=== PATIENT | male | born 1950 | race Caucasian/White ===

== ENCOUNTER 2023-06-13 16:08 | Inpatient (IN) | payer MEDICARE, BC, SELFPAY ==
[2023-06-13 16:15] VITALS: BP 145/73; PULSE 82; RESP 18; TEMP 36.7; O2SAT 100; BMI 26.8
--- NOTE | 2023-06-13 16:26 | ED_ITS ---
HPI - General Adult General Time Seen by Provider: 16:26 <Marty Moyer MD - Last Filed: 06/21/23 11:06> Date Seen: 06/13/23 <Marty Moyer MD - Last Filed: 06/21/23 11:06> Chief complaint: Difficulty Swallowing <Marty Moyer MD - Last Filed: 06/21/23 11:06> Stated complaint: Difficulty swallowing, stomach pain <Marty Moyer MD - Last Filed: 06/21/23 11:06> Time Seen by Provider: 06/13/23 16:23 <Marty Moyer MD - Last Filed: 06/21/23 11:06> Source: patient <Marty Moyer MD - Last Filed: 06/21/23 11:06> Mode of arrival: ambulatory <Marty Moyer MD - Last Filed: 06/21/23 11:06> Limitations: no limitations <Marty Moyer MD - Last Filed: 06/21/23 11:06> History of Present Illness HPI narrative: This 72-year-old male who comes in with 1 week of swallowing difficulty. Patient says the only thing he is able to tolerate for the last week is cream of wheat and liquids. He denies nausea vomiting. He denies any epigastric pain or history of heartburn. Distant history of smoking, denies alcohol use. Recently moved here from [place] <Marty Moyer MD - Last Filed: 06/21/23 11:06> Related Data Home medications: Home Medications Medication Instructions Recorded Confirmed apixaban 5 mg tablet (Eliquis) 5 mg PO BID 06/13/23 06/13/23 atorvastatin 40 mg tablet 80 mg PO DAILY 06/13/23 06/13/23 cholecalciferol (vitamin D3) 50 50 mcg PO DAILY 06/13/23 06/13/23 mcg (2,000 unit) capsule cilostazol 100 mg tablet 100 mg PO BID 06/13/23 06/13/23 clonidine HCl 0.1 mg tablet 0.1 mg PO BID 06/13/23 06/13/23 cyclopentolate 0.5 % eye drops 1 drp ophthalmic (eye-left) BID 06/13/23 06/13/23 (Cyclogyl) difluprednate 0.05 % eye drops 1 drp ophthalmic (eye-left) DAILY 06/13/23 06/13/23 dorzolamide 22.3 mg-timolol 6.8 1 drp ophthalmic (eye-left) BID 06/13/23 06/13/23 mg/mL eye drops glipizide 10 mg tablet 10 mg PO DAILY 06/13/23 06/13/23 lancets 06/13/23 06/13/23 losartan 25 mg tablet (Cozaar) 25 mg PO DAILY 06/13/23 06/13/23 mirtazapine 15 mg tablet 30 mg PO QHS 06/13/23 06/13/23 pantoprazole 40 mg tablet,delayed 40 mg PO DAILY 06/13/23 06/13/23 release (Protonix) tamsulosin 0.4 mg capsule (Flomax) 0.4 mg PO QHS 06/13/23 06/13/23 Previous Rx's Medication Instructions Recorded carvedilol 6.25 mg tablet 6.25 mg PO BID 30 days #60 tabs 06/18/23 clonazepam 0.5 mg tablet 0.5 mg PO BID 15 days #30 tabs 06/18/23 insulin NPH isoph U-100 human 100 8 unit (0.08 mL) subcut DAILY 30 06/18/23 unit/mL subcutaneous suspension days #3 mL (Humulin N NPH U-100 Insulin (isophane susp)) levofloxacin 250 mg tablet 250 mg PO DAILY 2 days #2 tabs 06/18/23 torsemide 5 mg tablet 15 mg (3 x 5 mg) PO DAILY 30 days 06/18/23 #90 tabs <Marty Moyer MD - Last Filed: 06/21/23 11:06> Allergies/adverse reactions: Allergies Allergy/AdvReac Type Severity Reaction Status Date / Time Penicillins Allergy Unknown Verified 06/13/23 16:15 <Marty Moyer MD - Last Filed: 06/21/23 11:06> [facility] Medical History: Medical History (Updated 06/19/23 @ 16:00 by Lashanda Lnyn PA-C) PVD (peripheral vascular disease) ?I73.9 - Peripheral vascular disease, unspecified (ICD-10) CKD (chronic kidney disease) ?N18.9 - Chronic kidney disease, unspecified (ICD-10) On prednisone therapy ?Z79.52 - shelter (current) use of systemic steroids (ICD-10) GERD (gastroesophageal reflux disease) ?K21.9 - Gastro-esophageal reflux disease without esophagitis (ICD-10) Congestive heart failure, unspecified ?I50.9 - Heart failure, unspecified (ICD-10) Chronic anticoagulation ?Z79.01 - [employer] intermedi[employer] (current) use of anticoagulants (ICD-10) Hyperlipidemia ?E78.5 - Hyperlipidemia, unspecified (ICD-10) Glaucoma ?H40.9 - Unspecified glaucoma (ICD-10) Psychiatric diagnosis deferred ?R69 - Illness, unspecified (ICD-10) Diabetes mellitus with hyperglycemia ?E11.65 - Type 2 diabetes mellitus with hyperglycemia (ICD-10) <Marty Moyer MD - Last Filed: 06/21/23 11:06> Social History: Social History What is your current living situation?: I presently have a place to live Problems where you live: no known problems Problems where you live details: n/a In the past 12 months, utilities in danger of being shut off: no In past 12 months, lack of transportation kept you from medical appts, meetings, work, or getting things needed for daily living: no In the past 12 mos, have been you worried that your food would run out before you had money to buy more?: never true In the past 12 mos, the food you bought just didn't last and you didn't have money to buy more?: never true Highest level of school completed/degree received: high school graduate Smoking Status: Former smoker Do you use any of these nicotine containing products: None Second hand tobacco smoke exposure: Yes How often do you have a drink containing alcohol: never How often do you have six or more drinks on one occasion: Never AUDIT-C Alcohol total score: 0 Non-prescribed substance use: denies use Caffeine: No How often does anyone, including family, friends and others, physically hurt you : never How often does anyone, including family, friends and others, insult or talk down to you: never How often does anyone, including family, friends and others, threaten you with harm: never How often does anyone, including family, friends and others, scream or curse at you: never service: Yes <Marty Moyer MD - Last Filed: 06/21/23 11:06> Exam Const: Vital Signs, click to edit/add: Vital Signs - 24 hr 06/13/23 16:15 06/13/23 16:38 06/13/23 18:31 Temperature 98.0 F Pulse Rate [Pulse Oximeter] 82 51 L 56 L Respiratory Rate 18 18 24 Blood Pressure [Ri ght Upper Arm] 145/73 H 155/101 H Pulse Oximetry 100 92 94 Oxygen Delivery Me thod Room Air Room Air Room Air 06/13/23 20:51 06/13/23 23:22 06/14/23 02:13 Temperature Pulse Rate [Pulse Oximeter] 65 55 L 58 L Respiratory Rate 18 18 18 Blood Pressure [Ri ght Upper Arm] 143/84 H 150/70 H Pulse Oximetry 95 93 95 Oxygen Delivery Me thod Room Air Room Air Room Air 06/14/23 04:39 Temperature Pulse Rate [Pulse Oximeter] 59 L Respiratory Rate 16 Blood Pressure [Ri ght Upper Arm] 155/77 H Pulse Oximetry 92 Oxygen Delivery Me thod Room Air <Marty Moyer MD - Last Filed: 06/21/23 11:06> Vital Signs, click to edit/add: Vital Signs - 24 hr 06/13/23 16:15 06/13/23 16:38 06/13/23 18:31 Temperature 98.0 F Pulse Rate [Pulse Oximeter] 82 51 L 56 L Respiratory Rate 18 18 24 Blood Pressure [Ri ght Upper Arm] 145/73 H 155/101 H Pulse Oximetry 100 92 94 Oxygen Delivery Me thod Room Air Room Air Room Air 06/13/23 20:51 06/13/23 23:22 06/14/23 02:13 Temperature Pulse Rate [Pulse Oximeter] 65 55 L 58 L Respiratory Rate 18 18 18 Blood Pressure [Ri ght Upper Arm] 143/84 H 150/70 H Pulse Oximetry 95 93 95 Oxygen Delivery Me thod Room Air Room Air Room Air 06/14/23 04:39 Temperature Pulse Rate [Pulse Oximeter] 59 L Respiratory Rate 16 Blood Pressure [Ri ght Upper Arm] 155/77 H Pulse Oximetry 92 Oxygen Delivery Me thod Room Air <Rose Galarza MD - Last Filed: 06/14/23 06:53> Course Course ED Course: Patient seen examined, prior records reviewed. Patient presents today complaining of progressive dysphagia for solids, still tolerating liquids. On exam, no tachycardia or hypotension to suggest dehydration. Labs ordered along with CT to evaluate for mass lesion. Patient will need an EGD and may need dilation based on findings. <Marty Moyer MD - Last Filed: 06/21/23 11:06> Reevaluation(s) Time of Reevaluation #1: 17:36 <Marty Moyer MD - Last Filed: 06/21/23 11:06> Reevaluation #1: Labs independently interpreted by me demonstrate creatinine of 2.5, unsure what patient's baseline is. IV fluids are ordered, CT scan will be done without contrast <Marty Moyer MD - Last Filed: 06/21/23 11:06> Time of Reevaluation #2: 18:00 <Marty Moyer MD - Last Filed: 06/21/23 11:06> Reevaluation #2: CT scan of the chest independently interpreted by me demonstrates small bilateral pleural effusions with patchy bilateral infiltrates <Marty Moyer MD - Last Filed: 06/21/23 11:06> Time of Reevaluation #3: 18:45 <Marty Moyer MD - Last Filed: 06/21/23 11:06> Reevaluation #3: CT scan does demonstrate a multifocal pneumonia versus malignancy, patient rechecked and says that he has a history of anemia but no history of kidney disease that he admits to. Generally patient is a difficult historian as he will not answer direct questions and answers tangentially. Labs independently interpreted by me with a hemoglobin 8.4, unclear what patient's baseline is but he does say he has anemia. Discussed admission versus discharge with the patient. He will discuss with family and they will make a decision. Protonix IV started as well as Rocephin and Flagyl for possible aspiration pneumonia. Suspect that patient may have reflux causing his swallowing difficulty and aspiration, patient will need repeat CT scan in 1-2 months to evaluate for resolution. <Marty Moyer MD - Last Filed: 06/21/23 11:06> Additional Reevaluation(s): Repeat labs reviewed at 6:30 a.m.. I do suspect that his renal disease is chronic, anemia is likely acute on chronic due to underlying renal disease but possible also GI issue. I will withhold transfusion for now. I spoke with our hospitalist team and they are agreeable to admission as well. He has been started on proton pump therapy. He has not exhibited any obvious signs of GI bleed for us. Antibiotics have been started appropriately. Patient remains on room air. Will need endoscopy. -Dr. Galarza <Rose Galarza MD - Last Filed: 06/14/23 06:53> Vital Signs Vital signs: Initial Vital Signs Temperature 98.0 F 06/13/23 16:15 Temperature Source Temporal Artery Scan 06/13/23 16:15 Pulse Rate 82 06/13/23 16:15 Pulse Rhythm Regular 06/13/23 16:15 Respiratory Rate 18 06/13/23 16:15 Blood Pressure 145/73 H 06/13/23 16:15 Blood Pressure Mean 97 06/13/23 16:15 Blood Pressure Position Sitting 06/13/23 16:15 Pulse Oximetry 100 06/13/23 16:15 Oxygen Delivery Method Room Air 06/13/23 16:15 Vital Signs Temperature 98.0 F 06/13/23 16:15 Pulse Rate 82 06/13/23 16:15 Respiratory Rate 18 06/13/23 16:15 Blood Pressure 145/73 H 06/13/23 16:15 Pulse Oximetry 100 06/13/23 16:15 Oxygen Delivery Method Room Air 06/13/23 16:15 Temperature 98.9 F 06/18/23 15:00 Pulse Rate 77 06/18/23 15:00 Respiratory Rate 16 06/18/23 15:00 Blood Pressure 152/80 H 06/18/23 15:00 Pulse Oximetry 93 06/18/23 16:15 Oxygen Delivery Method Room Air 06/18/23 16:15 Oxygen Flow Rate 0.5 06/17/23 03:00 Fraction of Inspired Oxygen 0.21 06/14/23 13:00 <Marty Moyer MD - Last Filed: 06/21/23 11:06> Initial Vital Signs Temperature 98.0 F 06/13/23 16:15 Temperature Source Temporal Artery Scan 06/13/23 16:15 Pulse Rate 82 06/13/23 16:15 Pulse Rhythm Regular 06/13/23 16:15 Respiratory Rate 18 06/13/23 16:15 Blood Pressure 145/73 H 06/13/23 16:15 Blood Pressure Mean 97 06/13/23 16:15 Blood Pressure Position Sitting 06/13/23 16:15 Pulse Oximetry 100 06/13/23 16:15 Oxygen Delivery Method Room Air 06/13/23 16:15 Vital Signs Temperature 98.0 F 06/13/23 16:15 Pulse Rate 82 06/13/23 16:15 Respiratory Rate 18 06/13/23 16:15 Blood Pressure 145/73 H 06/13/23 16:15 Pulse Oximetry 100 06/13/23 16:15 Oxygen Delivery Method Room Air 06/13/23 16:15 Temperature 98.9 F 06/18/23 15:00 Pulse Rate 77 06/18/23 15:00 Respiratory Rate 16 06/18/23 15:00 Blood Pressure 152/80 H 06/18/23 15:00 Pulse Oximetry 93 06/18/23 16:15 Oxygen Delivery Method Room Air 06/18/23 16:15 Oxygen Flow Rate 0.5 06/17/23 03:00 Fraction of Inspired Oxygen 0.21 06/14/23 13:00 <Rose Galarza MD - Last Filed: 06/14/23 06:53> Medical Decision Making Lab Data Labs: Lab Results 06/13/23 06/13/23 06/13/23 Range/Units 16:52 16:52 18:13 WBC 7.34 (4.50-11.00) K/uL RBC 2.89 L (4.30-5.90) m/uL Hgb 8.4 L (13.5-17.5) gm/dL Hct 25.5 L (37.0-53.0) % MCV 88 (80-100) fL MCH 29 (26-34) pg MCHC 33 (32-36) gm/dL RDW Coeff of Orestes 14.0 (11.5-15.5) % Plt Count 172 (140-440) K/uL Neut % (Auto) 90.1 H (42.0-72.0) % Lymph % (Auto) 5.0 L (20-44) % [place] % (Auto) 4.0 (0.0-11.0) % Eos % (Auto) 0.4 (0.0-7.0) % Baso % (Auto) 0.1 (0.0-3.0) % Neut # (Auto) 6.60 (1.7-7.0) K/uL Lymph # (Auto) 0.40 L (0.90-2.90) K/uL [place] # (Auto) 0.30 (0.00-0.90) K/UL Eos # (Auto) 0.03 (0.00-0.50) K/uL Baso # (Auto) 0.01 (0.00-0.30) K/uL Abs Immat Gran (auto) 0.03 (0.00-0.30) K/uL Imm/Tot Granulo (auto) 0.4 % Sodium 136 (135-149) mmol/L Potassium 3.8 (3.6-5.1) mmol/L Chloride 105 (96-114) mmol/L Carbon Dioxide 23 (20-32) mmol/L Anion Gap 8 (7-15) mEq/L BUN 50 H (7-30) mg/dL Creatinine 2.5 H (0.5-1.5) mg/dL Estimated Creat Clear 24.10 Estimated GFR 27 ml/min Glucose 316 H (60-115) mg/dL Hemoglobin A1c (0-5.6) % Uric Acid (2.2-8.4) mg/dL Calcium 7.9 L (8.4-10.6) mg/dL Magnesium 2.1 Cancelled (1.5-2.6) mg/dL Iron (49-181) ug/dL TIBC (261-462) ug/dL % Saturation (20-50) % Ferritin (17.9-464.0) ng/mL Total Bilirubin 0.7 (0.1-1.5) mg/dL Direct Bilirubin 0.0 (0.0-0.5) mg/dL AST 37 H (12-35) U/L ALT 31 (4-50) U/L Alkaline Phosphatase 89 (40-150) U/L Total Creatine Kinase (54-186) U/L Troponin I (0.01-0.04) ng/mL C-Reactive Protein 4.9 H (0.5-1.0) mg/dL NT-Pro-B Natriuret Pep pg/mL Total Protein 6.1 (6.0-8.3) g/dL Albumin 3.0 L (3.3-5.0) g/dL Procalcitonin 0.11 (<0.50) ng/mL Urine Color (Yellow) Urine Appearance (Clear) Urine pH (5.0-8.5) Ur Specific [place] (1.000-1.030) Urine Protein (Negative) Urine Glucose (UA) (Negative) Urine Ketones (Negative) Urine Blood (Negative) Urine Nitrite (Negative) Urine Bilirubin (Negative) Urine Urobilinogen (0.2-1.0) Ur Leukocyte Esterase (Negative) Urine RBC (0-2) Urine WBC (0-5) Ur Squamous Epith Cells (None-Few) Urine Bacteria (None) Urine Opiates Screen (Negative) Ur Oxycodone Screen (Negative) Urine Methadone Screen (Negative) Ur Propoxyphene Screen (Negative) Ur Barbiturates Screen (Negative) U Tricyclic Antidepress (Negative) Ur Phencyclidine Scrn (Negative) Ur Amphetamines Screen (Negative) U Methamphetamines Scrn (Negative) U Benzodiazepines Scrn (Negative) Urine Cocaine Screen (Negative) U Marijuana (THC) Screen (Negative) Ur Drug Screen Comment SARS-CoV-2 (PCR) (Negative) Influenza Type A (PCR) (Negative) Influenza Type B (PCR) (Negative) Lab Acknowledgement Test Added 06/14/23 06/14/23 06/14/23 Range/Units 02:00 05:55 08:51 WBC 7.11 (4.50-11.00) K/uL RBC 2.71 L (4.30-5.90) m/uL Hgb 7.9 L* (13.5-17.5) gm/dL Hct 23.7 L (37.0-53.0) % MCV 88 (80-100) fL MCH 29 (26-34) pg MCHC 33 (32-36) gm/dL RDW Coeff of Orestes 13.7 (11.5-15.5) % Plt Count 162 (140-440) K/uL Neut % (Auto) 80.4 H (42.0-72.0) % Lymph % (Auto) 10.0 L (20-44) % [place] % (Auto) 8.2 (0.0-11.0) % Eos % (Auto) 1.0 (0.0-7.0) % Baso % (Auto) 0.1 (0.0-3.0) % Neut # (Auto) 5.70 (1.7-7.0) K/uL Lymph # (Auto) 0.70 L (0.90-2.90) K/uL [place] # (Auto) 0.60 (0.00-0.90) K/UL Eos # (Auto) 0.07 (0.00-0.50) K/uL Baso # (Auto) 0.01 (0.00-0.30) K/uL Abs Immat Gran (auto) 0.02 (0.00-0.30) K/uL Imm/Tot Granulo (auto) 0.3 % Sodium 137 (135-149) mmol/L Potassium 3.7 (3.6-5.1) mmol/L Chloride 110 (96-114) mmol/L Carbon Dioxide 22 (20-32) mmol/L Anion Gap 5 L (7-15) mEq/L BUN 44 H (7-30) mg/dL Creatinine 2.2 H (0.5-1.5) mg/dL Estimated Creat Clear 27.39 Estimated GFR 31 ml/min Glucose 162 H (60-115) mg/dL Hemoglobin A1c 8.40 H (0-5.6) % Uric Acid 8.1 (2.2-8.4) mg/dL Calcium 7.7 L (8.4-10.6) mg/dL Magnesium (1.5-2.6) mg/dL Iron 38 L (49-181) ug/dL TIBC 206 L (261-462) ug/dL % Saturation 19 L (20-50) % Ferritin 411.0 (17.9-464.0) ng/mL Total Bilirubin (0.1-1.5) mg/dL Direct Bilirubin (0.0-0.5) mg/dL AST (12-35) U/L ALT (4-50) U/L Alkaline Phosphatase (40-150) U/L Total Creatine Kinase 107 (54-186) U/L Troponin I 0.07 H* (0.01-0.04) ng/mL C-Reactive Protein 2.8 H (0.5-1.0) mg/dL NT-Pro-B Natriuret Pep 52404 pg/mL Total Protein (6.0-8.3) g/dL Albumin (3.3-5.0) g/dL Procalcitonin 0.09 (<0.50) ng/mL Urine Color (Yellow) Urine Appearance (Clear) Urine pH (5.0-8.5) Ur Specific [place] (1.000-1.030) Urine Protein (Negative) Urine Glucose (UA) (Negative) Urine Ketones (Negative) Urine Blood (Negative) Urine Nitrite (Negative) Urine Bilirubin (Negative) Urine Urobilinogen (0.2-1.0) Ur Leukocyte Esterase (Negative) Urine RBC (0-2) Urine WBC (0-5) Ur Squamous Epith Cells (None-Few) Urine Bacteria (None) Urine Opiates Screen (Negative) Ur Oxycodone Screen (Negative) Urine Methadone Screen (Negative) Ur Propoxyphene Screen (Negative) Ur Barbiturates Screen (Negative) U Tricyclic Antidepress (Negative) Ur Phencyclidine Scrn (Negative) Ur Amphetamines Screen (Negative) U Methamphetamines Scrn (Negative) U Benzodiazepines Scrn (Negative) Urine Cocaine Screen (Negative) U Marijuana (THC) Screen (Negative) Ur Drug Screen Comment SARS-CoV-2 (PCR) Negative SARS-CoV-2 (Negative) Influenza Type A (PCR) Negative PCR FLU A (Negative) Influenza Type B (PCR) Negative PCR FLU B (Negative) Lab Acknowledgement Test Added 06/14/23 Range/Units 09:02 WBC (4.50-11.00) K/uL RBC (4.30-5.90) m/uL Hgb (13.5-17.5) gm/dL Hct (37.0-53.0) % MCV (80-100) fL MCH (26-34) pg MCHC (32-36) gm/dL RDW Coeff of Orestes (11.5-15.5) % Plt Count (140-440) K/uL Neut % (Auto) (42.0-72.0) % Lymph % (Auto) (20-44) % [place] % (Auto) (0.0-11.0) % Eos % (Auto) (0.0-7.0) % Baso % (Auto) (0.0-3.0) % Neut # (Auto) (1.7-7.0) K/uL Lymph # (Auto) (0.90-2.90) K/uL [place] # (Auto) (0.00-0.90) K/UL Eos # (Auto) (0.00-0.50) K/uL Baso # (Auto) (0.00-0.30) K/uL Abs Immat Gran (auto) (0.00-0.30) K/uL Imm/Tot Granulo (auto) % Sodium (135-149) mmol/L Potassium (3.6-5.1) mmol/L Chloride (96-114) mmol/L Carbon Dioxide (20-32) mmol/L Anion Gap (7-15) mEq/L BUN (7-30) mg/dL Creatinine (0.5-1.5) mg/dL Estimated Creat Clear Estimated GFR ml/min Glucose (60-115) mg/dL Hemoglobin A1c (0-5.6) % Uric Acid (2.2-8.4) mg/dL Calcium (8.4-10.6) mg/dL Magnesium (1.5-2.6) mg/dL Iron (49-181) ug/dL TIBC (261-462) ug/dL % Saturation (20-50) % Ferritin (17.9-464.0) ng/mL Total Bilirubin (0.1-1.5) mg/dL Direct Bilirubin (0.0-0.5) mg/dL AST (12-35) U/L ALT (4-50) U/L Alkaline Phosphatase (40-150) U/L Total Creatine Kinase (54-186) U/L Troponin I (0.01-0.04) ng/mL C-Reactive Protein (0.5-1.0) mg/dL NT-Pro-B Natriuret Pep pg/mL Total Protein (6.0-8.3) g/dL Albumin (3.3-5.0) g/dL Procalcitonin (<0.50) ng/mL Urine Color Yellow (Yellow) Urine Appearance Clear (Clear) Urine pH 5.5 (5.0-8.5) Ur Specific [place] 1.020 (1.000-1.030) Urine Protein 2+ A (Negative) Urine Glucose (UA) Trace A (Negative) Urine Ketones Negative (Negative) Urine Blood Trace-intact A (Negative) Urine Nitrite Negative (Negative) Urine Bilirubin Negative (Negative) Urine Urobilinogen 0.2 (0.2-1.0) Ur Leukocyte Esterase Negative (Negative) Urine RBC 0-2 (0-2) Urine WBC 0-2 (0-5) Ur Squamous Epith Cells Few (None-Few) Urine Bacteria Few A (None) Urine Opiates Screen Negative (Negative) Ur Oxycodone Screen Negative (Negative) Urine Methadone Screen Negative (Negative) Ur Propoxyphene Screen Negative (Negative) Ur Barbiturates Screen Negative (Negative) U Tricyclic Antidepress Negative (Negative) Ur Phencyclidine Scrn Negative (Negative) Ur Amphetamines Screen Negative (Negative) U Methamphetamines Scrn Negative (Negative) U Benzodiazepines Scrn Negative (Negative) Urine Cocaine Screen Negative (Negative) U Marijuana (THC) Screen Negative (Negative) Ur Drug Screen Comment See Note SARS-CoV-2 (PCR) (Negative) Influenza Type A (PCR) (Negative) Influenza Type B (PCR) (Negative) Lab Acknowledgement <Marty Moyer MD - Last Filed: 06/21/23 11:06> Lab Results 06/13/23 06/13/23 06/13/23 Range/Units 16:52 16:52 18:13 WBC 7.34 (4.50-11.00) K/uL RBC 2.89 L (4.30-5.90) m/uL Hgb 8.4 L (13.5-17.5) gm/dL Hct 25.5 L (37.0-53.0) % MCV 88 (80-100) fL MCH 29 (26-34) pg MCHC 33 (32-36) gm/dL RDW Coeff of Orestes 14.0 (11.5-15.5) % Plt Count 172 (140-440) K/uL Neut % (Auto) 90.1 H (42.0-72.0) % Lymph % (Auto) 5.0 L (20-44) % [place] % (Auto) 4.0 (0.0-11.0) % Eos % (Auto) 0.4 (0.0-7.0) % Baso % (Auto) 0.1 (0.0-3.0) % Neut # (Auto) 6.60 (1.7-7.0) K/uL Lymph # (Auto) 0.40 L (0.90-2.90) K/uL [place] # (Auto) 0.30 (0.00-0.90) K/UL Eos # (Auto) 0.03 (0.00-0.50) K/uL Baso # (Auto) 0.01 (0.00-0.30) K/uL Abs Immat Gran (auto) 0.03 (0.00-0.30) K/uL Imm/Tot Granulo (auto) 0.4 % Sodium 136 (135-149) mmol/L Potassium 3.8 (3.6-5.1) mmol/L Chloride 105 (96-114) mmol/L Carbon Dioxide 23 (20-32) mmol/L Anion Gap 8 (7-15) mEq/L BUN 50 H (7-30) mg/dL Creatinine 2.5 H (0.5-1.5) mg/dL Estimated Creat Clear 24.10 Estimated GFR 27 ml/min Glucose 316 H (60-115) mg/dL Hemoglobin A1c (0-5.6) % Uric Acid (2.2-8.4) mg/dL Calcium 7.9 L (8.4-10.6) mg/dL Magnesium 2.1 Cancelled (1.5-2.6) mg/dL Iron (49-181) ug/dL TIBC (261-462) ug/dL % Saturation (20-50) % Ferritin (17.9-464.0) ng/mL Total Bilirubin 0.7 (0.1-1.5) mg/dL Direct Bilirubin 0.0 (0.0-0.5) mg/dL AST 37 H (12-35) U/L ALT 31 (4-50) U/L Alkaline Phosphatase 89 (40-150) U/L Total Creatine Kinase (54-186) U/L Troponin I (0.01-0.04) ng/mL C-Reactive Protein 4.9 H (0.5-1.0) mg/dL NT-Pro-B Natriuret Pep pg/mL Total Protein 6.1 (6.0-8.3) g/dL Albumin 3.0 L (3.3-5.0) g/dL Procalcitonin 0.11 (<0.50) ng/mL Urine Color (Yellow) Urine Appearance (Clear) Urine pH (5.0-8.5) Ur Specific [place] (1.000-1.030) Urine Protein (Negative) Urine Glucose (UA) (Negative) Urine Ketones (Negative) Urine Blood (Negative) Urine Nitrite (Negative) Urine Bilirubin (Negative) Urine Urobilinogen (0.2-1.0) Ur Leukocyte Esterase (Negative) Urine RBC (0-2) Urine WBC (0-5) Ur Squamous Epith Cells (None-Few) Urine Bacteria (None) Urine Opiates Screen (Negative) Ur Oxycodone Screen (Negative) Urine Methadone Screen (Negative) Ur Propoxyphene Screen (Negative) Ur Barbiturates Screen (Negative) U Tricyclic Antidepress (Negative) Ur Phencyclidine Scrn (Negative) Ur Amphetamines Screen (Negative) U Methamphetamines Scrn (Negative) U Benzodiazepines Scrn (Negative) Urine Cocaine Screen (Negative) U Marijuana (THC) Screen (Negative) Ur Drug Screen Comment SARS-CoV-2 (PCR) (Negative) Influenza Type A (PCR) (Negative) Influenza Type B (PCR) (Negative) Lab Acknowledgement Test Added 06/14/23 06/14/23 06/14/23 Range/Units 02:00 05:55 08:51 WBC 7.11 (4.50-11.00) K/uL RBC 2.71 L (4.30-5.90) m/uL Hgb 7.9 L* (13.5-17.5) gm/dL Hct 23.7 L (37.0-53.0) % MCV 88 (80-100) fL MCH 29 (26-34) pg MCHC 33 (32-36) gm/dL RDW Coeff of Orestes 13.7 (11.5-15.5) % Plt Count 162 (140-440) K/uL Neut % (Auto) 80.4 H (42.0-72.0) % Lymph % (Auto) 10.0 L (20-44) % [place] % (Auto) 8.2 (0.0-11.0) % Eos % (Auto) 1.0 (0.0-7.0) % Baso % (Auto) 0.1 (0.0-3.0) % Neut # (Auto) 5.70 (1.7-7.0) K/uL Lymph # (Auto) 0.70 L (0.90-2.90) K/uL [place] # (Auto) 0.60 (0.00-0.90) K/UL Eos # (Auto) 0.07 (0.00-0.50) K/uL Baso # (Auto) 0.01 (0.00-0.30) K/uL Abs Immat Gran (auto) 0.02 (0.00-0.30) K/uL Imm/Tot Granulo (auto) 0.3 % Sodium 137 (135-149) mmol/L Potassium 3.7 (3.6-5.1) mmol/L Chloride 110 (96-114) mmol/L Carbon Dioxide 22 (20-32) mmol/L Anion Gap 5 L (7-15) mEq/L BUN 44 H (7-30) mg/dL Creatinine 2.2 H (0.5-1.5) mg/dL Estimated Creat Clear 27.39 Estimated GFR 31 ml/min Glucose 162 H (60-115) mg/dL Hemoglobin A1c 8.40 H (0-5.6) % Uric Acid 8.1 (2.2-8.4) mg/dL Calcium 7.7 L (8.4-10.6) mg/dL Magnesium (1.5-2.6) mg/dL Iron 38 L (49-181) ug/dL TIBC 206 L (261-462) ug/dL % Saturation 19 L (20-50) % Ferritin 411.0 (17.9-464.0) ng/mL Total Bilirubin (0.1-1.5) mg/dL Direct Bilirubin (0.0-0.5) mg/dL AST (12-35) U/L ALT (4-50) U/L Alkaline Phosphatase (40-150) U/L Total Creatine Kinase 107 (54-186) U/L Troponin I 0.07 H* (0.01-0.04) ng/mL C-Reactive Protein 2.8 H (0.5-1.0) mg/dL NT-Pro-B Natriuret Pep 83225 pg/mL Total Protein (6.0-8.3) g/dL Albumin (3.3-5.0) g/dL Procalcitonin 0.09 (<0.50) ng/mL Urine Color (Yellow) Urine Appearance (Clear) Urine pH (5.0-8.5) Ur Specific [place] (1.000-1.030) Urine Protein (Negative) Urine Glucose (UA) (Negative) Urine Ketones (Negative) Urine Blood (Negative) Urine Nitrite (Negative) Urine Bilirubin (Negative) Urine Urobilinogen (0.2-1.0) Ur Leukocyte Esterase (Negative) Urine RBC (0-2) Urine WBC (0-5) Ur Squamous Epith Cells (None-Few) Urine Bacteria (None) Urine Opiates Screen (Negative) Ur Oxycodone Screen (Negative) Urine Methadone Screen (Negative) Ur Propoxyphene Screen (Negative) Ur Barbiturates Screen (Negative) U Tricyclic Antidepress (Negative) Ur Phencyclidine Scrn (Negative) Ur Amphetamines Screen (Negative) U Methamphetamines Scrn (Negative) U Benzodiazepines Scrn (Negative) Urine Cocaine Screen (Negative) U Marijuana (THC) Screen (Negative) Ur Drug Screen Comment SARS-CoV-2 (PCR) Negative SARS-CoV-2 (Negative) Influenza Type A (PCR) Negative PCR FLU A (Negative) Influenza Type B (PCR) Negative PCR FLU B (Negative) Lab Acknowledgement Test Added 06/14/23 Range/Units 09:02 WBC (4.50-11.00) K/uL RBC (4.30-5.90) m/uL Hgb (13.5-17.5) gm/dL Hct (37.0-53.0) % MCV (80-100) fL MCH (26-34) pg MCHC (32-36) gm/dL RDW Coeff of Orest[place] (11.5-15.5) % Plt Count (140-440) K/uL Neut % (Auto) (42.0-72.0) % Lymph % (Auto) (20-44) % [place] % (Auto) (0.0-11.0) % Eos % (Auto) (0.0-7.0) % Baso % (Auto) (0.0-3.0) % Neut # (Auto) (1.7-7.0) K/uL Lymph # (Auto) (0.90-2.90) K/uL [place] # (Auto) (0.00-0.90) K/UL Eos # (Auto) (0.00-0.50) K/uL Baso # (Auto) (0.00-0.30) K/uL Abs Immat Gran (auto) (0.00-0.30) K/uL Imm/Tot Granulo (auto) % Sodium (135-149) mmol/L Potassium (3.6-5.1) mmol/L Chloride (96-114) mmol/L Carbon Dioxide (20-32) mmol/L Anion Gap (7-15) mEq/L BUN (7-30) mg/dL Creatinine (0.5-1.5) mg/dL Estimated Creat Clear Estimated GFR ml/min Glucose (60-115) mg/dL Hemoglobin A1c (0-5.6) % Uric Acid (2.2-8.4) mg/dL Calcium (8.4-10.6) mg/dL Magnesium (1.5-2.6) mg/dL Iron (49-181) ug/dL TIBC (261-462) ug/dL % Saturation (20-50) % Ferritin (17.9-464.0) ng/mL Total Bilirubin (0.1-1.5) mg/dL Direct Bilirubin (0.0-0.5) mg/dL AST (12-35) U/L ALT (4-50) U/L Alkaline Phosphatase (40-150) U/L Total Creatine Kinase (54-186) U/L Troponin I (0.01-0.04) ng/mL C-Reactive Protein (0.5-1.0) mg/dL NT-Pro-B Natriuret Pep pg/mL Total Protein (6.0-8.3) g/dL Albumin (3.3-5.0) g/dL Procalcitonin (<0.50) ng/mL Urine Color Yellow (Yellow) Urine Appearance Clear (Clear) Urine pH 5.5 (5.0-8.5) Ur Specific [place] 1.020 (1.000-1.030) Urine Protein 2+ A (Negative) Urine Glucose (UA) Trace A (Negative) Urine Ketones Negative (Negative) Urine Blood Trace-intact A (Negative) Urine Nitrite Negative (Negative) Urine Bilirubin Negative (Negative) Urine Urobilinogen 0.2 (0.2-1.0) Ur Leukocyte Esterase Negative (Negative) Urine RBC 0-2 (0-2) Urine WBC 0-2 (0-5) Ur Squamous Epith Cells Few (None-Few) Urine Bacteria Few A (None) Urine Opiates Screen Negative (Negative) Ur Oxycodone Screen Negative (Negative) Urine Methadone Screen Negative (Negative) Ur Propoxyphene Screen Negative (Negative) Ur Barbiturates Screen Negative (Negative) U Tricyclic Antidepress Negative (Negative) Ur Phencyclidine Scrn Negative (Negative) Ur Amphetamines Screen Negative (Negative) U Methamphetamines Scrn Negative (Negative) U Benzodiazepines Scrn Negative (Negative) Urine Cocaine Screen Negative (Negative) U Marijuana (THC) Screen Negative (Negative) Ur Drug Screen Comment See Note SARS-CoV-2 (PCR) (Negative) Influenza Type A (PCR) (Negative) Influenza Type B (PCR) (Negative) Lab Acknowledgement <Rose Galazra MD - Last Filed: 06/14/23 06:53> Discharge Plan Discharge Clinical Impression: Anemia, Dysphagia, Renal insufficiency, Multifocal pneumonia, Diabetes mellitus with hyperglycemia <Marty Moyer MD - Last Filed: 06/21/23 11:06> Condition: Improved <Marty Moyer MD - Last Filed: 06/21/23 11:06> Activity Level: No Restrictions and Activity as Tolerated <Marty Moyer MD - Last Filed: 06/21/23 11:06> No Restrictions and Activity as Tolerated <Rose Galarza MD - Last Filed: 06/14/23 06:53> Discharge Diet: Regular <Marty Moyer MD - Last Filed: 06/21/23 11:06> Regular <Rose Galarza MD - Last Filed: 06/14/23 06:53>
[2023-06-13 16:38] VITALS: PULSE 51; RESP 18; O2SAT 92
[2023-06-13 17:21] LABS: Chloride* 105 mmol/L (96-114); Sodium* 136 mmol/L (135-149)
[2023-06-13 17:22] LABS: Potassium* 3.8 mmol/L (3.6-5.1)
[2023-06-13 17:24] LABS: Carbon Dioxide* 23 mmol/L (20-32); Creatinine* 2.5 mg/dL (0.5-1.5); Estimated Glomerular Filt Rate 27 ml/min
[2023-06-13 17:25] LABS: Blood Urea Nitrogen* 50 mg/dL (7-30); Calcium* 7.9 mg/dL (8.4-10.6); Glucose* 316 mg/dL (60-115); Magnesium* 2.1 mg/dL (1.5-2.6)
[2023-06-13 17:26] LABS: Anion Gap 8 mEq/L (7-15)
--- NOTE | 2023-06-13 17:35 | CRLHL7_ITS ---
For Patients: As a result of the Century Cures Act, medical imaging exams and procedure reports are released immediately into your electronic medical record. You may view this report before your referring provider. If you have questions, please contact your health care provider. INDICATIONS: Dysphagia. Concern for esophageal or mediastinal mass. TECHNIQUE: CT chest without contrast. COMPARISON: None available. FINDINGS: Small bilateral pleural effusions, left greater than right. No pericardial effusion. Borderline/mildly enlarged nodes in the paratracheal, sub-carinal, para-aortic and prevascular regions. No definite CT evidence of esophageal lesion. No definite esophageal dilatation. Aortic atherosclerosis. Unenhanced thoracic aorta is normal in caliber. Main pulmonary artery is dilated to 3.3 cm. Prior median sternotomy and CABG with extensive standing rock coronary artery calcifications. Mild cardiomegaly. Soft tissues of the thoracic wall are unremarkable. No pneumothorax. Central airways are patent. There are irregular ground-glass and nodular opacities greatest in the bilateral upper and lower lobes, with denser areas of consolidation in the inferior aspect of the right upper lobe. Dense left lower lobe atelectasis. Benign right adrenal adenoma measures 19 mm. Cholelithiasis. Visualized upper abdomen is otherwise unremarkable. No acute or suspicious osseous abnormality. IMPRESSION: 1. Bilateral ground-glass and nodular opacities are worrisome for multifocal pneumonia. However, the irregular nodular opacities could represent malignancy/metastasis. At a minimum, CT follow-up in 1-2 months is recommended. 2. Small bilateral pleural effusions, left greater than right with dense left lower lobe atelectasis. 3. Borderline and mildly enlarged mediastinal lymphadenopathy is indeterminate and may be reactive. Attention to this on imaging follow-up is recommended as well. 4. No definite CT evidence of esophageal lesion. Endoscopy correlation could be considered when clinically appropriate. 5. Cholelithiasis. Dictated by Adalid Flaherty MD @ 06/13/2023 6:12:49 PM Please note that all CT scans at this facility use dose modulation, iterative reconstruction, and/or weight-based dosing when appropriate to reduce radiation dose to as low as reasonably achievable. Dictated by: Adalid Flaherty MD @ 06/13/2023 18:13:03 (Electronically Signed)
[2023-06-13] MEDS: 0.9 % SODIUM CHLORIDE 1000 ml 1,000 ML IV (17:55)
[2023-06-13 18:18] LABS: Basophils Absolute Auto 0.01 K/uL (0.00-0.30); Basophils Percent Auto 0.1 % (0.0-3.0); Eosinophils Absolute Auto 0.03 K/uL (0.00-0.50); Eosinophils Percent Auto 0.4 % (0.0-7.0); Hematocrit 25.5 % (37.0-53.0); Hemoglobin* 8.4 gm/dL (13.5-17.5); Immature Granulocytes Abs Auto 0.03 K/uL (0.00-0.30); Immature Granulocytes Pct Auto 0.4 %; Mean Corpuscular HGB Conc 33 gm/dL (32-36); Mean Corpuscular Hemoglobin 29 pg (26-34); Mean Corpuscular Volume 88 fL (80-100); Neutrophils Percent Auto 90.1 % (42.0-72.0); Platelet Count* 172 K/uL (140-440); Red Blood Count 2.89 m/uL (4.30-5.90); White Blood Count* 7.34 K/uL (4.50-11.00)
[2023-06-13 18:31] VITALS: BP 155/101; PULSE 56; RESP 24; O2SAT 94
[2023-06-13 18:31] LABS: Bilirubin Total* 0.7 mg/dL (0.1-1.5); Total Protein* 6.1 g/dL (6.0-8.3)
[2023-06-13 18:32] LABS: Alanine Aminotransferase* 31 U/L (4-50); Alkaline Phosphatase* 89 U/L (40-150); Aspartate Amino Transferase* 37 U/L (12-35)
[2023-06-13 18:33] LABS: Slide Review Reflex No
[2023-06-13] MEDS: PANTOPRAZOLE SODIUM 40 MG INJ IVP (19:01)
[2023-06-13] MEDS: cefTRIAXone 1 GM in 0.9 % SODIUM CHLORIDE Mini-bag 100 ML IVPB (19:09)
[2023-06-13] MEDS: metroNIDAZOLE 500 MG/100 ML PIGGYBACK 100 MG IVPB (19:09)
--- NOTE | 2023-06-13 19:55 | ED.NURSE ---
pt report given to oncoming RN.
[2023-06-13] MEDS: APIXABAN 5 MG TABLET PO (20:40)
[2023-06-13] MEDS: INSULIN NPH 100 UNIT/ML 10 UNIT SUBCUT (20:40)
[2023-06-13] MEDS: TAMSULOSIN HCL 0.4 MG CAPSULE PO (20:40)
[2023-06-13] MEDS: carvediloL 6.25 MG TABLET 3.125 MG PO (20:40)
[2023-06-13 20:51] VITALS: BP 143/84; PULSE 65; RESP 18; O2SAT 95
--- NOTE | 2023-06-13 20:53 | PC.NURSE ---
med surg bed obtained for patient to be more comfortable, patient offered ensure but declined
[2023-06-13 23:22] VITALS: PULSE 55; RESP 18; O2SAT 93
[2023-06-14] VITALS (8 sets, daily range): BP systolic 149–157; BP diastolic 65–83; PULSE 58–66; RESP 16–24; TEMP 36.6–36.8; O2SAT 92–100; BMI 27.2; BMI 27.1
[2023-06-14 02:51] LABS: PCR FLU A Negative PCR FLU A (Negative); PCR FLU B Negative PCR FLU B (Negative)
[2023-06-14 02:52] LABS: SARS PCR* Negative SARS-CoV-2 (Negative)
[2023-06-14] MEDS: metroNIDAZOLE 500 MG/100 ML PIGGYBACK 100 MG IVPB (04:33)
[2023-06-14 06:08] LABS: Basophils Absolute Auto 0.01 K/uL (0.00-0.30); Basophils Percent Auto 0.1 % (0.0-3.0); Eosinophils Absolute Auto 0.07 K/uL (0.00-0.50); Hematocrit 23.7 % (37.0-53.0); Immature Granulocytes Abs Auto 0.02 K/uL (0.00-0.30); Immature Granulocytes Pct Auto 0.3 %; Mean Corpuscular HGB Conc 33 gm/dL (32-36); Mean Corpuscular Hemoglobin 29 pg (26-34); Mean Corpuscular Volume 88 fL (80-100); Monocytes Percent Auto 8.2 % (0.0-11.0); Neutrophils Percent Auto 80.4 % (42.0-72.0); Platelet Count* 162 K/uL (140-440); RDW Coefficient of Variation % 13.7 % (11.5-15.5); Red Blood Count 2.71 m/uL (4.30-5.90); White Blood Count* 7.11 K/uL (4.50-11.00)
[2023-06-14 06:10] LABS: Hemoglobin* 7.9 gm/dL (13.5-17.5); Slide Review Reflex No
[2023-06-14 06:21] LABS: Chloride* 110 mmol/L (96-114); Potassium* 3.7 mmol/L (3.6-5.1); Sodium* 137 mmol/L (135-149)
[2023-06-14 06:23] LABS: Creatinine* 2.2 mg/dL (0.5-1.5); Est. Creatinine Clearance* 27.39; Estimated Glomerular Filt Rate 31 ml/min
[2023-06-14 06:24] LABS: Anion Gap 5 mEq/L (7-15); Blood Urea Nitrogen* 44 mg/dL (7-30); Calcium* 7.7 mg/dL (8.4-10.6); Carbon Dioxide* 22 mmol/L (20-32); Glucose* 162 mg/dL (60-115)
--- NOTE | 2023-06-14 09:08 | ED.NURSE ---
Report given to RUSS Lofton on M/S. All belongings sent with patient. EKG, urine and blood cultures completed before going to the floor. Patient was incontinent of urine and stool. Patient was cleaned up.
--- NOTE | 2023-06-14 09:12 | ED.NURSE ---
Attempted to call family (mother and [id number]) to let them know he is being admitted. Unable to reach family.
[2023-06-14 09:14] LABS: Appearance Urine Clear (Clear); Bilirubin Urine Negative (Negative); Blood Urine Trace-intact (Negative); Color Urine Yellow (Yellow); Glucose Urine Trace (Negative); Ketones Urine Negative (Negative); Leukocyte Esterase Urine Negative (Negative); Nitrite Urine Negative (Negative); Protein Urine 2+ (Negative); Urobilinogen Urine 0.2 (0.2-1.0); pH Urine 5.5 (5.0-8.5)
--- NOTE | 2023-06-14 09:21 | P.IMHP_ITS ---
Hospitalist- H&P: HPI History of Present Illness Date Seen: 06/14/23 Chief complaint: Difficulty swallowing, stomach pain Narrative: ADMISSION HISTORY AND PHYSICAL - HOSPITALIST Chief Complaint: I am having trouble swallowing, weak HPI: 72-year-old with a medical history significant for chronic anemia, heartburn, chronic psychiatric mood disorder, type 2 diabetes, glaucoma, hyperlipidemia, heart disease/CHF unclear history presents with worsening dysphagia. About 7 days prior to presentation he was unable to swallow solids. He has been existing on cream of wheat and fluids. No significant pain, hematemesis, vomiting, nausea. No history of esophageal stricture that he relates. However underlying illness, dementia, psychiatric illness makes his history difficult to obtain ER COURSE: Overnight observation secondary to unavailability of med surge beds. IV metronidazole and ceftriaxone. Chest CT shows multifocal pneumonia. Not hypoxic. Hospital medicine team was asked to admit for further evaluation of his acute dysphagia and chronic medical conditions. CODE STATUS: FULL CODE EMERGENCY CONTACT PLAN: Jhony Becerra Brother In Law Rel to Pat [phone] Cell Phone I've updated the PFSH, medications and allergies in the Expanse tabs. INVESTIGATIONS: LABS/MICRO/ECG/IMAGING Afebrile while in the ED Blood pressures have been running 140s to 150s over 70s to 101 Pulse rate in the 50s and 60s, on a beta-umer Respiratory rate 16 to 18, unlabored Pulse oximetry has been 93-95% on room air Weight 75.3 kilos CBC reflects a normocytic anemia with a hemoglobin of 8.4 on arrival and 7.9 this morning. MCV 88. No elevation in white blood cell count. Platelet count normal. Electrolytes are within normal limits. Creatinine is 2.2, 2.5 on arrival with a BUN that is elevated at 44 and 50 respectively. Glucose is been 316-162 given insulin in the ED Hemoglobin A1c 8.4 Calcium has been normal 7.9-7.7 Pro count and CRP are pending. Albumin 3.0 Urine pending Negative COVID and influenza -BLOOD CULTURES ARE OBTAINED. After 1st dose of ceftriaxone and metronidazole Chest CT - NON CON 1. Bilateral ground-glass and nodular opacities are worrisome for multifocal pneumonia. However, the irregular nodular opacities could represent malignancy/metastasis. At a minimum, CT follow-up in 1-2 months is recommended. 2. Small bilateral pleural effusions, left greater than right with dense left lower lobe atelectasis. 3. Borderline and mildly enlarged mediastinal lymphadenopathy is indeterminate and may be reactive. Attention to this on imaging follow-up is recommended as well. 4. No definite CT evidence of esophageal lesion. Endoscopy correlation could be considered when clinically appropriate. 5. Cholelithiasis. EKG PENDING. REVIEW OF SYSTEMS: 12-point ROS completed with patient and negative unless otherwise stated in HPI or below. PHYSICAL EXAM: CONSTITUTIONAL: disheveled; gives a pretty accurate history (minus dates and names) when compared with family. pleasant. VITAL SIGNS: see record. HEENT: Normocephalic, atraumatic. PERRL, EOMI, conjunctivae pink, no scleral icterus. Ears and nose externally normal. Pharynx normal. NECK: No JVD. No carotid bruit, no thyromegaly, no adenopathy. CHEST: left lung - crackles/rhonchi. no wheezes. HEART: S1 and S2 normal. No harsh murmurs. Edema minimal. MUSCULOSKELETAL: No gross joint deformity or swelling. NEURO: Cranial nerves intact. Grossly intact. No asymmetric findings. SKIN: No rashes, petechiae, concerning changes PSYCHIATRIC: Euthymic. ADMIT TO MEDSURG: FLOOR CARE DVT: SCD GI: PO intake, IV and PO PPI Time spent: Today I spent 75 minutes seeing the patient, discussing the patient with ER staff, reviewing Expanse and EPIC notes/diagnostics, discussing the care plan with our care time that includes social work, PT/OT, pharmacy, RT, nursing home and documenting my impressions and plan in the medical record. [facility] Medical History (Updated 06/14/23 @ 11:40 by Pattie España MD) PVD (peripheral vascular disease) ?I73.9 - Peripheral vascular disease, unspecified (ICD-10) CKD (chronic kidney disease) ?N18.9 - Chronic kidney disease, unspecified (ICD-10) On prednisone therapy ?Z79.52 - group home (current) use of systemic steroids (ICD-10) GERD (gastroesophageal reflux disease) ?K21.9 - Gastro-esophageal reflux disease without esophagitis (ICD-10) Congestive heart failure, unspecified ?I50.9 - Heart failure, unspecified (ICD-10) Chronic anticoagulation ?Z79.01 - group home (current) use of anticoagulants (ICD-10) Hyperlipidemia ?E78.5 - Hyperlipidemia, unspecified (ICD-10) Glaucoma ?H40.9 - Unspecified glaucoma (ICD-10) Psychiatric diagnosis deferred ?R69 - Illness, unspecified (ICD-10) Diabetes mellitus with hyperglycemia ?E11.65 - Type 2 diabetes mellitus with hyperglycemia (ICD-10) Social History Smoking Status: Never smoker Do you use any of these nicotine containing products: None Second hand tobacco smoke exposure: No How often do you have a drink containing alcohol: never How often do you have six or more drinks on one occasion: Never AUDIT-C Alcohol total score: 0 Non-prescribed substance use: denies use service: Yes Meds Home Medications and Allergies Home Medications Medication Instructions Recorded Confirmed Type apixaban 5 mg tablet (Eliquis) 5 mg PO BID 06/13/23 06/13/23 History atorvastatin 40 mg tablet 80 mg PO DAILY 06/13/23 06/13/23 History carvedilol 3.125 mg tablet 3.125 mg PO BID 06/13/23 06/13/23 History cholecalciferol (vitamin D3) 50 50 mcg PO DAILY 06/13/23 06/13/23 History mcg (2,000 unit) capsule cilostazol 100 mg tablet 100 mg PO BID 06/13/23 06/13/23 History clonidine HCl 0.1 mg tablet 0.1 mg PO BID 06/13/23 06/13/23 History cyclopentolate 0.5 % eye drops 1 drp ophthalmic (eye-left) BID 06/13/23 06/13/23 History (Cyclogyl) difluprednate 0.05 % eye drops 1 drp ophthalmic (eye-left) DAILY 06/13/23 06/13/23 History dorzolamide 22.3 mg-timolol 6.8 1 drp ophthalmic (eye-left) BID 06/13/23 06/13/23 History mg/mL eye drops glipizide 10 mg tablet 10 mg PO DAILY 06/13/23 06/13/23 History insulin NPH isoph U-100 human 100 10 - 25 unit subcut BID 06/13/23 06/14/23 History unit/mL subcutaneous suspension (Humulin N NPH U-100 Insulin (isophane susp)) lancets 06/13/23 06/13/23 History losartan 25 mg tablet (Cozaar) 25 mg PO DAILY 06/13/23 06/13/23 History mirtazapine 15 mg tablet 30 mg PO QHS 06/13/23 06/13/23 History pantoprazole 40 mg tablet,delayed 40 mg PO DAILY 06/13/23 06/13/23 History release (Protonix) prednisone 2.5 mg tablet 2.5 mg PO DAILY 06/13/23 06/13/23 History tamsulosin 0.4 mg capsule (Flomax) 0.4 mg PO QHS 06/13/23 06/13/23 History torsemide 20 mg tablet (Soaanz) 10 mg PO DAILY 06/13/23 06/13/23 History Allergies Allergy/AdvReac Type Severity Reaction Status Date / Time Penicillins Allergy Unknown Verified 06/13/23 16:15 Exam Const: Vital Signs, click to edit/add: Vital Signs - 24 hr 06/13/23 16:15 06/13/23 16:38 06/13/23 18:31 Temperature 98.0 F Pulse Rate [Pulse Oximeter] 82 51 L 56 L Respiratory Rate 18 18 24 Blood Pressure [Ri ght Upper Arm] 145/73 H 155/101 H Pulse Oximetry 100 92 94 Oxygen Delivery Me thod Room Air Room Air Room Air 06/13/23 20:51 06/13/23 23:22 06/14/23 02:13 Temperature Pulse Rate [Pulse Oximeter] 65 55 L 58 L Respiratory Rate 18 18 18 Blood Pressure [Ri ght Upper Arm] 143/84 H 150/70 H Pulse Oximetry 95 93 95 Oxygen Delivery Pr thod Room Air Room Air Room Air 06/14/23 04:39 06/14/23 08:24 Temperature 97.9 F Pulse Rate [Pulse Oximeter] 59 L 61 Respiratory Rate 16 16 Blood Pressure [Ri ght Upper Arm] 155/77 H 153/83 H Pulse Oximetry 92 93 Oxygen Delivery Pr thod Room Air Room Air Hospitalist - H&P: Result Labs Labs: Short CBC 06/13/23 06/14/23 Range/Units 16:52 05:55 WBC 7.34 7.11 (4.50-11.00) K/uL Hgb 8.4 L 7.9 L* (13.5-17.5) gm/dL Hct 25.5 L 23.7 L (37.0-53.0) % Plt Count 172 162 (140-440) K/uL BMP 06/13/23 06/14/23 16:52 05:55 Sodium 136 137 Potassium 3.8 3.7 Chloride 105 110 Carbon Dioxide 23 22 BUN 50 H 44 H Creatinine 2.5 H 2.2 H Glucose 316 H 162 H Calcium 7.9 L 7.7 L Liver Function 06/13/23 Range/Units 16:52 Total Bilirubin 0.7 (0.1-1.5) mg/dL Direct Bilirubin 0.0 (0.0-0.5) mg/dL AST 37 H (12-35) U/L ALT 31 (4-50) U/L Alkaline Phosphatase 89 (40-150) U/L Albumin 3.0 L (3.3-5.0) g/dL Assessment and Plan Assessment and plan (1) Dysphagia: Problem comment: -acute - 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 However, the irregular nodular opacities could represent malignancy/metastasis. At a minimum, CT follow-up in 1-2 months is recommended. -consider CT A/P and or brain MRI in work up. check kidney function in the am to see if we can adminster contrast -nebs, abx and RT cares as we sort out the dysphagia, weakness, etc. Status: Acute (4) Anemia: Problem comment: -acute on chronic? CKD? unclear at this time. No active bleeding identified on admission. -hold anticoagulation until this is sorted out -PPI started, iv, in the ED, continue oral -guiac stools -consider EGD -peripheral smear sent to pathology -iron studies reveal iron deficiency Status: Acute (5) Chronic anticoagulation: Problem comment: -unclear indication. hold for now with degree of anemia. on SCDs for DVT ppx. Status: Acute (6) PVD (peripheral vascular disease): Problem comment: -pt reports FEMPOP and previous stents. on cilostazol (Pletal). Right leg. Status: Acute (7) CKD (chronic kidney disease): Problem comment: -chronicity unknown. type 2 DM and PVD/HTN/CHF likely in the background Status: Acute (8) Diabetes mellitus with hyperglycemia: Problem comment: A1C 8.5 on Glucotrol and NPH SSI and accuchecks here the fact he is not on metformin likely indicates chronic CKD was known Status: Acute (9) On prednisone therapy: Problem comment: -indication unknown -undated med list from [facility] he was/is on a prednisone burst and taper for unknown reasons. will keep at 2.5mg now. Status: Acute (10) GERD (gastroesophageal reflux disease): Problem comment: -on PPI -unclear hx of severity or if there is a history of dilation Status: Acute (11) Congestive heart failure, unspecified: Problem comment: -elevated trop (in setting of elevated creatinine), elevated BNP? -pt states hx of ansarca (involving scrotum), pt states hx of 3V CABG -echo ordered -ekg shows bigeminy, previous infarct hx, myranda (on coreg) -requesting records from [place] [facility] ([facility]/[place]) 06/14 Status: Acute (12) Renal insufficiency: Problem comment: -degree of chronicity unknown -imaging limited to kidney function -fluid hydration -following Status: Acute (13) Glaucoma: Problem comment: -continue home meds Status: Acute (14) Psychiatric diagnosis deferred: Problem comment: -need records. bipolar, major depression? -family relates hx of: autism/on the spectrum, trouble with authority figures, poor sleep/motivation -clonidine, mirtazapine on home med list Status: Acute (15) Hyperlipidemia: Problem comment: -high dose statin on med list Status: Acute
[2023-06-14 09:32] LABS: C Reactive Protein* 4.9 mg/dL (0.5-1.0)
[2023-06-14 09:32] LABS: C Reactive Protein* 2.8 mg/dL (0.5-1.0)
[2023-06-14 09:33] LABS: Bacteria Urine Few; RBC Urine 0-2 (0-2); Squamous Epithelial Cell Urine Few (None-Few); WBC Urine 0-2 (0-5)
[2023-06-14 09:46] LABS: Procalcitonin* 0.11 ng/mL (<0.50)
[2023-06-14 09:47] LABS: Procalcitonin* 0.09 ng/mL (<0.50)
[2023-06-14 10:02] LABS: Troponin I* 0.07 ng/mL (0.01-0.04)
[2023-06-14 10:09] LABS: Iron* 38 ug/dL (49-181)
[2023-06-14 10:18] LABS: Percent Iron Saturation 19 % (20-50); Total Iron Binding Capacity 206 ug/dL (261-462)
[2023-06-14 10:52] LABS: NT Pro B Type NatriureticPept* 14600 pg/mL
[2023-06-14] MEDS: cilostazoL 100 MG TABLET PO (10:54)
[2023-06-14] MEDS: TORSEMIDE 20 MG TABLET 10 MG PO (10:54)
[2023-06-14] MEDS: OMEPRAZOLE 20 MG CAPSULE DR 40 MG PO (10:55)
[2023-06-14] MEDS: predniSONE 5 MG TABLET 2.5 MG PO (10:56)
[2023-06-14] MEDS: cloNIDine HCL 0.1 MG TABLET PO (10:56)
[2023-06-14] MEDS: LOSARTAN POTASSIUM 50 MG TABLET 25 MG PO (10:56)
[2023-06-14] MEDS: carvediloL 6.25 MG TABLET 3.125 MG PO (10:57)
[2023-06-14] MEDS: 0.9 % SODIUM CHLORIDE 1000 ml 1,000 ML 125 ML IV (11:03)
--- NOTE | 2023-06-14 11:18 | PC.NURSE ---
patient unsure of preferred pharmacy
[2023-06-14 12:27] LABS: Amphetamine Screen Urine Negative (Negative); Barbiturate Screen Urine Negative (Negative); Benzodiazepines Screen Urine Negative (Negative); Cannabinoid Screen Urine Negative (Negative); Cocaine Screen Urine Negative (Negative); Methadone Screen Urine Negative (Negative); Methamphetamines Screen Urine Negative (Negative); Opiate Screen Urine Negative (Negative); Oxycodone Screen Urine Negative (Negative); Phencyclidine Screen Urine Negative (Negative); Tricyclic Antidepressant Urine Negative (Negative)
[2023-06-14 12:28] LABS: Creatine Kinase* 107 U/L (54-186)
[2023-06-14 12:29] LABS: Uric Acid* 8.1 mg/dL (2.2-8.4)
[2023-06-14] MEDS: 0.9 % SODIUM CHLORIDE 500 ML 500 ML IV (12:35)
[2023-06-14 12:57] LABS: ABG PCO2 31 mmHG (35-45); Base Excess ABG -0.8 mmol/L (-3.0-3.0); HCO3 ABG 23 mmol/L (21-28); Oxygen Saturation ABG 86 % (92-100); TCO2 ABG 21 mmol/l (21-30); pH ABG 7.47 (7.35-7.45)
[2023-06-14 13:04] LABS: PO2 ABG 47.5 mmHG (80-105)
[2023-06-14] MEDS: SODIUM CHLORIDE 0.9 % (FLUSH) 10 ML SYRINGE 5 ML IVF (13:34)
[2023-06-14 13:49] LABS: Hemoglobin* 8.2 gm/dL (13.5-17.5)
[2023-06-14] MEDS: 0.9 % SODIUM CHLORIDE 1000 ml 1,000 ML 75 ML IV (14:08)
[2023-06-14] MEDS: ASPIRIN 81 MG TAB.CHEW 324 MG PO (14:09)
[2023-06-14 14:56] LABS: Chloride* 111 mmol/L (96-114); Potassium* 3.5 mmol/L (3.6-5.1); Sodium* 139 mmol/L (135-149)
[2023-06-14 14:58] LABS: Creatinine* 2.1 mg/dL (0.5-1.5); Est. Creatinine Clearance* 28.69; Estimated Glomerular Filt Rate 33 ml/min
[2023-06-14 14:59] LABS: Anion Gap 6 mEq/L (7-15); Blood Urea Nitrogen* 41 mg/dL (7-30); Calcium* 7.7 mg/dL (8.4-10.6); Carbon Dioxide* 22 mmol/L (20-32); Glucose* 117 mg/dL (60-115)
[2023-06-14 15:12] LABS: Troponin I* 0.08 ng/mL (0.01-0.04)
--- NOTE | 2023-06-14 18:35 | PC.NURSE ---
Patient arrived to Med/Surg around 09:15. Patient alert, oriented to self, place, and situation. Patient is withdrawn from activity, uses negative statements such as states cannot walk but stands at bedside and reports being unable to swallow but takes pills whole with thin liquids with no evidence of cough after. Not witnessed to ambulate but stands at beside with assist of 1 and walker. Independent bed mobility and will adjust as needed. Patient is continent of bladder and uses urinal in room. Patient denies pain, and states that he is unable to sleep and reports not sleeping for 2 days. Needs encouragement to participate in medical care and ADLs but is compliant with specific requests for tasks. Family supportive and at bedside during shift.
[2023-06-14] MEDS: timoloL maleate 0.5 % 1 DROP EYE-LEFT (21:49)
[2023-06-14] MEDS: DORZOLAMIDE HCL 2 % OPHTH DROP 1 DROP EYE-LEFT (21:53)
[2023-06-14] MEDS: INSULIN NPH 100 UNIT/ML 10 UNIT SUBCUT (21:57)
[2023-06-15] VITALS (10 sets, daily range): BP systolic 123–173; BP diastolic 58–98; PULSE 66–94; RESP 18–20; TEMP 36.4–37.7; O2SAT 88–99
[2023-06-15] MEDS: 0.9 % SODIUM CHLORIDE 1000 ml 1,000 ML 75 ML IV (01:28)
[2023-06-15] MEDS: IPRAT-ALBUT 0.5-2.5 MG/3 ML NEB 1 NEB IH (05:00)
[2023-06-15 07:07] LABS: HCO3 VBG 24 mmol/L (21-28); Ionized Calcium* 1.12 mmol/L (1.11-1.30); PCO2 VBG 39 mmHG (40-50); pH VBG 7.399 (7.32-7.43)
[2023-06-15 07:10] LABS: PO2 VBG < 20.0 mmHG (25-47)
[2023-06-15 07:15] LABS: Eosinophils Absolute Auto 0.05 K/uL (0.00-0.50); Eosinophils Percent Auto 0.7 % (0.0-7.0); Hemoglobin* 9.6 gm/dL (13.5-17.5); Immature Granulocytes Abs Auto 0.03 K/uL (0.00-0.30); Immature Granulocytes Pct Auto 0.4 %; Lymphocytes Percent Auto 6.5 % (20-44); Mean Corpuscular HGB Conc 32 gm/dL (32-36); Mean Corpuscular Hemoglobin 29 pg (26-34); Mean Corpuscular Volume 90 fL (80-100); Monocytes Percent Auto 7.9 % (0.0-11.0); Neutrophils Percent Auto 84.5 % (42.0-72.0); Platelet Count* 234 K/uL (140-440); RDW Coefficient of Variation % 13.8 % (11.5-15.5); Red Blood Count 3.34 m/uL (4.30-5.90); White Blood Count* 7.25 K/uL (4.50-11.00)
--- NOTE | 2023-06-15 07:34 | PC.NURSE ---
END OF SHIFT NOTE: PT C/O PHLEGM STUCK IN MY THROAT. PRODUCTIVE COUGH WITH CREAMY WHITE SPUTUM WITH STREAKS OF PINK. DENIES CP & N/V. PT REFUSED TO AMBULATE TO THE BATHROOM; STOOD AT BEDSIDE TO USE URINAL WITH WALKER AND A1. VSS ON 1L NC; AFEBRILE. CALL LIGHT WITHIN PT?S REACH. PT HAS BEEN NPO SINCE MIDNIGHT FOR SCOPE TODAY 06/15. PT REPORTS NOT BEING ABLE TO SLEEP. I HAVEN'T SLEPT IN MANY DAYS...7 DAYS. PT NOTED TO BE ASLEEP (EYES SHUT) ON AND OFF THROUGHOUT THE NIGHT. PT STATED HE WAS HALLUCINATING AT HOME D/T SLEEP DEPRIVATION. AT HOME I SAW CATS RUNNING AROUND... I DON'T HAVE CATS. PT REPORTS SEEING THINGS IN HOSPITAL ROOM. PT DESCRIBED LIGHTS PT WAS SEEING FROM SOAP DISPENSER AND MONITOR REFLECTIONS. ?
[2023-06-15 07:45] LABS: Slide Review Reflex No
[2023-06-15 07:47] LABS: Chloride* 113 mmol/L (96-114)
[2023-06-15 07:48] LABS: Potassium* 3.8 mmol/L (3.6-5.1); Sodium* 142 mmol/L (135-149)
[2023-06-15 07:50] LABS: Cholesterol* 129 mg/dL (90-199); Creatinine* 2.1 mg/dL (0.5-1.5); Est. Creatinine Clearance* 28.69; Estimated Glomerular Filt Rate 33 ml/min
[2023-06-15 07:51] LABS: Alkaline Phosphatase* 95 U/L (40-150); Anion Gap 6 mEq/L (7-15); Aspartate Amino Transferase* 31 U/L (12-35); Bilirubin Total* 0.8 mg/dL (0.1-1.5); Blood Urea Nitrogen* 35 mg/dL (7-30); Calcium* 8.2 mg/dL (8.4-10.6); Carbon Dioxide* 23 mmol/L (20-32); Gamma Glutamyl Transpeptidase* 40 U/L (8-55); Glucose* 94 mg/dL (60-115); Phosphorus* 2.9 mg/dL (2.5-4.5); Total Protein* 6.2 g/dL (6.0-8.3); Triglycerides* 104 mg/dL (40-149)
[2023-06-15 07:52] LABS: Alanine Aminotransferase* 30 U/L (4-50); HDL Cholesterol* 35 mg/dL (>=40); LDL Cholesterol Calculated 73 mg/dL (<100)
[2023-06-15 07:53] LABS: C Reactive Protein* 3.1 mg/dL (0.5-1.0)
[2023-06-15 07:57] LABS: NT Pro B Type NatriureticPept* 18600 pg/mL
[2023-06-15 08:01] LABS: Procalcitonin* 0.08 ng/mL (<0.50)
--- NOTE | 2023-06-15 08:21 | PM.IMPN1 ---
Progress Note: A&P Assessment and plan (1) Dysphagia: Problem details: -acute - progressive over the week [facility] [employer] [facility] -gastritis noted on ED -switch to IV PPI as he is refusing PO meds/intake Status: Acute (2) Multifocal pneumonia: Problem details: -pcn allergy. no fever. no WBC elevation. underlying -aspiration risk -ceftriaxone and flagyl in the ED - transition to IV levaquin for now Status: Acute (3) Pulmonary nodule: Problem details: -non con chest CT on 06/14: Bilateral ground-glass and nodular opacities are worrisome for multifocal pneumonia. However, the irregular nodular opacities could represent malignancy/metastasis. At a minimum, CT follow-up in 1-2 months is recommended. -consider CT A/P and or brain MRI in work up. kidney function limits contrast use -nebs, abx and RT cares as we sort out the dysphagia, weakness, etc. Status: Acute (4) Infiltrative cardiomyopathy: Problem details: Final Impressions: 1. Normal left ventricular size, moderately increased wall thickness, mildly reduced global systolic function, calculated EF of 48 %. 2. Current global longitudinal strain is abnormal at -6 %. The strain pattern is characteristic of apical sparing suggestive of infiltrative disease (amyloidosis). 3. Right ventricular cavity size is moderately enlarged, global systolic RV function is mildly reduced. 4. Severely enlarged left atrium. 5. The aortic valve is calcified, mild stenosis and mild regurgitation. The aortic valve peak velocity is 2.3 m/s, the peak gradient is 21 mmHg, and the mean gradient is 12 mmHg. The aortic valve area is 1.60 cm?? with a dimensionless index of 0.43. The stroke volume index is 44.0 ml/m??. 6. The mitral valve is mild posterior annular calcification, trace mitral regurgitation. 7. Tricuspid valve is tethered. 8. Moderate tricuspid regurgitation. 9. Mildly increased estimated pulmonary pressures by tricuspid regurgitation velocity and right atrial pressure (30 mmHg plus RAP). 10. Trivial pericardial effusion. 11. Large pleural effusion. Status: Acute (5) Anemia: Problem details: -acute on chronic? CKD? unclear at this time. No active bleeding identified on admission. -hold anticoagulation until this is sorted out -PPI IV -guiac stools -EGD shows gastritis -peripheral smear sent to pathology -iron studies reveal iron deficiency Status: Acute (6) Chronic anticoagulation: Problem details: -unclear indication. hold for now with degree of anemia. on SCDs for DVT ppx. Status: Acute (7) PVD (peripheral vascular disease): Problem details: -pt reports FEMPOP and previous stents. on cilostazol (Pletal). Right leg. Status: Acute (8) CKD (chronic kidney disease): Problem details: -chronicity unknown. type 2 DM and PVD/HTN/CHF likely in the background Status: Acute (9) Diabetes mellitus with hyperglycemia: Problem details: A1C 8.4 on Glucotrol and NPH SSI and accuchecks here the fact he is not on metformin likely indicates chronic CKD was known Status: Acute (10) On prednisone therapy: Problem details: -indication unknown -undated med list from [facility] he was/is on a prednisone burst and taper for unknown reasons. will keep at 2.5mg now. Status: Acute (11) GERD (gastroesophageal reflux disease): Problem details: -on PPI -unclear hx of severity or if there is a history of dilation -await biopsy results from EGD 06/15/23 Status: Acute (12) Congestive heart failure, unspecified: Problem details: -elevated trop (in setting of elevated creatinine), elevated BNP - increase torsemide. wean off IVF as to alleviate risk of fluid overload. 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 autistic spectrum, schizoaffective likely -family relates hx of: autism/on the spectrum, trouble with authority figures, poor sleep/motivation -clonidine, mirtazapine on home med list Status: Acute (16) Hyperlipidemia: Problem details: -high dose statin on med list Status: Acute Subjective Date Seen: 06/15/23 Interval history: Daily Progress Note - Hospital Medicine Day #:2 CC: dysphagia (gastritis), pneumonia, OVERNIGHT UPDATES FROM STAFF & MED, LAB, IMAGING UPDATES stable night. titrated on oxygen to 1-2L NC. EGD 06/15 (today) showed a mod severe gastritis. bx pending. coughing maybe a little more productive constant. T-max is 99.9? overnight Blood pressure is 173/83, 142/64 Pulse 60s Respiratory rate 18 to 20, mildly labored Sats are 91-93% on 1 L Weight 80 kilos, this is up 76.3 kilos 06/14 Hemoglobin is stable at 9.6 White blood cell count remains normal Platelets remain normal PH is stable. No CO2 retention. Potassium has improved to 3.8 Renal function is stable with a BUN of 35, creatinine 2.1, upon presentation he was 2.5 Glucose is well managed. Iron deficient Liver enzymes are all within normal limits Troponin is trending up slowly but really just flat 0.07-0.09 Albumin is low Procalcitonin is reassuring, CRP is down trending and or flat No MRSA was identified. Blood cultures are negative x2 at 12:00 p.m.. Final Impressions: 1. Normal left ventricular size, moderately increased wall thickness, mildly reduced global systolic function, calculated EF of 48 %. 2. Current global longitudinal strain is abnormal at -6 %. The strain pattern is characteristic of apical sparing suggestive of infiltrative disease (amyloidosis). 3. Right ventricular cavity size is moderately enlarged, global systolic RV function is mildly reduced. 4. Severely enlarged left atrium. 5. The aortic valve is calcified, mild stenosis and mild regurgitation. The aortic valve peak velocity is 2.3 m/s, the peak gradient is 21 mmHg, and the mean gradient is 12 mmHg. The aortic valve area is 1.60 cm?? with a dimensionless index of 0.43. The stroke volume index is 44.0 ml/m??. 6. The mitral valve is mild posterior annular calcification, trace mitral regurgitation. 7. Tricuspid valve is tethered. 8. Moderate tricuspid regurgitation. 9. Mildly increased estimated pulmonary pressures by tricuspid regurgitation velocity and right atrial pressure (30 mmHg plus RAP). 10. Trivial pericardial effusion. 11. Large pleural effusion. Objective: Vitals: see above Lungs: Clear. Cardiac: S1S2. Disposition/Potential discharge - Likely to return to previous living situation. Today I spent 50minutes seeing the patient, reviewing Expanse and EPIC notes/diagnostics, discussing the care plan with our care time that includes social work, PT/OT, pharmacy, RT, correction and documenting my impressions and plan in the medical record. Exam Const: Vital Signs, click to edit/add: Vital Signs - 24 hr 06/14/23 08:24 06/14/23 09:18 06/14/23 09:18 Temperature 97.9 F 98.3 F Pulse Rate Pulse Rate [Pulse Oximeter] 61 62 Respiratory Rate 16 20 20 Blood Pressure [Ri ght Arm] 149/74 H Blood Pressure [Ri ght Upper Arm] 153/83 H Pulse Oximetry 93 94 94 Oxygen Delivery Me thod Room Air Room Air Room Air Oxygen Flow Rate Fraction of Inspir ed Oxygen 06/14/23 10:35 06/14/23 13:00 06/14/23 14:49 Temperature 98.3 F Pulse Rate 62 Pulse Rate [Pulse Oximeter] 65 Respiratory Rate 24 Blood Pressure [Ri ght Arm] 157/73 H Blood Pressure [Ri ght Upper Arm] Pulse Oximetry 100 Oxygen Delivery Me thod Room Air Nasal Cannula Oxygen Flow Rate 2 Fraction of Inspir ed Oxygen 0.21 06/14/23 15:00 06/14/23 15:00 06/14/23 15:00 Temperature Pulse Rate 66 Pulse Rate [Pulse Oximeter] Respiratory Rate 24 Blood Pressure [Ri ght Arm] Blood Pressure [Ri ght Upper Arm] Pulse Oximetry 98 98 Oxygen Delivery Me thod Nasal Cannula Oxygen Flow Rate 2 Fraction of Inspir ed Oxygen 06/14/23 19:55 06/15/23 01:20 06/15/23 01:20 Temperature 98.3 F Pulse Rate 70 Pulse Rate [Pulse Oximeter] 66 Respiratory Rate 18 Blood Pressure [Ri ght Arm] 152/65 H Blood Pressure [Ri ght Upper Arm] Pulse Oximetry 98 98 Oxygen Delivery Me thod Nasal Cannula Oxygen Flow Rate Fraction of Inspir ed Oxygen 06/15/23 01:20 06/15/23 01:20 06/15/23 01:20 Temperature 98.3 F Pulse Rate Pulse Rate [Pulse Oximeter] 70 70 Respiratory Rate 18 18 18 Blood Pressure [Ri ght Arm] 151/58 H Blood Pressure [Ri ght Upper Arm] Pulse Oximetry 96 96 Oxygen Delivery Me thod Nasal Cannula Nasal Cannula Oxygen Flow Rate 1 1 Fraction of Inspir ed Oxygen 06/15/23 05:00 Temperature Pulse Rate Pulse Rate [Pulse Oximeter] 68 Respiratory Rate 20 Blood Pressure [Ri ght Arm] 162/98 H Blood Pressure [Ri ght Upper Arm] Pulse Oximetry 95 Oxygen Delivery Me thod Nasal Cannula Oxygen Flow Rate 1 Fraction of Inspir ed Oxygen Labs Labs: Laboratory Results - last 24 hr 06/13/23 06/14/23 06/14/23 16:52 05:55 08:51 WBC RBC Hgb Hct MCV MCH MCHC RDW Coeff of Orestes Plt Count Neut % (Auto) Lymph % (Auto) Randall % (Auto) Eos % (Auto) Baso % (Auto) Neut # (Auto) Lymph # (Auto) Randall # (Auto) Eos # (Auto) Baso # (Auto) Abs Immat Gran (auto) Imm/Tot Granulo (auto) ABG pH ABG pCO2 ABG pO2 ABG HCO3 ABG Total CO2 ABG O2 Saturation ABG Base Excess VBG pH VBG pCO2 VBG pO2 VBG HCO3 Carboxyhemoglobin Sodium Potassium Chloride Carbon Dioxide Anion Gap BUN Creatinine Estimated Creat Clear Estimated GFR Glucose Uric Acid 8.1 Calcium Ionized Calcium Travis Phosphorus Iron 38 L TIBC 206 L % Saturation 19 L Ferritin 411.0 Total Bilirubin Direct Bilirubin GGT AST ALT Alkaline Phosphatase Total Creatine Kinase 107 Troponin I 0.07 H* C-Reactive Protein 4.9 H 2.8 H NT-Pro-B Natriuret Pep 23739 Total Protein Albumin Triglycerides Cholesterol LDL Cholesterol, Calc HDL Cholesterol Procalcitonin 0.11 0.09 Urine Color Urine Appearance Urine pH Ur Specific Troy Urine Protein Urine Glucose (UA) Urine Ketones Urine Blood Urine Nitrite Urine Bilirubin Urine Urobilinogen Ur Leukocyte Esterase Urine RBC Urine WBC Ur Squamous Epith Cells Urine Bacteria Urine Opiates Screen Ur Oxycodone Screen Urine Methadone Screen Ur Propoxyphene Screen Ur Barbiturates Screen U Tricyclic Antidepress Ur Phencyclidine Scrn Ur Amphetamines Screen U Methamphetamines Scrn U Benzodiazepines Scrn Urine Cocaine Screen U Marijuana (THC) Screen Ur Drug Screen Comment Lab Acknowledgement Test Added 06/14/23 06/14/23 06/14/23 09:02 09:16 09:36 WBC RBC Hgb Hct MCV MCH MCHC RDW Coeff of Orestes Plt Count Neut % (Auto) Lymph % (Auto) Randall % (Auto) Eos % (Auto) Baso % (Auto) Neut # (Auto) Lymph # (Auto) Randall # (Auto) Eos # (Auto) Baso # (Auto) Abs Immat Gran (auto) Imm/Tot Granulo (auto) ABG pH ABG pCO2 ABG pO2 ABG HCO3 ABG Total CO2 ABG O2 Saturation ABG Base Excess VBG pH VBG pCO2 VBG pO2 VBG HCO3 Carboxyhemoglobin Sodium Potassium Chloride Carbon Dioxide Anion Gap BUN Creatinine Estimated Creat Clear Estimated GFR Glucose Uric Acid Calcium Ionized Calcium Travis Phosphorus Iron TIBC % Saturation Ferritin Total Bilirubin Direct Bilirubin GGT AST ALT Alkaline Phosphatase Total Creatine Kinase Troponin I C-Reactive Protein NT-Pro-B Natriuret Pep Total Protein Albumin Triglycerides Cholesterol LDL Cholesterol, Calc HDL Cholesterol Procalcitonin Urine Color Yellow Urine Appearance Clear Urine pH 5.5 Ur Specific Troy 1.020 Urine Protein 2+ A Urine Glucose (UA) Trace A Urine Ketones Negative Urine Blood Trace-intact A Urine Nitrite Negative Urine Bilirubin Negative Urine Urobilinogen 0.2 Ur Leukocyte Esterase Negative Urine RBC 0-2 Urine WBC 0-2 Ur Squamous Epith Cells Few Urine Bacteria Few A Urine Opiates Screen Negative Ur Oxycodone Screen Negative Urine Methadone Screen Negative Ur Propoxyphene Screen Negative Ur Barbiturates Screen Negative U Tricyclic Antidepress Negative Ur Phencyclidine Scrn Negative Ur Amphetamines Screen Negative U Methamphetamines Scrn Negative U Benzodiazepines Scrn Negative Urine Cocaine Screen Negative U Marijuana (THC) Screen Negative Ur Drug Screen Comment See Note Lab Acknowledgement Test Added Test Added 06/14/23 06/14/23 06/14/23 10:05 10:08 11:44 WBC RBC Hgb Hct MCV MCH MCHC RDW Coeff of Orestes Plt Count Neut % (Auto) Lymph % (Auto) Randall % (Auto) Eos % (Auto) Baso % (Auto) Neut # (Auto) Lymph # (Auto) Randall # (Auto) Eos # (Auto) Baso # (Auto) Abs Immat Gran (auto) Imm/Tot Granulo (auto) ABG pH 7.47 H ABG pCO2 31 L ABG pO2 47.5 L* ABG HCO3 23 ABG Total CO2 21 ABG O2 Saturation 86 L ABG Base Excess -0.8 VBG pH VBG pCO2 VBG pO2 VBG HCO3 Carboxyhemoglobin 2.0 Sodium Potassium Chloride Carbon Dioxide Anion Gap BUN Creatinine Estimated Creat Clear Estimated GFR Glucose Uric Acid Calcium Ionized Calcium Travis Phosphorus Iron TIBC % Saturation Ferritin Total Bilirubin Direct Bilirubin GGT AST ALT Alkaline Phosphatase Total Creatine Kinase Troponin I C-Reactive Protein NT-Pro-B Natriuret Pep Total Protein Albumin Triglycerides Cholesterol LDL Cholesterol, Calc HDL Cholesterol Procalcitonin Urine Color Urine Appearance Urine pH Ur Specific Troy Urine Protein Urine Glucose (UA) Urine Ketones Urine Blood Urine Nitrite Urine Bilirubin Urine Urobilinogen Ur Leukocyte Esterase Urine RBC Urine WBC Ur Squamous Epith Cells Urine Bacteria Urine Opiates Screen Ur Oxycodone Screen Urine Methadone Screen Ur Propoxyphene Screen Ur Barbiturates Screen U Tricyclic Antidepress Ur Phencyclidine Scrn Ur Amphetamines Screen U Methamphetamines Scrn U Benzodiazepines Scrn Urine Cocaine Screen U Marijuana (THC) Screen Ur Drug Screen Comment Lab Acknowledgement Test Added Test Added 06/14/23 06/15/23 13:40 06:48 WBC 7.25 RBC 3.34 L Hgb 8.2 L 9.6 L Hct 30.0 L MCV 90 MCH 29 MCHC 32 RDW Coeff of Orestes 13.8 Plt Count 234 Neut % (Auto) 84.5 H Lymph % (Auto) 6.5 L Randall % (Auto) 7.9 Eos % (Auto) 0.7 Baso % (Auto) 0.0 Neut # (Auto) 6.10 Lymph # (Auto) 0.50 L Randall # (Auto) 0.60 Eos # (Auto) 0.05 Baso # (Auto) 0.00 Abs Immat Gran (auto) 0.03 Imm/Tot Granulo (auto) 0.4 ABG pH ABG pCO2 ABG pO2 ABG HCO3 ABG Total CO2 ABG O2 Saturation ABG Base Excess VBG pH 7.399 VBG pCO2 39 L VBG pO2 < 20.0 L VBG HCO3 24 Carboxyhemoglobin Sodium 139 142 Potassium 3.5 L 3.8 Chloride 111 113 Carbon Dioxide 22 23 Anion Gap 6 L 6 L BUN 41 H 35 H Creatinine 2.1 H 2.1 H Estimated Creat Clear 28.69 28.69 Estimated GFR 33 33 Glucose 117 H 94 Uric Acid Calcium 7.7 L 8.2 L Ionized Calcium Travis 1.12 Phosphorus 2.9 Iron TIBC % Saturation Ferritin Total Bilirubin 0.8 Direct Bilirubin 0.0 GGT 40 AST 31 ALT 30 Alkaline Phosphatase 95 Total Creatine Kinase Troponin I 0.08 H* C-Reactive Protein 3.1 H NT-Pro-B Natriuret Pep 89440 Total Protein 6.2 Albumin 3.0 L Triglycerides 104 Cholesterol 129 LDL Cholesterol, Calc 73 HDL Cholesterol 35 L Procalcitonin 0.08 Urine Color Urine Appearance Urine pH Ur Specific Troy Urine Protein Urine Glucose (UA) Urine Ketones Urine Blood Urine Nitrite Urine Bilirubin Urine Urobilinogen Ur Leukocyte Esterase Urine RBC Urine WBC Ur Squamous Epith Cells Urine Bacteria Urine Opiates Screen Ur Oxycodone Screen Urine Methadone Screen Ur Propoxyphene Screen Ur Barbiturates Screen U Tricyclic Antidepress Ur Phencyclidine Scrn Ur Amphetamines Screen U Methamphetamines Scrn U Benzodiazepines Scrn Urine Cocaine Screen U Marijuana (THC) Screen Ur Drug Screen Comment Lab Acknowledgement
[2023-06-15 09:00] LABS: Troponin I* 0.09 ng/mL (0.01-0.04)
[2023-06-15] MEDS: LORazepam 2 MG/ML inj IVP ×2 (09:19→22:18)
[2023-06-15] MEDS: 5 % DEXTROSE IN LAC RINGER'S 1,000 ML 100 ML IV (10:20)
--- NOTE | 2023-06-15 10:26 | REH.OT ---
OT: Orders received, chart reviewed. Per nsg, OT/PT to hold today due to patient behavior and needing ativan. Will reschedule eval.
[2023-06-15 10:43] LABS: Immature Reticulocyte Fraction 13.5 % (2.3-13.4); Reticulocyte Hemoglobin Equivi 23.4 pg (29.0-35.0); Reticulocyte Percent 2.5 % (0.5-2.0); Reticulocytes Absolute 0.08 # (0.03-0.08)
--- NOTE | 2023-06-15 11:02 | REH.PT ---
PT eval held today as pt agitated and received Ativan, not appropriate for therapy. Will eval tomorrow is appropriate.
--- NOTE | 2023-06-15 12:02 | W.ANESCHARGE ---
Anesthesia Charges Start Date/Time Anesthesia Start Date: 06/15/23 Anesthesia Start Time: 11:45 Stop Date/Time Anesthesia Stop Date: 06/15/23 Anesthesia Stop Time: 12:10 Summary Extremes of Age - Over 70 or under 1: MDA
--- NOTE | 2023-06-15 12:13 | W.ANESCHARGE ---
Anesthesia Charges Start Date/Time Anesthesia Start Date: 06/15/23 Anesthesia Start Time: 11:45 Stop Date/Time Anesthesia Stop Date: 06/15/23 Anesthesia Stop Time: 12:10
[2023-06-15 14:46] LABS: Fecal Occult Blood* Negative (Negative)
[2023-06-15] MEDS: 0.9 % SODIUM CHLORIDE 250 ml IV (15:05)
[2023-06-15] MEDS: PANTOPRAZOLE SODIUM 40 MG INJ IVP (15:05)
--- NOTE | 2023-06-15 15:17 | PC.NURSE ---
Elevated BP, otherwise VSS. Sats high 90s, 1.5 L. Denies pain. Some confusion. Uncomfortable, restless, pt stating brain locked and can't turn off- 1 mg IV ativan given w/ relief. LS coarse, crackles- stridor. Unable to swallow this AM- refusing oral medications. Went down for EGD ~1100- took biopsy. When returned able to eat, tolerated milkshake, mashed potatoes & gravy, & fruit cup. Multiple BM's after this intake. Some formed, some loose. Voiding WNL. Up w/ assist of 1. PIV in right IV- intermittent IV abx. Family here this afternoon. Will continue to monitor, follow POC, and keep pt and family updated. Madison Mohr RN
--- NOTE | 2023-06-15 16:35 | PC.SOCIAL ---
Discharge planning- Met with pt, pt's mother, pt's brother, and pt's [id number] in pt's room to discuss discharge plans. Pt's brother would like to be the primary contact for discharge planning. He typically works from 7:00 am to 3:30 pm, but will respond. Informed that PT/OT evaluations were on hold and they may complete evaluations this weekend. Informed the family that therapy would provide recommendations on discharge. Family is ok with pt going to rehab if that is what is recommended. Pt's brother informs that they all live together. Pt's brother moved to [place] 2 years ago, pt's mother moved here 2 months ago, and pt moved to [place] 7 days ago (Pt got here via airplane). Social work will follow up with family on Sunday after receiving discharge recommendations.
--- NOTE | 2023-06-15 18:36 | PC.NURSE ---
shift note: pt up 1/walker. pt incont of stool x3. Pt denies pain. LS dim bilaterally. pt requires 1L pnc O2 to keep sats >92%. Pt instructed on IS use and performed 10 x's @ 750. IV patent. pt expressing scattered thoughts and has rambling conversation pattern. pt talks about taking ativan on the [place]erre[place]. Pt talking about protons in nerves are feeling better. Pt up 1/walker with steady gait. vss stable. pt afeb
[2023-06-15] MEDS: cloNIDine HCL 0.1 MG TABLET PO (22:10)
[2023-06-15] MEDS: TAMSULOSIN HCL 0.4 MG CAPSULE PO (22:10)
[2023-06-15] MEDS: ATORVASTATIN CALCIUM 40 MG TABLET 80 MG PO (22:10)
[2023-06-15] MEDS: MIRTAZAPINE 15 MG TABLET 30 MG PO (22:11)
[2023-06-15] MEDS: carvediloL 6.25 MG TABLET 3.125 MG PO (22:11)
[2023-06-15] MEDS: INSULIN NPH 100 UNIT/ML 10 UNIT SUBCUT (22:12)
[2023-06-15] MEDS: cilostazoL 100 MG TABLET PO (22:13)
[2023-06-15] MEDS: SODIUM CHLORIDE 0.9 % (FLUSH) 10 ML SYRINGE 5 ML IVF (22:13)
[2023-06-15] MEDS: DORZOLAMIDE HCL 2 % OPHTH DROP 1 DROP EYE-LEFT (22:14)
[2023-06-15] MEDS: timoloL maleate 0.5 % 1 DROP EYE-LEFT (22:14)
[2023-06-16] VITALS (10 sets, daily range): BP systolic 121–165; BP diastolic 64–91; PULSE 60–84; RESP 16–34; TEMP 36.7–37.4; O2SAT 90–99
[2023-06-16 06:58] LABS: HCO3 VBG 23 mmol/L (21-28); Ionized Calcium* 1.09 mmol/L (1.11-1.30); PCO2 VBG 36 mmHG (40-50); PO2 VBG 35.7 mmHG (25-47)
[2023-06-16 07:01] LABS: Hematocrit 26.6 % (37.0-53.0); Hemoglobin* 8.4 gm/dL (13.5-17.5); Mean Corpuscular HGB Conc 32 gm/dL (32-36); Mean Corpuscular Hemoglobin 29 pg (26-34); Mean Corpuscular Volume 91 fL (80-100); Platelet Count* 216 K/uL (140-440); Red Blood Count 2.93 m/uL (4.30-5.90); White Blood Count* 6.33 K/uL (4.50-11.00)
[2023-06-16 07:10] LABS: Slide Review Reflex No
[2023-06-16 07:27] LABS: Chloride* 116 mmol/L (96-114); Potassium* 3.8 mmol/L (3.6-5.1); Sodium* 143 mmol/L (135-149)
[2023-06-16 07:29] LABS: Creatinine* 1.9 mg/dL (0.5-1.5); Est. Creatinine Clearance* 31.71; Estimated Glomerular Filt Rate 37 ml/min; Lipase* 38 U/L (23-300)
[2023-06-16 07:30] LABS: Anion Gap 6 mEq/L (7-15); Blood Urea Nitrogen* 31 mg/dL (7-30); Carbon Dioxide* 21 mmol/L (20-32)
[2023-06-16 07:31] LABS: Calcium* 7.8 mg/dL (8.4-10.6); Glucose* 91 mg/dL (60-115)
[2023-06-16 07:33] LABS: C Reactive Protein* 3.7 mg/dL (0.5-1.0)
[2023-06-16 07:45] LABS: Procalcitonin* 0.08 ng/mL (<0.50)
[2023-06-16 07:46] LABS: NT Pro B Type NatriureticPept* 19300 pg/mL; Troponin I* 0.09 ng/mL (0.01-0.04)
--- NOTE | 2023-06-16 08:18 | PC.NURSE ---
END OF SHIFT NOTE: PT A&Ox3. DENIES CP, SOB, N/V. AMBULATES WITH A1/WALKER. VSS ON 1-2L VIA NC; AFEBRILE. BED ALARM ON AND CALL LIGHT WITHIN PT?S REACH.?UNEVENTFUL NIGHT. PT SLEPT THROUGHOUT THE NIGHT.
[2023-06-16] MEDS: carvediloL 6.25 MG TABLET 3.125 MG PO ×2 (09:35→20:53)
[2023-06-16] MEDS: cloNIDine HCL 0.1 MG TABLET PO (09:36)
[2023-06-16] MEDS: cilostazoL 100 MG TABLET PO ×2 (09:36→20:57)
[2023-06-16] MEDS: predniSONE 5 MG TABLET 2.5 MG PO (09:37)
[2023-06-16] MEDS: LOSARTAN POTASSIUM 50 MG TABLET 25 MG PO (09:37)
[2023-06-16] MEDS: TORSEMIDE 20 MG TABLET PO (09:38)
[2023-06-16] MEDS: timoloL maleate 0.5 % 1 DROP EYE-LEFT ×2 (09:39→20:55)
[2023-06-16] MEDS: DORZOLAMIDE HCL 2 % OPHTH DROP 1 DROP EYE-LEFT ×2 (09:39→20:55)
[2023-06-16] MEDS: PANTOPRAZOLE SODIUM 40 MG INJ IVP (09:39)
[2023-06-16] MEDS: 0.9 % SODIUM CHLORIDE 250 ml IV (09:40)
--- NOTE | 2023-06-16 09:50 | PM.IMPN1 ---
Progress Note: A&P Assessment and plan (1) Dysphagia: Problem details: -improved in the last 24 hours -gastritis by EGD, patent esophagus -changing from IV to PO PPI -scheduled clonazepam Status: Acute (2) Multifocal pneumonia: Problem details: -pcn allergy. no fever. no WBC elevation. crp and procal reassuring. -aspiration risk - awaiting swallow study -ceftriaxone and flagyl in the ED - transition to IV levaquin and 06/16 to oral levaquin. would do at least 7 days therapy (06/14-06/22 to 06/24) -saline nebs and combivent nebs Status: Acute (3) Pulmonary nodule: Problem details: -non con chest CT on 06/14: Bilateral ground-glass and nodular opacities are worrisome for multifocal pneumonia. However, the irregular nodular opacities could represent malignancy/metastasis. At a minimum, CT follow-up in 1-2 months is recommended. -I had thought about CP abd/pelvis and MR brain but exam benign and now eating well - -nebs, abx and RT cares as we sort out the dysphagia, back pain, weakness Status: Acute (4) Infiltrative cardiomyopathy: Problem details: -amyloid? outpatient workup appropriate - however BNP is increasing; troponin elevated but flat. Final Impressions: 1. Normal left ventricular size, moderately increased wall thickness, mildly reduced global systolic function, calculated EF of 48 %. 2. Current global longitudinal strain is abnormal at -6 %. The strain pattern is characteristic of apical sparing suggestive of infiltrative disease (amyloidosis). 3. Right ventricular cavity size is moderately enlarged, global systolic RV function is mildly reduced. 4. Severely enlarged left atrium. 5. The aortic valve is calcified, mild stenosis and mild regurgitation. The aortic valve peak velocity is 2.3 m/s, the peak gradient is 21 mmHg, and the mean gradient is 12 mmHg. The aortic valve area is 1.60 cm?? with a dimensionless index of 0.43. The stroke volume index is 44.0 ml/m??. 6. The mitral valve is mild posterior annular calcification, trace mitral regurgitation. 7. Tricuspid valve is tethered. 8. Moderate tricuspid regurgitation. 9. Mildly increased estimated pulmonary pressures by tricuspid regurgitation velocity and right atrial pressure (30 mmHg plus RAP). 10. Trivial pericardial effusion. 11. Large pleural effusion. Status: Acute (5) Anemia: Problem details: -acute on chronic? CKD? unclear at this time. No active bleeding identified on admission. -hold anticoagulation until this is sorted out -PPI IV - now PO PPI -guiac stools (neg x 1) -EGD shows gastritis -peripheral smear sent to pathology -iron studies reveal iron deficiency Status: Acute (6) Chronic anticoagulation: Problem details: -unclear indication. hold for now with degree of anemia. on SCDs for DVT ppx. Status: Acute (7) PVD (peripheral vascular disease): Problem details: -pt reports FEMPOP and previous stents. on cilostazol (Pletal). Right leg. Status: Acute (8) CKD (chronic kidney disease): Problem details: -chronicity unknown. type 2 DM and PVD/HTN/CHF likely in the background Status: Acute (9) Diabetes mellitus with hyperglycemia: Problem details: A1C 8.4 on Glucotrol and NPH SSI and accuchecks here the fact he is not on metformin likely indicates chronic CKD was known Status: Acute (10) On prednisone therapy: Problem details: -indication unknown -undated med list from [place] states he was/is on a prednisone burst and taper for unknown reasons. d/c 06/16/23 Status: Acute (11) GERD (gastroesophageal reflux disease): Problem details: -on PPI -unclear hx of severity or if there is a history of dilation -await biopsy results from EGD 06/15/23 Status: Acute (12) Congestive heart failure, unspecified: Problem details: -elevated trop (in setting of elevated creatinine), elevated BNP - increase torsemide. wean off IVF as to alleviate risk of fluid overload. 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 autistic spectrum, schizoaffective likely -family relates hx of: autism/on the spectrum, trouble with authority figures, poor sleep/motivation -clonidine, mirtazapine on home med list Status: Acute (16) Hyperlipidemia: Problem details: -high dose statin on med list Status: Acute Subjective Date Seen: 06/16/23 Interval history: Daily Progress Note - Hospital Medicine #:3 CC: dysphagia (gastritis), pneumonia, OVERNIGHT UPDATES FROM STAFF & MED, LAB, IMAGING UPDATES -eating and now swallowing much better. slept better last night. seems to improve with benzo admin. -OT and PT evaluated for the first time today -OT notes a 09/08 but with some responses are highly intellectual (c/w austism spectrum disorder) -some of the dysphagia is psychological but underlying gastritis is noted. -pneumonia treatment continues with IV Levaquin - can likely go to oral today RN Note: END OF SHIFT NOTE: PT A&Ox3. DENIES CP, SOB, N/V. AMBULATES WITH A1/WALKER. VSS ON 1-2L VIA NC; AFEBRILE. BED ALARM ON AND CALL LIGHT WITHIN PT?S REACH.?UNEVENTFUL NIGHT. PT SLEPT THROUGHOUT THE NIGHT. T-max 99.9?, which is actually yesterday morning. Afebrile since. Blood pressure 161/82, 151/73 Pulse rate 69-76 Respiratory rate 18-20 Pulse ox 94-97% on 1 L Weight 76.34 kilos, which is in more alignment with his previous weight on 06/14 CBC is essentially stable. His hemoglobin seems to fluctuate between 8.4 and 9.6 PH stable. Creatinine has improved to 1.9, 2.5 on presentation BNP continues to rise. -Echo has been reviewed. -Troponin is elevated but flat. This is interpreted with the knowledge of chronic kidney disease. -MRSA negative. Blood cultures negative to date. MAR I have increased his demedex to 20 mg daily, I have continued him on prednisone and his other home medications. He is on IV PPI and IV antibiotics secondary to his refusal to take p.o. in the last 24-48 hours. EGD 06/15 showed a mod severe gastritis. bx pending. Final Impressions: 1. Normal left ventricular size, moderately increased wall thickness, mildly reduced global systolic function, calculated EF of 48 %. 2. Current global longitudinal strain is abnormal at -6 %. The strain pattern is characteristic of apical sparing suggestive of infiltrative disease (amyloidosis). 3. Right ventricular cavity size is moderately enlarged, global systolic RV function is mildly reduced. 4. Severely enlarged left atrium. 5. The aortic valve is calcified, mild stenosis and mild regurgitation. The aortic valve peak velocity is 2.3 m/s, the peak gradient is 21 mmHg, and the mean gradient is 12 mmHg. The aortic valve area is 1.60 cm?? with a dimensionless index of 0.43. The stroke volume index is 44.0 ml/m??. 6. The mitral valve is mild posterior annular calcification, trace mitral regurgitation. 7. Tricuspid valve is tethered. 8. Moderate tricuspid regurgitation. 9. Mildly increased estimated pulmonary pressures by tricuspid regurgitation velocity and right atrial pressure (30 mmHg plus RAP). 10. Trivial pericardial effusion. 11. Large pleural effusion. Objective: disheveled. Vitals: see above Lungs: crackles and chronic noted. Cardiac: S1S2. Disposition/Potential discharge - Likely to return to previous living situation. Today I spent 50minutes seeing the patient, reviewing [facility] and EPIC notes/diagnostics, discussing the care plan with our care time that includes social work, PT/OT, pharmacy, RT, care home and documenting my impressions and plan in the medical record. Exam Const: Vital Signs, click to edit/add: Vital Signs - 24 hr 06/15/23 10:17 06/15/23 12:53 06/15/23 15:00 Temperature 99.3 F 98.9 F Pulse Rate [Pulse Oximeter] 66 73 Respiratory Rate 20 18 Blood Pressure [Le ft Arm] Blood Pressure [Ri ght Arm] 142/64 H 132/77 Pulse Oximetry 93 99 92 Oxygen Delivery Me thod Nasal Cannula Nasal Cannula Oxygen Flow Rate 1 2 06/15/23 15:00 06/15/23 17:00 06/15/23 21:55 Temperature 97.6 F 98.7 F Pulse Rate [Pulse Oximeter] 94 76 Respiratory Rate 18 18 20 Blood Pressure [Le ft Arm] 151/73 H Blood Pressure [Ri ght Arm] 123/64 Pulse Oximetry 88 88 96 Oxygen Delivery Me thod Room Air Room Air Nasal Cannula Oxygen Flow Rate 2 06/15/23 21:55 06/15/23 21:55 06/15/23 23:00 Temperature Pulse Rate [Pulse Oximeter] 76 Respiratory Rate 20 18 Blood Pressure [Le ft Arm] Blood Pressure [Ri ght Arm] Pulse Oximetry 96 97 Oxygen Delivery Me thod Nasal Cannula Oxygen Flow Rate 1 06/16/23 06:30 Temperature 98.6 F Pulse Rate [Pulse Oximeter] 69 Respiratory Rate 34 H Blood Pressure [Le ft Arm] 161/82 H Blood Pressure [Ri ght Arm] Pulse Oximetry 94 Oxygen Delivery Me thod Nasal Cannula Oxygen Flow Rate 1 Labs Labs: Laboratory Results - last 24 hr 06/14/23 06/15/23 06/16/23 09:35 06:48 06:14 WBC 6.33 RBC 2.93 L Hgb 8.4 L Hct 26.6 L MCV 91 MCH 29 MCHC 32 Plt Count 216 Absolute Retic 0.08 Percent Retic 2.5 H Immature Retic Fraction 13.5 H Retic Hgb Equivalent 23.4 L VBG pH 7.410 VBG pCO2 36 L VBG pO2 35.7 VBG HCO3 23 Sodium 143 Potassium 3.8 Chloride 116 H Carbon Dioxide 21 Anion Gap 6 L BUN 31 H Creatinine 1.9 H Estimated Creat Clear 31.71 Estimated GFR 37 Glucose 91 Calcium 7.8 L Ionized Calcium Travis 1.09 L Magnesium 2.0 Troponin I 0.09 H* C-Reactive Protein 3.7 H NT-Pro-B Natriuret Pep 08406 Lipase 38 Procalcitonin 0.08 Stool Occult Blood Negative
[2023-06-16] MEDS: INSULIN NPH 100 UNIT/ML 10 UNIT SUBCUT ×2 (11:27→20:55)
[2023-06-16] MEDS: SODIUM CHLORIDE 0.9 % (FLUSH) 10 ML SYRINGE 5 ML IVF ×2 (11:30→20:55)
--- NOTE | 2023-06-16 11:37 | CRLHL7_ITS ---
For Patients: As a result of the Century Cures Act, medical imaging exams and procedure reports are released immediately into your electronic medical record. You may view this report before your referring provider. If you have questions, please contact your health care provider. INDICATION: Back pain; possible malignancy in the left lung base. COMPARISON: CT chest without intravenous contrast June 13, 2023. TECHNIQUE: CT abdomen and pelvis without intravenous contrast; coronal and sagittal reformats. FINDINGS: Bilateral pleural effusion more on the left. Compression atelectasis left lung base and pneumonic infiltrates right lung base and right middle lobe. Coronary artery calcifications. Status post median sternotomy. No focal hepatic or splenic pathology. No pancreatic pathology. Cholelithiasis. No adrenal pathology. No kidney stones or obstructive uropathy. No retroperitoneal lymphadenopathy. Extensive vascular calcifications throughout. Postop changes both inguinal areas from vascular surgery. No skeletal pathology identified. IMPRESSION: 1. Moderate to large left-sided pleural effusion and moderate right-sided pleural effusion with compression atelectasis left lung base and infiltrates right middle lobe and right lower lobe. 2. Cholelithiasis. 3. No other abnormalities identified on this CT of the abdomen and pelvis. Please note that all CT scans at this facility use dose modulation, iterative reconstruction, and/or weight-based dosing when appropriate to reduce radiation dose to as low as reasonably achievable. Dictated by Moises Caldera MD @ 06/16/2023 12:38:33 PM (Electronically Signed)
--- NOTE | 2023-06-16 11:37 | CRLHL7_ITS ---
For Patients: As a result of the Century Cures Act, medical imaging exams and procedure reports are released immediately into your electronic medical record. You may view this report before your referring provider. If you have questions, please contact your health care provider. INDICATION: Back pain; concern for primary malignancy. TECHNIQUE: CT lumbosacral spine without intravenous contrast; coronal and sagittal reformats. FINDINGS: No evidence of acute fracture involving the lumbosacral spine. No evidence of spondylolysis or spondylolisthesis. The intervertebral disc spaces are well preserved and fail to reveal any abnormalities. Bilateral pleural effusion. Diffuse extensive vascular calcifications. Cholelithiasis. IMPRESSION: 1. No acute pathology involving the lumbosacral spine. 2. Cholelithiasis and bilateral pleural effusion. Please note that all CT scans at this facility use dose modulation, iterative reconstruction, and/or weight-based dosing when appropriate to reduce radiation dose to as low as reasonably achievable. Dictated by Moises Caldera MD @ 06/16/2023 12:40:52 PM (Electronically Signed)
--- NOTE | 2023-06-16 17:45 | PC.NURSE ---
shift note: pt up in recliner for meals. LLL posterior lobe crkls/dim. RLL dim. pt using IS to 500 x10. cont sats 88-92% RA. Pt has periods of apnea during sleep 4-6 seconds. Pt had shower today. Lt eye bruising. IV patent
[2023-06-16] MEDS: MIRTAZAPINE 15 MG TABLET 30 MG PO (20:54)
[2023-06-16] MEDS: clonazePAM 0.5 MG TABLET PO (20:54)
[2023-06-16] MEDS: TAMSULOSIN HCL 0.4 MG CAPSULE PO (20:54)
[2023-06-16] MEDS: ATORVASTATIN CALCIUM 40 MG TABLET 80 MG PO (20:54)
[2023-06-17] VITALS (10 sets, daily range): BP systolic 139–175; BP diastolic 73–90; PULSE 66–81; RESP 16–18; TEMP 36.9–37.3; O2SAT 90–97
--- NOTE | 2023-06-17 06:21 | PC.NURSE ---
Addendum entered by Vicki Claire RN 06/17/23 19:19: Edit to note: No fentanyl patch present or ordered on this patient. Patient remained continent throughout shift with bladder utilizing toilet and bedside commode for voiding. No BM. Error d/t name similarity. Original Note: End of Shift: Pt pleasant and cooperative throughout shift, slept well. Denied any pain. O2 sats dropped to 78% while asleep, 1.5L O2 applied, O2 sats increased to 99%, O2 titrated down to 0.5L. O2 sats remained between 92%-98%. Left shoulder fentanyl patch not present. Right shoulder fentanyl patch present. Pt incontinent with bladder. No BM throughout shift.
[2023-06-17 06:42] LABS: Hematocrit 23.7 % (37.0-53.0); Mean Corpuscular HGB Conc 32 gm/dL (32-36); Mean Corpuscular Hemoglobin 29 pg (26-34); Mean Corpuscular Volume 90 fL (80-100); Platelet Count* 213 K/uL (140-440); Red Blood Count 2.63 m/uL (4.30-5.90); White Blood Count* 5.86 K/uL (4.50-11.00)
[2023-06-17 06:43] LABS: Hemoglobin* 7.6 gm/dL (13.5-17.5); Slide Review Reflex Yes
[2023-06-17 06:52] LABS: Albumin* 2.5 g/dL (3.3-5.0); Chloride* 116 mmol/L (96-114); Sodium* 143 mmol/L (135-149)
[2023-06-17 06:53] LABS: Potassium* 3.7 mmol/L (3.6-5.1)
[2023-06-17 06:55] LABS: Creatinine* 2.1 mg/dL (0.5-1.5); Est. Creatinine Clearance* 28.69; Estimated Glomerular Filt Rate 33 ml/min
[2023-06-17 06:56] LABS: Anion Gap 4 mEq/L (7-15); Blood Urea Nitrogen* 30 mg/dL (7-30); Calcium* 7.7 mg/dL (8.4-10.6); Carbon Dioxide* 23 mmol/L (20-32); Glucose* 74 mg/dL (60-115); Phosphorus* 3.4 mg/dL (2.5-4.5)
[2023-06-17 06:58] LABS: C Reactive Protein* 2.7 mg/dL (0.5-1.0)
[2023-06-17 07:11] LABS: Procalcitonin* 0.08 ng/mL (<0.50)
[2023-06-17 07:12] LABS: NT Pro B Type NatriureticPept* 15500 pg/mL
--- NOTE | 2023-06-17 07:38 | CRLHL7_ITS ---
For Patients: As a result of the Cures Act, medical imaging exams and procedure reports are released immediately into your electronic medical record. You may view this report before your referring provider. If you have questions, please contact your health care provider. INDICATION: Pneumonia. Pleural effusions. COMPARISON: Chest CT scan dated 13 June 2023. Findings : PA and lateral chest x-rays show median sternotomy changes. Normal cardiac silhouette. Atherosclerotic aorta. The lungs show a small left-sided pleural effusion which is decreased in size. Mild left basilar atelectasis. Airspace opacity in the lower portion of the right upper lobe is unchanged. No pneumothorax. Impression : 1. Small left-sided pleural effusion is decreased in size. Mild left basilar atelectasis. 2. Airspace opacity in the lower portion of the right upper lobe is unchanged. Dictated by Srinivas Nunez MD @ 06/17/2023 8:15:04 AM Dictated by: Srinivas Nunez MD @ 06/17/2023 08:15:12 (Electronically Signed)
[2023-06-17] MEDS: cilostazoL 100 MG TABLET PO ×2 (09:31→20:56)
[2023-06-17] MEDS: carvediloL 6.25 MG TABLET PO ×2 (09:32→20:55)
[2023-06-17] MEDS: glipiZIDE 5 MG TABLET 10 MG PO (09:32)
[2023-06-17] MEDS: APIXABAN 5 MG TABLET PO (09:32)
[2023-06-17] MEDS: LOSARTAN POTASSIUM 50 MG TABLET 25 MG PO (09:33)
[2023-06-17] MEDS: levoFLOXacin 500 MG TABLET PO (09:33)
[2023-06-17] MEDS: clonazePAM 0.5 MG TABLET PO ×2 (09:34→20:56)
[2023-06-17] MEDS: timoloL maleate 0.5 % 1 DROP EYE-LEFT ×2 (09:34→20:56)
[2023-06-17] MEDS: TORSEMIDE 20 MG TABLET PO (09:34)
[2023-06-17] MEDS: SODIUM CHLORIDE 0.9 % (FLUSH) 10 ML SYRINGE 5 ML IVF (09:35)
[2023-06-17] MEDS: DORZOLAMIDE HCL 2 % OPHTH DROP 1 DROP EYE-LEFT ×2 (09:35→20:56)
--- NOTE | 2023-06-17 09:37 | PM.IMPN1 ---
Progress Note: A&P Assessment and plan (1) Dysphagia: Problem details: -improving -awaiting biopsies from EGD on 06/15. Dr Allen noted gastritis; only on PPI as of 06/17 but improving. -changing from IV to PO PPI -scheduled clonazepam (as this is at least equal parts anxiety and gastritis) Status: Acute (2) Multifocal pneumonia: Problem details: -pcn allergy. no fever. no WBC elevation. crp and procal reassuring. -aspiration risk - awaiting swallow study (06/18?) -discussed chest CT with pulmonary medicine at [place]. repeat CT in one month 07/15/23. -ceftriaxone and flagyl in the ED - transition to IV levaquin and on 06/16 to oral levaquin. 2/2 renal function decreased to 250mg on 06/17. Total therapy 7 days, last day of abx would be 06/22. 10 days would be 06/24 -oxygen slowly be weaned. -2V CXR on 06/17 improved. -saline nebs and combivent nebs continue with aerobika. Status: Acute (3) Pulmonary nodule: Problem details: -non con chest CT on 06/14: Bilateral ground-glass and nodular opacities are worrisome for multifocal pneumonia. However, the irregular nodular opacities could represent malignancy/metastasis. At a minimum, CT follow-up in 1-2 [address] is recommended[address] lumbar CT and abdomen/pelvis CT reassuring on 06/16 -repeat chest CT - first week of July Status: Acute (4) Infiltrative cardiomyopathy: Problem details: -amyloid? outpatient workup appropriate Final Impressions: 1. Normal left ventricular size, moderately increased wall thickness, mildly reduced global systolic function, calculated EF of 48 %. 2. Current global longitudinal strain is abnormal at -6 %. The strain pattern is characteristic of apical sparing suggestive of infiltrative disease (amyloidosis). 3. Right ventricular cavity size is moderately enlarged, global systolic RV function is mildly reduced. 4. Severely enlarged left atrium. 5. The aortic valve is calcified, mild stenosis and mild regurgitation. The aortic valve peak velocity is 2.3 m/s, the peak gradient is 21 mmHg, and the mean gradient is 12 mmHg. The aortic valve area is 1.60 cm?? with a dimensionless index of 0.43. The stroke volume index is 44.0 ml/m??. 6. The mitral valve is mild posterior annular calcification, trace mitral regurgitation. 7. Tricuspid valve is tethered. 8. Moderate tricuspid regurgitation. 9. Mildly increased estimated pulmonary pressures by tricuspid regurgitation velocity and right atrial pressure (30 mmHg plus RAP). 10. Trivial pericardial effusion. 11. Large pleural effusion. Status: Acute (5) Anemia: Problem details: -acute on chronic? CKD? unclear at this time. No active bleeding identified on admission. -hold anticoagulation until this is sorted out -PPI IV - now PO PPI -guiac stools (neg x 1) -EGD shows gastritis -peripheral smear sent to pathology -iron studies reveal iron deficiency - will replace with oral iron as of 06/17 - LIKELY needs EGD/Colonoscopy outpatient Status: Acute (6) Chronic anticoagulation: Problem details: -unclear indication. hold for now with degree of anemia. on SCDs for DVT ppx. Status: Acute (7) PVD (peripheral vascular disease): Problem details: -pt reports FEMPOP and previous stents. on cilostazol (Pletal). Right leg. Status: Acute (8) CKD (chronic kidney disease): Problem details: -chronicity unknown. type 2 DM and PVD/HTN/CHF likely in the background Status: Acute (9) Diabetes mellitus with hyperglycemia: Problem details: A1C 8.4 on Glucotrol and NPH SSI and accuchecks here the fact he is not on metformin likely indicates chronic CKD was known Status: Acute (10) On prednisone therapy: Problem details: -indication unknown -undated med list from [facility] he was/is on a prednisone burst and taper for unknown reasons. d/c 06/16/23 Status: Acute (11) GERD (gastroesophageal reflux disease): Problem details: -on PPI Status: Acute (12) Congestive heart failure, unspecified: Problem details: -elevated trop (in setting of elevated creatinine), elevated BNP - increase torsemide. weaned off IVF as to alleviate risk of fluid overload. 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 -ekg shows bigeminy, previous infarct hx, myranda (on coreg) -requesting records from [place] [facility] ([facility] [place]) 06/14 Status: Acute (13) Renal insufficiency: Problem details: -degree of chronicity unknown -imaging limited to kidney function -fluid hydration -following Status: Acute (14) Glaucoma: Problem details: -continue home meds Status: Acute (15) Psychiatric diagnosis deferred: Problem details: -need records. autistic spectrum, schizoaffective likely -family relates hx of: autism/on the spectrum, trouble with authority figures, poor sleep/motivation -clonidine, mirtazapine on home med list Status: Acute (16) Hyperlipidemia: Problem details: -high dose statin on med list Status: Acute Subjective Date Seen: 06/17/23 Interval history: Daily Progress Note - Hospital Medicine Day #:4 CC: dysphagia (gastritis), pneumonia, poor self care OVERNIGHT UPDATES FROM STAFF & MED, LAB, IMAGING UPDATES -eating and now swallowing much better. slept better last night. seems to improve with benzo admin. -OT and PT evaluated for the first time today -OT notes a but with some responses are highly intellectual (c/w austism spectrum disorder) -some of the dysphagia is psychological but underlying gastritis is noted. -pneumonia treatment continues with oral levaquin - renal dosing 2/2 creatine today. 2V Chest xray 06/17 1. Small left-sided pleural effusion is decreased in size. Mild left basilar atelectasis. 2. Airspace opacity in the lower portion of the right upper lobe is unchanged. RN Note: Pt pleasant and cooperative throughout shift, slept well. Denied any pain. O2 sats dropped to 78% while asleep, 1.5L O2 applied, O2 sats increased to 99%, O2 titrated down to 0.5L. O2 sats remained between 92%-98%. T-max 99.3? which was at 7:00 p.m. on 06/16 Blood pressure is 140s to 160s over 70s and 80s Pulse rate 60s Respiratory rate 18 Pulse ox 91% Weight 74.7 kilos, this is down from 80.0 kilos on a standing scale admission weight Inexplicably, his hemoglobin has dropped to 7.6. We considered his anemia likely related to chronic disease. We stopped IV fluids yesterday, we would expect that his hemoglobin would stay stable or even he will concentrate. No obvious bleeding. He is iron deficient, likely needs outpatient scope. but iron deficiency could be diet related as well. PH stable. Creatinine is up and down but down overall. I suspect his baseline is 2.0 BNP in now downtrending with increased torsemide and decreased weight. -Echo has been reviewed. -Troponin is elevated but flat. This is interpreted with the knowledge of chronic kidney disease. -MRSA negative. Blood cultures negative to date. MAR I increased his torsemide to 20mg on 06/16 and with creatinine bump on 06/17, reduced to 15mg for 06/18. I d/c the prednisone and switched PPI to oral. EGD 06/15 showed a mod severe gastritis. bx pending. Final Impressions: 1. Normal left ventricular size, moderately increased wall thickness, mildly reduced global systolic function, calculated EF of 48 %. 2. Current global longitudinal strain is abnormal at -6 %. The strain pattern is characteristic of apical sparing suggestive of infiltrative disease (amyloidosis). 3. Right ventricular cavity size is moderately enlarged, global systolic RV function is mildly reduced. 4. Severely enlarged left atrium. 5. The aortic valve is calcified, mild stenosis and mild regurgitation. The aortic valve peak velocity is 2.3 m/s, the peak gradient is 21 mmHg, and the mean gradient is 12 mmHg. The aortic valve area is 1.60 cm?? with a dimensionless index of 0.43. The stroke volume index is 44.0 ml/m??. 6. The mitral valve is mild posterior annular calcification, trace mitral regurgitation. 7. Tricuspid valve is tethered. 8. Moderate tricuspid regurgitation. 9. Mildly increased estimated pulmonary pressures by tricuspid regurgitation velocity and right atrial pressure (30 mmHg plus RAP). 10. Trivial pericardial effusion. 11. Large pleural effusion. Objective: disheveled. Vitals: see above Lungs: crackles and chronic noted. Cardiac: S1S2. Disposition/Potential discharge - Likely to return to previous living situation. Today I spent 50minutes seeing the patient, reviewing [facility]panse and EPIC notes/diagnostics, discussing the care plan with our care time that includes social work, PT/OT, pharmacy, RT, shelter and documenting my impressions and plan in the medical record. Exam Const: Vital Signs, click to edit/add: Vital Signs - 24 hr 06/16/23 15:00 06/16/23 16:33 06/16/23 16:35 Temperature 98.4 F Pulse Rate [Pulse Oximeter] 69 Pulse Rate [orthos tatic lying Left B rachial] 60 Pulse Rate [orthos tatic sitting Left Brachial] 78 Pulse Rate [orthos tatic standing Lef t Brachial] 84 Respiratory Rate 16 Blood Pressure [Le ft Arm] 146/78 H Blood Pressure [or thostatic lying Le ft Arm] 142/78 H Blood Pressure [or thostatic sitting Left Arm] 121/80 Blood Pressure [or thostatic standing Left Arm] 125/64 Pulse Oximetry 90 92 Oxygen Delivery Me thod Room Air Oxygen Flow Rate 06/16/23 17:00 06/16/23 19:00 06/16/23 23:00 Temperature 99.3 F Pulse Rate [Pulse Oximeter] 78 Pulse Rate [orthos tatic lying Left B rachial] Pulse Rate [orthos tatic sitting Left Brachial] Pulse Rate [orthos tatic standing Lef t Brachial] Respiratory Rate 16 20 Blood Pressure [Le ft Arm] 158/84 H Blood Pressure [or thostatic lying Le ft Arm] Blood Pressure [or thostatic sitting Left Arm] Blood Pressure [or thostatic standing Left Arm] Pulse Oximetry 90 92 93 Oxygen Delivery Me thod Room Air Room Air Oxygen Flow Rate 06/16/23 23:00 06/16/23 23:00 06/17/23 01:00 Temperature 98.1 F Pulse Rate [Pulse Oximeter] 76 63 Pulse Rate [orthos tatic lying Left B rachial] Pulse Rate [orthos tatic sitting Left Brachial] Pulse Rate [orthos tatic standing Lef t Brachial] Respiratory Rate 20 20 18 Blood Pressure [Le ft Arm] Blood Pressure [or thostatic lying Le ft Arm] Blood Pressure [or thostatic sitting Left Arm] Blood Pressure [or thostatic standing Left Arm] Pulse Oximetry 99 97 Oxygen Delivery Me thod Nasal Cannula Nasal Cannula Oxygen Flow Rate 1.5 0.5 06/17/23 03:00 06/17/23 07:00 Temperature 98.4 F 98.4 F Pulse Rate [Pulse Oximeter] 69 66 Pulse Rate [orthos tatic lying Left B rachial] Pulse Rate [orthos tatic sitting Left Brachial] Pulse Rate [orthos tatic standing Lef t Brachial] Respiratory Rate 18 18 Blood Pressure [Le ft Arm] 160/73 H Blood Pressure [or thostatic lying Le ft Arm] Blood Pressure [or thostatic sitting Left Arm] Blood Pressure [or thostatic standing Left Arm] Pulse Oximetry 97 91 Oxygen Delivery Me thod Nasal Cannula Room Air Oxygen Flow Rate 0.5 Labs Labs: Laboratory Results - last 24 hr 06/17/23 06:04 WBC 5.86 RBC 2.63 L Hgb 7.6 L* Hct 23.7 L MCV 90 MCH 29 MCHC 32 Plt Count 213 Sodium 143 Potassium 3.7 Chloride 116 H Carbon Dioxide 23 Anion Gap 4 L BUN 30 Creatinine 2.1 H Estimated Creat Clear 28.69 Estimated GFR 33 Glucose 74 Calcium 7.7 L Phosphorus 3.4 C-Reactive Protein 2.7 H NT-Pro-B Natriuret Pep 24425 Albumin 2.5 L Procalcitonin 0.08
[2023-06-17] MEDS: INSULIN NPH 100 UNIT/ML 10 UNIT SUBCUT (09:55)
--- NOTE | 2023-06-17 10:14 | PC.NURSE ---
shift note: Dr. España notified of pt's low blood sugar @ 76. Blood sugar rechecked @ 714 was 70. 2 OJ boxes given (approx 8 Oz). Recheck blood sugar @ 729 was 87. Pt ate breakfast and blood sugar rechecked @ 3370=435. Dr. España updated on pt. Orders to give a.m NPH and stopped evening NPH. Pt a&o with no c/o of pain, dizziness or nausea.
[2023-06-17 14:27] LABS: Slide Review Acceptable Review (Acceptable)
[2023-06-17] MEDS: FERROUS SULFATE 325 MG TABLET PO (15:30)
--- NOTE | 2023-06-17 18:37 | PC.NURSE ---
shift note: pt bs 49 @ 1630. pt received 1 4 oz of orange juice. Rechecked BS @ 1640=55. Dr. Chand and charge nurse notified. Orders to dc glipizide. Pt a&o x3 and ate full evening meal. BS recheck @ [id number]. Dr. Chand updated on pt's BS
[2023-06-17] MEDS: TAMSULOSIN HCL 0.4 MG CAPSULE PO (20:55)
[2023-06-17] MEDS: MIRTAZAPINE 15 MG TABLET 30 MG PO (20:56)
[2023-06-17] MEDS: ATORVASTATIN CALCIUM 40 MG TABLET 80 MG PO (20:56)
[2023-06-18] VITALS (7 sets, daily range): BP systolic 120–152; BP diastolic 67–80; PULSE 75–84; RESP 16; TEMP 36.9–37.2; O2SAT 89–95
--- NOTE | 2023-06-18 06:08 | PC.NURSE ---
End of Shift: Pt pleasant and cooperative throughout shift, denied any pain. Oxygen sats remained >92% when awake, dropped to 79% when asleep. Pt repositioned, O2 sats improved to 85-89% fluctuating frequently. 0.5L O2 applied NC, O2 sats improved to 88-94%. Pt continent with bladder utilizing bedside urinal. Weight down 0.3kg from yesterday. Blood sugar 106 at 0200, 96 at 0600. Pt denied sx, juice given.
[2023-06-18 06:33] LABS: Basophils Absolute Auto 0.01 K/uL (0.00-0.30); Basophils Percent Auto 0.1 % (0.0-3.0); Eosinophils Absolute Auto 0.15 K/uL (0.00-0.50); Hematocrit 25.3 % (37.0-53.0); Hemoglobin* 8.1 gm/dL (13.5-17.5); Immature Granulocytes Abs Auto 0.03 K/uL (0.00-0.30); Immature Granulocytes Pct Auto 0.4 %; Lymphocytes Percent Auto 11.9 % (20-44); Mean Corpuscular HGB Conc 32 gm/dL (32-36); Mean Corpuscular Hemoglobin 29 pg (26-34); Mean Corpuscular Volume 90 fL (80-100); Monocytes Percent Auto 8.9 % (0.0-11.0); Neutrophils Percent Auto 76.7 % (42.0-72.0); Platelet Count* 232 K/uL (140-440); RDW Coefficient of Variation % 14.4 % (11.5-15.5); Red Blood Count 2.81 m/uL (4.30-5.90); White Blood Count* 7.49 K/uL (4.50-11.00)
[2023-06-18 06:45] LABS: Albumin* 2.6 g/dL (3.3-5.0); Chloride* 110 mmol/L (96-114); Sodium* 140 mmol/L (135-149)
[2023-06-18 06:46] LABS: Potassium* 3.7 mmol/L (3.6-5.1); Slide Review Reflex No
[2023-06-18 06:48] LABS: Creatinine* 2.3 mg/dL (0.5-1.5); Estimated Glomerular Filt Rate 29 ml/min
[2023-06-18 06:49] LABS: Anion Gap 7 mEq/L (7-15); Blood Urea Nitrogen* 29 mg/dL (7-30); Calcium* 7.9 mg/dL (8.4-10.6); Carbon Dioxide* 23 mmol/L (20-32); Glucose* 90 mg/dL (60-115); Phosphorus* 3.2 mg/dL (2.5-4.5)
[2023-06-18] MEDS: clonazePAM 0.5 MG TABLET PO (09:36)
[2023-06-18] MEDS: cilostazoL 100 MG TABLET PO (09:36)
[2023-06-18] MEDS: TORSEMIDE 5 MG TABLET 15 MG PO (09:37)
[2023-06-18] MEDS: LOSARTAN POTASSIUM 50 MG TABLET 25 MG PO (09:37)
[2023-06-18] MEDS: levoFLOXacin 250 MG TABLET PO (09:37)
[2023-06-18] MEDS: carvediloL 6.25 MG TABLET PO (09:38)
[2023-06-18] MEDS: DORZOLAMIDE HCL 2 % OPHTH DROP 1 DROP EYE-LEFT (09:38)
[2023-06-18] MEDS: timoloL maleate 0.5 % 1 DROP EYE-LEFT (09:38)
[2023-06-18] MEDS: OMEPRAZOLE 20 MG CAPSULE DR 40 MG PO (09:42)
--- NOTE | 2023-06-18 10:17 | PM.IMPN1 ---
Progress Note: A&P Assessment and plan (1) Dysphagia: Problem details: -improving, tolerating orals -awaiting biopsies from EGD on 06/15- as of 06/18, sent to [facility], pending. Dr Allen noted gastritis -transitioned to oral PPI -scheduled clonazepam (as this is at least equal parts anxiety and gastritis) Status: Acute (2) Multifocal pneumonia: Problem details: -pcn allergy. no fever. no WBC elevation. crp and procal reassuring. -aspiration risk - swallow study (06/18) pendind -discussed chest CT with pulmonary medicine at [place]. repeat CT in one month 07/15/23. -ceftriaxone and flagyl in the ED - transition to IV levaquin and on 06/16 to oral levaquin - decreased dose to 250mg on 06/17 for renal dosing. Total therapy 7 days, last day of abx would be 06/22. 10 days would be 06/24 -oxygen slowly being weaned. -2V CXR on 06/17 improved. -saline nebs and combivent nebs continue with aerobika. Status: Acute (3) Pulmonary nodule: Problem details: -non con chest CT on 06/14: Bilateral ground-glass and nodular opacities are worrisome for multifocal pneumonia. However, the irregular nodular opacities could represent malignancy/metastasis. At a minimum, CT follow-up in 1-2 [address] lumbar CT and abdomen/pelvis CT reassuring on 06/16 -repeat chest CT - first week of July. -Patient denies h/o known previous nodules or cancerous lesions Status: Acute (4) Infiltrative cardiomyopathy: Problem details: -amyloid? outpatient workup appropriate Final Impressions: 1. Normal left ventricular size, moderately increased wall thickness, mildly reduced global systolic function, calculated EF of 48 %. 2. Current global longitudinal strain is abnormal at -6 %. The strain pattern is characteristic of apical sparing suggestive of infiltrative disease (amyloidosis). 3. Right ventricular cavity size is moderately enlarged, global systolic RV function is mildly reduced. 4. Severely enlarged left atrium. 5. The aortic valve is calcified, mild stenosis and mild regurgitation. The aortic valve peak velocity is 2.3 m/s, the peak gradient is 21 mmHg, and the mean gradient is 12 mmHg. The aortic valve area is 1.60 cm?? with a dimensionless index of 0.43. The stroke volume index is 44.0 ml/m??. 6. The mitral valve is mild posterior annular calcification, trace mitral regurgitation. 7. Tricuspid valve is tethered. 8. Moderate tricuspid regurgitation. 9. Mildly increased estimated pulmonary pressures by tricuspid regurgitation velocity and right atrial pressure (30 mmHg plus RAP). 10. Trivial pericardial effusion. 11. Large pleural effusion. Status: Acute (5) Anemia: Problem details: -patient reports h/o chronic anemia. etiology acute on chronic? CKD? unclear at this time. No active bleeding identified on admission. -reports h/o rectal bleed, hemorrhoids -hold anticoagulation until this is sorted out -PO PPI -guiac stools (neg x 1) -EGD shows gastritis -peripheral smear sent to pathology, pending -iron studies reveal iron deficiency - will replace with oral iron as of 06/17 -f/u EGD/Colonoscopy outpatient Status: Acute (6) Chronic anticoagulation: Problem details: -unclear indication, patient reports h/o CVA 4-5 years ago. Denies h/o arrythmia, emboli -hold for now with degree of anemia. on SCDs for DVT ppx. Status: Acute (7) PVD (peripheral vascular disease): Problem details: -pt reports FEMPOP and previous stents. on cilostazol (Pletal). Right leg. Status: Acute (8) CKD (chronic kidney disease): Problem details: -chronicity unknown. type 2 DM and PVD/HTN/CHF likely in the background -Creatinine stable 1.9-2.5 -renally dose antibiotics, avoid nephrotoxic medications, continue to monitor Status: Acute (9) Renal insufficiency: Problem details: -degree of chronicity unknown -imaging limited to kidney function -fluid hydration on admission-discontinued secondary to heart failure Status: Acute (10) Diabetes mellitus with hyperglycemia: Problem details: -A1C 8.4, current glucose 55-195 -on Glucotrol and NPH, will decrease NPH to 8 units given decreasing readings, continue to monitor and adjust as necessary -SSI and accuchecks ACHS -the fact he is not on metformin likely indicates chronic CKD was known Status: Acute (11) On prednisone therapy: Problem details: -indication unknown -undated med list from [facility] he was/is on a prednisone burst and taper for unknown reasons. d/c 06/16/23 Status: Acute (12) GERD (gastroesophageal reflux disease): Problem details: -on PPI -history of rectal bleed/hemorrhoids Status: Acute (13) Congestive heart failure, unspecified: Problem details: -elevated trop (in setting of elevated creatinine), elevated BNP - increased torsemide. weaned off IVF as to alleviate risk of fluid overload. 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 -ekg shows bigeminy, previous infarct hx, myranda (on coreg) -requesting records from [place] [facility] ([facility]/[place]) 06/14 - unable to obtain likely secondary to organization's strike situation Status: Acute (14) Glaucoma: Problem details: -continue home meds Status: Acute (15) Psychiatric diagnosis deferred: Problem details: -need records. autistic spectrum, schizoaffective likely -family relates hx of: autism/on the spectrum, trouble with authority figures, poor sleep/motivation -clonidine, mirtazapine on home med list -recommend outpatient follow-up for further neuro evaluation Status: Acute (16) Hyperlipidemia: Problem details: -continue statin Status: Acute (17) Constipation: Problem details: -senna b.i.d., Mira[employer]ax p.r.n. Status: Acute Plan Discharge disposition: java web services developer to assist with discharge planning/placement needs. Patient is mobile, ambulating with PT, using a walker. Follow up with family if able to take him home Time Spent With Patient Total time spent: Total time spent caring for the patient today was 45 minutes. This includes time spent for the visit reviewing the chart, time spent during the visit, time spent after the visit and documentation and planning in coordination of care. Subjective Date Seen: 06/18/23 Interval history: Daily Progress Note - Hospital Medicine Patient sitting up by the window and has no complaints or concerns this morning other than he has not yet had a bowel movement. Denies headache or dizziness. Denies chest pain. No dyspnea on nasal cannula. Tolerating orals without nausea or abdominal pain. No reported dysphagia. Blood sugars over the past 24 hours 55-194. Asymptomatic. Day #:4 CC: dysphagia (gastritis), pneumonia, poor self care OVERNIGHT UPDATES FROM STAFF & MED, LAB, IMAGING UPDATES -eating and now swallowing much better. slept better last night. seems to improve with benzo admin. -OT and PT evaluated for the first time today -OT notes a but with some responses are highly intellectual (c/w austism spectrum disorder) -some of the dysphagia is psychological but underlying gastritis is noted. -pneumonia treatment continues with oral levaquin - renal dosing /2 creatine today. 2V Chest xray 06/17 1. Small left-sided pleural effusion is decreased in size. Mild left basilar atelectasis. 2. Airspace opacity in the lower portion of the right upper lobe is unchanged. RN Note: Pt pleasant and cooperative throughout shift, slept well. Denied any pain. O2 sats dropped to 78% while asleep, 1.5L O2 applied, O2 sats increased to 99%, O2 titrated down to 0.5L. O2 sats remained between 92%-98%. T-max 99.3? which was at 7:00 p.m. on 06/16 Blood pressure is 140s to 160s over 70s and 80s Pulse rate 60s Respiratory rate 18 Pulse ox 91% Weight 74.7 kilos, this is down from 80.0 kilos on a standing scale admission weight Inexplicably, his hemoglobin has dropped to 7.6. We considered his anemia likely related to chronic disease. We stopped IV fluids yesterday, we would expect that his hemoglobin would stay stable or even he will concentrate. No obvious bleeding. He is iron deficient, likely needs outpatient scope. but iron deficiency could be diet related as well. PH stable. Creatinine is up and down but down overall. I suspect his baseline is 2.0 BNP in now downtrending with increased torsemide and decreased weight. -Echo has been reviewed. -Troponin is elevated but flat. This is interpreted with the knowledge of chronic kidney disease. -MRSA negative. Blood cultures negative to date. MAR I increased his torsemide to 20mg on 06/16 and with creatinine bump on 06/17, reduced to 15mg for 06/18. I d/c the prednisone and switched PPI to oral. EGD 06/15 showed a mod severe gastritis. bx pending. Final Impressions: 1. Normal left ventricular size, moderately increased wall thickness, mildly reduced global systolic function, calculated EF of 48 %. 2. Current global longitudinal strain is abnormal at -6 %. The strain pattern is characteristic of apical sparing suggestive of infiltrative disease (amyloidosis). 3. Right ventricular cavity size is moderately enlarged, global systolic RV function is mildly reduced. 4. Severely enlarged left atrium. 5. The aortic valve is calcified, mild stenosis and mild regurgitation. The aortic valve peak velocity is 2.3 m/s, the peak gradient is 21 mmHg, and the mean gradient is 12 mmHg. The aortic valve area is 1.60 cm?? with a dimensionless index of 0.43. The stroke volume index is 44.0 ml/m??. 6. The mitral valve is mild posterior annular calcification, trace mitral regurgitation. 7. Tricuspid valve is tethered. 8. Moderate tricuspid regurgitation. 9. Mildly increased estimated pulmonary pressures by tricuspid regurgitation velocity and right atrial pressure (30 mmHg plus RAP). 10. Trivial pericardial effusion. 11. Large pleural effusion. Objective: disheveled. Vitals: see above Lungs: crackles and chronic noted. Cardiac: S1S2. Disposition/Potential discharge - Likely to return to previous living situation. Today I spent 50minutes seeing the patient, reviewing Expanse and EPIC notes/diagnostics, discussing the care plan with our care time that includes social work, PT/OT, pharmacy, RT, assisted and documenting my impressions and plan in the medical record. Exam Narrative: Exam Narrative: PHYSICAL EXAM General: Sitting up in chair, flat affect,otherwise NAD HEENT: Old bruise left periorbital area noted, EOMI, oral mucosa moist Cardiovascular: RRR, S1S2. No pitting edema Pulmonary: CTA bilaterally without rhonchi, rales, expiratory wheezes. No dyspnea Abdominal: Soft, nondistended, NTTP Neurological: Alert, answering questions appropriately, cranial nerves intact, no focal findings Extremities: No gross joint deformity or swelling. AROMI. Neurovascularly intact Skin: Warm, dry. Const: Vital Signs, click to edit/add: Vital Signs - 24 hr 06/17/23 11:00 06/17/23 15:24 06/17/23 16:30 Temperature 99.2 F 98.6 F Pulse Rate [Pulse Oximeter] 81 76 Respiratory Rate 18 18 Blood Pressure [Le ft Arm] 167/87 H 175/90 H Pulse Oximetry 94 95 96 Oxygen Delivery Me thod Room Air Room Air 06/17/23 16:30 06/17/23 17:00 06/17/23 19:00 Temperature 98.8 F Pulse Rate [Pulse Oximeter] 76 77 Respiratory Rate 18 18 16 Blood Pressure [Le ft Arm] 148/75 H Pulse Oximetry 94 92 Oxygen Delivery Ny thod Room Air Room Air 06/17/23 23:00 06/17/23 23:00 06/17/23 23:00 Temperature 98.6 F Pulse Rate [Pulse Oximeter] 79 79 Respiratory Rate 16 16 Blood Pressure [Le ft Arm] 139/75 Pulse Oximetry 93 [address] [facility] 06/18/23 00:37 06/18/23 03:00 06/18/23 07:00 Temperature 98.4 F Pulse Rate [Pulse Oximeter] 84 Respiratory Rate 16 16 Blood Pressure [Le ft Arm] Pulse Oximetry 93 89 [facility] Room Air 06/18/23 07:00 06/18/23 07:00 06/18/23 09:00 Temperature 98.9 F Pulse Rate [Pulse Oximeter] 75 75 Respiratory Rate 16 16 16 Blood Pressure [Le ft Arm] 133/67 Pulse Oximetry 95 95 [facility] Room Air Labs Labs: Laboratory Results - last 24 hr 06/17/23 06/18/23 06:04 06:00 WBC 7.49 RBC 2.81 L Hgb 8.1 L Hct 25.3 L MCV 90 MCH 29 MCHC 32 RDW Coeff of Orestes 14.4 Plt Count 232 Neut % (Auto) 76.7 H Lymph % (Auto) 11.9 L Thurston % (Auto) 8.9 Eos % (Auto) 2.0 Baso % (Auto) 0.1 Neut # (Auto) 5.70 Lymph # (Auto) 0.90 Thurston # (Auto) 0.70 Eos # (Auto) 0.15 Baso # (Auto) 0.01 Abs Immat Gran (auto) 0.03 Imm/Tot Granulo (auto) 0.4 Diff Slide Review Acceptable Review Sodium 140 Potassium 3.7 Chloride 110 Carbon Dioxide 23 Anion Gap 7 BUN 29 Creatinine 2.3 H Estimated Creat Clear 26.20 Estimated GFR 29 Glucose 90 Calcium 7.9 L Phosphorus 3.2 Albumin 2.6 L ECG Prior ECG tracings: available for review Pacemaker model: Bradycardia. No atrial fibrillation.
[2023-06-18] MEDS: FERROUS SULFATE 325 MG TABLET PO (11:40)
[2023-06-18] MEDS: SENNOSIDES/DOCUSATE TABLET 1 TAB PO (11:40)
--- NOTE | 2023-06-18 14:06 | PC.SOCIAL ---
Addendum entered by JIM Lind 06/19/23 14:55: Received clarification from the county informing that the policy with [place] for [employer] [facility] is different and an individual is able to apply for the MA for LTC right after moving to [place], they just have to be able to provide proof of residence, proof they are planning to stay in [place], and not have any other MA active in another state. Phone call to pt's family member, Jhony, and provide the clarifying information. Jhony informs that he will go to the counts include [facility] beds at the [facility] and get an application. Jhony informs that he has had some trouble filling medication due to not being available at the pharmacy. Jhony will be going to the pharmacy soon, this worker suggested that if it is a medication that can be transferred he could possibly transfer the prescription to another pharmacy. If there continues to be issues this worker provided Jhony with the med/surg phone number to discuss further. Provided update to charge nurse. Original Note: Discharge planning- Per therapy, pt is ambulatory with stand by assistance and a walker. Pt was able to walk on stairs in therapy room. Therapy recommendation is to return to prior living situation. Discussed with MD and pt is medically stable to discharge today. Phone call to pt's family (Jhony) to discuss discharge plans. Provided therapy and MD recommendation. Pt's family was pleased over the weekend that pt was moving around better. Discussed costs associated with SNF. Jhony informs that they would like to try to bring pt home. Jhony is at work, but can come to [facility] by 5:00 pm for a discharge. Provided information on application process for MA- for insurance marketing specialist care with [facility]. Informed Jhony that he can check with [facility], but resident would need to be a resident for 30 days to apply for MA - LTC. Informed that it would be beneficial to complete the application when pt is eligible to complete it, then it would be in place to assist with current and future medical needs for pt. Family will look into this with [facility]. Provided update to charge nurse. Social work will follow up as needed.
--- NOTE | 2023-06-18 18:28 | PC.NURSE ---
Discharge: Pt. pleasant and cooperative, alert and oriented. VSS, denied any pain. Oxygen sats remained >92% on RA. Pt continent with bladder utilizing bedside urinal. BG 126, 234, 211 sliding scale used. Patient Discharged today at 1808 accompanied by mother and brother in law. Patient signed discharge instructions and family verbalized understanding of medications and instructions. IV removed intact.
--- NOTE | 2023-06-19 15:48 | P.DS_ITS ---
DS: Providers Provider Date Seen: 06/18/23 Date of admission: 06/14/23 09:07 Primary care physician: Not a Local Provider Admitting Clinician: Rose Galarza MD Consults: 06/14/23 08:50 Consult to Occupational Therapy [CONS] Routine Comment: Reason(s) for OT Consult:: Evaluate and Treat Any Restrictions?:: No Restrictions Consult to Physical Therapy [CONS] Routine Comment: Reason(s) for PT Consult:: Evaluate and Treat Any Restrictions?:: No Restrictions Consult to Meter Tester Primary [CONS] Routine Comment: Reason for Consult:: Social Service Consult 06/14/23 10:38 Consult to Occupational Therapy [CONS] Routine Comment: Reason(s) for OT Consult:: Evaluate and Treat Any Restrictions?:: No Restrictions Consult to Physical Therapy [CONS] Routine Comment: Reason(s) for PT Consult:: Evaluate and Treat Any Restrictions?:: No Restrictions 06/15/23 12:37 Consult to Speech Therapy [CONS] Routine Comment: Reason(s) for Speech Consult:: Swallowing Difficulty Attending Physician on discharge: Lashanda Lynn [facility] Date of Discharge: 06/18/23 DS: Diagnosis Discharge Diagnosis (1) Multifocal pneumonia: Status: Acute Problem details: -pcn allergy. no fever. no WBC elevation. crp and procal reassuring. -aspiration risk - swallow study (06/18) pendind -discussed chest CT with pulmonary medicine at [place]. repeat CT in one month 07/15/23. -ceftriaxone and flagyl in the ED - transition to IV levaquin and on 06/16 to oral levaquin - decreased dose to 250mg on 06/17 for renal dosing. Total therapy 7 days, last day of abx would be 06/22. Discharged with oral levofloxacin to complete 7 day course. -oxygen slowly being weaned - on room at discharge. -2V CXR on 06/17 improved. -saline nebs and combivent nebs continue with aerobika. -close outpatient follow-up with newly established PCP for resolution (2) Infiltrative cardiomyopathy: Status: Acute Problem details: -amyloid? outpatient workup appropriate Final Impressions: 1. Normal left ventricular size, moderately increased wall thickness, mildly reduced global systolic function, calculated EF of 48 %. 2. Current global longitudinal strain is abnormal at -6 %. The strain pattern is characteristic of apical sparing suggestive of infiltrative disease (amyloidosis). 3. Right ventricular cavity size is moderately enlarged, global systolic RV function is mildly reduced. 4. Severely enlarged left atrium. 5. The aortic valve is calcified, mild stenosis and mild regurgitation. The aortic valve peak velocity is 2.3 m/s, the peak gradient is 21 mmHg, and the mean gradient is 12 mmHg. The aortic valve area is 1.60 cm?? with a dimensionless index of 0.43. The stroke volume index is 44.0 ml/m??. 6. The mitral valve is mild posterior annular calcification, trace mitral regu rgitation. 7. Tricuspid valve is tethered. 8. Moderate tricuspid regurgitation. 9. Mildly increased estimated pulmonary pressures by tricuspid regurgitation velocity and right atrial pressure (30 mmHg plus RAP). 10. Trivial pericardial effusion. 11. Large pleural effusion. -recommend outpatient follow-up with newly established PCP and Cardiology (3) Pulmonary nodule: Status: Acute Problem details: -non con chest CT on 06/14: Bilateral ground-glass and nodular opacities are worrisome for multifocal pneumonia. However, the irregular nodular opacities could represent malignancy/metastasis. At a minimum, CT follow-up in 1-2 [address] is recommended. lumbar CT and abdomen/pelvis CT reassuring on 06/16 -repeat chest CT - first week of July. PCP to schedule -Patient denies h/o known previous nodules or cancerous lesions (4) PVD (peripheral vascular disease): Status: Acute Problem details: -pt reports FEMPOP and previous stents. on cilostazol (Pletal). Right leg. -continue cilostazol on discharge (5) CKD (chronic kidney disease): Status: Acute Problem details: -chronicity unknown. type 2 DM and PVD/HTN/CHF likely in the background -Creatinine stable 1.9-2.5 -renally dose antibiotics, avoid nephrotoxic medications, continue to monitor -outpatient follow-up with PCP for ongoing evaluation and management (6) Diabetes mellitus with hyperglycemia: Status: Acute Problem details: -A1C 8.4, current glucose 55-195 -on Glucotrol and NPH, will decrease NPH to 8 units given decreasing readings, continue to monitor and adjust as necessary -SSI and accuchecks ACHS -the fact he is not on metformin likely indicates chronic CKD was known -continue with diabetic diet at discharge, insulin, outpatient follow-up with PCP and endocrinology (7) On prednisone therapy: Status: Acute Problem details: -indication unknown -undated med list from [place] states he was/is on a prednisone burst and taper for unknown reasons. -Therapy d/c 06/16/23 as unknown indication. (8) GERD (gastroesophageal reflux disease): Status: Acute Problem details: -on PPI - continued at discharge -history of rectal bleed/hemorrhoids (9) Congestive heart failure, unspecified: Status: Acute Problem details: -elevated trop (in setting of elevated creatinine), elevated BNP - increased torsemide. weaned off IVF as to alleviate risk of fluid overload. 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 -ekg shows bigeminy, previous infarct hx, myranda (on coreg) -requesting records from [facility] ([facility]/[place]) 06/14 - unable to obtain likely secondary to organization's strike situation -will need outpatient follow-up with Cardiology (10) Chronic anticoagulation: Status: Acute Problem details: -unclear indication, patient reports h/o CVA 4-5 years ago. Denies h/o arrythmia, emboli -hold for now with degree of anemia. on SCDs for DVT ppx. -was not restarted on discharge is on known indication. Follow-up with PCP (11) Hyperlipidemia: Status: Acute Problem details: -continue statin (12) Psychiatric diagnosis deferred: Status: Acute Problem details: -need records. autistic spectrum, schizoaffective likely -family relates hx of: autism/on the spectrum, trouble with authority figures, poor sleep/motivation -clonidine, mirtazapine on home med list -recommend outpatient follow-up for further neuro evaluation and management recommendations -will need to address ongoing grief following 's (13) Renal insufficiency: Status: Acute Problem details: -degree of chronicity unknown -imaging limited to kidney function -fluid hydration on admission-discontinued secondary to heart failure -creatinine stabilized, follow-up with PCP (14) Dysphagia: Status: Acute Problem details: -improving, tolerating orals -awaiting biopsies from EGD on 06/15- as of 06/18, sent to [facility], pending. Dr Allen noted gastritis. Still pending at time of discharge -transitioned to oral PPI, continued at discharge -scheduled clonazepam (as this is at least equal parts anxiety and gastritis) during hospitalization -follow-up for further evaluation and results with PCP (15) Anemia: Status: Acute Problem details: -patient reports h/o chronic anemia. etiology acute on chronic? CKD? unclear at this time. No active bleeding identified on admission. -reports h/o rectal bleed, hemorrhoids -hold anticoagulation until this is sorted out -PO PPI -guiac stools (neg x 1) -EGD shows gastritis -peripheral smear sent to pathology, pending -iron studies reveal iron deficiency - will replace with oral iron as of 06/17 -f/u EGD/Colonoscopy outpatient (16) Weakness: Status: Acute Problem details: -generalize, in setting of significant illness -PT/OT, walking hallways with walker and successfully using stairs DS: Summary Hospital Course Hospital Course: [age] year old male past medical history significant largely unknown without outside records available was admitted to the medical floor after being flown from [place] to [place] by family as patient was unable to care for himself alone and failing to thrive. Course of care and details as noted above. Remainder of chronic medical comorbidities were monitored and managed with home medications. Status at Discharge Functional status at discharge: uses cane/walker Overall status at discharge: patient is progressing back to baseline Time Spent with Patient Time attestation: Total time spent providing and/or coordinating discharge services: Time spent: Greater than 30 minutes Exam Narrative: Exam Narrative: PHYSICAL EXAM General: Flat affect otherwise appropriately conversant, NAD HEENT: Normocephalic, facial contusion aging, sclera white, EOMI, oral mucosa moist Cardiovascular: RRR, S1S2. No pitting edema Pulmonary: CTA bilaterally without rhonchi, rales, expiratory wheezes. No dyspnea Abdominal: Soft, nondistended, NTTP Neurological: Alert, answering questions appropriately, cranial nerves intact, no focal findings Extremities: No gross joint deformity or swelling. AROMI. Neurovascularly intact. Walking hallways with walker Skin: Warm, dry. Const: Vital Signs, click to edit/add: Vital Signs - 24 hr 06/18/23 16:15 Pulse Oximetry 93 Oxygen Delivery Me thod Room Air DS: Data Data Completed and Pending Labs on day of discharge: Labs from last 24 hours 06/15/23 09:44 Peripher Smr Path Cons See Scanned Report Discharge Plan Discharge Disposition: Home w/ Parent or Adult Date of Admission: 06/14/23 09:07 Attending Provider on Discharge: Benedicto Reyna Primary Care Provider: Provider,Not a Local Condition: Improved Anticipated Discharge Date/Time: 06/18/23 17:00 Discharge Medications: New carvedilol 6.25 mg Tablet 6.25 mg PO BID 30 Days Qty: 60 1RF torsemide 5 mg Tablet 15 mg PO DAILY 30 Days Qty: 90 1RF Humulin N NPH U-100 Insulin 100 unit/mL Suspension 8 unit subcut DAILY 30 Days Qty: 3 1RF levofloxacin 250 mg Tablet 250 mg PO DAILY 2 Days Qty: 2 0RF clonazepam 0.5 mg Tablet 0.5 mg PO BID 15 Days Qty: 30 0RF Continued Eliquis 5 mg tablet 5 mg PO BID atorvastatin 40 mg tablet 80 mg PO DAILY cholecalciferol (vitamin D3) 50 mcg (2,000 unit) capsule 50 mcg PO DAILY cilostazol 100 mg tablet 100 mg PO BID clonidine HCl 0.1 mg tablet 0.1 mg PO BID cyclopentolate [Cyclogyl] 0.5 % drops 1 drp ophthalmic (eye-left) BID Rx Instructions: compress lacrimal sac for 1-2 minutes after instillation difluprednate 0.05 % drops 1 drp ophthalmic (eye-left) DAILY Rx Instructions: until desired response dorzolamide-timolol 22.3-6.8 mg/mL drops 1 drp ophthalmic (eye-left) BID glipizide 10 mg tablet 10 mg PO DAILY losartan [Cozaar] 25 mg tablet 25 mg PO DAILY mirtazapine 15 mg tablet 30 mg PO QHS pantoprazole [Protonix] 40 mg tablet,delayed release (DR/EC) 40 mg PO DAILY tamsulosin [Flomax] 0.4 mg capsule 0.4 mg PO QHS Discontinued carvedilol 3.125 mg tablet 3.125 mg PO BID Rx Instructions: must administer with a meal/food Humulin N NPH U-100 Insulin 100 unit/mL suspension 10 - 25 unit subcut BID Rx Instructions: Inject 25 units in the morning and 10 units at night subcutaneously for diabetes. prednisone 2.5 mg tablet 2.5 mg PO DAILY torsemide [Soaanz] 20 mg tablet 10 mg PO DAILY No Action (DME) lancets Misc See Rx Instructions .ROUTE Rx Instructions: As directed Discharge Orders: Discharge Order (Routine); Ordered 06/18/23 Ordered By: Benedicto Reyna Patient Education: Levofloxacin (By mouth), Torsemide (By mouth), Carvedilol (By mouth), Insulin NPH (By injection) (HumuLIN N (NPH), HumuLIN N (NPH)..., Aspiration Pneumonia (DC), Impaired Kidney Function (ED), Level 1 National Dysphagia Diet (DC), Dysphagia (ED), Aspiration Precautions (ED) Additional Instructions: Contact the [facility] ([phone]) or [facility] ([phone]) to schedule a follow-up appointment in 3-7 days. You will need a repeat CT scan in 1-2 months. Activity Level: No Restrictions and Activity as Tolerated Discharge Diet: Regular Follow Up Appointments: Provider,Not a Local [Primary Care Provider] - Forms: [facility] Info Instructions
== END 2023-06-18 18:08 | disposition home or self-care (01) | DRG 194 ==
LOC: ED 06-14 06:51 → MEDSURG 06-14 09:08
PROVIDERS: Admitting Provider Family Medicine; Emergency Provider Family Medicine; Visit Provider Family Medicine
DX: J18.8 Other pneumonia, unspecified organism; F84.0 Autistic disorder; I13.0 Hypertensive heart and chronic kidney disease with heart failure and stage 1 through stage 4 chronic kidney disease, or unspecified chronic kidney disease; I50.20 Unspecified systolic (congestive) heart failure; N18.4 Chronic kidney disease, stage 4 (severe); I42.8 Other cardiomyopathies; R13.10 Dysphagia, unspecified; K29.50 Unspecified chronic gastritis without bleeding; D50.9 Iron deficiency anemia, unspecified; E11.51 Type 2 diabetes mellitus with diabetic peripheral angiopathy without gangrene; E11.22 Type 2 diabetes mellitus with diabetic chronic kidney disease; E11.65 Type 2 diabetes mellitus with hyperglycemia; I08.3 Combined rheumatic disorders of mitral, aortic and tricuspid valves; K21.9 Gastro-esophageal reflux disease without esophagitis; R91.1 Solitary pulmonary nodule; Z79.01 Long term (current) use of anticoagulants; R60.1 Generalized edema; F39 Unspecified mood [affective] disorder; Z79.4 Long term (current) use of insulin; Z79.52 Long term (current) use of systemic steroids; Z95.1 Presence of aortocoronary bypass graft; K59.00 Constipation, unspecified; E78.5 Hyperlipidemia, unspecified; H40.9 Unspecified glaucoma
CPT/HCPCS: 00731; 36415; 36600; 43239; 71046; 71250; 72131; 74176; 80048; 80061; 80069; 80076; 80306; 81001; 82270; 82330; 82550; 82728; 82803; 82962; 82977; 83036; 83540; 83550; 83690; 83735; 83880; 84145; 84484; 84550; 85018; 85025; 85027; 85045; 86140; 87040; 87081; 87086; 87493; 87631; 88305; 88342; 92610; 93005; 93306; 94640; 94664; 94761; 97116; 97162; 97165; 97530; 97535; 99100; 99285; 99291; A9270; C9113; J0696; J1956; J2060; J2704; J7030; J7050; J7120; J7512; S0030

== ENCOUNTER 2023-06-21 20:34 | Outpatient (CLI) | payer MEDICARE, BC, SELFPAY | END 2023-06-21 20:35 | disposition home or self-care (01) | LOC: AMB 06-22 12:11 | PROVIDERS: Visit Provider Emergency Medicine Emergency Medical Services | DX: J18.9 Pneumonia, unspecified organism (principal) | CPT/HCPCS: A0425; A0427 ==

== ENCOUNTER 2023-06-21 21:19 | Inpatient (IN) | payer MEDICARE, BC, SELFPAY ==
[2023-06-21] VITALS (11 sets, daily range): BP systolic 144–148; BP diastolic 66–74; PULSE 60–70; RESP 20; TEMP 36.3–37.1; O2SAT 86–98
--- NOTE | 2023-06-21 22:07 | CRLHL7_ITS ---
For Patients: As a result of the Cures Act, medical imaging exams and procedure reports are released immediately into your electronic medical record. You may view this report before your referring provider. If you have questions, please contact your health care provider. INDICATION: Shortness of breath. Weakness. TECHNIQUE: Chest 1 view(s) COMPARISON: Chest radiograph dated 06/17/2023. FINDINGS: Post median sternotomy. Cardiomegaly and central pulmonary vascular congestion. Diffuse interstitial opacities bilaterally, increased since prior study. Superimposed dense retrocardiac consolidation in the left lower lung. No significant change in right upper lobe opacity. Small left pleural effusion, increased since prior study. Trace right pleural effusion, not significantly changed. Trace fluid within the minor fissure. No acute chest wall abnormality. IMPRESSION: 1. Diffuse interstitial opacities bilaterally, increased since prior study, likely reflective of pulmonary edema. In the setting of cardiomegaly, findings are suggestive of CHF exacerbation. 2. Superimposed dense retrocardiac consolidation in the left lower lung, may reflect atelectasis versus pneumonia. No significant change in right upper lobe opacity. 3. Bilateral pleural effusions, left greater right, increased since prior study. Dictated by Vannesa Thomas MD @ 06/21/2023 11:04:15 PM (Electronically Signed)
--- NOTE | 2023-06-21 22:09 | ED.WEAKNESS ---
HPI - Weakness General Chief complaint: Weakness Stated complaint: Pneumonia Time Seen by Provider: 06/21/23 22:00 History of Present Illness HPI Narrative: This 72-year-old male comes in by ambulance reporting weakness and insomnia. Ambulance personnel noted oximetry at 86% on room air. This was also observed upon arrival. He was placed on 1 L of nasal cannula oxygen and improved to 94%. He does not report any fevers. He states that he is able to get up and ambulate but uses a walker for assistance. He did spend almost a week in this hospital and was discharged 2 days ago for a multifocal pneumonia. He recently moved from with [facility]. Apparently family members are located here and moved him here in order to give better care. There is a report of some dementia. He has a significant past medical history including cardiomyopathy, peripheral vascular disease, chronic kidney disease, diabetes, congestive heart failure, hyperlipidemia, glaucoma, anemia, and renal insufficiency. Related Data Home Medications Medication Instructions Recorded Confirmed apixaban 5 mg tablet (Eliquis) 5 mg PO BID 06/13/23 06/21/23 atorvastatin 40 mg tablet 80 mg PO DAILY 06/13/23 06/21/23 cholecalciferol (vitamin D3) 50 50 mcg PO DAILY 06/13/23 06/21/23 mcg (2,000 unit) capsule cilostazol 100 mg tablet 100 mg PO BID 06/13/23 06/21/23 clonidine HCl 0.1 mg tablet 0.1 mg PO BID 06/13/23 06/21/23 cyclopentolate 0.5 % eye drops 1 drp ophthalmic (eye-left) BID 06/13/23 06/21/23 (Cyclogyl) difluprednate 0.05 % eye drops 1 drp ophthalmic (eye-left) DAILY 06/13/23 06/21/23 dorzolamide 22.3 mg-timolol 6.8 1 drp ophthalmic (eye-left) BID 06/13/23 06/21/23 mg/mL eye drops glipizide 10 mg tablet 10 mg PO DAILY 06/13/23 06/21/23 lancets 06/13/23 06/13/23 losartan 25 mg tablet (Cozaar) 25 mg PO DAILY 06/13/23 06/21/23 mirtazapine 15 mg tablet 30 mg PO QHS 06/13/23 06/13/23 pantoprazole 40 mg tablet,delayed 40 mg PO DAILY 06/13/23 06/21/23 release (Protonix) tamsulosin 0.4 mg capsule (Flomax) 0.4 mg PO QHS 06/13/23 06/13/23 Previous Rx's Medication Instructions Recorded carvedilol 6.25 mg tablet 6.25 mg PO BID 30 days #60 tabs 06/18/23 clonazepam 0.5 mg tablet 0.5 mg PO BID 15 days #30 tabs 06/18/23 insulin NPH isoph U-100 human 100 8 unit (0.08 mL) subcut DAILY 30 06/18/23 unit/mL subcutaneous suspension days #3 mL (Humulin N NPH U-100 Insulin (isophane susp)) levofloxacin 250 mg tablet 250 mg PO DAILY 2 days #2 tabs 06/18/23 torsemide 5 mg tablet 15 mg (3 x 5 mg) PO DAILY 30 days 06/18/23 #90 tabs Allergies Allergy/AdvReac Type Severity Reaction Status Date / Time Penicillins Allergy Unknown Verified 06/13/23 16:15 Review of Systems Status of ROS: Reports: 10 or more systems reviewed and unremarkable except as noted in History and below Narrative: Constitutional: No fevers, no weight gain or loss. Eyes: No discharge. No vision changes. HENT: No congestion, no sore throat, no ear pain. Cardiovascular: No chest pain, no palpitations. Respiratory: Hospitalized recently for pneumonia. Gastrointestinal: No abdominal pain, no vomiting, no diarrhea. Genitourinary: No dysuria, no hematuria. Musculoskeletal: Normal range of motion. Skin: No rashes, no pruritis. Neurological: No dizziness, sensory change, speech change. He reports generalized weakness. Endo/Heme/Allergies: No bruising or bleeding. No polydipsia. Pysch: no suicidality, no anxiety. He reports insomnia the last couple nights. All other systems reviewed and are negative. [facility] Medical History (Updated 06/22/23 @ 00:28 by Osmar Adrian MD) PVD (peripheral vascular disease) ?I73.9 - Peripheral vascular disease, unspecified (ICD-10) CKD (chronic kidney disease) ?N18.9 - Chronic kidney disease, unspecified (ICD-10) On prednisone therapy ?Z79.52 - intermediate card tender (current) use of systemic steroids (ICD-10) GERD (gastroesophageal reflux disease) ?K21.9 - Gastro-esophageal reflux disease without esophagitis (ICD-10) Congestive heart failure, unspecified ?I50.9 - Heart failure, unspecified (ICD-10) Chronic anticoagulation ?Z79.01 - intermediate card tender (current) use of anticoagulants (ICD-10) Hyperlipidemia ?E78.5 - Hyperlipidemia, unspecified (ICD-10) Glaucoma ?H40.9 - Unspecified glaucoma (ICD-10) Psychiatric diagnosis deferred ?R69 - Illness, unspecified (ICD-10) Diabetes mellitus with hyperglycemia ?E11.65 - Type 2 diabetes mellitus with hyperglycemia (ICD-10) Social History What is your current living situation?: I presently have a place to live Problems where you live: no known problems Problems where you live details: n/a In the past 12 months, utilities in danger of being shut off: no In past 12 months, lack of transportation kept you from medical appts, meetings, work, or getting things needed for daily living: no In the past 12 mos, have been you worried that your food would run out before you had money to buy more?: never true In the past 12 mos, the food you bought just didn't last and you didn't have money to buy more?: never true Highest level of school completed/degree received: high school graduate Smoking Status: Former smoker Do you use any of these nicotine containing products: None Second hand tobacco smoke exposure: Yes How often do you have a drink containing alcohol: never How often do you have six or more drinks on one occasion: Never AUDIT-C Alcohol total score: 0 Non-prescribed substance use: denies use Caffeine: No How often does anyone, including family, friends and others, physically hurt you: never How often does anyone, including family, friends and others, insult or talk down to you: never How often does anyone, including family, friends and others, threaten you with harm: never How often does anyone, including family, friends and others, scream or curse at you: never service: Yes Exam Narrative: Exam Narrative: Constitutional: Well-developed, well-nourished, no acute distress. HEENT: Normocephalic, atraumatic. Neck: Normal range of motion. Nontender. Supple. Heart: Regular. No murmurs. Normal rate. Intact distal pulses. Lungs: Clear to auscultation. No chest discomfort. No wheezes, rhonchi, or rales. Abdomen: Normal bowel sounds. Nontender. No rebound tenderness. Genitalia: Deferred. Back: No midline tenderness. Normal range of motion. Extremities: Normal range of motion. No injury. Skin: Intact. No rash. Warm. No erythema or pallor. Neurologic: No altered sensation. No weakness. Alert and oriented. Psychiatric: No suicidality. No anxiety or depression. No insomnia. Nursing notes and vitals signs are reviewed. Const: Vital Signs, click to edit/add: Vital Signs - 24 hr 06/21/23 21:24 06/21/23 21:30 06/21/23 22:05 Temperature 97.4 F L Pulse Rate 65 Pulse Rate [Left P ulse Oximeter] 70 Respiratory Rate 20 Blood Pressure Blood Pressure [Ri ght Upper Arm] 144/66 H Pulse Oximetry 86 L 94 94 Oxygen Delivery Me thod Room Air Nasal Cannula Nasal Cannula Oxygen Flow Rate 1 1 06/21/23 22:06 06/21/23 22:26 06/21/23 22:27 Temperature Pulse Rate 67 65 64 Pulse Rate [Left P ulse Oximeter] Respiratory Rate Blood Pressure 148/71 H Blood Pressure [Ri ght Upper Arm] Pulse Oximetry 94 90 93 Oxygen Delivery Me thod Nasal Cannula Nasal Cannula Nasal Cannula Oxygen Flow Rate 1 1 1 06/21/23 22:30 06/21/23 22:31 06/21/23 22:45 Temperature 98.7 F Pulse Rate 64 67 Pulse Rate [Left P ulse Oximeter] Respiratory Rate Blood Pressure Blood Pressure [Ri ght Upper Arm] Pulse Oximetry 94 93 Oxygen Delivery Me thod Nasal Cannula Nasal Cannula Oxygen Flow Rate 1 1 06/21/23 23:00 06/21/23 23:03 Temperature Pulse Rate 63 60 Pulse Rate [Left P ulse Oximeter] Respiratory Rate Blood Pressure 145/74 H Blood Pressure [Ri ght Upper Arm] Pulse Oximetry 95 98 Oxygen Delivery Me thod Nasal Cannula Nasal Cannula Oxygen Flow Rate 1 1 Course Vital Signs Vital signs: Initial Vital Signs Temperature 97.4 F L 06/21/23 21:24 Temperature Source Temporal Artery Scan 06/21/23 21:24 Pulse Rate 70 06/21/23 21:24 Pulse Rhythm Regular 06/21/23 21:24 Respiratory Rate 20 06/21/23 21:24 Blood Pressure 144/66 H 06/21/23 21:24 Blood Pressure Mean 92 06/21/23 21:24 Blood Pressure Position Semi-Fowlers 06/21/23 21:24 Pulse Oximetry 86 L 06/21/23 21:24 Oxygen Delivery Method Room Air 06/21/23 21:24 Vital Signs Temperature 97.4 F L 06/21/23 21:24 Pulse Rate 70 06/21/23 21:24 Respiratory Rate 20 06/21/23 21:24 Blood Pressure 144/66 H 06/21/23 21:24 Pulse Oximetry 86 L 06/21/23 21:24 Oxygen Delivery Method Room Air 06/21/23 21:24 Temperature 98.7 F 06/21/23 22:30 Pulse Rate 60 06/21/23 23:03 Respiratory Rate 20 06/21/23 21:24 Blood Pressure 145/74 H 06/21/23 23:03 Pulse Oximetry 98 06/21/23 23:03 Oxygen Delivery Method Nasal Cannula 06/21/23 23:03 Oxygen Flow Rate 1 06/21/23 23:03 MDM - Weakness MDM Narrative Medical decision making narrative: This patient comes in reporting weakness and was recently hospitalized for multifocal pneumonia. He has been taking Levaquin at home. He arrives with oximetry at 86% on room air. With 1 L nasal cannula oxygen he improves significantly into the mid 90s%. Chest x-ray shows some worsening symptoms with regard to pneumonia and edema. The patient's EKG is reassuring but his troponin returns at 0.17. A repeat troponin is stable at 0.16. There is no prior troponin level for comparison. He does have renal insufficiency and a creatinine at 2.2. He is not describing any chest pain. It does not seem that he is having a new cardiac event. He does have a history of congestive heart failure. He did receive IV doses of Rocephin and Zithromax. I also prescribed 20 mg of Lasix intravenously. I spoke with the overnight hospitalist on-call, Dr. Pickering, who agrees to admit him for further diagnosis and management. Lab Data Labs: Lab Results 06/21/23 06/21/23 Range/Units 21:45 22:08 WBC 7.05 (4.50-11.00) K/uL RBC 3.43 L (4.30-5.90) m/uL Hgb 9.8 L (13.5-17.5) gm/dL Hct 30.5 L (37.0-53.0) % MCV 89 (80-100) fL MCH 29 (26-34) pg MCHC 32 (32-36) gm/dL RDW Coeff of Orestes 14.4 (11.5-15.5) % Plt Count 245 (140-440) K/uL Neut % (Auto) 77.2 H (42.0-72.0) % Lymph % (Auto) 10.9 L (20-44) % [place] % (Auto) 9.9 (0.0-11.0) % Eos % (Auto) 1.1 (0.0-7.0) % Baso % (Auto) 0.3 (0.0-3.0) % Neut # (Auto) 5.40 (1.7-7.0) K/uL Lymph # (Auto) 0.80 L (0.90-2.90) K/uL [place] # (Auto) 0.70 (0.00-0.90) K/UL Eos # (Auto) 0.08 (0.00-0.50) K/uL Baso # (Auto) 0.02 (0.00-0.30) K/uL Abs Immat Gran (auto) 0.04 (0.00-0.30) K/uL Imm/Tot Granulo (auto) 0.6 % Sodium 140 (135-149) mmol/L Potassium 3.6 (3.6-5.1) mmol/L Chloride 109 (96-114) mmol/L Carbon Dioxide 23 (20-32) mmol/L Anion Gap 8 (7-15) mEq/L BUN 52 H (7-30) mg/dL Creatinine 2.2 H (0.5-1.5) mg/dL Estimated GFR 31 ml/min Glucose 185 H (60-115) mg/dL Calcium 8.1 L (8.4-10.6) mg/dL Troponin I 0.16 H* (0.01-0.04) ng/mL POC Troponin I 0.17 H (0.01-0.04) ng/ml Imaging Data Chest x-ray: Radiologist's impression: 1. Diffuse interstitial opacities bilaterally, increased since prior study, likely reflective of pulmonary edema. In the setting of cardiomegaly, findings are suggestive of CHF exacerbation. 2. Superimposed dense retrocardiac consolidation in the left lower lung, may reflect atelectasis versus pneumonia. No significant change in right upper lobe opacity. 3. Bilateral pleural effusions, left greater right, increased since prior study. ECG Data Attestation: I personally reviewed and interpreted this ECG as follows: Interpretation: Normal sinus rhythm. Rate is 65 beats per minute. There are no ST or T-wave abnormalities. Discharge Plan Discharge Clinical Impression: Pneumonia, Congestive heart failure, unspecified, CKD (chronic kidney disease) Patient Disposition: Admitted As Inpatient Condition: Unchanged Prescriptions: No Action Eliquis 5 mg tablet 5 mg PO BID atorvastatin 40 mg tablet 80 mg PO DAILY cholecalciferol (vitamin D3) 50 mcg (2,000 unit) capsule 50 mcg PO DAILY cilostazol 100 mg tablet 100 mg PO BID clonidine HCl 0.1 mg tablet 0.1 mg PO BID cyclopentolate [Cyclogyl] 0.5 % drops 1 drp ophthalmic (eye-left) BID Rx Instructions: compress lacrimal sac for 1-2 minutes after instillation difluprednate 0.05 % drops 1 drp ophthalmic (eye-left) DAILY Rx Instructions: until desired response dorzolamide-timolol 22.3-6.8 mg/mL drops 1 drp ophthalmic (eye-left) BID glipizide 10 mg tablet 10 mg PO DAILY (DME) lancets [facility] See Rx Instructions .ROUTE Rx Instructions: As directed losartan [Cozaar] 25 mg tablet 25 mg PO DAILY mirtazapine 15 mg tablet 30 mg PO QHS pantoprazole [Protonix] 40 mg tablet,delayed release (DR/EC) 40 mg PO DAILY tamsulosin [Flomax] 0.4 mg capsule 0.4 mg PO QHS carvedilol 6.25 mg Tablet 6.25 mg PO BID 30 Days Qty: 60 1RF torsemide 5 mg Tablet 15 mg PO DAILY 30 Days Qty: 90 1RF Humulin N NPH U-100 Insulin 100 unit/mL Suspension 8 unit subcut DAILY 30 Days Qty: 3 1RF levofloxacin 250 mg Tablet 250 mg PO DAILY 2 Days Qty: 2 0RF clonazepam 0.5 mg Tablet 0.5 mg PO BID 15 Days Qty: 30 0RF Follow Up/Referrals: Provider,Not a Local [Primary Care Provider] -
[2023-06-21 22:12] LABS: Troponin, Point-of-Care* 0.17 ng/ml (0.01-0.04)
[2023-06-21 22:33] LABS: Basophils Absolute Auto 0.02 K/uL (0.00-0.30); Basophils Percent Auto 0.3 % (0.0-3.0); Eosinophils Absolute Auto 0.08 K/uL (0.00-0.50); Eosinophils Percent Auto 1.1 % (0.0-7.0); Hematocrit 30.5 % (37.0-53.0); Hemoglobin* 9.8 gm/dL (13.5-17.5); Immature Granulocytes Abs Auto 0.04 K/uL (0.00-0.30); Immature Granulocytes Pct Auto 0.6 %; Lymphocytes Percent Auto 10.9 % (20-44); Mean Corpuscular HGB Conc 32 gm/dL (32-36); Mean Corpuscular Hemoglobin 29 pg (26-34); Mean Corpuscular Volume 89 fL (80-100); Monocytes Percent Auto 9.9 % (0.0-11.0); Neutrophils Percent Auto 77.2 % (42.0-72.0); Platelet Count* 245 K/uL (140-440); RDW Coefficient of Variation % 14.4 % (11.5-15.5); Red Blood Count 3.43 m/uL (4.30-5.90); White Blood Count* 7.05 K/uL (4.50-11.00)
[2023-06-21 22:36] LABS: Chloride* 109 mmol/L (96-114); Slide Review Reflex No; Sodium* 140 mmol/L (135-149)
[2023-06-21 22:37] LABS: Potassium* 3.6 mmol/L (3.6-5.1)
[2023-06-21 22:39] LABS: Anion Gap 8 mEq/L (7-15); Carbon Dioxide* 23 mmol/L (20-32); Creatinine* 2.2 mg/dL (0.5-1.5); Estimated Glomerular Filt Rate 31 ml/min
[2023-06-21 22:40] LABS: Blood Urea Nitrogen* 52 mg/dL (7-30); Calcium* 8.1 mg/dL (8.4-10.6); Glucose* 185 mg/dL (60-115)
[2023-06-21 23:25] LABS: Troponin I* 0.16 ng/mL (0.01-0.04)
[2023-06-22] VITALS (12 sets, daily range): BP systolic 121–168; BP diastolic 58–86; PULSE 61–72; RESP 14–20; TEMP 36.8–38.1; O2SAT 83–97
[2023-06-22] MEDS: FUROSEMIDE 10 MG/ML inj 20 MG IVP (00:31)
[2023-06-22] MEDS: cefTRIAXone 1 GM in 0.9 % SODIUM CHLORIDE Mini-bag 100 ML IVPB (00:31)
--- NOTE | 2023-06-22 00:42 | ED.NURSE ---
Rn to Rn report given. mri tech taking pt to room.
[2023-06-22] MEDS: AZITHROMYCIN 100 MG/ML inj 500 MG IVPB (01:20)
--- NOTE | 2023-06-22 02:26 | W.PM.THH&P_ITS ---
Telehealth- H&P: HPI History of Present Illness Date Seen: 06/22/23 Chief complaint: Pneumonia Narrative: Pedro Segura is seen as an Interactive Telehealth visit. Pedro Segura is a 72 year old male who isSeen in his hospital room. He has been admitted through the emergency room. He is seen with the assistance of nursing staff. It appears he was discharged from the hospital here at [place] about 2 days ago. He was recently moved here by his family for organ. He appears to have multiple medical problems. He was recently discharged with a diagnosis of multifocal pneumonia, diabetes, possible amyloid, possible congestive heart failure with numerous other chronic medical problems. Complete records were unable to be obtained. Nevertheless patient went home he tells me he was unable to sleep just does not feel well. He also tells me his [id number] called nursing associate line today who told him to bring him into the emergency room. He was evaluated in the emergency room his sats were found to be around 87% on room air. He was coughing he was not sleeping. Repeat chest x-ray shows increasing bilateral infiltrates compared to previous. He was felt to be having increased recurrence of his pneumonia versus congestive heart failure. He was discharged from the hospital on Levaquin. This was discontinued he was started on a single dose of Rocephin 1 g along with azithromycin. He was given 20 mg of IV Lasix. He has now been admitted to the medical floor for further evaluation or treatment. He tells me he has been coughing it is nonproductive. He denies any headache, denies any chest pain, denies fevers chills nausea vomiting or diarrhea. He does tell me he is more short of breath if he lies down flat. He does not have any other complaints of. Review of Systems Narrative: A complete review of systems was performed positive pertinence and negatives in the HPI. [facility] Medical History (Updated 06/22/23 @ 00:28 by Osmar Adrian MD) PVD (peripheral vascular disease) ?I73.9 - Peripheral vascular disease, unspecified (ICD-10) CKD (chronic kidney disease) ?N18.9 - Chronic kidney disease, unspecified (ICD-10) On prednisone therapy ?Z79.52 - nursing home (current) use of systemic steroids (ICD-10) GERD (gastroesophageal reflux disease) ?K21.9 - Gastro-esophageal reflux disease without esophagitis (ICD-10) Congestive heart failure, unspecified ?I50.9 - Heart failure, unspecified (ICD-10) Chronic anticoagulation ?Z79.01 - long term care phlebotomist (current) use of anticoagulants (ICD-10) Hyperlipidemia ?E78.5 - Hyperlipidemia, unspecified (ICD-10) Glaucoma ?H40.9 - Unspecified glaucoma (ICD-10) Psychiatric diagnosis deferred ?R69 - Illness, unspecified (ICD-10) Diabetes mellitus with hyperglycemia ?E11.65 - Type 2 diabetes mellitus with hyperglycemia (ICD-10) Social History What is your current living situation?: I presently have a place to live Problems where you live: no known problems Problems where you live details: n/a In the past 12 months, utilities in danger of being shut off: no In past 12 months, lack of transportation kept you from medical appts, meetings, work, or getting things needed for daily living: no In the past 12 mos, have been you worried that your food would run out before you had money to buy more?: never true In the past 12 mos, the food you bought just didn't last and you didn't have money to buy more?: never true Highest level of school completed/degree received: high school graduate Smoking Status: Former smoker Do you use any of these nicotine containing products: None Second hand tobacco smoke exposure: Yes How often do you have a drink containing alcohol: never How often do you have six or more drinks on one occasion: Never AUDIT-C Alcohol total score: 0 Non-prescribed substance use: denies use Caffeine: No How often does anyone, including family, friends and others, physically hurt you : never How often does anyone, including family, friends and others, insult or talk down to you: never How often does anyone, including family, friends and others, threaten you with harm: never How often does anyone, including family, friends and others, scream or curse at you: never service: Yes Meds Home Medications and Allergies Home Medications Medication Instructions Recorded Confirmed Type apixaban 5 mg tablet (Eliquis) 5 mg PO BID 06/13/23 06/21/23 History atorvastatin 40 mg tablet 80 mg PO DAILY 06/13/23 06/21/23 History cholecalciferol (vitamin D3) 50 50 mcg PO DAILY 06/13/23 06/21/23 History mcg (2,000 unit) capsule cilostazol 100 mg tablet 100 mg PO BID 06/13/23 06/21/23 History clonidine HCl 0.1 mg tablet 0.1 mg PO BID 06/13/23 06/21/23 History cyclopentolate 0.5 % eye drops 1 drp ophthalmic (eye-left) BID 06/13/23 06/21/23 History (Cyclogyl) difluprednate 0.05 % eye drops 1 drp ophthalmic (eye-left) DAILY 06/13/23 06/21/23 History dorzolamide 22.3 mg-timolol 6.8 1 drp ophthalmic (eye-left) BID 06/13/23 06/21/23 History mg/mL eye drops glipizide 10 mg tablet 10 mg PO DAILY 06/13/23 06/21/23 History lancets 06/13/23 06/13/23 History losartan 25 mg tablet (Cozaar) 25 mg PO DAILY 06/13/23 06/21/23 History mirtazapine 15 mg tablet 30 mg PO QHS 06/13/23 06/13/23 History pantoprazole 40 mg tablet,delayed 40 mg PO DAILY 06/13/23 06/21/23 History release (Protonix) tamsulosin 0.4 mg capsule (Flomax) 0.4 mg PO QHS 06/13/23 06/13/23 History Allergies Allergy/AdvReac Type Severity Reaction Status Date / Time Penicillins Allergy Unknown Verified 06/13/23 16:15 Exam Narrative Exam Narrative: Physical Exam GENERAL: ?vital signs reviewed, well developed and nourished, in no distress HEENT: pupils are equal round and reactive to light, extraocular movements are grossly within normal limits and oral mucosa is moist. Ecchymosis around his left eye NECK: Supple without lymphadenopathy or thyromegaly according to nursing staff examination observation HEART: Regular rate and rhythm without any rubs, murmurs, or gallops. LUNGS:Lungs have bilateral rales and crackles increased crackles in the bases bilaterally ABDOMEN: Observation from nurse assisted exam, abdomen appears soft, nontender, and nondistended with Positive bowel sounds noted. EXTREMITIES: Strength and sensation is observed to be grossly within normal limits in the upper and lower extremities.? No focal strength deficit is observed. SKIN:? Observed warm and dry with color normal Const Vital Signs, click to edit/add: Vital Signs - 24 hr 06/21/23 21:24 06/21/23 21:30 06/21/23 22:05 Temperature 97.4 F L Pulse Rate 65 Pulse Rate [Left Pulse Oximeter] 70 Pulse Rate [Right Radial] Respiratory Rate 20 Blood Pressure Blood Pressure [Right Arm] Blood Pressure [Right Upper Arm] 144/66 H Pulse Oximetry 86 L 94 94 Oxygen Delivery Method Room Air Nasal Cannula Nasal Cannula Oxygen Flow Rate 1 1 06/21/23 22:06 06/21/23 22:26 06/21/23 22:27 Temperature Pulse Rate 67 65 64 Pulse Rate [Left Pulse Oximeter] Pulse Rate [Right Radial] Respiratory Rate Blood Pressure 148/71 H Blood Pressure [Right Arm] Blood Pressure [Right Upper Arm] Pulse Oximetry 94 90 93 Oxygen Delivery Method Nasal Cannula Nasal Cannula Nasal Cannula Oxygen Flow Rate 1 1 1 06/21/23 22:30 06/21/23 22:31 06/21/23 22:45 Temperature 98.7 F Pulse Rate 64 67 Pulse Rate [Left Pulse Oximeter] Pulse Rate [Right Radial] Respiratory Rate Blood Pressure Blood Pressure [Right Arm] Blood Pressure [Right Upper Arm] Pulse Oximetry 94 93 Oxygen Delivery Method Nasal Cannula Nasal Cannula Oxygen Flow Rate 1 1 06/21/23 23:00 06/21/23 23:03 06/22/23 01:30 Temperature 98.3 F Pulse Rate 63 60 Pulse Rate [Left Pulse Oximeter] Pulse Rate [Right Radial] 66 Respiratory Rate 20 Blood Pressure 145/74 H Blood Pressure [Right Arm] 139/74 Blood Pressure [Right Upper Arm] Pulse Oximetry 95 98 94 Oxygen Delivery Method Nasal Cannula Nasal Cannula Nasal Cannula Oxygen Flow Rate 1 1 1 06/22/23 01:30 Temperature Pulse Rate Pulse Rate [Left Pulse Oximeter] Pulse Rate [Right Radial] Respiratory Rate 20 Blood Pressure Blood Pressure [Right Arm] Blood Pressure [Right Upper Arm] Pulse Oximetry 96 Oxygen Delivery Method Nasal Cannula Oxygen Flow Rate 1 Hospitalist - H&P: Result Labs Labs: Short CBC 06/21/23 Range/Units 21:45 WBC 7.05 (4.50-11.00) K/uL Hgb 9.8 L (13.5-17.5) gm/dL Hct 30.5 L (37.0-53.0) % Plt Count 245 (140-440) K/uL BMP 06/21/23 21:45 Sodium 140 Potassium 3.6 Chloride 109 Carbon Dioxide 23 BUN 52 H Creatinine 2.2 H Glucose 185 H Calcium 8.1 L Cardiac Enzymes 06/21/23 Range/Units 21:45 Troponin I 0.16 H* (0.01-0.04) ng/mL ECG Attestation: I personally reviewed and interpreted this ECG as follows: Interpretation: Twelve-lead EKG shows normal sinus rhythm normal axis no blocks no ST elevations or depressions I do not see any acute changes. Assessment and Plan Assessment and plan (1) Congestive heart failure, unspecified: Problem comment: -elevated trop (in setting of elevated creatinine), elevated BNP - increased torsemide. weaned off IVF as to alleviate risk of fluid overload. 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 -ekg shows bigeminy, previous infarct hx, myranda (on coreg) -requesting records from [place] [facility] ([facility]) 06/14 - unable to obtain likely secondary to organization's strike situation -will need outpatient follow-up with Cardiology Status: Acute (2) Infiltrative cardiomyopathy: Problem comment: -amyloid? outpatient workup appropriate Final Impressions: 1. Normal left ventricular size, moderately increased wall thickness, mildly reduced global systolic function, calculated EF of 48 %. 2. Current global longitudinal strain is abnormal at -6 %. The strain pattern is characteristic of apical sparing suggestive of infiltrative disease (amyloidosis). 3. Right ventricular cavity size is moderately enlarged, global systolic RV function is mildly reduced. 4. Severely enlarged left atrium. 5. The aortic valve is calcified, mild stenosis and mild regurgitation. The aortic valve peak velocity is 2.3 m/s, the peak gradient is 21 mmHg, and the elvira n gradient is 12 mmHg. The aortic valve area is 1.60 cm?? with a dimensionless index of 0.43. The stroke volume index is 44.0 ml/m??. 6. The mitral valve is mild posterior annular calcification, trace mitral regurgitation. 7. Tricuspid valve is tethered. 8. Moderate tricuspid regurgitation. 9. Mildly increased estimated pulmonary pressures by tricuspid regurgitation velocity and right atrial pressure (30 mmHg plus RAP). 10. Trivial pericardial effusion. 11. Large pleural effusion. -recommend outpatient follow-up with newly established PCP and Cardiology Status: Acute (3) Pneumonia: Status: Acute (4) CKD (chronic kidney disease): Problem comment: -chronicity unknown. type 2 DM and PVD/HTN/CHF likely in the background -Creatinine stable 1.9-2.5 -renally dose antibiotics, avoid nephrotoxic medications, continue to monitor -outpatient follow-up with PCP for ongoing evaluation and management Status: Acute (5) Diabetes mellitus with hyperglycemia: Problem comment: -A1C 8.4, current glucose 55-195 -on Glucotrol and NPH, will decrease NPH to 8 units given decreasing readings, continue to monitor and adjust as necessary -SSI and accuchecks ACHS -the fact he is not on metformin likely indicates chronic CKD was known -continue with diabetic diet at discharge, insulin, outpatient follow-up with PCP and endocrinology Status: Acute (6) Chronic anticoagulation: Problem comment: -unclear indication, patient reports h/o CVA 4-5 years ago. Denies h/o arr ythmia, emboli -hold for now with degree of anemia. on SCDs for DVT ppx. -was not restarted on discharge is on known indication. Follow-up with PCP Status: Acute (7) Glaucoma: Problem comment: -continue home meds Status: Acute (8) Hyperlipidemia: Problem comment: -continue statin Status: Acute (9) Anemia: Problem comment: -patient reports h/o chronic anemia. etiology acute on chronic? CKD? unclear at this time. No active bleeding identified on admission. -reports h/o rectal bleed, hemorrhoids -hold anticoagulation until this is sorted out -PO PPI -guiac stools (neg x 1) -EGD shows gastritis -peripheral smear sent to pathology, pending -iron studies reveal iron deficiency - will replace with oral iron as of 06/17 -f/u EGD/Colonoscopy outpatient Status: Acute (10) Psychiatric diagnosis deferred: Problem comment: -need records. autistic spectrum, schizoaffective likely -family relates hx of: autism/on the spectrum, trouble with authority figures, poor sleep/motivation -clonidine, mirtazapine on home med list -recommend outpatient follow-up for further neuro evaluation and management recommendations -will need to address ongoing grief following 's Status: Acute Plan Congestive heart failure?I suspect patient not feeling well shortness of breath, hypoxia is more from congestive heart failure. Appears he may have amyloid based on his most recent echocardiogram. He also has a decreased ejection fraction around 45%. At this point we will place him on Lasix 40 mg IV twice daily. This can be cut back once his breathing has improved. We will follow-up BMP. He may have electrolyte abnormalities with diuresis. We will place patient on a 1500 mL fluid restriction. We will need to do this carefully as he will be at increased risk for cardiorenal syndrome with his baseline poor kidney function. I do think most of his symptoms are likely related to heart failure versus pneumonia. Infiltrative cardiomyopathy?will need follow-up for possible amyloidosis of the heart. This appears to have been arranged on his previous discharge. Pneumonia?patient was on antibiotics in the form of Levaquin. He does have increased densities on his chest x-ray but I suspect looking at this is more consistent with congestive heart failure. He does not have a white blood cell count, he is not febrile, he has a nonproductive cough. Nevertheless we will change antibiotics in case he does have a resistant organism we will switch over to Rocephin and doxycycline. These can be continued for about another 7 days then would recommend discontinuing. Chronic kidney disease?patient's baseline creatinine seems to be around 1.7 to about 2.5. Avoid nephrotoxic medications. Patient is at risk for cardiorenal syndrome. Diabetes?we will continue his home medications they may do need to be clarified by pharmacy in the morning but appears he is on Glucotrol and insulin. Chronic anticoagulation?patient is on Eliquis. He is really unable to tell me why he is taking it. Unfortunately we are unable to get any information from his previous healthcare facility at the moment. Glaucoma?continue his home medicationsIt would need to be verifiedPrior to reordering. This looks like we will need to be done in the morning. Anemia, BPH, hyperlipidemia?other chronic problems will need their home meds to be addressed. They have not been verified yet. These can be reordered in the morning. Psychiatric diagnosis?patient appears to have some sort of autism. Poor memory. Also poor skills that able to expound on his current situation. He is somewhat of a poor historian. Telehealth: Statement Statement Telehealth Visit: Today's History and Physical is provided via interactive telehealth by Nakul Pickering DO.? Patient is located at [facility].? Provider is located at [facility].? Nursing staff assisted with the patient's exam. The visit being done today meets criteria for a telehealth visit and the patient or patient?s parent/guardian is aware the visit is a telehealth visit. Camera Start Time: 01:34 Camera End Time: 01:53
[2023-06-22] MEDS: DOXYCYCLINE HYCLATE 100 MG in 0.9 % SODIUM CHLORIDE Mini-bag 100 ML IVPB ×2 (03:29→15:10)
--- NOTE | 2023-06-22 05:39 | PC.NURSE ---
ADMISSION/SHIFT NOTE: Pt up to [facility] around 0050 for weakness and hypoxia. 86-87% on room air, 96-97% on 1L O2 PNC. Afebrile. Pt adamant he cannot get up out of the bed for a weight or to use the BR, using the urinal, turning and repositioning himself independently, 2 assist to boost up in the bed. Denies SOB, CP, and N/V.
[2023-06-22] MEDS: SODIUM CHLORIDE 0.9 % (FLUSH) 10 ML SYRINGE 5 ML IVF ×2 (07:59→20:34)
[2023-06-22] MEDS: FUROSEMIDE 10 MG/ML inj 40 MG IVP ×2 (07:59→14:14)
[2023-06-22] MEDS: ACETAMINOPHEN 325 MG TABLET PO (08:11)
[2023-06-22 09:22] LABS: Basophils Absolute Auto 0.02 K/uL (0.00-0.30); Basophils Percent Auto 0.3 % (0.0-3.0); Eosinophils Absolute Auto 0.08 K/uL (0.00-0.50); Hematocrit 25.5 % (37.0-53.0); Hemoglobin* 8.3 gm/dL (13.5-17.5); Immature Granulocytes Abs Auto 0.04 K/uL (0.00-0.30); Immature Granulocytes Pct Auto 0.5 %; Lymphocytes Percent Auto 10.5 % (20-44); Mean Corpuscular HGB Conc 33 gm/dL (32-36); Mean Corpuscular Hemoglobin 29 pg (26-34); Mean Corpuscular Volume 88 fL (80-100); Monocytes Percent Auto 9.7 % (0.0-11.0); Platelet Count* 228 K/uL (140-440); RDW Coefficient of Variation % 14.2 % (11.5-15.5); Red Blood Count 2.89 m/uL (4.30-5.90); White Blood Count* 7.64 K/uL (4.50-11.00)
[2023-06-22 09:23] LABS: Slide Review Reflex No
[2023-06-22 10:28] LABS: Chloride* 108 mmol/L (96-114); Potassium* 3.6 mmol/L (3.6-5.1); Sodium* 140 mmol/L (135-149)
[2023-06-22 10:31] LABS: Anion Gap 7 mEq/L (7-15); Carbon Dioxide* 25 mmol/L (20-32); Creatinine* 2.3 mg/dL (0.5-1.5); Estimated Glomerular Filt Rate 29 ml/min
[2023-06-22 10:32] LABS: Blood Urea Nitrogen* 47 mg/dL (7-30); Glucose* 174 mg/dL (60-115)
--- NOTE | 2023-06-22 10:58 | PM.IMPN1 ---
Progress Note: A&P Assessment and plan (1) Congestive heart failure, unspecified: Problem details: -elevated trop (in setting of elevated creatinine), elevated BNP - increased torsemide. weaned off IVF as to alleviate risk of fluid overload. 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 -ekg shows bigeminy, previous infarct hx, myranda (on coreg) -requesting records from [place] [facility] ([facility]) 06/14 - unable to obtain likely secondary to organization's strike situation -will need outpatient follow-up with Cardiology 06/22/23: ASSESSMENT: Seems to be diuresing well with intermittent IV lasix. Creatinine essentially stable. Appears to hold fluid in chest and abdomen (not LE) PLAN: Continue IV lasix with close monitoring, anticipate 1-2 days of IV diuresis. Status: Acute (2) Infiltrative cardiomyopathy: Problem details: -amyloid? outpatient workup appropriate Final Impressions: 1. Normal left ventricular size, moderately increased wall thickness, mildly reduced global systolic function, calculated EF of 48 %. 2. Current global longitudinal strain is abnormal at -6 %. The strain pattern is characteristic of apical sparing suggestive of infiltrative disease (amyloidosis). 3. Right ventricular cavity size is moderately enlarged, global systolic RV function is mildly reduced. 4. Severely enlarged left atrium. 5. The aortic valve is calcified, mild stenosis and mild regurgitation. The aortic valve peak velocity is 2.3 m/s, the peak gradient is 21 mmHg, and the mean gradient is 12 mmHg. The aortic valve area is 1.60 cm?? with a dimensionless index of 0.43. The stroke volume index is 44.0 ml/m??. 6. The mitral valve is mild posterior annular calcification, trace mitral regurgitation. 7. Tricuspid valve is tethered. 8. Moderate tricuspid regurgitation. 9. Mildly increased estimated pulmonary pressures by tricuspid regurgitation velocity and right atrial pressure (30 mmHg plus RAP). 10. Trivial pericardial effusion. 11. Large pleural effusion. PLAN: recommend outpatient follow-up with newly established PCP and Cardiology Status: Acute (3) Pneumonia: Problem details: ASSESSMENT: Patient recently admitted for PNA, discharged on levofloxacin 2 days [employer]. Presented with hypoxia, concerning for decompensated HFrEF. Antibiotics changed to Rocephin/azithromycin on admit. Now with low grade fever, ongoing hypoxia. PLAN: Check procalcitonin Continue Rocephin/azithro Blood cultures obtained Tylenol for fever Status: Acute (4) CKD (chronic kidney disease): Problem details: ASESSMENT: chronicity unknown. type 2 DM and PVD/HTN/CHF likely in the background -Creatinine stable 1.9-2.5 PLAN: -renally dose antibiotics, avoid nephrotoxic medications, continue to monitor -outpatient follow-up with PCP for ongoing evaluation and management Status: Acute (5) Diabetes mellitus with hyperglycemia: Problem details: ASSESSMENT: A1C 8.4, current glucose 55-195. The fact he is not on metformin likely indicates chronic CKD was known PLAN: on Glucotrol and NPH, will decrease NPH to 8 units given decreasing readings, continue to monitor and adjust as necessary -SSI and accuchecks ACHS -continue with diabetic diet at discharge, insulin, outpatient follow-up with PCP and endocrinology Status: Acute (6) Chronic anticoagulation: Problem details: ASSESSMENT: Was on Eliquis for unclear indication, patient reports h/o CVA 4-5 years ago. Denies h/o arrythmia, emboli. PLAN: -hold for now with degree of anemia. on SCDs for DVT ppx. -Outside records pending -Follow-up with PCP Status: Acute (7) Glaucoma: Problem details: -continue home meds Status: Acute (8) Hyperlipidemia: Problem details: -continue statin Status: Acute (9) Anemia: Problem details: ASSESSMENT: Drop in Hgb overnight, now 8.3 which seems close to recent baseline. patient reports h/o chronic anemia. etiology acute on chronic? CKD? unclear at this time. No active bleeding identified on admission. Reports h/o rectal bleed, hemorrhoids, guaiac neg. EGD shows gastritis. PLAN: -hold anticoagulation until this is sorted out -PO PPI -peripheral smear sent to pathology, pending -iron studies reveal iron deficiency - will replace with oral iron as of 06/17 -f/u EGD/Colonoscopy outpatient Status: Acute (10) Psychiatric diagnosis deferred: Problem details: ASSESSMENT: Patient is quite flat, depressed appearing. Records currently pending. Possible autism spectrum, schizoaffective likely -family relates hx of: autism/on the spectrum, trouble with authority figures, poor sleep/motivation -clonidine, mirtazapine on home med list PLAN -Hold off on adding any antidepressants until confirmed he does not have bipolar disorder -recommend outpatient follow-up for further neuro/psych evaluation and management recommendations -will need to address ongoing grief following 's Status: Acute Subjective Date Seen: 06/22/23 Interval history: Patient is seen and examined. He is feeling tired and weak, very flat affect, but cooperative with interview and exam. Denies pain in chest and abdomen. Endorses mild SOB, but not at rest. Febrile this am to 100.5. Physical Exam General: No distress, sitting in chair. Mildly disheveled with long unkempt hair and rodney HEENT: NCAT, mmm CV: RRR, heart tones mildly distant, no murmur appreciated Resp: No respiratory distress, diminished in bilateral bases, but CTAB, no wheeze/ronchi Abd: Distended, nontender Extremities: No lower extremity edema Skin: warm, dry, no rash observed on exposed skin Neuro: Alert and awake, no lateralizing deficits Psych: Very flat affect, endorses not being happy lately Exam Const: Vital Signs, click to edit/add: Vital Signs - 24 hr 06/21/23 21:24 06/21/23 21:30 06/21/23 22:05 Temperature 97.4 F L Pulse Rate 65 Pulse Rate [Left P ulse Oximeter] 70 Pulse Rate [Right Radial] Respiratory Rate 20 Blood Pressure Blood Pressure [Ri ght Arm] Blood Pressure [Ri ght Upper Arm] 144/66 H Pulse Oximetry 86 L 94 94 Oxygen Delivery Me thod Room Air Nasal Cannula Nasal Cannula Oxygen Flow Rate 1 1 06/21/23 22:06 06/21/23 22:26 06/21/23 22:27 Temperature Pulse Rate 67 65 64 Pulse Rate [Left P ulse Oximeter] Pulse Rate [Right Radial] Respiratory Rate Blood Pressure 148/71 H Blood Pressure [Ri ght Arm] Blood Pressure [Ri ght Upper Arm] Pulse Oximetry 94 90 93 Oxygen Delivery Me thod Nasal Cannula Nasal Cannula Nasal Cannula Oxygen Flow Rate 1 1 1 06/21/23 22:30 06/21/23 22:31 06/21/23 22:45 Temperature 98.7 F Pulse Rate 64 67 Pulse Rate [Left P ulse Oximeter] Pulse Rate [Right Radial] Respiratory Rate Blood Pressure Blood Pressure [Ri ght Arm] Blood Pressure [Ri ght Upper Arm] Pulse Oximetry 94 93 Oxygen Delivery Me thod Nasal Cannula Nasal Cannula Oxygen Flow Rate 1 1 06/21/23 23:00 06/21/23 23:03 06/22/23 01:30 Temperature 98.3 F Pulse Rate 63 60 Pulse Rate [Left P ulse Oximeter] Pulse Rate [Right Radial] 66 Respiratory Rate 20 Blood Pressure 145/74 H Blood Pressure [Ri ght Arm] 139/74 Blood Pressure [Ri ght Upper Arm] Pulse Oximetry 95 98 94 Oxygen Delivery Me thod Nasal Cannula Nasal Cannula Nasal Cannula Oxygen Flow Rate 1 1 1 06/22/23 01:30 06/22/23 03:00 06/22/23 03:38 Temperature 98.3 F Pulse Rate 66 Pulse Rate [Left P ulse Oximeter] Pulse Rate [Right Radial] 67 Respiratory Rate 20 20 Blood Pressure Blood Pressure [Ri ght Arm] 168/86 H Blood Pressure [Ri ght Upper Arm] Pulse Oximetry 96 97 Oxygen Delivery Me thod Nasal Cannula Nasal Cannula Oxygen Flow Rate 1 1 06/22/23 08:03 06/22/23 10:46 Temperature 100.2 F H 100.5 F H Pulse Rate Pulse Rate [Left P ulse Oximeter] Pulse Rate [Right Radial] 61 69 Respiratory Rate 14 18 Blood Pressure Blood Pressure [Ri ght Arm] 153/79 H 121/58 L Blood Pressure [Ri ght Upper Arm] Pulse Oximetry 94 92 Oxygen Delivery Me thod Room Air Room Air Oxygen Flow Rate Labs Labs: Laboratory Results - last 24 hr 06/21/23 06/21/23 06/22/23 21:45 22:08 09:15 WBC 7.05 7.64 RBC 3.43 L 2.89 L Hgb 9.8 L 8.3 L Hct 30.5 L 25.5 L MCV 89 88 MCH 29 29 MCHC 32 33 RDW Coeff of Orestes 14.4 14.2 Plt Count 245 228 Neut % (Auto) 77.2 H 78.0 H Lymph % (Auto) 10.9 L 10.5 L [place] % (Auto) 9.9 9.7 Eos % (Auto) 1.1 1.0 Baso % (Auto) 0.3 0.3 Neut # (Auto) 5.40 6.00 Lymph # (Auto) 0.80 L 0.80 L [place] # (Auto) 0.70 0.70 Eos # (Auto) 0.08 0.08 Baso # (Auto) 0.02 0.02 Abs Immat Gran (auto) 0.04 0.04 Imm/Tot Granulo (auto) 0.6 0.5 Sodium 140 140 Potassium 3.6 3.6 Chloride 109 108 Carbon Dioxide 23 25 Anion Gap 8 7 BUN 52 H 47 H Creatinine 2.2 H 2.3 H Estimated GFR 31 29 Glucose 185 H 174 H Calcium 8.1 L 8.0 L Troponin I 0.16 H* POC Troponin I 0.17 H
[2023-06-22 11:29] LABS: Procalcitonin* 0.08 ng/mL (<0.50)
[2023-06-22 12:08] LABS: PCR FLU A Negative PCR FLU A (Negative); PCR FLU B Negative PCR FLU B (Negative)
[2023-06-22 12:09] LABS: SARS PCR* Negative SARS-CoV-2 (Negative)
--- NOTE | 2023-06-22 14:27 | PC.SOCIAL ---
Addendum entered by Tatiana Baxter LCSW 06/22/23 15:46: Contacted the following facilities: [facility]- Called and faxed packet- [facility]- Called and faxed packet- [facility] Original Note: Discharge Planning: Met with patient, brother in law, Jhony, sister and mother in patient's room. Jhony states that if patient is stronger he would like to bring him back home. Discussion over filling out Medical Assistance for Long-Term Care Services, requiring 3 months bank statements. Jhony stated that he was not sure how they could get patient's bank statements from [place]. Jhony then stated that he received a call from [facility] stating that patient did not qualify for medical assistance. Discussion over then not qualifying for Long-Term Care Services. Conversation over short term correction stay with personal cost possibility if patient doesn't meet criteria for covered stay. counter supply worker to contact nursing homes for possible admission. Social work to follow up as needed.
--- NOTE | 2023-06-22 18:29 | PC.NURSE ---
End of shift:Patient has a very flat, depressed affect... he is alert and orientated, although is confused by cues and needs things presented to him 1 at a time or else he seems to get overwhelmed. He needs lots of encouragement/ you have to tell him to do something or else he won't do it at all. Up to the chair for meals today, ambulated to the toilet this evening had 1 small formed continent BM. Ax1 w/ RW with no issues. He reports no pain, but he feels weak and constantly states that he is tired. He was educated and encouraged on how to use the incentive spirometer.... Order to RT for possible [employer] education. He was mainly on RA throughout the day.. although when dosing off in the chair he would desaturate into the mid/low 80's 1.5 L NC was applied with O2 saturation improving to 93%. When the patient was awake the O2 was removed... currently on RA. Febrile this AM 100.4... PRN Tylenol was given... temperature returned to normal. Voided in the urinal throughout the day... IV Lasix was given 2x.. Adequate urine output. 1500 ml fluid restriction... 160ml plus whatever is in his water cup. He will call appropriately, although alarms are in place. Diabetes treated 2x with 3 units of insulin each time. Up in the chair eating dinner.
[2023-06-22] MEDS: SENNOSIDES/DOCUSATE TABLET 2 TAB PO (20:33)
[2023-06-22] MEDS: cefTRIAXone 2 GM in 0.9 % SODIUM CHLORIDE Mini-bag 100 ML IVPB (23:38)
[2023-06-23] VITALS (9 sets, daily range): BP systolic 150–166; BP diastolic 72–87; PULSE 64–74; RESP 16–18; TEMP 36.4–37.4; O2SAT 90–99
[2023-06-23] MEDS: DOXYCYCLINE HYCLATE 100 MG in 0.9 % SODIUM CHLORIDE Mini-bag 100 ML IVPB (02:40)
--- NOTE | 2023-06-23 06:16 | PC.NURSE ---
Shift note: Pt continue to complain of weakness. Needs encouragement to participate in activity. Pt refused to the Incentive spirometer. Denied pain, fever and SOB noted. O2 desaturate when pt is sleeping and this was supported with 0.5L of oxygen starting 0030. Used urinal in bed.
[2023-06-23 07:04] LABS: HCO3 VBG 27 mmol/L (21-28); PCO2 VBG 38 mmHG (40-50); PO2 VBG 56.8 mmHG (25-47); pH VBG 7.465 (7.32-7.43)
[2023-06-23 07:06] LABS: Basophils Absolute Auto 0.02 K/uL (0.00-0.30); Basophils Percent Auto 0.3 % (0.0-3.0); Eosinophils Absolute Auto 0.13 K/uL (0.00-0.50); Eosinophils Percent Auto 1.8 % (0.0-7.0); Hematocrit 26.4 % (37.0-53.0); Hemoglobin* 8.5 gm/dL (13.5-17.5); Immature Granulocytes Abs Auto 0.04 K/uL (0.00-0.30); Immature Granulocytes Pct Auto 0.5 %; Lymphocytes Percent Auto 11.5 % (20-44); Mean Corpuscular HGB Conc 32 gm/dL (32-36); Mean Corpuscular Hemoglobin 28 pg (26-34); Mean Corpuscular Volume 88 fL (80-100); Monocytes Percent Auto 11.6 % (0.0-11.0); Neutrophils Percent Auto 74.3 % (42.0-72.0); Platelet Count* 251 K/uL (140-440); RDW Coefficient of Variation % 14.1 % (11.5-15.5); White Blood Count* 7.41 K/uL (4.50-11.00)
[2023-06-23 07:08] LABS: Slide Review Reflex No
[2023-06-23 07:23] LABS: Chloride* 107 mmol/L (96-114)
[2023-06-23 07:24] LABS: Potassium* 3.6 mmol/L (3.6-5.1); Sodium* 140 mmol/L (135-149)
[2023-06-23 07:26] LABS: Creatinine* 1.8 mg/dL (0.5-1.5); Estimated Glomerular Filt Rate 40 ml/min
[2023-06-23 07:27] LABS: Anion Gap 7 mEq/L (7-15); Blood Urea Nitrogen* 44 mg/dL (7-30); Carbon Dioxide* 26 mmol/L (20-32); Glucose* 172 mg/dL (60-115); Magnesium* 1.7 mg/dL (1.5-2.6)
[2023-06-23 07:40] LABS: NT Pro B Type NatriureticPept* 12100 pg/mL
[2023-06-23] MEDS: FUROSEMIDE 10 MG/ML inj 40 MG IVP ×2 (07:48→14:31)
[2023-06-23] MEDS: SODIUM CHLORIDE 0.9 % (FLUSH) 10 ML SYRINGE 5 ML IVF ×2 (08:00→21:19)
[2023-06-23] MEDS: ACETAMINOPHEN 325 MG TABLET PO (08:42)
[2023-06-23] MEDS: SENNOSIDES/DOCUSATE TABLET 2 TAB PO ×2 (08:42→21:18)
--- NOTE | 2023-06-23 17:00 | PM.IMPN1 ---
Progress Note: A&P Assessment and plan (1) Congestive heart failure, unspecified: Problem details: -elevated trop (in setting of elevated creatinine), elevated BNP - increased torsemide. weaned off IVF as to alleviate risk of fluid overload. 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 -ekg shows bigeminy, previous infarct hx, myranda (on coreg) -requesting records from [place] [facility] ([facility]) 06/14 - unable to obtain likely secondary to organization's strike situation -will need outpatient follow-up with Cardiology 06/22/23: Seems to be diuresing well with intermittent IV lasix. Creatinine essentially stable. Appears to hold fluid in chest and abdomen (not LE) - 06/23 some improvement. Creatinine improving with diuresis. Continue diuresis with current regimen. Monitor labs daily. Status: Acute (2) Infiltrative cardiomyopathy: Problem details: -amyloid? outpatient workup appropriate Final Impressions: 1. Normal left ventricular size, moderately increased wall thickness, mildly reduced global systolic function, calculated EF of 48 %. 2. Current global longitudinal strain is abnormal at -6 %. The strain pattern is characteristic of apical sparing suggestive of infiltrative disease (amyloidosis). 3. Right ventricular cavity size is moderately enlarged, global systolic RV function is mildly reduced. 4. Severely enlarged left atrium. 5. The aortic valve is calcified, mild stenosis and mild regurgitation. The aortic valve peak velocity is 2.3 m/s, the peak gradient is 21 mmHg, and the mean gradient is 12 mmHg. The aortic valve area is 1.60 cm?? with a dimensionless index of 0.43. The stroke volume index is 44.0 ml/m??. 6. The mitral valve is mild posterior annular calcification, trace mitral regurgitation. 7. Tricuspid valve is tethered. 8. Moderate tricuspid regurgitation. 9. Mildly increased estimated pulmonary pressures by tricuspid regurgitation velocity and right atrial pressure (30 mmHg plus RAP). 10. Trivial pericardial effusion. 11. Large pleural effusion. PLAN: recommend outpatient follow-up with newly established PCP and Cardiology Status: Acute (3) Pneumonia: Problem details: ASSESSMENT: Patient recently admitted for PNA, discharged on levofloxacin 2 days [employer]. Presented with hypoxia, concerning for decompensated HFrEF. Antibiotics changed to Rocephin/azithromycin on admit. - 06/23 prolactin is within normal limits. Febrile last night. Hypoxia has resolved overnight he is on room air now. Blood cultures no growth. Continue Rocephin and azithromycin for a total of 5 days then stop. Status: Acute (4) CKD (chronic kidney disease): Problem details: ASESSMENT: chronicity unknown. type 2 DM and PVD/HTN/CHF likely in the background -Creatinine stable 1.9-2.5 PLAN: -renally dose antibiotics, avoid nephrotoxic medications, continue to monitor -outpatient follow-up with PCP for ongoing evaluation and management Status: Acute (5) Diabetes mellitus with hyperglycemia: Problem details: ASSESSMENT: A1C 8.4, current glucose 55-195. The fact he is not on metformin likely indicates chronic CKD was known - BG elevated, but he is only on ISS here. NPH as outpatient. Will start low dose BID levemir. -continue with diabetic diet at discharge, insulin, outpatient follow-up with PCP and endocrinology Status: Acute (6) Chronic anticoagulation: Problem details: ASSESSMENT: Was on Eliquis for unclear indication, patient reports h/o CVA 4-5 years ago. Denies h/o arrythmia, emboli. PLAN: -hold for now with degree of anemia. on SCDs for DVT ppx. -Outside records pending -Follow-up with PCP Status: Acute (7) Glaucoma: Problem details: -continue home meds Status: Acute (8) Hyperlipidemia: Problem details: -continue statin Status: Acute (9) Anemia: Problem details: - 06/22 Drop in Hgb overnight, now 8.3 which seems close to recent baseline. patient reports h/o chronic anemia. etiology acute on chronic? CKD? unclear at this time. No active bleeding identified on admission. Reports h/o rectal bleed, hemorrhoids, guaiac neg. EGD shows gastritis. Held anticoagulation, PO PPI, peripheral smear sent to pathology, pending, iron studies reveal iron deficiency - will replace with oral iron as of 06/17 - 06/23 Hgb stable at 8.5 - f/u EGD/Colonoscopy outpatient Status: Acute (10) Psychiatric diagnosis deferred: Problem details: ASSESSMENT: Patient is quite flat, depressed appearing. Records currently pending. Possible autism spectrum, schizoaffective likely -family relates hx of: autism/on the spectrum, trouble with authority figures, poor sleep/motivation -clonidine, mirtazapine on home med list PLAN -Hold off on adding any antidepressants until confirmed he does not have bipolar disorder -recommend outpatient follow-up for further neuro/psych evaluation and management recommendations -will need to address ongoing grief following 's - 06/23 if he is still here on Sunday, consider psychiatric consultation Status: Acute Time Spent With Patient Total time spent: Today I spent 45 minutes rounding on the patient. Greater than 50% included discussing care with the patient and his mother in the room, the team, reviewing data, updating and managing the care plan. Subjective Time Seen by Provider: 13:15 Date Seen: 06/23/23 Interval history: Pedro was very talkative today. His mother, Lou, was also there. She lives in the same house with her daughter and son-in-law. This is the house that Pedro recently also moved into. She gave up her bed and bedroom on the ground level and is now staying in a basement bedroom. She is 90 years old and is having trouble getting up and down the stairs. Joe is completely unable to get up and down the stairs he tells me and he is staying in his mom's room. He complains to me in front of her about her bed being right for her but not for him and how uncomfortable it is. He also tells me that he is not getting any sleep at night and then complains about how the nurses come in to poke him for blood sugars, but he does not even wake up for that. He is concerned that he is not waking up for those, but is also upset that he has insomnia and feels like he is not been sleeping at all. He spoke a lot about his medical history, but seemed to be mixed up about it and it did not make chronologic or medical sense and he did not know words for the diagnoses that he said he has. He mentioned that he does not know what medications he takes and they have not been able to figure out what [facility] has had him on. He has no access to his chart because he does not use computers. Exam Narrative: Exam Narrative: General: No acute distress. Awake, alert, oriented x3. Yawning frequently. Disheveled. No pallor. No jaundice. Ecchymosis of top and bottom left eyelids. Affect is flat, depressed. Oropharynx: Clear. Mucous membranes moist. Cardiovascular: Regular rate and rhythm. No murmurs, gallops, or rubs. Respiratory: Diminished at both bases, no crackles or wheezes. Abdomen: Bowel sounds present. Soft, nondistended, nontender. Extremities: No pedal edema. Const: Vital Signs, click to edit/add: Vital Signs - 24 hr 06/22/23 19:00 06/22/23 23:00 06/22/23 23:00 Temperature 98.9 F Pulse Rate 71 Pulse Rate [Right Pulse Oximeter] Pulse Rate [Right Radial] 72 72 Respiratory Rate 16 16 Blood Pressure [Ri ght Arm] 138/64 Pulse Oximetry 94 Oxygen Delivery Me thod Room Air Oxygen Flow Rate 06/22/23 23:00 06/22/23 23:00 06/23/23 03:00 Temperature 98.4 F 98.4 F Pulse Rate Pulse Rate [Right Pulse Oximeter] Pulse Rate [Right Radial] 69 74 Respiratory Rate 16 16 16 Blood Pressure [Ri ght Arm] 148/82 H 166/84 H Pulse Oximetry 93 93 96 Oxygen Delivery Me thod Nasal Cannula Nasal Cannula Nasal Cannula Oxygen Flow Rate 0.5 0.5 0.5 06/23/23 07:31 06/23/23 07:45 06/23/23 08:15 Temperature 99.3 F Pulse Rate 71 Pulse Rate [Right Pulse Oximeter] Pulse Rate [Right Radial] 73 Respiratory Rate 18 16 Blood Pressure [Ri ght Arm] 165/87 H Pulse Oximetry 93 90 Oxygen Delivery Me thod Room Air Nasal Cannula Oxygen Flow Rate 0.5 06/23/23 11:02 06/23/23 15:39 06/23/23 15:45 Temperature 98.6 F 97.6 F Pulse Rate Pulse Rate [Right Pulse Oximeter] 66 64 Pulse Rate [Right Radial] Respiratory Rate 18 18 Blood Pressure [Ri ght Arm] 150/72 H 156/79 H Pulse Oximetry 95 96 96 Oxygen Delivery Me thod Room Air Room Air Room Air Oxygen Flow Rate 06/23/23 15:45 Temperature Pulse Rate Pulse Rate [Right Pulse Oximeter] Pulse Rate [Right Radial] Respiratory Rate 18 Blood Pressure [Ri ght Arm] Pulse Oximetry Oxygen Delivery Me thod Oxygen Flow Rate Labs Labs: Laboratory Results - last 24 hr 06/23/23 06:04 WBC 7.41 RBC 3.00 L Hgb 8.5 L Hct 26.4 L MCV 88 MCH 28 MCHC 32 RDW Coeff of [place]restes 14.1 Plt Count 251 Neut % (Auto) 74.3 H Lymph % (Auto) 11.5 L [place] % (Auto) 11.6 H Eos % (Auto) 1.8 Baso % (Auto) 0.3 Neut # (Auto) 5.50 Lymph # (Auto) 0.90 [place] # (Auto) 0.90 Eos # (Auto) 0.13 Baso # (Auto) 0.02 Abs Immat Gran (auto) 0.04 Imm/Tot Granulo (auto) 0.5 VBG pH 7.465 H VBG pCO2 38 L VBG pO2 56.8 H VBG HCO3 27 Sodium 140 Potassium 3.6 Chloride 107 Carbon Dioxide 26 Anion Gap 7 BUN 44 H Creatinine 1.8 H Estimated GFR 40 Glucose 172 H Calcium 8.0 L Magnesium 1.7 NT-Pro-B Natriuret Pep [id number]
--- NOTE | 2023-06-23 17:25 | PC.NURSE ---
End of Shift: Alert and orientated... The patient still claims he is very weak... although he is Ax1/ SBA w/ RW. Encouraged the patient to take a shower today.. was completed in the tub room. The patient seems in a better mood since being cleaned up. Continent of urine, goes frequently using the urinal due to IV Lasix and poor motivation to get up frequently. I educated him on the importance of getting up for the sake of his health. Fluid restriction of 1500 ml a day remains in place. VS on RA when the patient is awake. Needs .5-1L of O2 via NC if he dozes off or asleep, he will desaturate into the mid/low 80's. Family visited today. Type 2 diabetic received insulin today with all meals. Call light within reach. Chair alarm in place. Enjoying dinner in the chair.
[2023-06-23] MEDS: DOXYCYCLINE HYCLATE 100 MG PO (18:19)
[2023-06-24] VITALS (9 sets, daily range): BP systolic 153–175; BP diastolic 76–90; PULSE 64–76; RESP 16–18; TEMP 37–37.6; O2SAT 95–100
[2023-06-24] MEDS: cefTRIAXone 2 GM in 0.9 % SODIUM CHLORIDE Mini-bag 100 ML IVPB ×2 (00:13→23:41)
--- NOTE | 2023-06-24 04:38 | PC.NURSE ---
Shift note: Pt has flat affect, always respond i am tired when asked about how he is doing and I don't know for any question that demand an answer. Pt said he feel like he will because he does not see any improvement in condition since admission. Education on the course of the condition given and treatment prescribed. Immediately the nurse left room, pt called and reported of having palpitation at 0130. EKG done which did not show any abnormality from baseline. Copy to be reviewed by MD. 0.5L of oxygen given throughout the night. Pt had low grade fever of 99.7 at 0300. No pain reported.Systolic Bp has been high>150 on 3 different occasion.
[2023-06-24] MEDS: DOXYCYCLINE HYCLATE 100 MG PO ×2 (06:06→17:52)
[2023-06-24 07:15] LABS: Basophils Absolute Auto 0.03 K/uL (0.00-0.30); Basophils Percent Auto 0.4 % (0.0-3.0); Eosinophils Percent Auto 1.2 % (0.0-7.0); Hemoglobin* 9.1 gm/dL (13.5-17.5); Immature Granulocytes Abs Auto 0.05 K/uL (0.00-0.30); Immature Granulocytes Pct Auto 0.6 %; Lymphocytes Percent Auto 12.8 % (20-44); Mean Corpuscular HGB Conc 33 gm/dL (32-36); Mean Corpuscular Hemoglobin 28 pg (26-34); Mean Corpuscular Volume 87 fL (80-100); Monocytes Percent Auto 9.3 % (0.0-11.0); Neutrophils Percent Auto 75.7 % (42.0-72.0); Platelet Count* 255 K/uL (140-440); RDW Coefficient of Variation % 13.9 % (11.5-15.5); Red Blood Count 3.21 m/uL (4.30-5.90); White Blood Count* 8.07 K/uL (4.50-11.00)
[2023-06-24 07:26] LABS: Slide Review Reflex No
[2023-06-24 07:27] LABS: Chloride* 105 mmol/L (96-114); Potassium* 3.6 mmol/L (3.6-5.1); Sodium* 139 mmol/L (135-149)
[2023-06-24 07:30] LABS: Anion Gap 7 mEq/L (7-15); Blood Urea Nitrogen* 38 mg/dL (7-30); Carbon Dioxide* 27 mmol/L (20-32); Creatinine* 1.8 mg/dL (0.5-1.5); Estimated Glomerular Filt Rate 40 ml/min
[2023-06-24 07:31] LABS: Calcium* 8.3 mg/dL (8.4-10.6); Glucose* 197 mg/dL (60-115)
[2023-06-24 07:50] LABS: Troponin I* 0.09 ng/mL (0.01-0.04)
[2023-06-24] MEDS: SENNOSIDES/DOCUSATE TABLET 2 TAB PO ×2 (08:17→21:06)
[2023-06-24] MEDS: FUROSEMIDE 10 MG/ML inj 40 MG IVP ×2 (08:18→14:54)
[2023-06-24] MEDS: SODIUM CHLORIDE 0.9 % (FLUSH) 10 ML SYRINGE 5 ML IVF ×2 (08:18→21:09)
--- NOTE | 2023-06-24 15:22 | P.IMPN_ITS ---
Progress Note: A&P Assessment and plan (1) Congestive heart failure, unspecified: Problem details: -elevated trop (in setting of elevated creatinine), elevated BNP - increased torsemide. weaned off IVF as to alleviate risk of fluid overload. 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 -ekg shows bigeminy, previous infarct hx, myranda (on coreg) -requesting records from [place] [facility] ([facility]/[place]) 06/14 - unable to obtain likely secondary to organization's strike situation -will need outpatient follow-up with Cardiology 06/22/23: Seems to be diuresing well with intermittent IV lasix. Creatinine essentially stable. Appears to hold fluid in chest and abdomen (not LE) - 06/23 some improvement. Creatinine improving with diuresis. Continue diuresis with current regimen. Monitor labs daily. - 06/24 weight continues to decrease. On RA today. Cr stable. Decrease diuretics. Anticipate may be able to start looking for SNF tomorrow. Still unable to get records from [facility]. Status: Acute (2) Infiltrative cardiomyopathy: Problem details: -amyloid? outpatient workup appropriate Final Impressions: 1. Normal left ventricular size, moderately increased wall thickness, mildly reduced global systolic function, calculated EF of 48 %. 2. Current global longitudinal strain is abnormal at -6 %. The strain pattern is characteristic of apical sparing suggestive of infiltrative disease (amyloidosis). 3. Right ventricular cavity size is moderately enlarged, global systolic RV function is mildly reduced. 4. Severely enlarged left atrium. 5. The aortic valve is calcified, mild stenosis and mild regurgitation. The aortic valve peak velocity is 2.3 m/s, the peak gradient is 21 mmHg, and the mean gradient is 12 mmHg. The aortic valve area is 1.60 cm?? with a dimensionless index of 0.43. The stroke volume index is 44.0 ml/m??. 6. The mitral valve is mild posterior annular calcification, trace mitral regurgitation. 7. Tricuspid valve is tethered. 8. Moderate tricuspid regurgitation. 9. Mildly increased estimated pulmonary pressures by tricuspid regurgitation velocity and right atrial pressure (30 mmHg plus RAP). 10. Trivial pericardial effusion. 11. Large pleural effusion. PLAN: recommend outpatient follow-up with newly established PCP and Cardiology Status: Acute (3) Pneumonia: Problem details: ASSESSMENT: Patient recently admitted for PNA, discharged on levofloxacin 2 days [employer]. Presented with hypoxia, concerning for decompensated HFrEF. Antibiotics changed to Rocephin/azithromycin on admit. - 06/23 prolactin is within normal limits. Febrile last night. - 06/24 Afebrile. Hypoxia has resolved overnight he is on room air now. Blood cultures no growth. - Continue Rocephin and azithromycin for a total of 5 days then stop. Status: Acute (4) CKD (chronic kidney disease): Problem details: ASESSMENT: chronicity unknown. type 2 DM and PVD/HTN/CHF likely in the background -Creatinine stable 1.8 PLAN: -renally dose antibiotics, avoid nephrotoxic medications, continue to monitor -outpatient follow-up with PCP for ongoing evaluation and management Status: Acute (5) Diabetes mellitus with hyperglycemia: Problem details: ASSESSMENT: A1C 8.4, current glucose 55-195. The fact he is not on metformin likely indicates chronic CKD was known - BG elevated, but he is only on ISS here. NPH as outpatient. Will start low dose BID levemir. -continue with diabetic diet at discharge, insulin, outpatient follow-up with PCP and endocrinology Status: Acute (6) Chronic anticoagulation: Problem details: ASSESSMENT: Was on Eliquis for unclear indication, patient reports h/o CVA 4-5 years ago. Denies h/o arrythmia, emboli. PLAN: -hold for now with degree of anemia. on SCDs for DVT ppx. -Outside records pending -Follow-up with PCP Status: Acute (7) Glaucoma: Problem details: -continue home meds Status: Acute (8) Hyperlipidemia: Problem details: -continue statin Status: Acute (9) Anemia: Problem details: - 06/22 Drop in Hgb overnight, now 8.3 which seems close to recent baseline. patient reports h/o chronic anemia. etiology acute on chronic? CKD? unclear at this time. No active bleeding identified on admission. Reports h/o rectal bleed, hemorrhoids, guaiac neg. EGD shows gastritis. Held anticoagulation, PO PPI, peripheral smear sent to pathology, pending, iron studies reveal iron deficiency - will replace with oral iron as of 06/17 - 06/23 Hgb stable at 8.5 - 06/24 Hgb stable at 9.1 - f/u EGD/Colonoscopy outpatient Status: Acute (10) Psychiatric diagnosis deferred: Problem details: ASSESSMENT: Patient is quite flat, depressed appearing. Records currently pending. Possible autism spectrum, schizoaffective likely -family relates hx of: autism/on the spectrum, trouble with authority figures, poor sleep/motivation -clonidine, mirtazapine on home med list PLAN -Hold off on adding any antidepressants until confirmed he does not have bipolar disorder -recommend outpatient follow-up for further neuro/psych evaluation and management recommendations -will need to address ongoing grief following 's - 06/23 if he is still here on Sunday, consider psychiatric consultation Status: Acute Time Spent With Patient Total time spent: Today I spent 40 minutes rounding on the patient. Greater than 50% included discussing care with the patient, the team, reviewing data, updating and managing the care plan. Subjective Time Seen by Provider: 09:27 Date Seen: 06/24/23 Interval history: Joe states that he still feels horrible. He is very talkative and describes many frustrations he has about his life. He also says he had an anxiety attack with palpitations in the middle of the night. He complains that we are out of 2% milk and that he has to drink 1% instead. He says he does not know how he will get around at home. Exam Narrative: Exam Narrative: General: No acute distress. Awake, alert, oriented. Disheveled. No pallor. No jaundice. Ecchymosis of top and bottom left eyelids, unchanged. Affect is anxious, depressed, but oddly very talkative again today. Difficult to get a word in. Oropharynx: Clear. Mucous membranes moist. Cardiovascular: Regular rate and rhythm. No murmurs, gallops, or rubs. Respiratory: Diminished at both bases, no crackles or wheezes. Abdomen: Bowel sounds present. Soft, nondistended, nontender. Extremities: Trace pedal edema. Const: Vital Signs, click to edit/add: Vital Signs - 24 hr 06/23/23 15:39 06/23/23 15:45 06/23/23 15:45 Temperature 97.6 F Pulse Rate Pulse Rate [Right Pulse Oximeter] 64 Respiratory Rate 18 18 Blood Pressure [Ri ght Arm] 156/79 H Pulse Oximetry 96 96 Oxygen Delivery Me thod Room Air Room Air Oxygen Flow Rate 06/23/23 19:00 06/23/23 23:00 06/23/23 23:00 Temperature 99 F Pulse Rate 71 Pulse Rate [Right Pulse Oximeter] 72 71 Respiratory Rate 18 18 Blood Pressure [Ri ght Arm] 165/79 H Pulse Oximetry 94 Oxygen Delivery Me thod Room Air Oxygen Flow Rate 06/23/23 23:00 06/23/23 23:00 06/24/23 02:48 Temperature 98.7 F 99.7 F H Pulse Rate Pulse Rate [Right Pulse Oximeter] 71 76 Respiratory Rate 18 18 18 Blood Pressure [Ri ght Arm] 156/75 H 172/90 H Pulse Oximetry 99 99 97 Oxygen Delivery Me thod Room Air Room Air Room Air Oxygen Flow Rate 0.5 0.5 0.5 06/24/23 08:15 06/24/23 08:30 06/24/23 08:30 Temperature 98.6 F Pulse Rate 71 Pulse Rate [Right Pulse Oximeter] 65 Respiratory Rate 18 Blood Pressure [Ri ght Arm] 165/86 H Pulse Oximetry 100 99 Oxygen Delivery Me thod Room Air Room Air Oxygen Flow Rate 06/24/23 11:30 06/24/23 15:00 06/24/23 15:06 Temperature 98.9 F 99.1 F Pulse Rate Pulse Rate [Right Pulse Oximeter] 69 69 Respiratory Rate 16 18 Blood Pressure [Ri ght Arm] 153/76 H 175/87 H Pulse Oximetry 95 95 95 Oxygen Delivery Me thod Room Air Room Air Room Air Oxygen Flow Rate Labs Labs: Laboratory Results - last 24 hr 06/24/23 06:06 WBC 8.07 RBC 3.21 L Hgb 9.1 L Hct 28.0 L MCV 87 MCH 28 MCHC 33 RDW Coeff of [place]rest[place] 13.9 Plt Count 255 Neut % (Auto) 75.7 H Lymph % (Auto) 12.8 L [place] % (Auto) 9.3 Eos % (Auto) 1.2 Baso % (Auto) 0.4 Neut # (Auto) 6.10 Lymph # (Auto) 1.00 [place] # (Auto) 0.80 Eos # (Auto) 0.10 Baso # (Auto) 0.03 Abs Immat Gran (auto) 0.05 Imm/Tot Granulo (auto) 0.6 Sodium 139 Potassium 3.6 Chloride 105 Carbon Dioxide 27 Anion Gap 7 BUN 38 H Creatinine 1.8 H Estimated GFR 40 Glucose 197 H Calcium 8.3 L Troponin I 0.09 H*
--- NOTE | 2023-06-24 18:18 | PC.NURSE ---
End of shift: The patient is a little more confused than he was in the past 2 days could not tell me what state or town we were in, alert to himself and his birthday as well as the year only. Refused multiple times today to get up with therapy and to get up to the chair. Later in the day he aloud it. 2 moderate hard formed BM's this shift. Voiding in urinal and in the toilet. After VOID @ 1500 patient was bladder scanned for [address] Nougera order he was straight catheterized for 500 cc of urine. No other concerns at this time. Will call if he needs something. 1500 fluid restriction remains in place still.
[2023-06-25] VITALS (8 sets, daily range): BP systolic 111–167; BP diastolic 63–97; PULSE 53–76; RESP 18–24; TEMP 36.4–37.2; O2SAT 96–99; BMI 24.6
--- NOTE | 2023-06-25 05:28 | PC.NURSE ---
Shift note: Pt still believe he cannot make out from this sickness and has been making negative comment about himself. Education on the condition and treatment given. Pt needs to be prompted several times and encouraged before partake in activity including taking medications. Flat affect and lacks self motivation. Insisted that he cannot sleep but refused to take the PRN melatonin. Bladder scan at 0230 was 177ml. Vital signs stable. Denied pain. Has been on 0.5L of oxygen throughout the night due desaturation when sleeping.
[2023-06-25] MEDS: DOXYCYCLINE HYCLATE 100 MG PO ×2 (06:17→17:56)
[2023-06-25] MEDS: TORSEMIDE 5 MG TABLET 15 MG PO (09:12)
[2023-06-25] MEDS: INSULIN NPH 100 UNIT/ML 8 UNIT SUBCUT (09:13)
[2023-06-25] MEDS: SENNOSIDES/DOCUSATE TABLET 2 TAB PO ×2 (09:13→20:53)
[2023-06-25] MEDS: SODIUM CHLORIDE 0.9 % (FLUSH) 10 ML SYRINGE 5 ML IVF ×2 (09:14→20:54)
[2023-06-25 10:05] LABS: Chloride* 102 mmol/L (96-114); Potassium* 3.8 mmol/L (3.6-5.1); Sodium* 137 mmol/L (135-149)
[2023-06-25 10:08] LABS: Anion Gap 9 mEq/L (7-15); Blood Urea Nitrogen* 37 mg/dL (7-30); Carbon Dioxide* 26 mmol/L (20-32); Creatinine* 1.6 mg/dL (0.5-1.5); Estimated Glomerular Filt Rate 46 ml/min; Glucose* 291 mg/dL (60-115)
[2023-06-25 10:09] LABS: Calcium* 8.2 mg/dL (8.4-10.6)
--- NOTE | 2023-06-25 10:48 | PC.NURSE ---
Spoke to medical records at [facility] in [place]( ). Faxed Request for Release of Auth of all medical records to for transfer and continue of care.
--- NOTE | 2023-06-25 13:37 | RESP.RT ---
Patient sitting up in chair, on room air, SaO2 97-100%, breathing regular/easy. BBS good air movement upper and middle lobes, slightly diminished both Lower lobes. Good color, good clear voice, able to cough to command.
--- NOTE | 2023-06-25 14:19 | P.DS_ITS ---
DS: Providers Provider Time Seen by Provider: 07:57 Date Seen: 06/26/23 Date of admission: 06/22/23 03:17 Primary care physician: Not a Local Provider Admitting Clinician: Rudi Khanna MD Consults: 06/22/23 02:06 Consult to Occupational Therapy [CONS] Routine Comment: Reason(s) for OT Consult:: Difficulty Managing ADLs Any Restrictions?:: No Restrictions Consult to Physical Therapy [CONS] Routine Comment: Reason(s) for PT Consult:: Evaluate Ambulation Any Restrictions?:: No Restrictions Attending Physician on discharge: Kristi Garcia MD Date of Discharge: 06/26/23 DS: Diagnosis Discharge Diagnosis (1) Pneumonia: Status: Resolved Problem details: ASSESSMENT: Patient recently admitted for PNA, discharged on levofloxacin 2 days HEAD MIXER. Presented with hypoxia, concerning for decompensated HFrEF. Antibiotics changed to Rocephin/azithromycin on admit. - 06/23 prolactin is within normal limits. Febrile last night. - 06/24 Afebrile. Hypoxia has resolved overnight he is on room air now. Blood cultures no growth. - Continue antibiotics for a total of 5 days then stop. Day 4/5 today 06/26. (2) Weakness: Status: Acute Problem details: -generalize, in setting of significant illness -PT/OT, walking hallways with walker and successfully using stairs (3) Constipation: Status: Acute Problem details: -senna b.i.d., MiraLax p.r.n. (4) Infiltrative cardiomyopathy: Status: Acute Problem details: -amyloid? outpatient workup appropriate Final Impressions: 1. Normal left ventricular size, moderately increased wall thickness, mildly reduced global systolic function, calculated EF of 48 %. 2. Current global longitudinal strain is abnormal at -6 %. The strain pattern is characteristic of apical sparing suggestive of infiltrative disease (amyloidosis). 3. Right ventricular cavity size is moderately enlarged, global systolic RV function is mildly reduced. 4. Severely enlarged left atrium. 5. The aortic valve is calcified, mild stenosis and mild regurgitation. The aortic valve peak velocity is 2.3 m/s, the peak gradient is 21 mmHg, and the mean gradient is 12 mmHg. The aortic valve area is 1.60 cm?? with a dimensionless index of 0.43. The stroke volume index is 44.0 ml/m??. 6. The mitral valve is mild posterior annular calcification, trace mitral regurgitation. 7. Tricuspid valve is tethered. 8. Moderate tricuspid regurgitation. 9. Mildly increased estimated pulmonary pressures by tricuspid regurgitation velocity and right atrial pressure (30 mmHg plus RAP). 10. Trivial pericardial effusion. 11. Large pleural effusion. PLAN: recommend outpatient follow-up with newly established PCP and Cardiology (5) Pulmonary nodule: Status: Acute Problem details: -non con chest CT on 06/14: Bilateral ground-glass and nodular opacities are worrisome for multifocal pneumonia. However, the irregular nodular opacities could represent malignancy/metastasis. At a minimum, CT follow-up in 1-[address] CT and abdomen/pelvis CT reassuring on 06/16 -repeat chest CT - first week of July. PCP to schedule -Patient denies h/o known previous nodules or cancerous lesions (6) PVD (peripheral vascular disease): Status: Acute Problem details: -pt reports FEMPOP and previous stents. on cilostazol (Pletal). Right leg. -continue cilostazol on discharge (7) CKD (chronic kidney disease): Status: Acute Problem details: ASESSMENT: chronicity unknown. type 2 DM and PVD/HTN/CHF likely in the background -Creatinine stable 1.8 PLAN: -renally dose antibiotics, avoid nephrotoxic medications, continue to monitor -outpatient follow-up with PCP for ongoing evaluation and management (8) Diabetes mellitus with hyperglycemia: Status: Acute Problem details: ASSESSMENT: A1C 8.4, current glucose 55-195. The fact he is not on metformin likely indicates chronic CKD was known - BG elevated, but he is only on ISS here. NPH as outpatient. Will start low dose BID levemir. -continue with diabetic diet at discharge, insulin, outpatient follow-up with PCP and endocrinology (9) On prednisone therapy: Status: Acute Problem details: -indication unknown -undated med list from [place] states he was/is on a prednisone burst and taper for unknown reasons. -Therapy d/c 06/16/23 as unknown indication. (10) GERD (gastroesophageal reflux disease): Status: Acute Problem details: -on PPI - continued at discharge -history of rectal bleed/hemorrhoids (11) Congestive heart failure, unspecified: Status: Acute Problem details: -elevated trop (in setting of elevated creatinine), elevated BNP - increased torsemide. weaned off IVF as to alleviate risk of fluid overload. 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 -ekg shows bigeminy, previous infarct hx, myranda (on coreg) -requesting records from [place] [facility] ([facility]) 06/14 - unable to obtain likely secondary to organization's strike situation -will need outpatient follow-up with Cardiology 06/22/23: Seems to be diuresing well with intermittent IV lasix. Creatinine essentially stable. Appears to hold fluid in chest and abdomen (not LE) - 06/23 some improvement. Creatinine improving with diuresis. Continue diuresis with current regimen. Monitor labs daily. - 06/24 weight continues to decrease. On RA today. Cr stable. Decrease diuretics. Still unable to get records from [place]. - 06/25 Clinically doing well. Cr stable and improving. (12) Chronic anticoagulation: Status: Acute Problem details: ASSESSMENT: Was on Eliquis for unclear indication, patient reports h/o CVA 4-5 years ago. Denies h/o arrythmia, emboli. PLAN: -hold for now with degree of anemia. on SCDs for DVT ppx. -Outside records pending -Follow-up with PCP (13) Hyperlipidemia: Status: Acute Problem details: -continue statin (14) Glaucoma: Status: Acute Problem details: -continue home meds (15) Psychiatric diagnosis deferred: Status: Acute Problem details: ASSESSMENT: Patient is quite flat, depressed appearing. Records currently pending. Possible autism spectrum, schizoaffective likely -family relates hx of: autism/on the spectrum, trouble with authority figures, poor sleep/motivation -clonidine, mirtazapine on home med list PLAN -Hold off on adding any antidepressants until confirmed he does not have bipolar disorder -recommend outpatient follow-up for further neuro/psych evaluation and management recommendations -will need to address ongoing grief following 's - outpatient appt with [facility] Jul 05 at 10 am. (16) Dysphagia: Status: Acute Problem details: -improving, tolerating orals -awaiting biopsies from EGD on 06/15- as of 06/18, sent to [facility], pending. Dr Allen noted gastritis. Still pending at time of discharge -transitioned to oral PPI, continued at discharge -scheduled clonazepam (as this is at least equal parts anxiety and gastritis) during hospitalization -follow-up for further evaluation and results with PCP (17) Anemia: Status: Acute Problem details: - 06/22 Drop in Hgb overnight, now 8.3 which seems close to recent baseline. patient reports h/o chronic anemia. etiology acute on chronic? CKD? unclear at this time. No active bleeding identified on admission. Reports h/o rectal bleed, hemorrhoids, guaiac neg. EGD shows gastritis. Held anticoagulation, PO PPI, peripheral smear sent to pathology, pending, iron studies reveal iron deficiency - will replace with oral iron as of 06/17 - 06/23 Hgb stable at 8.5 - 06/24 Hgb stable at 9.1 - f/u EGD/Colonoscopy outpatient DS: Summary Hospital Course Hospital Course: This is a 72-year-old male who has a history of multiple chronic medical problems and recent diagnosis of multifocal pneumonia for which he was our hospital last week. We have not been able to obtain records from [facility] where he use to be seen in [place]. In our hospital last week he had received diagnoses of multifocal pneumonia, diabetes, possible amyloidosis, possible congestive heart failure. He presented again with hypoxia repeat chest x-ray showed bilateral infiltrates that had worsened compared to previous. Is also felt to be having recurrent heart failure symptoms. He had been discharged on levofloxacin, but this was discontinued and he was started on Rocephin with azithromycin. He is also given IV Lasix. Troponin was mildly elevated in the setting of elevated creatinine and elevated BNP. It trended downward. EKG was unchanged. He diuresed well and hypoxia resolved. Had a lot of anxiety at night especially about feeling of shortness of breath when laying down. This occurred even when he was not hypoxic laying down. He also appeared severely depressed for which I spoke with Torsten Mayfield from [facility] and set up an outpatient appointment for next week. Pedro is discharged today to [facility] for rehab and is in stable and improved condition. Please see diagnoses above for more information. NOTE TO PCP: * We have attempted to get records from [facility] and have been told this could take up to 2.5 weeks. It is likely that these will be helpful from the standpoint of questions about why he was previously on anticoagulation, cardiac history, mental health history, etc. You could consider requesting them also. In addition, please consider: * Nocturnal saturation screen for sleep apnea. * Cardiology 2-4 weeks for HF and possible amyloidosis. * Outpatient diagnostic EGD and colonoscopy for anemia. * CT follow-up in 1-2 months for pulmonary nodules. * Endocrinology referral for diabetes. Time Spent with Patient Time attestation: Total time spent providing and/or coordinating discharge services: 45 minutes Exam Narrative: Exam Narrative: General: No acute distress. Awake, alert, oriented. Disheveled. Affect is depressed. Oropharynx: Clear. Mucous membranes moist. Cardiovascular: Regular rate and rhythm. No murmurs, gallops, or rubs. Respiratory: CTAB, no crackles or wheezes. Abdomen: Bowel sounds present. Soft, nondistended, nontender. Extremities: No pedal edema. wt stable at 70 kg. Const: Vital Signs, click to edit/add: Vital Signs - 24 hr 06/24/23 15:00 06/24/23 15:06 06/24/23 16:00 Temperature 99.1 F Pulse Rate 64 Pulse Rate [Right Pulse Oximeter] 69 Respiratory Rate 18 Blood Pressure [Le ft Arm] Blood Pressure [Ri ght Arm] 175/87 H Pulse Oximetry 95 95 Oxygen Delivery Me thod Room Air Room Air Oxygen Flow Rate 06/24/23 19:00 06/24/23 23:00 06/24/23 23:00 Temperature 99.1 F Pulse Rate 69 Pulse Rate [Right Pulse Oximeter] 67 67 Respiratory Rate 18 18 Blood Pressure [Le ft Arm] Blood Pressure [Ri ght Arm] 166/83 H Pulse Oximetry 95 Oxygen Delivery Me thod Room Air Oxygen Flow Rate 06/24/23 23:00 06/24/23 23:00 06/25/23 03:00 Temperature 99 F 98.9 F Pulse Rate Pulse Rate [Right Pulse Oximeter] 67 76 Respiratory Rate 18 18 18 Blood Pressure [Le ft Arm] Blood Pressure [Ri ght Arm] 153/84 H 146/97 H Pulse Oximetry 97 97 96 Oxygen Delivery Me thod Room Air Room Air Room Air Oxygen Flow Rate 0.5 0.5 0.5 06/25/23 07:59 06/25/23 08:10 06/25/23 08:10 Temperature 97.6 F Pulse Rate 66 Pulse Rate [Right Pulse Oximeter] 66 66 Respiratory Rate 24 24 Blood Pressure [Le ft Arm] Blood Pressure [Ri ght Arm] 154/81 H Pulse Oximetry 96 Oxygen Delivery Me thod Room Air Oxygen Flow Rate 06/25/23 08:10 06/25/23 11:00 06/25/23 13:36 Temperature 98.6 F Pulse Rate Pulse Rate [Right Pulse Oximeter] 63 Respiratory Rate 24 24 18 Blood Pressure [Le ft Arm] 167/87 H Blood Pressure [Ri ght Arm] Pulse Oximetry 96 98 99 Oxygen Delivery Me thod Room Air Room Air Room Air Oxygen Flow Rate DS: Data Data Completed and Pending Completed studies during hospitalization: Procedures Excision of Duodenum, Via Natural or Artificial Opening Endoscopic, Diagnostic (06/14/23) Excision of Stomach, Via Natural or Artificial Opening Endoscopic, Diagnostic (06/14/23) Labs on day of discharge: Labs from last 24 hours 06/25/23 09:30 Sodium 137 Potassium 3.8 Chloride 102 Carbon Dioxide 26 Anion Gap 9 BUN 37 H Creatinine 1.6 H Estimated GFR 46 Glucose 291 H Calcium 8.2 L Preliminary micro results at discharge 06/22/23 11:05 Blood Culture - Preliminary Blood NO GROWTH AFTER 72 HOURS 06/22/2023 EKG: Normal sinus rhythm with sinus arrhythmia, 65 beats per minute, inferior infarct, age undetermined, anterior infarct, age undetermined. This was similar to EKG done 06/14/2023. Ordering Physician: Osmar Adrian M.D. Date of Service: 06/21/23 Procedure(s): XR chest 1V portable Accession Number(s): [id number] cc: Osmar Adrian M.D.; Provider,Not a Local~ For Patients: As a result of the Cures Act, medical imaging exams and procedure reports are released immediately into your electronic medical record. You may view this report before your referring provider. If you have questions, please contact your health care provider. INDICATION: Shortness of breath. Weakness. TECHNIQUE: Chest 1 view(s) COMPARISON: Chest radiograph dated 06/17/2023. FINDINGS: Post median sternotomy. Cardiomegaly and central pulmonary vascular congestion. Diffuse interstitial opacities bilaterally, increased since prior study. Superimposed dense retrocardiac consolidation in the left lower lung. No significant change in right upper lobe opacity. Small left pleural effusion, increased since prior study. Trace right pleural effusion, not significantly changed. Trace fluid within the minor fissure. No acute chest wall abnormality. IMPRESSION: 1. Diffuse interstitial opacities bilaterally, increased since prior study, likely reflective of pulmonary edema. In the setting of cardiomegaly, findings are suggestive of CHF exacerbation. 2. Superimposed dense retrocardiac consolidation in the left lower lung, may reflect atelectasis versus pneumonia. No significant change in right upper lobe opacity. 3. Bilateral pleural effusions, left greater right, increased since prior study. Dictated by Vannesa Thomas MD @ 06/21/2023 11:04:15 PM (Electronically Signed) Discharge Plan Discharge Disposition: [facility] Discharge Location: [facility] Date of Admission: 06/22/23 03:17 Attending Provider on Discharge: Kristi Garcia Primary Care Provider: Provider,Not a Local Condition: Unchanged Discharge Medications: New sennosides-docusate sodium [Stool Softener-Laxative] 8.6-50 mg Tablet 2 tab PO BID Qty: 60 0RF melatonin 3 mg Tablet 3 mg PO HS PRN (Reason: Insomnia) Qty: 30 0RF doxycycline hyclate 100 mg Tablet 100 mg PO Q12H Qty: 3 0RF cefpodoxime 200 mg tablet 200 mg PO BID Qty: 3 0RF Rx Instructions: must administer with a meal/food carvedilol 6.25 mg Tablet 6.25 mg PO BID 30 Days Qty: 60 1RF Continued atorvastatin 40 mg tablet 80 mg PO DAILY cholecalciferol (vitamin D3) 50 mcg (2,000 unit) capsule 50 mcg PO DAILY cilostazol 100 mg tablet 100 mg PO BID cyclopentolate [Cyclogyl] 0.5 % drops 1 drp ophthalmic (eye-left) BID Rx Instructions: compress lacrimal sac for 1-2 minutes after instillation difluprednate 0.05 % drops 1 drp ophthalmic (eye-left) DAILY Rx Instructions: until desired response dorzolamide-timolol 22.3-6.8 mg/mL drops 1 drp ophthalmic (eye-left) BID glipizide 10 mg tablet 10 mg PO DAILY losartan [Cozaar] 25 mg tablet 25 mg PO DAILY mirtazapine 15 mg tablet 30 mg PO QHS pantoprazole [Protonix] 40 mg tablet,delayed release (DR/EC) 40 mg PO DAILY tamsulosin [Flomax] 0.4 mg capsule 0.4 mg PO QHS torsemide 5 mg Tablet 15 mg PO DAILY 30 Days Qty: 90 1RF Humulin N NPH U-100 Insulin 100 unit/mL Suspension 8 unit subcut DAILY 30 Days Qty: 3 1RF clonazepam 0.5 mg Tablet 0.5 mg PO BID 15 Days Qty: 30 0RF Discontinued Eliquis 5 mg tablet 5 mg PO BID clonidine HCl 0.1 mg tablet 0.1 mg PO BID (DME) lancets Misc See Rx Instructions .ROUTE Rx Instructions: As directed levofloxacin 250 mg Tablet 250 mg PO DAILY 2 Days Qty: 2 0RF Discharge Orders: Discharge Order (Routine); Ordered 06/26/23 Ordered By: Kristi Garcia Additional Instructions: Appointment with Torsten Mayfield at [facility] at [address] [place] [address] on July 05 at 10:00 a.m.. [phone] Activity Level: No Restrictions Discharge Diet: Diabetic, Heart Healthy (2 gm sodium, low fat) and 2000 ml Fluid Restriction Diet Detail: Nutritional supplement TIDWM Follow Up Appointments: Provider,Not a Local [Primary Care Provider] - Forms: [facility] Info Instructions Admit to: SNF Discharge Potential: Good Length of Stay: <30 days Can use facility standing orders?: Yes Code Status: Full Code TEDs: Bilateral Knee Rehab Potential: Good Therapy: Physical Therapy and Occupational Therapy Therapy Orders: Evaluate and Treat Oxygen: Yes Oxygen Delivery Method: Nasal Cannula Oxygen Flow Rate: 0.5 L PRN O2 sats <90% Urinary Catheter: No Glucose Checks: ACHS Lab Orders: BMP in 1 week Orders are good >30 days: No Signature: Kristi Garcia MD
--- NOTE | 2023-06-25 16:55 | PC.SOCIAL ---
-Discharge planning- Received a phone call from Kathy in admissions at [facility] at [phone]. [facility] has accepted pt for admission for tomorrow. Provided update to MD and discussed with pt's brother in law, Jhony, in person. Jhony will discuss with pt. Jhony is unable to transport pt to [facility] tomorrow and is willing to pay for a non-emergency ambulance transport. Completed paperwork for non-emergency ambulance and provided to charge nurse. Provided update to charge nurse.
--- NOTE | 2023-06-25 17:19 | PM.IMPN1 ---
Progress Note: A&P Assessment and plan (1) Congestive heart failure, unspecified: Problem details: -elevated trop (in setting of elevated creatinine), elevated BNP - increased torsemide. weaned off IVF as to alleviate risk of fluid overload. 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 -ekg shows bigeminy, previous infarct hx, myranda (on coreg) -requesting records from [place] [facility] ([facility]/[place]) 06/14 - unable to obtain likely secondary to organization's strike situation -will need outpatient follow-up with Cardiology 06/22/23: Seems to be diuresing well with intermittent IV lasix. Creatinine essentially stable. Appears to hold fluid in chest and abdomen (not LE) - 06/23 some improvement. Creatinine improving with diuresis. Continue diuresis with current regimen. Monitor labs daily. - 06/24 weight continues to decrease. On RA today. Cr stable. Decrease diuretics. Anticipate may be able to start looking for SNF tomorrow. Still unable to get records from [facility]. - 06/25 Clinically doing well. Cr stable and improving. Status: Acute (2) Infiltrative cardiomyopathy: Problem details: -amyloid? outpatient workup appropriate Final Impressions: 1. Normal left ventricular size, moderately increased wall thickness, mildly reduced global systolic function, calculated EF of 48 %. 2. Current global longitudinal strain is abnormal at -6 %. The strain pattern is characteristic of apical sparing suggestive of infiltrative disease (amyloidosis). 3. Right ventricular cavity size is moderately enlarged, global systolic RV function is mildly reduced. 4. Severely enlarged left atrium. 5. The aortic valve is calcified, mild stenosis and mild regurgitation. The aortic valve peak velocity is 2.3 m/s, the peak gradient is 21 mmHg, and the mean gradient is 12 mmHg. The aortic valve area is 1.60 cm?? with a dimensionless index of 0.43. The stroke volume index is 44.0 ml/m??. 6. The mitral valve is mild posterior annular calcification, trace mitral regurgitation. 7. Tricuspid valve is tethered. 8. Moderate tricuspid regurgitation. 9. Mildly increased estimated pulmonary pressures by tricuspid regurgitation velocity and right atrial pressure (30 mmHg plus RAP). 10. Trivial pericardial effusion. 11. Large pleural effusion. PLAN: recommend outpatient follow-up with newly established PCP and Cardiology Status: Acute (3) Pneumonia: Problem details: ASSESSMENT: Patient recently admitted for PNA, discharged on levofloxacin 2 days [employer]. Presented with hypoxia, concerning for decompensated HFrEF. Antibiotics changed to Rocephin/azithromycin on admit. - 06/23 prolactin is within normal limits. Febrile last night. - 06/24 Afebrile. Hypoxia has resolved overnight he is on room air now. Blood cultures no growth. - Continue antibiotics for a total of 5 days then stop. Status: Acute (4) CKD (chronic kidney disease): Problem details: ASESSMENT: chronicity unknown. type 2 DM and PVD/HTN/CHF likely in the background -Creatinine stable 1.8 PLAN: -renally dose antibiotics, avoid nephrotoxic medications, continue to monitor -outpatient follow-up with PCP for ongoing evaluation and management Status: Acute (5) Diabetes mellitus with hyperglycemia: Problem details: ASSESSMENT: A1C 8.4, current glucose 55-195. The fact he is not on metformin likely indicates chronic CKD was known - BG elevated, but he is only on ISS here. NPH as outpatient. Will start low dose BID levemir. -continue with diabetic diet at discharge, insulin, outpatient follow-up with PCP and endocrinology Status: Acute (6) Chronic anticoagulation: Problem details: ASSESSMENT: Was on Eliquis for unclear indication, patient reports h/o CVA 4-5 years ago. Denies h/o arrythmia, emboli. PLAN: -hold for now with degree of anemia. on SCDs for DVT ppx. -Outside records pending -Follow-up with PCP Status: Acute (7) Glaucoma: Problem details: -continue home meds Status: Acute (8) Hyperlipidemia: Problem details: -continue statin Status: Acute (9) Anemia: Problem details: - 06/22 Drop in Hgb overnight, now 8.3 which seems close to recent baseline. patient reports h/o chronic anemia. etiology acute on chronic? CKD? unclear at this time. No active bleeding identified on admission. Reports h/o rectal bleed, hemorrhoids, guaiac neg. EGD shows gastritis. Held anticoagulation, PO PPI, peripheral smear sent to pathology, pending, iron studies reveal iron deficiency - will replace with oral iron as of 06/17 - 06/23 Hgb stable at 8.5 - 10/15 Hgb stable at 9.1 - f/u EGD/Colonoscopy outpatient Status: Acute (10) Psychiatric diagnosis deferred: Problem details: ASSESSMENT: Patient is quite flat, depressed appearing. Records currently pending. Possible autism spectrum, schizoaffective likely -family relates hx of: autism/on the spectrum, trouble with authority figures, poor sleep/motivation -clonidine, mirtazapine on home med list PLAN -Hold off on adding any antidepressants until confirmed he does not have bipolar disorder -recommend outpatient follow-up for further neuro/psych evaluation and management recommendations -will need to address ongoing grief following 's - outpatient appt with [facility] Jul 05 at 10 am. Status: Acute Time Spent With Patient Total time spent: Today I spent 60 minutes rounding on the patient. Greater than 50% included discussing care with the patient, the team, reviewing data, updating and managing the care plan. Subjective Time Seen by Provider: 09:44 Date Seen: 06/25/23 Interval history: Pedro says he feels horrible. He complains about not being able to sleep for years. When I ask him about getting help with a counselor, he says he doesn't know what help that would be. Initially he thought that there was potential that he could go home, but [facility] was able to except him and that will be a good discharge plan for him since he needs rehab and supervision with ambulation. I spoke with his [id number]-vvy, Jhony, over the phone and then later on in person. Pedro and Jhony were both agreeable with this plan. I also spoke with Torsten Mayfield from [facility] in [place]. He has an appointment available on July 05 at 10:00 a.m.. Pedro and Jhony were also agreeable to getting to Pedro to that appointment to establish mental health care with Torsten Mayfield. Exam Narrative: Exam Narrative: General: No acute distress. Awake, alert, oriented. Disheveled. No pallor. No jaundice. Ecchymosis of top and bottom left eyelids, unchanged. Affect is depressed, but talkative. Oropharynx: Clear. Mucous membranes moist. Cardiovascular: Regular rate and rhythm. No murmurs, gallops, or rubs. Respiratory: CTAB, no crackles or wheezes. Abdomen: Bowel sounds present. Soft, nondistended, nontender. Extremities: No pedal edema. wt on 06/14/23 was 76 kg, 06/25/23 is 69 kg. Const: Vital Signs, click to edit/add: Vital Signs - 24 hr 06/24/23 19:00 06/24/23 23:00 06/24/23 23:00 Temperature 99.1 F Pulse Rate 69 Pulse Rate [Right Pulse Oximeter] 67 67 Respiratory Rate 18 18 Blood Pressure [Le ft Arm] Blood Pressure [Ri ght Arm] 166/83 H Pulse Oximetry 95 Oxygen Delivery Me thod Room Air Oxygen Flow Rate 06/24/23 23:00 06/24/23 23:00 06/25/23 03:00 Temperature 99 F 98.9 F Pulse Rate Pulse Rate [Right Pulse Oximeter] 67 76 Respiratory Rate 18 18 18 Blood Pressure [Le ft Arm] Blood Pressure [Ri ght Arm] 153/84 H 146/97 H Pulse Oximetry 97 97 96 Oxygen Delivery Me thod Room Air Room Air Room Air Oxygen Flow Rate 0.5 0.5 0.5 06/25/23 07:59 06/25/23 08:10 06/25/23 08:10 Temperature 97.6 F Pulse Rate 66 Pulse Rate [Right Pulse Oximeter] 66 66 Respiratory Rate 24 24 Blood Pressure [Le ft Arm] Blood Pressure [Ri ght Arm] 154/81 H Pulse Oximetry 96 Oxygen Delivery Me thod Room Air Oxygen Flow Rate 06/25/23 08:10 06/25/23 11:00 06/25/23 13:36 Temperature 98.6 F Pulse Rate Pulse Rate [Right Pulse Oximeter] 63 Respiratory Rate 24 24 18 Blood Pressure [Le ft Arm] 167/87 H Blood Pressure [Ri ght Arm] Pulse Oximetry 96 98 99 Oxygen Delivery Me thod Room Air Room Air Room Air Oxygen Flow Rate 06/25/23 16:16 06/25/23 16:16 06/25/23 16:16 Temperature 98.6 F Pulse Rate 67 Pulse Rate [Right Pulse Oximeter] 61 61 Respiratory Rate 20 20 Blood Pressure [Le ft Arm] 144/66 H Blood Pressure [Ri ght Arm] Pulse Oximetry 99 Oxygen Delivery Me thod Room Air Oxygen Flow Rate 06/25/23 16:16 Temperature Pulse Rate Pulse Rate [Right Pulse Oximeter] Respiratory Rate 20 Blood Pressure [Le ft Arm] Blood Pressure [Ri ght Arm] Pulse Oximetry 99 Oxygen Delivery Me thod Room Air Oxygen Flow Rate Labs Labs: Laboratory Results - last 24 hr 06/25/23 09:30 Sodium 137 Potassium 3.8 Chloride 102 Carbon Dioxide 26 Anion Gap 9 BUN 37 H Creatinine 1.6 H Estimated GFR 46 Glucose 291 H Calcium 8.2 L
--- NOTE | 2023-06-25 18:15 | PC.NURSE ---
End of Shift: Patient pleasant and cooperative, flat affect and whinny. Patient vitally stable, lungs clear, BS WNL, IV SL. Patient 1 assist, walker, gb. Patient urinating by urinal and tolerating diet, only eating rice crispy cereal today. Patient reported some abdominal discomfort but declined tylenol. Blood sugars 173, 350, 216. Patient up in chair all shift.
[2023-06-25] MEDS: cefTRIAXone 2 GM in 0.9 % SODIUM CHLORIDE Mini-bag 100 ML IVPB (23:55)
[2023-06-25] MEDS: 0.9 % SODIUM CHLORIDE 250 ml IV (23:58)
[2023-06-26 03:00] VITALS: BP 123/71; PULSE 67; RESP 18; TEMP 36.9; O2SAT 99
--- NOTE | 2023-06-26 04:41 | PC.NURSE ---
Shift note: Pt appeared cheerful and looking good this morning. Continue to moan when asked to perform activity including vital signs check and medication. Pt prefers using urinal in bed rather than going to the BR. ).%L of oxygen set up at 0330. Vitally stable.
[2023-06-26] MEDS: DOXYCYCLINE HYCLATE 100 MG PO (06:15)
[2023-06-26 07:41] VITALS: BP 136/93; PULSE 68; RESP 16; TEMP 36.9; O2SAT 97
[2023-06-26] MEDS: TORSEMIDE 5 MG TABLET 15 MG PO (08:57)
[2023-06-26] MEDS: SENNOSIDES/DOCUSATE TABLET 2 TAB PO (08:57)
[2023-06-26] MEDS: SODIUM CHLORIDE 0.9 % (FLUSH) 10 ML SYRINGE 5 ML IVF (09:02)
[2023-06-26] MEDS: INSULIN NPH 100 UNIT/ML 8 UNIT SUBCUT (09:02)
[2023-06-26 09:34] VITALS: O2SAT 98
[2023-06-26 09:48] VITALS: BP 145/74; PULSE 67; RESP 16; TEMP 36.9
--- NOTE | 2023-06-26 09:51 | PC.NURSE ---
Report given to RUSS Calloway at [facility]. All questions answered.
--- NOTE | 2023-06-26 10:11 | PC.SOCIAL ---
Discharge planning- Pt will discharge to [facility] today via non-emergency EMS at 10:00 am. Provided update to [facility]. Provided [facility] with information on outpatient psychiatry appointment that was scheduled by MD on 07/05 at 10:00 am with Torsten Mayfield at [place]. Informed that pt's [id number] (Jhony) is aware and will provide transportation per discussion with CORINA and MD. Completed Preadmission screening. Confirmation #[id number]. Provided update to pt's [id number] on transport time. Social work will follow up as needed.
--- NOTE | 2023-06-26 10:11 | PC.NURSE ---
Patient discharged to [address] [place] [address]. All belongings sent with patient.
== END 2023-06-26 10:11 | DRG 291 ==
LOC: ED 06-22 00:28 → MEDSURG 06-22 00:50
PROVIDERS: Family Medicine; Admitting Provider Internal Medicine; Emergency Provider Emergency Medicine Emergency Medical Services; Visit Provider Hospitalist
DX: I13.0 Hypertensive heart and chronic kidney disease with heart failure and stage 1 through stage 4 chronic kidney disease, or unspecified chronic kidney disease (principal); I50.23 Acute on chronic systolic (congestive) heart failure; J18.9 Pneumonia, unspecified organism; F84.0 Autistic disorder; N18.9 Chronic kidney disease, unspecified; I42.8 Other cardiomyopathies; E11.65 Type 2 diabetes mellitus with hyperglycemia; D64.9 Anemia, unspecified; F03.90 Unspecified dementia, unspecified severity, without behavioral disturbance, psychotic disturbance, mood disturbance, and anxiety; Z79.52 Long term (current) use of systemic steroids; E11.51 Type 2 diabetes mellitus with diabetic peripheral angiopathy without gangrene; I73.9 Peripheral vascular disease, unspecified; I08.3 Combined rheumatic disorders of mitral, aortic and tricuspid valves; E11.22 Type 2 diabetes mellitus with diabetic chronic kidney disease; Z79.84 Long term (current) use of oral hypoglycemic drugs; Z79.4 Long term (current) use of insulin; F25.9 Schizoaffective disorder, unspecified; K21.9 Gastro-esophageal reflux disease without esophagitis; Z95.1 Presence of aortocoronary bypass graft; Z79.01 Long term (current) use of anticoagulants; E78.5 Hyperlipidemia, unspecified; H40.9 Unspecified glaucoma; K59.00 Constipation, unspecified; R13.10 Dysphagia, unspecified; R91.8 Other nonspecific abnormal finding of lung field
CPT/HCPCS: 36415; 51702; 71045; 80048; 82803; 82962; 83735; 83880; 84145; 84484; 85025; 87040; 87631; 93005; 97110; 97116; 97161; 97165; 97530; 97535; 99285; A9270; J0456; J0696; J1940; J7050

== ENCOUNTER 2023-06-26 10:02 | Outpatient (CLI) | payer MEDICARE, BC, SELFPAY | END 2023-06-26 10:03 | disposition home or self-care (01) | PROVIDERS: Visit Provider Emergency Medicine | DX: Z99.3 Dependence on wheelchair (principal) | CPT/HCPCS: A0425; A0428 ==

== ENCOUNTER 2023-07-26 15:49 | Outpatient (CLI) | payer MEDICARE, BC, SELFPAY ==
--- NOTE | 2023-07-26 16:00 | CRLHL7_ITS ---
For Patients: As a result of the Century Cures Act, medical imaging exams and procedure reports are released immediately into your electronic medical record. You may view this report before your referring provider. If you have questions, please contact your health care provider. Indication: NODULE Technique: Noncontrast CT chest Please note that all CT scans at this facility use dose modulation, iterative reconstruction, and/or weight-based dosing when appropriate to reduce radiation dose to as low as reasonably achievable. Comparison: 06/13/2023 Findings: Stones in the visualized gallbladder. Stable 1.9 cm right adrenal adenoma. Left adrenal gland normal. Spleen not enlarged. Atherosclerotic changes. Cardiomegaly. No thyroid lesion. Multiple mildly prominent upper mediastinal lymph nodes. Trace bilateral pleural effusions which have decreased since the prior study. Decreased patchy densities bilaterally with residual areas of linear reticular densities. No suspicious pulmonary nodule or mass. Impression: Partial interval resolution of bilateral infiltrates. No suspicious nodule. Decreased bilateral pleural effusions. Persistent mildly prominent mediastinal lymph nodes. Cholelithiasis. Right adrenal adenoma. Please note that all CT scans at this facility use dose modulation, iterative reconstruction, and/or weight-based dosing when appropriate to reduce radiation dose to as low as reasonably achievable. Dictated by Max Caba MD @ 07/31/2023 10:27:37 AM (Electronically Signed)
== END 2023-07-26 15:50 | disposition home or self-care (01) ==
LOC: CT 15:50
PROVIDERS: Visit Provider Family Medicine
DX: R22.2 Localized swelling, mass and lump, trunk (principal); J90 Pleural effusion, not elsewhere classified; K80.20 Calculus of gallbladder without cholecystitis without obstruction; E27.9 Disorder of adrenal gland, unspecified
CPT/HCPCS: 71250

== ENCOUNTER 2023-12-21 17:38 | Observation (INO) | payer MEDICARE, BC, SELFPAY ==
[2023-12-21] VITALS (9 sets, daily range): BP systolic 133–157; BP diastolic 66–77; PULSE 56–60; RESP 16–20; TEMP 36.4–36.8; O2SAT 90–96; BMI 28.6; BMI 27.0
[2023-12-21 18:25] LABS: Lactate* 0.9 mmol/L (0.5-1.9)
[2023-12-21 18:26] LABS: Basophils Absolute Auto 0.01 K/uL (0.00-0.30); Basophils Percent Auto 0.1 % (0.0-3.0); Eosinophils Absolute Auto 0.15 K/uL (0.00-0.50); Eosinophils Percent Auto 2.2 % (0.0-7.0); Hematocrit 27.8 % (37.0-53.0); Hemoglobin* 9.1 gm/dL (13.5-17.5); Lymphocytes Percent Auto 15.2 % (20-44); Mean Corpuscular HGB Conc 33 gm/dL (32-36); Mean Corpuscular Hemoglobin 29 pg (26-34); Mean Corpuscular Volume 89 fL (80-100); Monocytes Percent Auto 8.1 % (0.0-11.0); Neutrophils Percent Auto 74.4 % (42.0-72.0); Platelet Count* 198 K/uL (140-440); RDW Coefficient of Variation % 14.2 % (11.5-15.5); Red Blood Count 3.11 m/uL (4.30-5.90); White Blood Count* 6.77 K/uL (4.50-11.00)
[2023-12-21] MEDS: FUROSEMIDE 10 MG/ML inj 20 MG IVP (18:27)
--- NOTE | 2023-12-21 18:36 | ED_ITS ---
HPI - General Adult General Chief complaint: Weakness Stated complaint: water around lung Time Seen by Provider: 12/21/23 17:51 Source: patient Mode of arrival: ambulatory Limitations: no limitations History of Present Illness HPI narrative: 73-year-old male coming in today complaining of shortness of breath for 2 weeks. He states he has been coughing quite a bit. He states that he can lay down flat at night did not feel increased shortness of breath, he does toss and turn a lot. He denies fevers or chills. He has not smoked for over 40 years. He he states that the shortness of breath is mainly with any kind of physical activity. He states that he feels tired. He was seen at the [facility] earlier today where he had lab work done which has not resulted yet. He also had a chest x-ray which showed an enlarged cardiac silhouette, vascular calcifications, fullness of the pulmonary vascularity and bilateral pleural effusions. Patient states he was instructed to come to the ER for further marcelle gement. Related Data Home Medications Medication Instructions Recorded Confirmed atorvastatin 40 mg tablet 80 mg PO DAILY 06/13/23 06/21/23 cholecalciferol (vitamin D3) 50 50 mcg PO DAILY 06/13/23 06/21/23 mcg (2,000 unit) capsule cilostazol 100 mg tablet 100 mg PO BID 06/13/23 06/21/23 cyclopentolate 0.5 % eye drops 1 drp ophthalmic (eye-left) BID 06/13/23 06/21/23 (Cyclogyl) difluprednate 0.05 % eye drops 1 drp ophthalmic (eye-left) DAILY 06/13/23 06/21/23 dorzolamide 22.3 mg-timolol 6.8 1 drp ophthalmic (eye-left) BID 06/13/23 06/21/23 mg/mL eye drops glipizide 10 mg tablet 10 mg PO DAILY 06/13/23 06/21/23 losartan 25 mg tablet (Cozaar) 25 mg PO DAILY 06/13/23 06/21/23 mirtazapine 15 mg tablet 30 mg PO QHS 06/13/23 06/22/23 pantoprazole 40 mg tablet,delayed 40 mg PO DAILY 06/13/23 06/21/23 release (Protonix) tamsulosin 0.4 mg capsule (Flomax) 0.4 mg PO QHS 06/13/23 06/22/23 Previous Rx's Medication Instructions Recorded insulin NPH isoph U-100 human 100 8 unit (0.08 mL) subcut DAILY 30 06/18/23 unit/mL subcutaneous suspension days #3 mL (Humulin N NPH U-100 Insulin (isophane susp)) torsemide 5 mg tablet 15 mg (3 x 5 mg) PO DAILY 30 days 06/18/23 #90 tabs carvedilol 6.25 mg tablet 6.25 mg PO BID 30 days #60 tabs 06/26/23 cefpodoxime 200 mg tablet 200 mg PO BID #3 tabs 06/26/23 clonazepam 0.5 mg tablet 0.5 mg PO BID 15 days #30 tabs 06/26/23 doxycycline hyclate 100 mg tablet 100 mg PO Q12H #3 tabs 06/26/23 melatonin 3 mg tablet 3 mg PO HS PRN Insomnia #30 tabs 06/26/23 sennosides 8.6 mg-docusate sodium 2 tab PO BID #60 tabs 06/26/23 50 mg tablet (Stool Softener-Laxative) Allergies Allergy/AdvReac Type Severity Reaction Status Date / Time Penicillins Allergy Unknown Verified 12/21/23 19:30 Review of Systems Status of ROS: Reports: 10 or more systems reviewed and unremarkable except as noted in History and below [facility] Medical History Dysphagia ?R13.10 - Dysphagia, unspecified (ICD-10) PVD (peripheral vascular disease) ?I73.9 - Peripheral vascular disease, unspecified (ICD-10) CKD (chronic kidney disease) ?N18.9 - Chronic kidney disease, unspecified (ICD-10) On prednisone therapy ?Z79.52 - 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) use of systemic steroids (ICD-10) GERD (gastroesophageal reflux disease) ?K21.9 - Gastro-esophageal reflux disease without esophagitis (ICD-10) Congestive heart failure, unspecified ?I50.9 - Heart failure, unspecified (ICD-10) Chronic anticoagulation ?Z79.01 - senior care (current) use of anticoagulants (ICD-10) Hyperlipidemia ?E78.5 - Hyperlipidemia, unspecified (ICD-10) Glaucoma ?H40.9 - Unspecified glaucoma (ICD-10) Psychiatric diagnosis deferred ?R69 - Illness, unspecified (ICD-10) Diabetes mellitus with hyperglycemia ?E11.65 - Type 2 diabetes mellitus with hyperglycemia (ICD-10) Social History What is your current living situation?: I presently have a place to live Problems where you live: no known problems Problems where you live details: n/a In the past 12 months, utilities in danger of being shut off: no In past 12 months, lack of transportation kept you from medical appts, meetings, work, or getting things needed for daily living: no In the past 12 mos, have been you worried that your food would run out before you had money to buy more?: never true In the past 12 mos, the food you bought just didn't last and you didn't have m oney to buy more?: never true Highest level of school completed/degree received: high school graduate Smoking Status: Former smoker Do you use any of these nicotine containing products: None Second hand tobacco smoke exposure: Yes How often do you have a drink containing alcohol: never How often do you have six or more drinks on one occasion: Never AUDIT-C Alcohol total score: 0 Non-prescribed substance use: denies use Caffeine: No How often does anyone, including family, friends and others, physically hurt you : never How often does anyone, including family, friends and others, insult or talk down to you: never How often does anyone, including family, friends and others, threaten you with harm: never How often does anyone, including family, friends and others, scream or curse at you: never service: Yes Exam Narrative: Exam Narrative: Well-nourished well-developed patient in no acute distress. Alert and oriented. Answers questions appropriately. Mood and affect are appropriate. Thoughts are goal oriented and rational. No tangential or magical thinking noted. Patient speaks in full sentences without needing to catch his breath. HEENT: Normocephalic atraumatic. Pupils are equally round reactive to light. Extraocular muscles are intact. Conjunctivae are moist without any icterus noted. Moist mucous membranes. Neck is soft. Cardiovascular: Heart is regular rate and rhythm S1 and S2 are present without any murmurs. Lungs: Bibasilar crackles. Abdomen: Soft and nontender nondistended with normal bowel sounds. Extremities: Bilateral lower extremities show 2+ pitting edema. Skin: Well perfused. Const: Vital Signs, click to edit/add: Vital Signs - 24 hr 12/21/23 17:42 12/21/23 18:03 12/21/23 18:31 Temperature 98.2 F Pulse Rate 60 Pulse Rate [Right Pulse Oximeter] 58 L Respiratory Rate 18 18 Blood Pressure 156/77 H Blood Pressure [Ri ght Upper Arm] 153/67 H Pulse Oximetry 95 92 95 Oxygen Delivery Me thod Room Air 12/21/23 19:02 Temperature Pulse Rate 57 L Pulse Rate [Right Pulse Oximeter] Respiratory Rate 16 Blood Pressure 157/73 H Blood Pressure [Ri ght Upper Arm] Pulse Oximetry 94 Oxygen Delivery Me thod Course Course ED Course: EKG, read by me, shows sinus bradycardia with a pulse of 57. Inverted T-waves in the lateral leads which are not new. IV is established, 20 mg of IV Lasix is given. CBC has a normal white cell count, hemoglobin is 9.1 which appears to be around patient's baseline. Platelet count is normal at 198. Chemistry show a normal sodium and potassium. Chloride slightly elevated at 118. He went is 48, creatinine is 2.4. In October of this year, his BUN was 52 and his creatinine was 2.45, per his [facility] records. LFTs are normal. Troponin is normal at 0.03. CRP is less than 0.5. His BNP is elevated at 6280. Triple swab is negative. D-dimer is markedly elevated at 6.85. We proceeded with a chest CT which did not show evidence of a PE but did show moderate to large pleural effusions. Vital Signs Vital signs: Initial Vital Signs Temperature 98.2 F 12/21/23 17:42 Temperature Source Temporal Artery Scan 12/21/23 17:42 Pulse Rate 58 L 12/21/23 17:42 Pulse Rhythm Regular 12/21/23 17:42 Pulse Strength 3+ Normal 12/21/23 17:42 Respiratory Rate 18 12/21/23 17:42 Blood Pressure 153/67 H 12/21/23 17:42 Blood Pressure Mean 95 12/21/23 17:42 Blood Pressure Position Sitting 12/21/23 17:42 Pulse Oximetry 95 12/21/23 17:42 Oxygen Delivery Method Room Air 12/21/23 17:42 Vital Signs Temperature 98.2 F 12/21/23 17:42 Pulse Rate 58 L 12/21/23 17:42 Respiratory Rate 18 12/21/23 17:42 Blood Pressure 153/67 H 12/21/23 17:42 Pulse Oximetry 95 12/21/23 17:42 Oxygen Delivery Method Room Air 12/21/23 17:42 Temperature 98.2 F 12/21/23 17:42 Pulse Rate 57 L 12/21/23 19:02 Respiratory Rate 16 12/21/23 19:02 Blood Pressure 157/73 H 12/21/23 19:02 Pulse Oximetry 94 12/21/23 19:02 Oxygen Delivery Method Room Air 12/21/23 17:42 Medications Administered Medications: Discontinued Medications Generic Name Dose Route Start Last Admin Trade Name Freq PRN Reason Stop Dose Admin Furosemide 20 mg 12/21/23 18:05 12/21/23 18:27 Furosemide 10 Mg/Ml Inj IVP 12/21/23 18:06 20 mg ONCE ONE Administration Medical Decision Making MDM Narrative Medical decision making narrative: Somewhat frail 73-year-old male congestive heart failure. There is significant concern concern that the patient may decline rapidly without more aggressive intervention. I did speak to who will accept the patient for admission. Medical Records Medical records reviewed: Yes I reviewed the patient's medical records Lab Data Lab results reviewed: Yes I reviewed the patient's lab results Labs: Lab Results 12/21/23 Range/Units 18:16 WBC 6.77 (4.50-11.00) K/uL RBC 3.11 L (4.30-5.90) m/uL Hgb 9.1 L (13.5-17.5) gm/dL Hct 27.8 L (37.0-53.0) % MCV 89 (80-100) fL MCH 29 (26-34) pg MCHC 33 (32-36) gm/dL RDW Coeff of Orestes 14.2 (11.5-15.5) % Plt Count 198 (140-440) K/uL Neut % (Auto) 74.4 H (42.0-72.0) % Lymph % (Auto) 15.2 L (20-44) % Wallace % (Auto) 8.1 (0.0-11.0) % Eos % (Auto) 2.2 (0.0-7.0) % Baso % (Auto) 0.1 (0.0-3.0) % Neut # (Auto) 5.00 (1.7-7.0) K/uL Lymph # (Auto) 1.00 (0.90-2.90) K/uL Wallace # (Auto) 0.50 (0.00-0.90) K/UL Eos # (Auto) 0.15 (0.00-0.50) K/uL Baso # (Auto) 0.01 (0.00-0.30) K/uL Abs Immat Gran (auto) 0.00 (0.00-0.30) K/uL Imm/Tot Granulo (auto) 0.0 % D-Dimer Quant (PE/DVT) 6.85 H (0.00-0.50) ug/ml Sodium 143 (135-149) mmol/L Potassium 3.9 (3.6-5.1) mmol/L Chloride 118 H (96-114) mmol/L Carbon Dioxide 22 (20-32) mmol/L Anion Gap 3 L (7-15) mEq/L BUN 48 H (7-30) mg/dL Creatinine 2.4 H (0.5-1.5) mg/dL Estimated Creat Clear 24.74 Estimated GFR 28 ml/min Glucose 96 (60-115) mg/dL Lactate 0.9 (0.5-1.9) mmol/L Calcium 8.5 (8.4-10.6) mg/dL Total Bilirubin 0.5 (0.1-1.5) mg/dL Direct Bilirubin 0.1 (0.0-0.5) mg/dL AST 21 (12-35) U/L ALT 21 (4-50) U/L Alkaline Phosphatase 106 (40-150) U/L Troponin I 0.03 (0.01-0.04) ng/mL C-Reactive Protein < 0.5 L (0.5-1.0) mg/dL NT-Pro-B Natriuret Pep 6280 pg/mL Total Protein 6.5 (6.0-8.3) g/dL Albumin 3.4 (3.3-5.0) g/dL SARS-CoV-2 (PCR) Negative SARS-CoV-2 (Negative) Influenza Type A (PCR) Negative PCR FLU A (Negative) Influenza Type B (PCR) Negative PCR FLU B (Negative) RSV (PCR) Negative PCR RSV (Negative) POC Troponin I 0.04 (0.01-0.04) ng/ml Imaging Data CT scan - chest: Attestation: I have reviewed the pertinent imaging results. Radiologist's impression: CT chest PE was acquired with 95 cc Isovue 370 IV contrast. COMPARISON: None. FINDINGS: Heart and vasculature: Contrast opacification of the pulmonary arterial tree is adequate. No sign of pulmonary embolism. Cardiomegaly. Heavy coronary artery calcification. Normal caliber thoracic aorta and main pulmonary artery.Median sternotomy for prior coronary artery bypass graft. Lungs and pleura: Mosaic attenuation of the lungs. [id number] bilateral simple pleural effusion with associated compressive atelectasis of the lower lobes. Band of consolidation within the inferior left lower lobe (5/125). No pneumothorax. Lymph nodes/mediastinum: Mild lymphadenopathy within the mediastinum. Chest wall: No masses. Upper abdomen: Cholelithiasis. Bones: Unremarkable for age. IMPRESSION: 1. No pulmonary embolism. 2. Moderate to large bilateral pleural effusions with associated compressive atelectasis of the lower lobes. 3. Band of consolidation within the inferior left lower lobe could represent atelectasis or infection. 4. Mosaic attenuation of the lungs, which can be seen with small airways or small vessel disease. 5. Mild lymphadenopathy within the mediastinum, possibly reactive. 6. Cholelithiasis. ECG Data Attestation: I personally reviewed and interpreted this ECG as follows: Discharge Plan Discharge Clinical Impression: Congestive heart failure, unspecified, Bilateral pleural effusion Patient Disposition: Admitted As Observation Condition: Stable Prescriptions: No Action atorvastatin 40 mg tablet 80 mg PO DAILY cholecalciferol (vitamin D3) 50 mcg (2,000 unit) capsule 50 mcg PO DAILY cilostazol 100 mg tablet 100 mg PO BID cyclopentolate [Cyclogyl] 0.5 % drops 1 drp ophthalmic (eye-left) BID Rx Instructions: compress lacrimal sac for 1-2 minutes after instillation difluprednate 0.05 % drops 1 drp ophthalmic (eye-left) DAILY Rx Instructions: until desired response dorzolamide-timolol 22.3-6.8 mg/mL drops 1 drp ophthalmic (eye-left) BID glipizide 10 mg tablet 10 mg PO DAILY losartan [Cozaar] 25 mg tablet 25 mg PO DAILY mirtazapine 15 mg tablet 30 mg PO QHS pantoprazole [Protonix] 40 mg tablet,delayed release (DR/EC) 40 mg PO DAILY tamsulosin [Flomax] 0.4 mg capsule 0.4 mg PO QHS torsemide 5 mg Tablet 15 mg PO DAILY 30 Days Qty: 90 1RF Humulin N NPH U-100 Insulin 100 unit/mL Suspension 8 unit subcut DAILY 30 Days Qty: 3 1RF sennosides-docusate sodium [Stool Softener-Laxative] 8.6-50 mg Tablet 2 tab PO BID Qty: 60 0RF melatonin 3 mg Tablet 3 mg PO HS PRN (Reason: Insomnia) Qty: 30 0RF doxycycline hyclate 100 mg Tablet 100 mg PO Q12H Qty: 3 0RF cefpodoxime 200 mg tablet 200 mg PO BID Qty: 3 0RF Rx Instructions: must administer with a meal/food carvedilol 6.25 mg Tablet 6.25 mg PO BID 30 Days Qty: 60 1RF clonazepam 0.5 mg Tablet 0.5 mg PO BID 15 Days Qty: 30 0RF Follow Up/Referrals: Provider,Not a Local [Primary Care Provider] -
[2023-12-21 18:41] LABS: Albumin* 3.4 g/dL (3.3-5.0); Chloride* 118 mmol/L (96-114); Sodium* 143 mmol/L (135-149)
[2023-12-21 18:42] LABS: Potassium* 3.9 mmol/L (3.6-5.1)
[2023-12-21 18:44] LABS: Anion Gap 3 mEq/L (7-15); Bilirubin Direct* 0.1 mg/dL (0.0-0.5); Bilirubin Total* 0.5 mg/dL (0.1-1.5); Carbon Dioxide* 22 mmol/L (20-32); Creatinine* 2.4 mg/dL (0.5-1.5); Est. Creatinine Clearance* 24.74; Estimated Glomerular Filt Rate 28 ml/min; Total Protein* 6.5 g/dL (6.0-8.3)
[2023-12-21 18:45] LABS: Alanine Aminotransferase* 21 U/L (4-50); Alkaline Phosphatase* 106 U/L (40-150); Aspartate Amino Transferase* 21 U/L (12-35); Blood Urea Nitrogen* 48 mg/dL (7-30); Calcium* 8.5 mg/dL (8.4-10.6); Glucose* 96 mg/dL (60-115)
[2023-12-21 18:51] LABS: C Reactive Protein* < 0.5 mg/dL (0.5-1.0)
[2023-12-21 18:52] LABS: Troponin, Point-of-Care* 0.04 ng/ml (0.01-0.04)
[2023-12-21 18:53] LABS: D Dimer Quantitative* 6.85 ug/ml (0.00-0.50)
[2023-12-21 18:56] LABS: Troponin I* 0.03 ng/mL (0.01-0.04)
[2023-12-21 18:57] LABS: NT Pro B Type NatriureticPept* 6280 pg/mL
[2023-12-21 19:05] LABS: PCR FLU A Negative PCR FLU A (Negative); PCR FLU B Negative PCR FLU B (Negative); PCR RSV Negative PCR RSV (Negative); SARS PCR* Negative SARS-CoV-2 (Negative)
[2023-12-21 19:20] LABS: Slide Review Reflex No
--- NOTE | 2023-12-21 19:22 | CT_ITS ---
Patient: SURESH DELGADO Facility:?[facility] Patient ID:?[id number] Site Patient ID:?[id number] Site :?[id number] Study:?CT-Chest W/ 95CC ISOVUE-370 PE PROTOCOL-12/21/2023 7:44:37 PM Ordering Physician:Winifred Cuello Final Report: INDICATION: Shortness of breath, elevated D-dimer. TECHNIQUE: CT chest PE was acquired with 95 cc Isovue 370 IV contrast. COMPARISON: None. FINDINGS: Heart and vasculature: Contrast opacification of the pulmonary arterial tree is adequate. No sign of pulmonary embolism. Cardiomegaly. Heavy coronary artery calcification. Normal caliber thoracic aorta and main pulmonary artery.Median sternotomy for prior coronary artery bypass graft. Lungs and pleura: Mosaic attenuation of the lungs. [id number]-[id number] bilateral simple pleural effusion with associated compressive atelectasis of the lower lobes. Band of consolidation within the inferior left lower lobe (5/125). No pneumothorax. Lymph nodes/mediastinum: Mild lymphadenopathy within the mediastinum. Chest wall: No masses. Upper abdomen: Cholelithiasis. Bones: Unremarkable for age. IMPRESSION: 1. No pulmonary embolism. 2. Moderate to large bilateral pleural effusions with associated compressive atelectasis of the lower lobes. 3. Band of consolidation within the inferior left lower lobe could represent atelectasis or infection. 4. Mosaic attenuation of the lungs, which can be seen with small airways or small vessel disease. 5. Mild lymphadenopathy within the mediastinum, possibly reactive. 6. Cholelithiasis. Please note that all CT scans at this facility use dose modulation, iterative reconstruction, and/or weight-based dosing when appropriate to reduce radiation dose to as low as reasonably achievable. Dictated by Pool Austin MD @ 12/21/2023 8:35:59 PM Signed by:?Pool Austin MD @12/21/2023 8:35:59 PM (Electronic Signature)
--- NOTE | 2023-12-21 21:02 | P.IMHP_ITS ---
Hospitalist- H&P: HPI History of Present Illness Date Seen: 12/21/23 Chief complaint: water around lung Narrative: Pedro Segura is a 73 year old male who presented to the emergency room after being seen in the clinic earlier today with concerns of CHF exacerbation in the setting of chronic kidney disease. He notes a 2 week history of dyspnea on exertion with intermittent dry cough. He has had no chest pain. He has not had orthopnea or PND. Unsure about any weight changes; states that he's taking all of his meds as prescribed, but he's unsure what they are (per [facility] chart, he's on 5mg of Torsemide daily). His physical activity has been limited by dyspnea and he has been feeling more weak. In the clinic, his vital signs were reassuring but he did have bilateral pleural effusions with pulmonary congestion on chest x-ray. ER Course and Findings: - Cr 2.4 (in our records, creatinine 1.7-2.3 for the past 6 months) - BNP 6280 (was >12,000 during last hospitalization in June) - hemoglobin 9.1 (baseline) - negative troponin - elevated D-dimer, no PE on imaging, bilateral home pleural effusions again demonstrated Upon arrival to the floor, Pedro has no concerns for hospitalist team. He is originally from [place] and [place]; moved to [place] last fall to be closer to family; was soon hospitalized after moving here for weakness and CHF exacerbations. He was ultimately discharged to his TCU facility, has since moved back in with his sister, [id number], and mother. His sister is doing the cooking, he does not believe she is over-salting food. Medical history is updated below. Review of Systems Narrative: - no abdominal pain, no diarrhea, no melena - urinary stream seems to be decreased in force, more notably at night - left leg occasionally tingles when walking, no complaints of claudication - intermittent stress at home, does not always get along with sister - no recent falls [facility] Medical History (Updated 12/21/23 @ 23:28 by Marni Mcgregor MD) Pulmonary nodule ?R91.1 - Solitary pulmonary nodule (ICD-10) Dysphagia ?R13.10 - Dysphagia, unspecified (ICD-10) PVD (peripheral vascular disease) ?I73.9 - Peripheral vascular disease, unspecified (ICD-10) CKD (chronic kidney disease) ?N18.9 - Chronic kidney disease, unspecified (ICD-10) GERD (gastroesophageal reflux disease) ?K21.9 - Gastro-esophageal reflux disease without esophagitis (ICD-10) Congestive heart failure, unspecified ?I50.9 - Heart failure, unspecified (ICD-10) Hyperlipidemia ?E78.5 - Hyperlipidemia, unspecified (ICD-10) Glaucoma ?H40.9 - Unspecified glaucoma (ICD-10) Psychiatric diagnosis deferred ?R69 - Illness, unspecified (ICD-10) Diabetes mellitus with hyperglycemia ?E11.65 - Type 2 diabetes mellitus with hyperglycemia (ICD-10) Surgical History (Updated 12/21/23 @ 23:20 by Marni Mcgregor MD) History of femoropopliteal bypass ?Z98.890 - Other specified postprocedural states (ICD-10) S/P CABG x 3 ?Z95.1 - Presence of aortocoronary bypass graft (ICD-10) Amputation toe ?S98.139A - Complete traumatic amputation of one unspecified lesser toe, initial encounter (ICD-10) History of angioplasty of peripheral vessel ?Z98.62 - Peripheral vascular angioplasty status (ICD-10) S/P coronary artery stent placement ?Z95.5 - Presence of coronary angioplasty implant and graft (ICD-10) Social History (Updated 12/21/23 @ 23:25 by Marni Mcgregor MD) Narrative: Lives with mother, sister, and GRACIE. (Brother in law Paige would be MDM if needed), requests Full Code status. Former smoker, quit 1979. No current ETOH use. 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 What is your current living situation?: I presently have a place to live Problems where you live: no known problems Problems where you live details: n/a In the past 12 months, utilities in danger of being shut off: no In past 12 months, lack of transportation kept you from medical appts, meetings, work, or getting things needed for daily living: no In the past 12 mos, have been you worried that your food would run out before you had money to buy more?: never true In the past 12 mos, the food you bought just didn't last and you didn't have money to buy more?: never true Highest level of school completed/degree received: high school graduate Smoking Status: Former smoker Do you use any of these nicotine containing products: None Second hand tobacco smoke exposure: Yes How often do you have a drink containing alcohol: never How often do you have six or more drinks on one occasion: Never AUDIT-C Alcohol total score: 0 Non-prescribed substance use: denies use Caffeine: Yes How often does anyone, including family, friends and others, physically hurt you : never How often does anyone, including family, friends and others, insult or talk down to you: never How often does anyone, including family, friends and others, threaten you with harm: never How often does anyone, including family, friends and others, scream or curse at you: never service: Yes Meds Home Medications and Allergies Home Medications Medication Instructions Recorded Confirmed Type atorvastatin 40 mg tablet 80 mg PO DAILY 06/13/23 12/21/23 History cholecalciferol (vitamin D3) 50 50 mcg PO DAILY 06/13/23 12/21/23 History mcg (2,000 unit) capsule cilostazol 100 mg tablet 100 mg PO BID 06/13/23 12/21/23 History cyclopentolate 0.5 % eye drops 1 drp ophthalmic (eye-left) BID 06/13/23 06/21/23 History (Cyclogyl) difluprednate 0.05 % eye drops 1 drp ophthalmic (eye-left) DAILY 06/13/23 06/21/23 History dorzolamide 22.3 mg-timolol 6.8 1 drp ophthalmic (eye-left) BID 06/13/23 06/21/23 History mg/mL eye drops glipizide 10 mg tablet 10 mg PO DAILY 06/13/23 12/21/23 History losartan 25 mg tablet (Cozaar) 25 mg PO DAILY 06/13/23 06/21/23 History mirtazapine 15 mg tablet 30 mg PO QHS 06/13/23 12/21/23 History pantoprazole 40 mg tablet,delayed 40 mg PO DAILY 06/13/23 12/21/23 History release (Protonix) tamsulosin 0.4 mg capsule (Flomax) 0.4 mg PO QHS 06/13/23 12/21/23 History insulin NPH isoph U-100 human 100 15 unit subcut DAILY 12/21/23 12/21/23 History unit/mL subcutaneous suspension (Humulin N NPH U-100 Insulin (isophane susp)) Allergies Allergy/AdvReac Type Severity Reaction Status Date / Time Penicillins Allergy Unknown Verified 12/21/23 19:30 Exam Narrative: Exam Narrative: GEN: Alert and sitting up comfortably in bed HEENT: EOMIs bilaterally, no scleral icterus CV: RRR, + murmur heard best at LSB R: No wheezing, no rhonchi, decreased air movement bilateral bases Ab: protuberant, no ttp Skin: No concerning skin lesions or rashes on exposed skin Neuro: Nonfocal Psych: Appropriate Const: Vital Signs, click to edit/add: Vital Signs - 24 hr 12/21/23 17:42 12/21/23 18:03 12/21/23 18:31 Temperature 98.2 F Pulse Rate 60 Pulse Rate [Right Pulse Oximeter] 58 L Respiratory Rate 18 18 Blood Pressure 156/77 H Blood Pressure [Ri ght Upper Arm] 153/67 H Pulse Oximetry 95 92 95 Oxygen Delivery Me thod Room Air 12/21/23 19:02 Temperature Pulse Rate 57 L Pulse Rate [Right Pulse Oximeter] Respiratory Rate 16 Blood Pressure 157/73 H Blood Pressure [Ri ght Upper Arm] Pulse Oximetry 94 Oxygen Delivery Ia thod Hospitalist - H&P: Result Labs Labs: Short CBC 12/21/23 Range/Units 18:16 WBC 6.77 (4.50-11.00) K/uL Hgb 9.1 L (13.5-17.5) gm/dL Hct 27.8 L (37.0-53.0) % Plt Count 198 (140-440) K/uL [facility] 12/21/23 18:16 Sodium 143 Potassium 3.9 Chloride 118 H Carbon Dioxide 22 BUN 48 H Creatinine 2.4 H Glucose 96 Calcium 8.5 Cardiac Enzymes 12/21/23 Range/Units 18:16 Troponin I 0.03 (0.01-0.04) ng/mL Liver Function 12/21/23 Range/Units 18:16 Total Bilirubin 0.5 (0.1-1.5) mg/dL Direct Bilirubin 0.1 (0.0-0.5) mg/dL AST 21 (12-35) U/L ALT 21 (4-50) U/L Alkaline Phosphatase 106 (40-150) U/L Albumin 3.4 (3.3-5.0) g/dL Assessment and Plan Assessment and plan (1) Bilateral pleural effusion: Problem comment: - no evidence of acute infectious process, no hypoxia - likely related to h/o CHF (vs underlying malignancy) - continue IV Lasix - consider repeat TTE pending clinical course Status: Acute (2) Weakness: Problem comment: - therapy consults Status: Acute (3) Diabetes mellitus with hyperglycemia: Problem comment: - last A1C 6.12 September 2023 - continue home medications with SSI Status: Acute (4) Infiltrative cardiomyopathy: Problem comment: - abnormal TTE fall 2022 with results below - patient has not followed up with Cardiology since hospitalization Final Impressions: 1. Normal left ventricular size, moderately increased wall thickness, mildly reduced global systolic function, calculated EF of 48 %. 2. Current global longitudinal strain is abnormal at -6 %. The strain pattern is characteristic of apical sparing suggestive of infiltrative disease (amyloidosis). 3. Right ventricular cavity size is moderately enlarged, global systolic RV function is mildly reduced. 4. Severely enlarged left atrium. 5. The aortic valve is calcified, mild stenosis and mild regurgitation. The aortic valve peak velocity is 2.3 m/s, the peak gradient is 21 mmHg, and the mean gradient is 12 mmHg. The aortic valve area is 1.60 cm?? with a dimensionless index of 0.43. The stroke volume index is 44.0 ml/m??. 6. The mitral valve is mild posterior annular calcification, trace mitral regurgitation. 7. Tricuspid valve is tethered. 8. Moderate tricuspid regurgitation. 9. Mildly increased estimated pulmonary pressures by tricuspid regurgitation velocity and right atrial pressure (30 mmHg plus RAP). 10. Trivial pericardial effusion. 11. Large pleural effusion. Status: Acute (5) PVD (peripheral vascular disease): Problem comment: - on Pletal as outpatient, will continue Status: Acute (6) CKD (chronic kidney disease): Problem comment: - 3b/4 - follows with Dr. Lucio of Nephrology Status: Acute (7) GERD (gastroesophageal reflux disease): Problem comment: - on PPI, continue Status: Acute (8) Anemia: Problem comment: - presumably 2/2 renal disease per chart review - reassuring EGD fall 2022 - current Hgb 9.1, close to baseline Status: Acute Plan - continue diuresis per above - renally dosed Lovenox, SCDs for ppx - likely home with family when medically appropriate
[2023-12-21] MEDS: FUROSEMIDE 10 MG/ML inj 40 MG IVP (23:53)
[2023-12-22] VITALS (7 sets, daily range): BP systolic 135–153; BP diastolic 68–80; PULSE 54–61; RESP 16–24; TEMP 36.6–36.7; O2SAT 91–96
[2023-12-22] MEDS: TAMSULOSIN HCL 0.4 MG CAPSULE PO ×2 (00:06→21:07)
[2023-12-22] MEDS: MIRTAZAPINE 15 MG TABLET 30 MG PO ×2 (00:06→21:07)
[2023-12-22] MEDS: MELATONIN 3 MG TABLET PO ×2 (00:06→21:54)
--- NOTE | 2023-12-22 06:11 | PC.NURSE ---
Arrived to floor at 2130. Ambulated to bed. A&O pleasant and cooperative. VSS w/ sats >90% on RA. SOB w/ activity. Denies SOB at rest. BS on admission was 65. Snacks given, updated. Recheck BS 151. Using urinal in bed.?SBA when up.
[2023-12-22 06:28] LABS: HCO3 VBG 24 mmol/L (21-28); PCO2 VBG 39 mmHG (40-50); PO2 VBG 45.8 mmHG (25-47); pH VBG 7.389 (7.32-7.43)
[2023-12-22 06:35] LABS: Basophils Absolute Auto 0.03 K/uL (0.00-0.30); Basophils Percent Auto 0.5 % (0.0-3.0); Eosinophils Absolute Auto 0.14 K/uL (0.00-0.50); Eosinophils Percent Auto 2.2 % (0.0-7.0); Hematocrit 25.7 % (37.0-53.0); Hemoglobin* 8.3 gm/dL (13.5-17.5); Immature Granulocytes Abs Auto 0.01 K/uL (0.00-0.30); Immature Granulocytes Pct Auto 0.2 %; Lymphocytes Percent Auto 15.1 % (20-44); Mean Corpuscular HGB Conc 32 gm/dL (32-36); Mean Corpuscular Hemoglobin 29 pg (26-34); Mean Corpuscular Volume 90 fL (80-100); Monocytes Percent Auto 8.7 % (0.0-11.0); Neutrophils Percent Auto 73.3 % (42.0-72.0); Platelet Count* 196 K/uL (140-440); RDW Coefficient of Variation % 14.4 % (11.5-15.5); Red Blood Count 2.86 m/uL (4.30-5.90); White Blood Count* 6.41 K/uL (4.50-11.00)
[2023-12-22 06:42] LABS: Slide Review Reflex No
[2023-12-22 06:54] LABS: Chloride* 115 mmol/L (96-114); Potassium* 4.1 mmol/L (3.6-5.1); Sodium* 141 mmol/L (135-149)
[2023-12-22 06:57] LABS: Anion Gap 2 mEq/L (7-15); Blood Urea Nitrogen* 49 mg/dL (7-30); Calcium* 8.3 mg/dL (8.4-10.6); Carbon Dioxide* 24 mmol/L (20-32); Creatinine* 2.5 mg/dL (0.5-1.5); Estimated Glomerular Filt Rate 26 ml/min; Glucose* 145 mg/dL (60-115)
[2023-12-22 07:08] LABS: NT Pro B Type NatriureticPept* 6090 pg/mL
[2023-12-22] MEDS: OMEPRAZOLE 20 MG CAPSULE DR 40 MG PO (08:39)
[2023-12-22] MEDS: carvediloL 6.25 MG TABLET PO ×2 (08:39→21:08)
[2023-12-22] MEDS: clonazePAM 0.5 MG TABLET PO ×2 (08:39→21:08)
[2023-12-22] MEDS: POTASSIUM CHLORIDE 10 MEQ CAPSULE ER 20 MEQ PO ×2 (08:39→17:24)
[2023-12-22] MEDS: cilostazoL 100 MG TABLET PO ×2 (08:39→21:08)
[2023-12-22] MEDS: INSULIN NPH 100 UNIT/ML 15 UNIT SUBCUT (08:40)
[2023-12-22] MEDS: FUROSEMIDE 10 MG/ML inj 40 MG IVP ×2 (08:40→17:24)
[2023-12-22] MEDS: SODIUM CHLORIDE 0.9 % (FLUSH) 10 ML SYRINGE 5 ML IVF ×3 (08:41→21:18)
[2023-12-22] MEDS: INSULIN ASPART 100 UNIT/ML SUBCUT (12:01)
--- NOTE | 2023-12-22 16:28 | P.IMPN_ITS ---
Progress Note: A&P Assessment and plan (1) Bilateral pleural effusion: Problem details: - no evidence of acute infectious process, no hypoxia, remains clinically stable - likely acute on chronic given previous TTE results and h/o CHF. No underlying malignancy - received IV Lasix 12/20 and 12/21, diuresing well. Back to oral Torsemide on 12/22 - repeat TTE ordered given CHF history Status: Acute (2) Weakness: Problem details: - therapies following, no acute needs identified at this time Status: Acute (3) Diabetes mellitus with hyperglycemia: Problem details: - last A1C 6.12 September 2023 - continue home medications with SSI Status: Acute (4) Infiltrative cardiomyopathy: Problem details: - abnormal TTE fall 2022 with results below - patient has not followed up with Cardiology since hospitalization - repeat TTE ordered Final Impressions: 1. Normal left ventricular size, moderately increased wall thickness, mildly reduced global systolic function, calculated EF of 48 %. 2. Current global longitudinal strain is abnormal at -6 %. The strain pattern is characteristic of apical sparing suggestive of infiltrative disease (amyloidosis). 3. Right ventricular cavity size is moderately enlarged, global systolic RV function is mildly reduced. 4. Severely enlarged left atrium. 5. The aortic valve is calcified, mild stenosis and mild regurgitation. The aortic valve peak velocity is 2.3 m/s, the peak gradient is 21 mmHg, and the mean gradient is 12 mmHg. The aortic valve area is 1.60 cm?? with a dimensionless index of 0.43. The stroke volume index is 44.0 ml/m??. 6. The mitral valve is mild posterior annular calcification, trace mitral regurgitation. 7. Tricuspid valve is tethered. 8. Moderate tricuspid regurgitation. 9. Mildly increased estimated pulmonary pressures by tricuspid regurgitation velocity and right atrial pressure (30 mmHg plus RAP). 10. Trivial pericardial effusion. 11. Large pleural effusion. Status: Acute (5) PVD (peripheral vascular disease): Problem details: - on Pletal as outpatient, will continue Status: Acute (6) CKD (chronic kidney disease): Problem details: - 3b/4 - follows with Dr. Lucio of Nephrology as an outpatient Status: Acute (7) GERD (gastroesophageal reflux disease): Problem details: - on PPI, continue Status: Acute (8) Anemia: Problem details: - presumably 2/2 renal disease per chart review - reassuring EGD fall 2022 - current Hgb 9.1, close to baseline Status: Acute Plan - continue diuresis, follow renal function closely - home with sister and her family when appropriate, possibly as early as tomorrow - recommend close f/u with PCP (pt would like to see Dr. Justine Black regularly) and Cardiology - renally dosed Lovenox for ppx Subjective Date Seen: 12/22/23 Interval history: Joe was admitted yesterday for weakness and dyspnea in the setting of new bilateral pleural effusions. Since admission, he has diuresed well and is down 6kg. He saw therapies today, no acute needs identified. Creatinine remains higher than baseline (2.5, baseline 1.6/1.7), Potassium is 4.1 Ambulating with his walker, still dyspneic with activity, not at energy baseline. Exam Narrative: Exam Narrative: GEN: Alert and sitting in bedside chair HEENT: EOMIs bilaterally, no scleral icterus CV: RRR, distant heart sounds, no concerning murmurs R: No wheezing, decreased bibasilar breath sounds Ext: 3-4 + pitting baseline BLE Skin: No concerning skin lesions or rashes on exposed skin Neuro: No focal deficits Psych: Appropriate Const: Vital Signs, click to edit/add: Vital Signs - 24 hr 12/21/23 17:42 12/21/23 18:03 12/21/23 18:31 Temperature 98.2 F Pulse Rate 60 Pulse Rate [Pulse Oximeter] Pulse Rate [Right Pulse Oximeter] 58 L Respiratory Rate 18 18 Blood Pressure 156/77 H Blood Pressure [Ri ght Arm] Blood Pressure [Ri ght Upper Arm] 153/67 H Pulse Oximetry 95 92 95 Oxygen Delivery Me thod Room Air 12/21/23 19:02 12/21/23 22:21 12/21/23 22:21 Temperature 97.5 F L Pulse Rate 57 L Pulse Rate [Pulse Oximeter] 60 Pulse Rate [Right Pulse Oximeter] Respiratory Rate 16 20 16 Blood Pressure 157/73 H Blood Pressure [Ri ght Arm] 142/70 H Blood Pressure [Ri ght Upper Arm] Pulse Oximetry 94 96 96 Oxygen Delivery Me thod Room Air Room Air 12/21/23 23:00 12/21/23 23:26 12/21/23 23:28 Temperature Pulse Rate 60 Pulse Rate [Pulse Oximeter] 56 L Pulse Rate [Right Pulse Oximeter] Respiratory Rate 16 16 Blood Pressure Blood Pressure [Ri ght Arm] Blood Pressure [Ri ght Upper Arm] Pulse Oximetry 96 Oxygen Delivery Me thod Room Air 12/21/23 23:51 12/22/23 02:54 12/22/23 07:26 Temperature Pulse Rate 54 L Pulse Rate [Pulse Oximeter] 58 L 57 L Pulse Rate [Right Pulse Oximeter] Respiratory Rate 16 Blood Pressure Blood Pressure [Ri ght Arm] 133/66 147/76 H Blood Pressure [Ri ght Upper Arm] Pulse Oximetry 90 94 Oxygen Delivery Dc thod Room Air Room Air 12/22/23 07:31 12/22/23 07:31 12/22/23 11:18 Temperature 98.0 F 97.9 F Pulse Rate Pulse Rate [Pulse Oximeter] 58 L 60 Pulse Rate [Right Pulse Oximeter] Respiratory Rate 24 24 22 Blood Pressure Blood Pressure [Ri ght Arm] 153/80 H 138/74 Blood Pressure [Ri ght Upper Arm] Pulse Oximetry 93 93 91 Oxygen Delivery Dc thod Room Air Room Air Room Air 12/22/23 14:49 12/22/23 15:00 12/22/23 15:00 Temperature 97.9 F Pulse Rate Pulse Rate [Pulse Oximeter] 60 56 L Pulse Rate [Right Pulse Oximeter] Respiratory Rate 20 20 Blood Pressure Blood Pressure [Ri ght Arm] 135/72 Blood Pressure [Ri ght Upper Arm] Pulse Oximetry 96 96 Oxygen Delivery Me thod Room Air Room Air 12/22/23 15:00 Temperature Pulse Rate 56 L Pulse Rate [Pulse Oximeter] Pulse Rate [Right Pulse Oximeter] Respiratory Rate Blood Pressure Blood Pressure [Ri ght Arm] Blood Pressure [Ri ght Upper Arm] Pulse Oximetry Oxygen Delivery Me thod Labs Labs: Laboratory Results - last 24 hr 12/21/23 12/22/23 18:16 05:55 WBC 6.77 6.41 RBC 3.11 L 2.86 L Hgb 9.1 L 8.3 L Hct 27.8 L 25.7 L MCV 89 90 MCH 29 29 MCHC 33 32 RDW Coeff of [place] 14.2 14.4 Plt Count 198 196 Neut % (Auto) 74.4 H 73.3 H Lymph % (Auto) 15.2 L 15.1 L [place] % (Auto) 8.1 8.7 Eos % (Auto) 2.2 2.2 Baso % (Auto) 0.1 0.5 Neut # (Auto) 5.00 4.70 Lymph # (Auto) 1.00 1.00 [place] # (Auto) 0.50 0.60 Eos # (Auto) 0.15 0.14 Baso # (Auto) 0.01 0.03 Abs Immat Gran (auto) 0.00 0.01 Imm/Tot Granulo (auto) 0.0 0.2 D-Dimer Quant (PE/DVT) 6.85 H VBG pH 7.389 VBG pCO2 39 L VBG pO2 45.8 VBG HCO3 24 Sodium 143 141 Potassium 3.9 4.1 Chloride 118 H 115 H Carbon Dioxide 22 24 Anion Gap 3 L 2 L BUN 48 H 49 H Creatinine 2.4 H 2.5 H Estimated Creat Clear 24.74 24.60 Estimated GFR 28 26 Glucose 96 145 H Lactate 0.9 Calcium 8.5 8.3 L Total Bilirubin 0.5 Direct Bilirubin 0.1 AST 21 ALT 21 Alkaline Phosphatase 106 Troponin I 0.03 C-Reactive Protein < 0.5 L NT-Pro-B Natriuret Pep 6280 6090 Total Protein 6.5 Albumin 3.4 SARS-CoV-2 (PCR) Negative SARS-CoV-2 Influenza Type A (PCR) Negative PCR FLU A Influenza Type B (PCR) Negative PCR FLU B RSV (PCR) Negative PCR RSV POC Troponin I 0.04
--- NOTE | 2023-12-22 17:52 | PC.NURSE ---
Pt alert and oriented. Pt had no complaints of pain. Pt napped most of shift. Pt more alert and talkative mid-afternoon to evening. Pt had complaints of SOB with exertion.? ?
[2023-12-22 20:38] LABS: Appearance Urine Clear (Clear); Bilirubin Urine Negative (Negative); Blood Urine Negative (Negative); Color Urine Yellow (Yellow); Glucose Urine Negative (Negative); Ketones Urine Negative (Negative); Leukocyte Esterase Urine Negative (Negative); Nitrite Urine Negative (Negative); Protein Urine Trace (Negative); Specific Gravity Urine <= 1.005 (1.000-1.030); Urobilinogen Urine 0.2 (0.2-1.0)
[2023-12-22 20:43] LABS: Bacteria Urine Few; RBC Urine 0-2 (0-2); WBC Urine 0-2 (0-5)
[2023-12-22] MEDS: ATORVASTATIN CALCIUM 40 MG TABLET 80 MG PO (21:07)
[2023-12-22] MEDS: ENOXAPARIN 40 MG/0.4 ML INJ 30 MG SUBCUT (21:11)
[2023-12-23 00:31] VITALS: BP 155/77; PULSE 58; RESP 16; O2SAT 95
[2023-12-23 00:32] VITALS: O2SAT 95
[2023-12-23 00:40] VITALS: PULSE 63
[2023-12-23 04:35] VITALS: PULSE 56; RESP 16
[2023-12-23 06:20] LABS: Basophils Absolute Auto 0.02 K/uL (0.00-0.30); Basophils Percent Auto 0.3 % (0.0-3.0); Eosinophils Absolute Auto 0.19 K/uL (0.00-0.50); Hematocrit 25.6 % (37.0-53.0); Hemoglobin* 8.2 gm/dL (13.5-17.5); Immature Granulocytes Abs Auto 0.02 K/uL (0.00-0.30); Immature Granulocytes Pct Auto 0.3 %; Lymphocytes Percent Auto 16.3 % (20-44); Mean Corpuscular HGB Conc 32 gm/dL (32-36); Mean Corpuscular Hemoglobin 29 pg (26-34); Mean Corpuscular Volume 91 fL (80-100); Monocytes Percent Auto 8.9 % (0.0-11.0); Neutrophils Absolute Auto 4.48 K/uL (1.7-7.0); Neutrophils Percent Auto 71.2 % (42.0-72.0); Platelet Count* 185 K/uL (140-440); RDW Coefficient of Variation % 14.4 % (11.5-15.5); Red Blood Count 2.82 m/uL (4.30-5.90)
[2023-12-23 06:24] LABS: Slide Review Reflex No
--- NOTE | 2023-12-23 06:48 | PC.NURSE ---
End of shift [id number]: A&O pleasant and cooperative. Up in the chair for most of shift. Ambulated in guillermo x1. Denied and SOB with activity. Up w/ SBA. Pt rested for most of the night.
[2023-12-23 06:49] LABS: Chloride* 114 mmol/L (96-114); Potassium* 4.2 mmol/L (3.6-5.1); Sodium* 141 mmol/L (135-149)
[2023-12-23 06:51] LABS: Creatinine* 3.1 mg/dL (0.5-1.5); Est. Creatinine Clearance* 19.84; Estimated Glomerular Filt Rate 20 ml/min
[2023-12-23 06:52] LABS: Anion Gap 3 mEq/L (7-15); Blood Urea Nitrogen* 60 mg/dL (7-30); Calcium* 8.1 mg/dL (8.4-10.6); Carbon Dioxide* 24 mmol/L (20-32); Glucose* 164 mg/dL (60-115)
[2023-12-23 07:00] VITALS: BP 141/68; PULSE 61; PULSE 62; RESP 16; TEMP 36.6; O2SAT 96
--- NOTE | 2023-12-23 08:00 | XR_ITS ---
Patient: SURESH DELGADO Facility:?[facility] Patient ID:?[id number] Site Patient ID:?[id number]. Site :?[id number] Study:?XRay-Chest PCXR-12/23/2023 9:06:13 AM Ordering Physician:KAMILLE Final Report: INDICATION: Follow-up shortness of breath TECHNIQUE: Single view chest. FINDINGS: Enlarged cardiac silhouette median sternotomy. Diffuse interstitial opacities may represent pulmonary edema. Retrocardiac atelectasis and/or consolidation probable small. No pneumothorax. Dictated by Jen Nunez MD @ 12/23/2023 9:26:38 AM Signed by:?Jen Nunez MD @12/23/2023 9:26:38 AM (Electronic Signature)
[2023-12-23] MEDS: INSULIN ASPART 100 UNIT/ML SUBCUT ×2 (08:44→12:39)
[2023-12-23] MEDS: INSULIN NPH 100 UNIT/ML 15 UNIT SUBCUT (08:44)
[2023-12-23] MEDS: POTASSIUM CHLORIDE 10 MEQ CAPSULE ER 20 MEQ PO (08:46)
[2023-12-23] MEDS: TORSEMIDE 5 MG TABLET 15 MG PO (08:47)
[2023-12-23] MEDS: clonazePAM 0.5 MG TABLET PO (08:47)
[2023-12-23] MEDS: AMLODIPINE 5 MG TABLET 2.5 MG PO (08:47)
[2023-12-23] MEDS: carvediloL 6.25 MG TABLET PO (08:47)
[2023-12-23] MEDS: cilostazoL 100 MG TABLET PO (08:47)
[2023-12-23] MEDS: SODIUM CHLORIDE 0.9 % (FLUSH) 10 ML SYRINGE 5 ML IVF (08:50)
[2023-12-23] MEDS: OMEPRAZOLE 20 MG CAPSULE DR 40 MG PO (08:51)
--- NOTE | 2023-12-23 12:13 | PM.DS1 ---
DS: Providers Provider Time Seen by Provider: 11:30 Date Seen: 12/23/23 Date of admission: 12/21/23 21:39 Primary care physician: Not a Local Provider Admitting Clinician: Marni Mcgregor MD Consults: 12/21/23 23:29 Consult to Occupational Therapy [CONS] Routine Comment: Reason(s) for OT Consult:: Evaluate and Treat Any Restrictions?:: No Restrictions Consult to Physical Therapy [CONS] Routine Comment: Reason(s) for PT Consult:: Evaluate and Treat Any Restrictions?:: No Restrictions Attending Physician on discharge: Marni Mcgregor MD Date of Discharge: 12/23/23 DS: Diagnosis Discharge Diagnosis (1) Bilateral pleural effusion: Status: Acute Problem details: - no evidence of acute infectious process, no hypoxia, remains clinically stable - likely acute on chronic given previous TTE results and h/o CHF. No underlying malignancy - received IV Lasix 12/20 and 12/21, diuresing well. Back to oral Torsemide on 12/22 - repeat TTE showed slight worsening of mild and increase in R sided pressures, otherwise unchanged, satting 96% on RA, denies SOB/CABELLO, states he's feeling better. Discharge home (2) Weakness: Status: Resolved Problem details: - therapies following, no acute needs identified at this time (3) Diabetes mellitus with hyperglycemia: Status: Acute Problem details: - last A1C 6.12 September 2023 - continue home medication (4) Infiltrative cardiomyopathy: Status: Acute Problem details: - abnormal TTE fall 2022 with results below - patient has not followed up with Cardiology since hospitalization - repeat TTE essentially the same except higher right-sided pressures and slightly increased mild aortic stenosis, final echo read is pending. Final Impressions: 1. Normal left ventricular size, moderately increased wall thickness, mildly reduced global systolic function, calculated EF of 48 %. 2. Current global longitudinal strain is abnormal at -6 %. The strain pattern is characteristic of apical sparing suggestive of infiltrative disease (amyloidosis). 3. Right ventricular cavity size is moderately enlarged, global systolic RV function is mildly reduced. 4. Severely enlarged left atrium. 5. The aortic valve is calcified, mild stenosis and mild regurgitation. The aortic valve peak velocity is 2.3 m/s, the peak gradient is 21 mmHg, and the mean gradient is 12 mmHg. The aortic valve area is 1.60 cm?? with a dimensionless index of 0.43. The stroke volume index is 44.0 ml/m??. 6. The mitral valve is mild posterior annular calcification, trace mitral regurgitation. 7. Tricuspid valve is tethered. 8. Moderate tricuspid regurgitation. 9. Mildly increased estimated pulmonary pressures by tricuspid regurgitation velocity and right atrial pressure (30 mmHg plus RAP). 10. Trivial pericardial effusion. 11. Large pleural effusion. (5) PVD (peripheral vascular disease): Status: Chronic Problem details: - on Pletal as outpatient, will continue (6) CKD (chronic kidney disease): Status: Chronic Problem details: - 3b/4 - follows with Dr. Lucio of Nephrology as an outpatient (7) GERD (gastroesophageal reflux disease): Status: Chronic Problem details: - on PPI, continue (8) Anemia: Status: Chronic Problem details: - presumably 2/2 renal disease per chart review - reassuring EGD fall 2022 - current stable Hgb at 8.2, close to baseline DS: Summary Hospital Course Hospital Course: Per H&P: Pedro Segura is a 73 year old male who presented to the emergency room after being seen in the clinic earlier today with concerns of CHF exacerbation in the setting of chronic kidney disease. He notes a 2 week history of dyspnea on exertion with intermittent dry cough. He has had no chest pain. He has not had orthopnea or PND. Unsure about any weight changes; states that he's taking all of his meds as prescribed, but he's unsure what they are (per [facility] chart, he's on 5mg of Torsemide daily). His physical activity has been limited by dyspnea and he has been feeling more weak. In the clinic, his vital signs were reassuring but he did have bilateral pleural effusions with pulmonary congestion on chest x-ray. ER Course and Findings: - Cr 2.4 (in our records, creatinine 1.7-2.3 for the past 6 months) - BNP 6280 (was >12,000 during last hospitalization in June) - hemoglobin 9.1 (baseline) - negative troponin - elevated D-dimer, no PE on imaging, bilateral home pleural effusions again demonstrated Upon arrival to the floor, Pedro has no concerns for hospitalist team. He is originally from [place] and [place]; moved to [place] last fall to be closer to family; was soon hospitalized after moving here for weakness and CHF exacerbations. He was ultimately discharged to his TCU facility, has since moved back in with his sister, [id number], and mother. His sister is doing the cooking, he does not believe she is over-salting food. Admission weight 80.2 kg, today's weight 77.1 kg after diuresing. Patient was seen by PT and OT yesterday and discharged from their services. I discussed outpatient follow-up with his PCP and Cardiology. Patient said that he would do these and asked that we either make the appointment or give him the information make the appointments himself. He is discharged home today in stable and improved condition. Time Spent with Patient Time attestation: Total time spent providing and/or coordinating discharge services: Exam Narrative: Exam Narrative: General: No acute distress. Awake, alert, oriented. No pallor. No jaundice. Oropharynx: Clear. Mucous membranes moist. Cardiovascular: Regular rate and rhythm. No murmurs, gallops, or rubs. Respiratory: Clear to auscultation bilaterally. No wheezes or crackles. Abdomen: Bowel sounds present. Soft, nondistended, nontender. Extremities: 2-3+ bilat pedal edema. Const: Vital Signs, click to edit/add: Vital Signs - 24 hr 12/22/23 14:49 12/22/23 15:00 12/22/23 15:00 Temperature 97.9 F Pulse Rate Pulse Rate [Pulse Oximeter] 60 56 L Respiratory Rate 20 20 Blood Pressure [Ri ght Arm] 135/72 Pulse Oximetry 96 96 Oxygen Delivery Me thod Room Air Room Air 12/22/23 15:00 12/22/23 19:11 12/23/23 00:31 Temperature 97.8 F Pulse Rate 56 L Pulse Rate [Pulse Oximeter] 61 58 L Respiratory Rate 16 16 Blood Pressure [Ri ght Arm] 139/68 155/77 H Pulse Oximetry 96 95 Oxygen Delivery Me thod Room Air Room Air 12/23/23 00:32 12/23/23 00:40 12/23/23 04:35 Temperature Pulse Rate 63 Pulse Rate [Pulse Oximeter] 56 L Respiratory Rate 16 Blood Pressure [Ri ght Arm] Pulse Oximetry 95 Oxygen Delivery Me thod Room Air 12/23/23 07:00 12/23/23 07:00 12/23/23 07:00 Temperature Pulse Rate 62 Pulse Rate [Pulse Oximeter] 61 Respiratory Rate 16 16 Blood Pressure [Ri ght Arm] Pulse Oximetry 96 Oxygen Delivery Me thod Room Air 12/23/23 07:00 Temperature 97.8 F Pulse Rate Pulse Rate [Pulse Oximeter] 61 Respiratory Rate 16 Blood Pressure [Ri ght Arm] 141/68 H Pulse Oximetry 96 Oxygen Delivery Me thod Room Air DS: Data Data Completed and Pending Completed studies during hospitalization: 12/21/2023 EKG: Sinus bradycardia, 57 beats per minute, inferior infarct, age undetermined, T-wave abnormality, consider lateral ischemia. Study: CT Chest W/ 95CC ISOVUE-370 PE PROTOCOL-12/21/2023 7:44:37 PM Ordering Physician: Rekha Cuello Final Report: INDICATION: Shortness of breath, elevated D-dimer. TECHNIQUE: CT chest PE was acquired with 95 cc Isovue 370 IV contrast. COMPARISON: None. FINDINGS: Heart and vasculature: Contrast opacification of the pulmonary arterial tree is adequate. No sign of pulmonary embolism. Cardiomegaly. Heavy coronary artery calcification. Normal caliber thoracic aorta and main pulmonary artery.Median sternotomy for prior coronary artery bypass graft. Lungs and pleura: Mosaic attenuation of the lungs. [id number] bilateral simple pleural effusion with associated compressive atelectasis of the lower lobes. Band of consolidation within the inferior left lower lobe (5/125). No pneumothorax. Lymph nodes/mediastinum: Mild lymphadenopathy within the mediastinum. Chest wall: No masses. Upper abdomen: Cholelithiasis. Bones: Unremarkable for age. IMPRESSION: 1. No pulmonary embolism. 2. Moderate to large bilateral pleural effusions with associated compressive atelectasis of the lower lobes. 3. Band of consolidation within the inferior left lower lobe could represent atelectasis or infection. 4. Mosaic attenuation of the lungs, which can be seen with small airways or small vessel disease. 5. Mild lymphadenopathy within the mediastinum, possibly reactive. 6. Cholelithiasis. Please note that all CT scans at this facility use dose modulation, iterative reconstruction, and/or weight-based dosing when appropriate to reduce radiation dose to as low as reasonably achievable. Dictated by Pool Austin MD @ 12/21/2023 8:35:59 PM (Electronic Signature) Study: XRay Chest PCXR-12/23/2023 9:06:13 AM Ordering Physician: KD Final Report: INDICATION: Follow-up shortness of breath TECHNIQUE: Single view chest. FINDINGS: Enlarged cardiac silhouette median sternotomy. Diffuse interstitial opacities may represent pulmonary edema. Retrocardiac atelectasis and/or consolidation probable small. No pneumothorax. Dictated by Jen Nunez MD @ 12/23/2023 9:26:38 AM (Electronic Signature) Labs on day of discharge: Labs from last 24 hours 12/23/23 12/22/23 05:55 20:25 WBC 6.30 RBC 2.82 L Hgb 8.2 L Hct 25.6 L MCV 91 MCH 29 MCHC 32 RDW Coeff of Orestes 14.4 Plt Count 185 Neut % (Auto) 71.2 Lymph % (Auto) 16.3 L Lucas % (Auto) 8.9 Eos % (Auto) 3.0 Baso % (Auto) 0.3 Neut # (Auto) 4.48 Lymph # (Auto) 1.00 Lucas # (Auto) 0.60 Eos # (Auto) 0.19 Baso # (Auto) 0.02 Abs Immat Gran (auto) 0.02 Imm/Tot Granulo (auto) 0.3 Sodium 141 Potassium 4.2 Chloride 114 Carbon Dioxide 24 Anion Gap 3 L BUN 60 H Creatinine 3.1 H Estimated Creat Clear 19.84 Estimated GFR 20 Glucose 164 H Calcium 8.1 L Urine Color Yellow Urine Appearance Clear Urine pH 5.0 Ur Specific [place] <= 1.005 Urine Protein Trace A Urine Glucose (UA) Negative Urine Ketones Negative Urine Blood Negative Urine Nitrite Negative Urine Bilirubin Negative Urine Urobilinogen 0.2 Ur Leukocyte Esterase Negative Urine RBC 0-2 Urine WBC 0-2 Ur Squamous Epith Cells None Urine Bacteria Few A Preliminary micro results at discharge 12/22/23 Unknown Urine Culture - Preliminary Urine,Clean Catch Culture in Progress Discharge Plan Discharge Disposition: Home, Self-Care Date of Admission: 12/21/23 21:39 Attending Provider on Discharge: Kristi Garcia Primary Care Provider: Provider,Not a Local Condition: Stable Anticipated Discharge Date/Time: 12/23/23 12:46 Discharge Medications: Continued atorvastatin 40 mg tablet 80 mg PO DAILY cholecalciferol (vitamin D3) 50 mcg (2,000 unit) capsule 50 mcg PO DAILY cilostazol 100 mg tablet 100 mg PO BID cyclopentolate [Cyclogyl] 0.5 % drops 1 drp ophthalmic (eye-left) BID Rx Instructions: compress lacrimal sac for 1-2 minutes after instillation difluprednate 0.05 % drops 1 drp ophthalmic (eye-left) DAILY Rx Instructions: until desired response dorzolamide-timolol 22.3-6.8 mg/mL drops 1 drp ophthalmic (eye-left) BID glipizide 10 mg tablet 10 mg PO DAILY losartan [Cozaar] 25 mg tablet 25 mg PO DAILY mirtazapine 15 mg tablet 30 mg PO QHS pantoprazole [Protonix] 40 mg tablet,delayed release (DR/EC) 40 mg PO DAILY tamsulosin [Flomax] 0.4 mg capsule 0.4 mg PO QHS torsemide 5 mg Tablet 15 mg PO DAILY 30 Days Qty: 90 1RF sennosides-docusate sodium [Stool Softener-Laxative] 8.6-50 mg Tablet 2 tab PO BID Qty: 60 0RF melatonin 3 mg Tablet 3 mg PO HS PRN (Reason: Insomnia) Qty: 30 0RF carvedilol 6.25 mg Tablet 6.25 mg PO BID 30 Days Qty: 60 1RF clonazepam 0.5 mg Tablet 0.5 mg PO BID 15 Days Qty: 30 0RF Humulin N NPH U-100 Insulin 100 unit/mL Suspension 15 unit subcut DAILY Patient Comments: LAST ADMISSION WAS 8 UNITS SUBQ DAILY amlodipine 2.5 mg tablet 2.5 mg PO DAILY Discharge Orders: Discharge Order (Routine); Ordered 12/23/23 Ordered By: Kristi Garcia Activity Level: Activity as Tolerated and Use Walker Discharge Diet: Heart Healthy (2 gm sodium, low fat) Follow Up Appointments: Provider,Not a Local [Primary Care Provider] - (Please schedule f/u appt with Dr. Justine Black at [facility] within 5 days for hospital f/u and Cardiology referral) Forms: [employer] Info Instructions
--- NOTE | 2023-12-23 17:08 | PC.NURSE ---
Discharge today at 1535 accompanied by family member. IV removed intact. Patient signed belongings sheet and Discharge instructions. Patient verbalized understanding of instructions. VSS. Patient 96% on RA. Denies N/V/Pain.
== END 2023-12-23 15:35 | disposition home or self-care (01) ==
LOC: ED 20:54 → MEDSURG 21:40
PROVIDERS: Admitting Provider Family Medicine; Emergency Provider Family Medicine; Visit Provider Family Medicine
DX: J90 Pleural effusion, not elsewhere classified (principal); R53.1 Weakness; I13.0 Hypertensive heart and chronic kidney disease with heart failure and stage 1 through stage 4 chronic kidney disease, or unspecified chronic kidney disease; N18.32 Chronic kidney disease, stage 3b; I50.9 Heart failure, unspecified; I31.39 Other pericardial effusion (noninflammatory); R79.89 Other specified abnormal findings of blood chemistry; J98.59 Other diseases of mediastinum, not elsewhere classified; I42.8 Other cardiomyopathies; R09.89 Other specified symptoms and signs involving the circulatory and respiratory systems; I73.9 Peripheral vascular disease, unspecified; R05.9 Cough, unspecified; R00.1 Bradycardia, unspecified; E78.5 Hyperlipidemia, unspecified; R60.0 Localized edema; E11.65 Type 2 diabetes mellitus with hyperglycemia; R06.02 Shortness of breath; K80.20 Calculus of gallbladder without cholecystitis without obstruction; D64.9 Anemia, unspecified; H40.9 Unspecified glaucoma; K21.9 Gastro-esophageal reflux disease without esophagitis; Z98.62 Peripheral vascular angioplasty status; Z79.4 Long term (current) use of insulin; Z79.84 Long term (current) use of oral hypoglycemic drugs; Z79.52 Long term (current) use of systemic steroids; Z79.01 Long term (current) use of anticoagulants; Z86.79 Personal history of other diseases of the circulatory system; Z87.891 Personal history of nicotine dependence; Z95.1 Presence of aortocoronary bypass graft; Z95.5 Presence of coronary angioplasty implant and graft; Z98.890 Other specified postprocedural states
CPT/HCPCS: 36415; 71045; 71275; 80048; 80076; 81001; 81003; 82803; 82962; 83605; 83880; 84484; 85025; 85379; 86140; 87086; 87631; 93005; 93306; 94761; 96372; 96374; 96376; 97116; 97161; 97165; 99284; 99285; G0378; A9270; J1650; J1940; Q9967

== ENCOUNTER 2025-02-17 20:06 | Outpatient (CLI) | payer MEDICARE, BC, SELFPAY | END 2025-02-17 20:07 | disposition home or self-care (01) | LOC: SLEEP 20:07 | PROVIDERS: PCP Internal Medicine; Visit Provider Internal Medicine | DX: G47.33 Obstructive sleep apnea (adult) (pediatric) (principal); R09.02 Hypoxemia; G47.31 Primary central sleep apnea | CPT/HCPCS: 95811; A9270 ==

== ENCOUNTER 2025-03-09 16:48 | Outpatient (CLI) | payer MEDICARE, BC, SELFPAY ==
[2025-03-09 17:13] LABS: Hemoglobin* 10.7 gm/dL (13.5-17.5)
[2025-03-09 17:44] LABS: Albumin* 3.7 g/dL (3.3-5.0); Chloride* 105 mmol/L (96-114); Potassium* 4.7 mmol/L (3.6-5.1); Sodium* 135 mmol/L (135-149)
[2025-03-09 17:47] LABS: Anion Gap 9 mEq/L (7-15); Blood Urea Nitrogen* 66 mg/dL (7-30); Calcium* 8.8 mg/dL (8.4-10.6); Carbon Dioxide* 21 mmol/L (20-32); Creatinine* 2.7 mg/dL (0.5-1.5); Estimated Glomerular Filt Rate 24 ml/min; Glucose* 327 mg/dL (60-115)
[2025-03-09 17:59] LABS: PTH Intact* 122.4 pg/mL (14.2-75.2)
[2025-03-09 18:08] LABS: Phosphorus* 4.3 mg/dL (2.5-4.5)
--- OUTSIDE RECORDS SUMMARY | 2025-03-10 02:22 | XMS_ITS | Clinical Summary ---
Author Organization [facility] Address [address] [place] [address] Care Team Providers Care Bridge Welder Name Role Phone MainorteRenny sainz MD Primary Care Provider + Allergies Active Allergy Reactions Criticality Noted Date Comments Garlic Other - Describe In Comment Field Gastritis Penicillins *Unknown - Childhood Rxn 08/14/2023 Medications cholecalcifero l, Vitamin D3, 5,000 unit tab tablet Take 1 Tablet by mouth once daily. Active ferrous sulfate 325 mg delayed release tablet Take 325 mg by mouth once daily with a meal. Active aspirin chewable 81 mg chewable tabletIndicati ons:Acute on chronic systolic (congestive) heart failure (HC) Chew 1 Tablet (81 mg) by mouth once daily with a meal. 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 90 Tablet 3 03/19/20 24 Active cilostazoL (PLETAL) 100 mg tabletIndicati ons:Claudicati on of both lower extremities Take 1 Tablet (100 mg) by mouth two times daily before meals. 180 Tablet 3 03/19/20 24 Active mirtazapine (REMERON) 30 mg tabletIndicati ons:Depression , recurrent Take 1 Tablet (30 mg) by mouth once daily at bedtime. 90 Tablet 3 03/19/20 24 Active pantoprazole (PROTONIX) 40 mg delayed-releas e tabletIndicati ons:Chronic superficial gastritis without bleeding Take 1 Tablet (40 mg) by mouth once daily before a meal. 90 Tablet 03/19/20 24 Active tamsulosin (FLOMAX) 0.4 mg capsuleIndicat ions:BPH without urinary obstruction Take 1 Capsule (0.4 mg) by mouth once daily at bedtime. 90 Capsule 03/19/20 24 Active isosorbide mononitrate (IMDUR) 30 mg extended release tablet 24 HourIndication s:Heart failure with reduced ejection fraction (HC) Take 1 Tablet (30 mg) by mouth once daily. 30 Tablet 05/27/20 24 Active amLODIPine (NORVASC) 5 mg tabletIndicati ons:Hypertensi on Take 0.5 Tablets (2.5 mg) by mouth once daily. 30 Tablet 05/27/20 24 Active insulin syringe-needle u-100 1 mL 31 gauge x 01/23Indication s:Type 2 diabetes mellitus without complication, with long-term current use of insulin (HC) For administering insulin at home. 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 TAKE ADDITIONAL 0.5 TAB DAILY FOR WEIGHT GAIN GREATER THAN 3 POUNDS IN ONE DAY OR 5 POUNDS IN ONE WEEK 45 Tablet 02/05/20 25 Active HumuLIN N NPH U-100 Insulin 100 unit/mL susp injectionIndic ations:Type 2 diabetes mellitus without complication, with long-term current use of insulin (HC) Inject 16 units subcutaneous before breakfast. 30 mL 03/09/20 25 Active HumuLIN N NPH U-100 Insulin 100 unit/mL susp injectionIndic ations:Type 2 diabetes mellitus without complication, with long-term current use of insulin (HC) Inject 16 units subcutaneous before breakfast. 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 08/14/2023 Chronic kidney disease 08/14/2023 BPH without urinary obstruction 08/14/2023 Peripheral edema 08/14/2023 Chronic superficial gastritis without bleeding 1 10/15/2022 Depression, recurrent 08/14/2023 Claudication of both lower extremities 3 S/P three vessel coronary artery bypass 08/14/20 23 Encounters Date Type Department Care Team Description 03/08/2025 Refill [facility] [address] [place] [address] Madison Tolbert PA Refill Request (Humulin N Nph U-100 Insulin) 03/08/2025 Refill [facility] [address] [place] [address] Renny Craig MD Refill Request (Warfarin) 02/21/2025 Anticoagulation (warfarin) [facility] [address] [place] [address] 1, [facility] Anticoagulation (Acelis) 02/04/2025 Refill [facility] [address] [facility] [place] [address] Martin Cross MD Refill Request (Furosemide) 01/26/2025 Anticoagulation (warfarin) [facility] [address] [place] [address] 1, [facility] Anticoagulation (Acelis ) 01/23/[address] [address] Renny Craig MD Anticoagulation (INR greater than 4 days old (01/16/25)) 01/21/[address] [address] Renny Craig MD Anticoagulation (INR OVERDUE REMINDER #2 ) 01/16/2025 Anticoagulation (warfarin) [address] [address] Renny Craig MD Error-please disregard (opened in error) 01/06/2025 3:15 PM CDT Office Visit [address] [address] Madison Tolbert PA Preoperative Exam (Left Cataract. 01/19/25. Cross roads[address] Dr. Cage) 01/05/2025 3:30 PM CDT Office Visit [address] [address] Ramu Osorio MD Sleep Consult 01/05/2025 Travel 12/23/2024 Telephone [facility] [address] [facility] [address] [place] [address] Martin Cross MD Results (Echo) 12/17/2024 2:00 PM CDT Ancillary Procedure [facility] [address] [place] [phone] 12/17/2024 Travel 12/15/2024 Refill [facility] [address] [place] [address] Renny Craig MD Refill Request (Warfarin) 12/12/2024 Refill [facility] [address] [facility] [place] [phone] Martin Cross MD Refill Request (Furosemide) from Last 3 Months Immunizations Immunization Administration Dates Next Due COVID-19 VACCINE SPIKEVAX (M ODERNA 50MCG/0.5ML) 12YO+ PFS 10/09/2024 COVID-19 vaccine (Pfizer-BioNTech 30mcg/0.3mL) P F, MDV 10/30/2022,12/20/2020 Influenza, Inactivated IIV3 (Age 65+ Years) Preserv Free 10/09/2024 Pneumococcal Conj 20-valent (Prevnar 20) 024 Pneumococcal Poly,23-Valent (Pneumovax) 09/24/19 20 Pneumococcal conj 13-Valent (Prevnar 13) 021 Tdap 09/24/2019 Tuberculin Skin Test, Unspecified 07/10/2023, Zoster (Zostavax-ZVL, live) 05/30/2021, 0 Social History Tobacco Use Types Packs/Day Years Used Date Smoking Tobacco: Former Cigarettes Smokeless Tobacco: Never Tobacco Cessation:Counseling Given: Yes Alcohol Use Standard Drinks/Week Comments Not Currently 0 (1 standard drink = 0.6 oz pur e alcohol) PHQ-2 Answer Date Recorded PHQ-2 TOTAL SCORE 0 03/19/2024 Social Connections Answer Date Recorded Do you often feel lonely or isolated from those around you? 0 01/06/2025 Financial Resource Strain Answer Date R ecorded Difficulty of Paying Living Expenses 3 01/06/2025 Difficulty of Paying Living Expenses Not on file 01/06/2025 Food Insecurity Answer Date Recorded Do you worry your food will run out before you are able to buy more? 1 01/06/2025 Transportation Needs Answer Date Record ed Does lack of transportation keep you from medica l appointments? 1 01/06/2025 Does lack of transportation keep you from work, meetings or getting things that you need? 1 01/06/2025 Housing Stability Answer Date Recorded What is your housing situation today? 1 01/06/2025 Interpersonal Safety Answer Date Record ed Are you being hit, kicked, p ushed or yelled at (see row info)? No 12/26/2023 Interpersonal Safety Abuse 12 - 18 Not on file 12/26/2023 Interpersonal Safety Ambulatory Vulnerability No t on file 12/26/2023 Utilities Answer Date Recorded Do you have trouble paying f or utilities (for example, heat, electricity, water, phone)? 1 01/06/2025 Sex and Gender Information Value Date Recorded Sex Assigned at Not on file Legal Sex Male 10:23 AM CDT Gender Identity Not on file Sexual Orientation Not on file Obstetrics History Last Filed Vital Signs Vital Sign Reading Time Taken Comments Blood Pressure 122/80 01/06/2025 3:03 PM CDT Pulse 67 01/06/2025 3:03 PM CDT Temperature 36.6 C (97.8 F) 03/19/2024 4:21 PM CDT Respiratory Rate 16 12/30/2023 7:55 AM CDT Oxygen Saturation 98% 01/06/2025 3:03 PM CDT Inhaled Oxygen Concentration - - Weight 73.9 kg (163 lb) 01/06/2025 3:03 PM CDT Height 167.5 cm (5' 5.95) 01/05/2025 3:31 PM CD T Body Mass Index 26.35 01/05/2025 3:31 PM CDT Plan of Treatment Upcoming Encounters Date Type Department Care Team (Late st Contact Info) Description 03/24/2025 3:30 PM CDT Office Visit [facility] [address] [place] [phone] Martin Cross MD [address] [place] [phone] 04/01/2025 4:10 PM CDT Office Visit [facility] [address] [place] [address] Renny Craig MD [address] [place] [address] Health Maintenance Due Date Last Done Comments RSV vaccine for adults or (1 - Risk 60-74 years 1-dose series) 2010 AAA screening age 65-74 12/08/2015 Zoster (shingles) series for age 50+ (2 of 3) 07/25/2021 05/30/2021, 09/24/2019 Medicare Wellness for age 65+ 03/20/2025 03/19/2024 Depression screening for age 12+ 03/21/2025 03/21/2024, 03/21/2024, 03/20/2024, Additional history exists COVID-19 vaccine series ( season) 2025 10/09/2024, 10/30/2022, 12/20/2020 BMI (ht and wt on same day) for age 18+ 01/05/2026 01/05/2025, 03/19/2024, 01/30/2024, Additional history exists Lipids for age 45-75 03/19/2029 03/19/2024, 12/27/19 24 Tetanus booster 09/24/2029 09/24/2019 Colonoscopy through age 75 03/29/203403/29 [facility] Tdap Completed 09/24/2019 Hepatitis C screening for age 18-79 Completed 03/19/2024 Pneumococcal series for age 50+ Completed 03/19/2024, 09/29/2020, 09/24/2019 Influenza Vaccine Completed 10/09/2024 Hepatitis B series for 19+ Aged Out N o longer eligible based on patient's age to complete this topic Procedures Procedure Name Priority Date/Time Associated Diagnosis Comments HOME MONITOR AC Routine 02/21/2025 12:00 AM CDT HOME MONITOR AC Routine 01/26/2025 12:00 AM CDT HOME MONITOR AC Routine 01/16/2025 12:00 AM CDT HEMOGLOBIN A1C MONITORING (POCT) Routine 01/06/2025 3:37 PM CDT Type 2 diabetes mellitus with stage 4 chronic kidney disease, with long-term current use of insulin (HC) ECHO TTE COMPLETE WO CONTRAST Routine 12/17/2024 2:37 PM CDT Heart failure with reduced ejection fraction (HC) ANTI HCV Routine 03/19/2024 5:20 PM CDT Need for hepatitis C screening test LIPID PANEL W REFLEX MEASURED LDL Routine 03/19/2024 5:20 PM CDT Dyslipidemia, goal LDL below 70 from Last 3 Months or Most Recently Relevant to Health Maintenance Results * (ABNORMAL) HOME MONITOR AC (02/21/2025 12:00 AM CDT) Only the most recent of3 resultswithin the time period is included. PATIENT REPORTED HOME INR 1.7(L) 2.00 - 3.00 [facility] 02/21/2025 us Renny Craig MD OTHER Final Re sult [facility] [address] [place], [place] [id number] * (ABNORMAL) HEMOGLOBIN A1C MONITORING (POCT) (01/06/2025 3:37 PM CDT) POC HEMOGLOBIN A1C 7.5(H) <6.0 % OF TOTAL HGB [facility] Comment: Any point of care results exhibiting inconsistency with the patient's clinical status should be repeated using a different testing method. Blood BLOOD SPECIMEN / Unknown 01/06/2025 3:37 PM CDT 01/06/2025 3:39 PM CDT us Madison CATALAN CHEMISTRY Final Res ult [facility] [address] [place] [address], [place] [phone] [facility] [address] [place] [address] * ECHO TTE COMPLETE WO CONTRAST (12/17/2024 2:37 PM CDT) AORTIC VALVE MEAN PG 19 mmHg EJECTION FRACTION 47 % LVEDD 5.1 cm EJECTION FRACTION 45 - 50% Anatomical Region Laterality Modality Ultrasound 12/17/2024 1:59 PM CDT Narrative 12/17/2024 3:15 PM CDT ECHOCARDIOGRAM PEDRO SEGURA : 1950 74 years Study Date: 12/17/2024 1:59:27 PM Gender: M BP: 113/64 mmHg Height: 165.00 cm BSA: 1.82 m Weight: 75.00 kg Tech: WES Referring MD: MARTIN CROSS Site: [facility] [place] Reading Location: Mobile-OP Patient Location: Outpatient. Procedure: 2D, Color Doppler and Spectral Doppler. Indication for study: Heart failure with reduced ejection fraction (HC) Cardiac Rhythm: Irregular.Study quality: Good. Final Impressions: 1. Not well visualized LV size, normal wall thickness, estimated EF of 45 - 50%. 2. Inferior wall is hypokinetic. 3. Mid-distal septum is hypokinetic. 4. Normal RV size and systolic function. 5. Moderately enlarged left atrium. 6. Indeterminate pattern of LV diastolic filling. 7. The aortic valve is calcified, mild to stenosis and mild regurgitation. Vmax 2.8 m/s, MG 19 mmHg, DI 0.44. 8. Normal RA pressure. Comparison Compared to prior exam of 03/21/24, there has been no significant change. Chamber Sizes and Function Not well visualized left ventricular size, normal wall thickness, mildly reduced global systolic function with an estimated EF of 45 - 50%. Left atrial size is moderately enlarged. Right ventricular cavity size is normal, global systolic RV function is mildly reduced. RV wall thickness is normal. The right atrium is mildly enlarged. Right atrial volume index is 36 ml/m . Right atrial area is 20 cm . The pulmonary artery is of normal size and origin. The sinus of Valsalva is normal sized. The ascending aorta is normal sized. Valves, RV Pressures and Diastolic Function The aortic valve is calcified, mild stenosis and mild regurgitation. The mitral valve is normal in structure, trace mitral regurgitation. Mitral annular calcification is present. Indeterminate pattern of LV diastolic filling. The tricuspid valve is normal in structure and trace tricuspid regurgitation. The pulmonic valve is normal. No pulmonary regurgitation. Masses, Effusion, Shunts There is no pericardial effusion. The inferior vena cava is normal sized, respiratory size variation greater than 50%. No left to right shunting was detected by limited color flow Doppler interrogation of the interatrial septum. MEASUREMENTS AND CALCULATIONS 2-D Measurements and LV Function: LVID (d) 5.1 cm LV FS% (2D) 31 % LVID (s) 3.5 cm LVOT diameter 2.3 cm IVS (d) 0.8 cm HR 67 bpm LVPW (d) 1.2 cm LA Vol index 47 ml/m2 Ao Sinus 3.5 cm RA Vol index 36 ml/m2 Ao Sinus ULN 4.1 cm RA area 20 cm Asc Ao 3.4 cm RV Basal Diam 3.8 cm Asc Ao ULN 4.2 cm LA 4.3 cm Diastology: Mitral Tissue Doppler E Peak 0.9 m/s e', Septum 0.04 m/s A Peak 0.6 m/s e', Lateral 0.08 m/s E/A 1.5 E/e' Average 13.82 DT 247 msec Aortic Valve: Vmax 2.8 m/s ROBBIE (V) 1.90 cm VTI 0.66 m ROBBIE (I) 1.80 cm LVOT V max 1.3 m/s Max PG 31 mmHg LVOT VTI 0.29 m Mean PG 19 mmHg SV 118 ml Dim Index 0.44 SV index 65 ml/m CO 7.9 l/min CI 4.3 l/min/m Mitral Valve: MVA 3.1 cm MV P 1/2 72 msec Tricuspid Valve and estimated PA pressures: TAPSE 1.4 cm . This study was interpreted by an [facility] accredited facility. Final Procedure Note Gene Damico MD - 12/17/2024 ECHOCARDIOGRAM PEDRO SEGURA : 1950 74 years Study Date: 12/17/2024 1:59:27 PM Gender: M BP: 113/64 mmHg Height: 165.00 cm BSA: 1.82 m Weight: 75.00 kg Tech: WES Referring MD: MARTIN CROSS Site: [facility] [place] Reading Location: Mobile-OP Patient Location: Outpatient. Procedure: 2D, Color Doppler and Spectral Doppler. Indication for study: Heart failure with reduced ejection fraction (HC) Cardiac Rhythm: Irregular.Study quality: Good. Final Impressions: 1. Not well visualized LV size, normal wall thickness, estimated EF of 45- 50%. 2. Inferior wall is hypokinetic. 3. Mid-distal septum is hypokinetic. 4. Normal RV size and systolic function. 5. Moderately enlarged left atrium. 6. Indeterminate pattern of LV diastolic filling. 7. The aortic valve is calcified, mild to stenosis and mildregurgitation. Vmax 2.8 m/s, MG 19 mmHg, DI 0.44. 8. Normal RA pressure. Comparison Compared to prior exam of 03/21/24, there has been no significant change. Chamber Sizes and Function Not well visualized left ventricular size, normal wall thickness, mildlyreduced global systolic function with an estimated EF of 45 - 50%. Leftatrial size is moderately enlarged. Right ventricular cavity size isnormal, global systolic RV function is mildly reduced. RV wall thicknessis normal. The right atrium is mildly enlarged. Right atrial volume indexis 36 ml/m . Right atrial area is 20 cm . The pulmonary artery is ofnormal size and origin. The sinus of Valsalva is normal sized. Theascending aorta is normal sized. Valves, RV Pressures and Diastolic Function The aortic valve is calcified, mild stenosis and mild regurgitation. Themitral valve is normal in structure, trace mitral regurgitation. Mitralannular calcification is present. Indeterminate pattern of LV diastolicfilling. The tricuspid valve is normal in structure and trace tricuspidregurgitation. The pulmonic valve is normal. No pulmonary regurgitation. Masses, Effusion, Shunts There is no pericardial effusion. The inferior vena cava is normal sized,respiratory size variation greater than 50%. No left to right shunting wasdetected by limited color flow Doppler interrogation of the interatrialseptum. MEASUREMENTS AND CALCULATIONS 2-D Measurements and LV Function: LVID (d) 5.1 cm LV FS% (2D) 31 % LVID (s) 3.5 cm LVOT diameter 2.3 cm IVS (d) 0.8 cm HR 67 bpm LVPW (d) 1.2 cm LA Vol index 47 ml/m2 Ao Sinus 3.5 cm RA Vol index 36 ml/m2 Ao Sinus ULN 4.1 cm RA area 20 cm Asc Ao 3.4 cm RV Basal Diam 3.8 cm Asc Ao ULN 4.2 cm LA 4.3 cm Diastology: Mitral Tissue Doppler E Peak 0.9 m/s e', Septum 0.04 m/s A Peak 0.6 m/s e', Lateral 0.08 m/s E/A 1.5 E/e' Average 13.82 DT 247 msec Aortic Valve: Vmax 2.8 m/s ROBBIE (V) 1.90 cm VTI 0.66 m ROBBIE (I) 1.80 cm LVOT V max 1.3 m/s Max PG 31 mmHg LVOT VTI 0.29 m Mean PG 19 mmHg SV 118 ml Dim Index 0.44 SV index 65 ml/m CO 7.9 l/min CI 4.3 l/min/m Mitral Valve: MVA 3.1 cm MV P 1/2 72 msec Tricuspid Valve and estimated PA pressures: TAPSE 1.4 cm . This study was interpreted by an [facility] accredited facility. Final Martin Cross MD ECHO ORD Final Result * LIPID PANEL W REFLEX MEASURED LDL (03/19/2024 5:20 PM CDT) CHOLESTEROL,TOTAL 135 100 - 199 mg/dL 03/20/2024 2:32 PM CDT [facility] Comment: Cholesterol, Total Reference Ranges Desirable <200 mg/dL Borderline 200-239 mg/dL High >=240 mg/dL TRIGLYCERIDES 100 <150 mg/dL 03/20/2024 2:32 PM CDT [facility] HDL CHOLESTEROL 46 >40 mg/dL 2:32 PM CDT [facility] NON-HDL CHOLESTEROL 89 <145 mg/dl 03/20/2024 2:32 PM CDT [facility] CHOL/HDL RATIO 2.93 <4.50 03/20/2024 2:32 PM CDT [facility] LDL CHOLESTEROL 69 <=130 mg/dL 03/20/2024 2:32 PM CDT [facility] VLDL CHOLESTEROL 20 <=30 mg/dL 03/20/2024 2:32 PM CDT [facility] PROVIDER ORDERED STATUS RANDOM 03/20/2024 2:32 PM CDT [facility] Blood BLOOD SPECIMEN / Unknown Venipuncture / Unknown 03/19/2024 5:20 PM CDT 03/19/2024 5:20 PM CDT Renny Craig MD CHEMISTRY Final Re sult Performing Organization Address [facility] Co de Phone Number [facility] [address] [place] [phone], [place] * ANTI HCV [57209.2] (03/19/2024 5:20 PM CDT) HEPATITIS C ANTIBODY Non-Reacti ve Non-React petey 03/20/2024 2:48 PM CDT [facility] Comment:Please note, per www .CDC.gov: If a patient is known to be at high risk of HCV infection, or is symptomatic, and the physician's suspicion of HCV infection is high, HCV RNA testing is often employed and is of diagnostic value, even after an initial negative anti-HCV test result. Blood BLOOD SPECIMEN / Unknown Venipuncture / Unknown 03/19/2024 5:20 PM CDT 03/19/2024 5:20 PM CDT us Renny Craig MD SEND OUTS Final Re sult Performing Organization Address City/[facility]/ZIP Co de Phone Number [facility] [address] [place] [phone] [place] [address] from Last 3 Months or Most Recently Relevant to Health Maintenance Insurance [address] [place] [address] [employer] [place] [employer] [employer] PB ONLY MEDICARE PART A HB ONLY [employer] [place] [employer] [employer] HB ONLY MEDICARE PART B HB ONLY Advance Directives * Full Code (Latest Code Status on File) Date Activated Date Inactivated Comments 12/27/2023 4:54 PM 12/30/2023 1:39 PM Question Answer Comments Code Status Discussion: Reviewed Preferences * Full Code Date Activated Date Inactivated Comments 12/26/2023 4:52 PM 12/27/2023 4:54 PM Question Answer Comments Code Status Discussion: Unable to Assess Preferences, Provider to review later Care Teams Bridge Welder Relationship Specialty Start Date End Date Votel, Renny Mills MD [address] [place] [address] PCP - General Family Practice 02/08/24
--- OUTSIDE RECORDS SUMMARY | 2025-03-10 02:22 | XMS_ITS ---
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 Role Phone Natalee Barrett Unavailable Unavailable Shavonne Cedeño Unavailable Unavailable Pedro Nix Unavailable Unavailable Allergies and adverse reactions Code CodeSystem Substance Reaction Severity StartDate Concern Status 7984 RXNORM Penicillin Unknown 06/26/2023 active 6809 RXNORM metFORMIN Unknown 07/16/2023 active Lettuce Unknown 07/16/2023 active Garlic Unknown 07/16/2023 active Care Team Name Role Address Phone Organization Dates Pedro Nix [facility] Genevive [facility], [address], [place], [address], [facility] (Office): [facility] 06/26/2023 - 07/20/2023 Natalee Barrett [facility], [facility] 06/26/2023 - 07/20/2023 Shavonne Cedeño [facility] [address], [place], [address], [facility] (Office): : [facility] 06/26/2023 - 07/20/2023 Immunizations Immunization Status Vaccine Details Vaccine Code CodeSystem Date Notes TB 2 Step Mantoux Skin Test completed tuberculin skin test; unspecified formulation Step 2 of Multi-step with next step required 98 CVX created date: 07/21/2024 consent date: 07/10/2023 administer ed date: 07/10/2023 TB 2 Step Mantoux Skin Test completed tuberculin skin test; unspecified formulation lotNumber: [id number] expiry: 06/09/2026 Mfg: tubersol Given 0.1 ml Left Forearm intradermally Step 1 of Multi-step with next step required 98 CVX created date: 07/10/2023 consent date: 07/10/2023 administer ed date: 06/26/2023 Educated by on 07/21/2024 TDAP completed tetanus toxoid, reduced diphtheria toxoid, and acellular pertussis vaccine, adsorbed 115 CVX created date: 07/16/2023 administer ed date: 09/24/2019 PPSV23, Pneumovax 23 completed pneumococcal polysaccharide vaccine, 23 valent 33 CVX created date: 07/16/2023 administer ed date: 09/24/2019 PCV13, [id number] completed pneumococcal conjugate vaccine, 13 valent 133 CVX created date: 07/16/2023 administer ed date: 09/29/2020 Influenza-High Dose cancelled Influenza, split virus, trivalent, injectable, contains preservative 141 CVX created date: 07/16/2023 consent date: 07/16/2023 Influenza-High Dose completed Influenza, high-dose, split virus, trivalent, injectable, preservative free 135 CVX created date: 07/16/2023 administer ed date: 05/30/2021 Zostavax (Live Shingles) completed zoster vaccine, live 121 CVX created date: 07/16/2023 administer ed date: 05/30/2021 Zostavax (Live Shingles) completed zoster vaccine, live 121 CVX created date: 07/16/2023 administer ed date: 09/24/2019 COVID-19 Vaccine dose 1 cancelled SARS-COV-2 (COVID-19) vaccine, mRNA, spike protein, LNP, bivalent, preservative free, 10 mcg/0.2 mL dose 230 CVX created date: 07/16/2023 consent date: 07/16/2023 COVID-19 Vaccine dose 1 completed SARS-COV-2 (COVID-19) vaccine, mRNA, spike protein, LNP, bivalent, preservative free, 50 mcg/0.5 mL or 25 mcg/0.25 mL dose Mfg: [employer] 229 CVX created date: 07/16/2023 administer ed date: 07/26/2021 COVID-19 Vaccine dose 2 completed SARS-COV-2 (COVID-19) vaccine, mRNA, spike protein, LNP, preservative free, 30 mcg/0.3mL dose Mfg: Pfizer 208 CVX created date: 07/16/2023 administer ed date: 12/20/2020 COVID-19 Vaccine dose 3 completed unknown vaccine or immune globulin Mfg: [employer] 999 CVX created date: 07/16/2023 administer ed date: 11/22/2020 COVID-19 Vaccine dose 4 completed SARS-COV-2 (COVID-19) vaccine, mRNA, spike protein, LNP, preservative free, 30 mcg/0.3mL dose Mfg: [employer] 208 CVX created date: 07/16/2023 administer ed date: 10/30/2022 Mental Status Section Date Assessment Total Score Description 07/20/2023 BIMS 14 cognitively int act CAM 0 No delirium ind icated PHQ-9 05 mild depression 07/02/2023 BIMS 11 moderate cognit petey impairment CAM 0 No delirium ind icated PHQ-9 13 moderate depres connie Problems Problem # Description Date of onset Resolved Date Code CodeSystem Concern Status 1 OTHER SPECIFIED PERSONAL RISK FACTORS, NOT ELSEWHERE CLASSIFIED [address] active 2 ACUTE ON CHRONIC DIASTOLIC (CONGESTIVE) HEART FAILURE [address] active 3 ANEMIA, UNSPECIFIED [address] active 4 ANXIETY DISORDER, UNSPECIFIED [address] active 5 ATHEROSCLEROSIS OF CORONARY ARTERY BYPASS GRAFT(S) WITHOUT ANGINA PECTORIS [address] active 6 BENIGN PROSTATIC HYPERPLASIA WITHOUT LOWER URINARY TRACT SYMPTOMS [address] active 7 CARDIOMYOPATHY, UNSPECIFIED [address] active 8 CEREBROVASCULAR DISEASE, UNSPECIFIED [address] active 9 CHRONIC KIDNEY DISEASE, UNSPECIFIED [address] active 10 DEPENDENCE ON SUPPLEMENTAL OXYGEN [address] active 11 GASTRITIS, UNSPECIFIED, WITHOUT BLEEDING [address] active 12 GASTRO-ESOPHAGEAL REFLUX DISEASE WITHOUT ESOPHAGITIS [address] active 13 JAIL (CURRENT) USE OF ANTICOAGULANTS [address] active 14 JAIL (CURRENT) USE OF INSULIN [address] active 15 MENTAL DISORDER, NOT OTHERWISE SPECIFIED [address] active 16 MIXED HYPERLIPIDEMIA [address] active 17 PERIPHERAL VASCULAR DISEASE, UNSPECIFIED [address] active 18 PRIMARY INSOMNIA [address] active 19 SLOW TRANSIT CONSTIPATION [address] active 20 SOLITARY PULMONARY NODULE [address] active 21 TYPE 2 DIABETES MELLITUS WITH DIABETIC CHRONIC KIDNEY DISEASE [address] active 22 UNSPECIFIED GLAUCOMA [address] active Reason for Referral No Reasons for Referral Entered Social History Social History Observation Description Start Date End Date Code Code System Current Smoking Status Tobacco smoking consumption unknown 634651764 SNOMED CT Sex Assigned At Male 1950 27049-9 [facility] Gender Identity Vital Signs Code Code System Vitals Name Values and Units Timing Information 87523-4 [facility] Weight Ufpuh=031.5 Units=Lbs 06/2023 2339-[facility] Blood Sugar Yauwr=423.0 Units=mg/dL 07/20/2023 8462-4 [facility] Blood Pressure-Diastolic Value=86 Un its=mmHg 07/20/2023 8480-6 [facility] Blood Pressure-Systolic Cagxx=898 Un its=mmHg 07/20/2023 8867-4 [facility] Heart rate Value=67.0 Units=/min 06/2023 81896-4 [facility] Pain Level Value=0.0 07/20/2023 9279-1 [facility] Respiratory Rate Value=16.0 Units=/m in 07/18/2023 8310-5 [facility] Body Temperature Value=97.7 Units= F 07/18/2023 88230-3 [facility] O2 % BldC Oximetry Value=92.0 Units= % 07/18/2023 8302-2 [facility] Height Value=68.0 Units=Inches 06/26/2023
== END 2025-03-09 16:49 | disposition home or self-care (01) ==
LOC: NPLBINS 16:51
PROVIDERS: PCP Internal Medicine Nephrology; Visit Provider Internal Medicine Nephrology
DX: N18.4 Chronic kidney disease, stage 4 (severe) (principal)
CPT/HCPCS: 36415; 80069; 83970; 85018

== ENCOUNTER 2025-04-17 22:55 | Emergency (ER) | payer MEDICARE, BC, SELFPAY ==
--- OUTSIDE RECORDS SUMMARY | 2025-03-09 16:00 | XMS_ITS | Encounter Summary ---
Author Organization [facility] Address [address] [place] [address] Care Team Providers Care Proprietary Trader Name Role Phone Renny Craig MD Primary Care Provider [phone] Reason for Visit * Reason Comments Follow-up Encounter Details Date Type Department Care Team (Late st Contact Info) Description 03/09/2025 4:00 PM CDT Office Visit [facility] [place] [address] Pedro Lucio MD [address] [place] [phone] Chronic kidney disease stage 4 (HCC) (Primary Dx); Anemia in chronic kidney disease; Type 2 diabetes mellitus with diabetic nephropathy (HCC); Hypertensive chronic kidney disease with stage 1 through stage 4 chronic kidney disease, or unspecified chronic kidney disease; Peripheral vascular disease (HCC); Heart failure with reduced ejection fraction (HCC); Peripheral edema Social History Tobacco Use Types Packs/Day Years Used Date Smoking Tobacco: Former Cigarettes Smokeless Tobacco: Never Alcohol Use Standard Drinks/Week Comments Not Currently 0 (1 standard drink = 0.6 oz pur e alcohol) Sex and Gender Information Value Date Recorded Sex Assigned at Not on file Legal Sex Male 11:41 AM EST Gender Identity Not on file Sexual Orientation Not on file documented as of this encounter Last Filed Vital Signs Vital Sign Reading Time Taken Comments Blood Pressure 132/64 03/09/2025 3:49 PM CDT Pulse 70 03/09/2025 3:49 PM CDT Temperature - - Respiratory Rate - - Oxygen Saturation 97% 03/09/2025 3:49 PM CDT Inhaled Oxygen Concentration - - Weight 73.5 kg (162 lb) 03/09/2025 3:49 PM CDT Height 172.7 cm (5' 8) 03/09/2025 3:49 PM CDT Body Mass Index 24.63 03/09/2025 3:49 PM CDT documented in this encounter Patient Instructions * Patient Instructions* Carole Melgar - 03/09/2025 4:00 PM CDT Pedro, Get the labs as soon as you can and we will determine if we need to make any changes. If labs are stable, we will keep things the same. Follow-up in about 4 months. Leif Lucio MD documented in this encounter Progress Notes * Pedro Lucio MD - 03/09/2025 4:00 PM CDT Images from the original note were not included. Patient: Pedro Segura Date of : 1950 Chart: [id number] PCP: Renny Craig MD Date of Service: 03/09/2025 Chief Complaint: CKD Stage 4 Subjective: Pedro is seen today for follow-up. He reports feeling well today. He has no new symptoms. He is quite sedentary. His BP is stable, reasonably well controlled. Edema in legs is stable - discussed low salt diet again today to try and avoid increasing diuretics. He had to miss lab appt as his ride was not able to take him so he will get these done in the next few days. He has not had labs since September. SH: Was in the [employer], then had many different jobs mostly mechanical in nature Not Now living with sister and [id number] and mother in [place], moved from [facility] in [place] Former smoker Former drinker but never an alcoholic (binged drank in 20's and 30's) The following portions of the patient's chart were reviewed in this encounter and updated as appropriate: Tobacco Allergies Meds Problems Med Hx Surg Hx Fam Hx Active Problems Patient Active Problem List Diagnosis Chronic kidney disease stage 4 (HCC) Coronary arteriosclerosis History of coronary artery bypass grafting Mixed hyperlipidemia Peripheral edema Recurrent depression Anemia in chronic kidney disease Peripheral vascular disease (HCC) Heart failure with reduced ejection fraction (HCC) Type 2 diabetes mellitus with diabetic nephropathy (HCC) Hypertensive chronic kidney disease with stage 1 through stage 4 chronic kidney disease, or unspecified chronic kidney disease Review of Systems Patient denies chest pain, SOB at rest, nausea/vomiting, and fever/chills. Taking? Provider LT amLODIPine (NORVASC) 2.5 MG tablet Roel Mckeon MD Take 2.5 mg by mouth 1 (one) time each day aspirin 81 MG chewable tablet Roel Mckeon MD Chew 81 mg 1 (one) time each day atorvastatin (LIPITOR) 80 MG tablet Roel Mckeon MD Take 80 mg by mouth in the morning. Bexagliflozin 20 MG tablet Pedro Lucio MD Take 20 mg by mouth 1 (one) time each day carvedilol (COREG) 3.125 MG tablet Roel Mckeon MD TAKE ONE TABLET BY MOUTH TWICE A DAY WITH MEALS* Cholecalciferol (Vitamin D3) 50 MCG (1999) chewable tablet Roel Mckeon MD Chew cilostazol (PLETAL) 100 MG tablet Roel Mckeon MD Take 100 mg by mouth in the morning and 100 mg in the evening. clonazePAM (KlonoPIN) 0.5 MG tablet Roel Mckeon MD Take 0.5 mg by mouth in the morning and 0.5 mg in the evening. ferrous sulfate 325 (65 Fe) MG EC tablet Roel Mckeon MD Take 325 mg by mouth in the morning and 325 mg at noon and 325 mg in the evening. Take with meals. Do not crush, chew, or split.. furosemide (LASIX) 20 MG tablet Roel Mckeon MD TAKE 0.5 TABLET BY MOUTH EVERY MORNING. TAKE ADDITIONAL 0.5 TAB DAILY FOR WEIGHT GAIN GREATER THAN 3 POUNDS IN ONE DAY OR 5 POUNDS IN ONE WEEK glipiZIDE (GLUCOTROL) 10 MG tablet Roel Mckeon MD Take 10 mg by mouth in the morning. insulin NPH, Isophane, (HumuLIN N) 100 UNIT/ML injection Roel Mckeon MD Inject 14 Units under the skin in the morning. isosorbide mononitrate (IMDUR) 30 MG 24 hr tablet Roel Mckeon MD TAKE ONE TABLET BY MOUTH ONE TIME DAILY* mirtazapine (REMERON) 30 MG tablet Roel Mckeon MD Take 30 mg by mouth in the morning. pantoprazole (PROTONIX) 40 MG EC tablet Roel Mckeon MD Take 40 mg by mouth in the morning. prednisoLONE acetate (PRED FORTE) 1 % ophthalmic suspension Roel Mckeon MD Instill 1 drop into left eye four times a day as directed Start day after surgery.* tamsulosin (FLOMAX) 0.4 MG 24 hr capsule Roel Mckeon MD Take 0.4 mg by mouth in the morning. torsemide (DEMADEX) 5 MG tablet oRel Mckeon MD Take 5 mg by mouth in the morning. warfarin (COUMADIN) 2 MG tablet Roel Mckeon MD Take by mouth 2 mg (2 mg x 1) every Sun, Sun; 1 mg (2 mg x 0.5) all other days in the evening OR asdirected Allergies Allergen Reactions Garlic Other (see comments) Gastritis Metformin Penicillins Other (see comments) swelling Physical Exam BP 132/64 (BP Location: Right upper arm, Patient Position: Sitting, BP Cuff Size: Adult) Pulse 70 Ht 5' 8 (1.727 m) Wt 162 lb (73.5 kg) SpO2 97% BMI 24.63 kg/m?? CONSTITUTIONAL: appears well today EYES: pupils equal, sclerae not icteric. RESPIRATORY: Clear to auscultation bilaterally, nl effort CARDIOVASCULAR: Regular rate and rhythm, soft murmur. 1+ edema in lower legs is a little worse today GASTROINTESTINAL: bowel sounds active, not distended PSYCHIATRIC: Alert and pleasant INTEGUMENT: No visible rash on exposed skin MUSCULOSKELETAL: four limbs, no contractures Chemistry and Bone Mineral Lab Units 09/30/24 0000 03/19/24 1720 03/19/24 0000 02/26/24 1552 02/26/24 0000 01/24/24 1648 01/03/24 1650 12/30/23 0641 12/29/23 0617 12/21/23 0000 10/26/23 1600 10/26/23 0000 SODIUM mEq/L 140 137 137 134* 134* 138 141 139 137 < > 142 141 142 POTASSIUM mEq/L 4.8 4.9 4.0 5.2* 5.2* 4.7 4.8 4.0 4.2 < > 4.3 4.4 4.3 CHLORIDE 106 106 106 102 102 102 107 105 100 < > 108* 107 108* CO2 mmol/L 25 23 23 22 22 24 23 23 24 < > 22 22 22 ANION GAP -- 8 -- 10 -- 12 11 11 13 < > 12 12 -- CALCIUM mg/dL 8.6 8.8 8.8 9.2 9.2 9.4 9.2 8.3* 8.4* < > 8.7* 8.7* 8.7* PHOSPHORUS mg/dL -- -- -- 4.4 4.4 -- -- -- -- -- 3.9 3.9 GLUCOSE mg/dL 209* 162* 162* 286* 286* 300* 239* 207* 153* < > 219* 213* 219* ALBUMIN g/dL -- -- -- 3.8* -- -- -- -- -- -- 3.8* 3.8* BUN mg/dL 58* 52* 52* 68* 68* 72* 63* 64* 69* < > 52* 52* 52* CREATININE mg/dL 2.85* 2.38* 2.38* 3.18* 3.18* 2.97* 2.55* 3.00* 3.45* < > 2.45* 2.40* 2.45* EGFR 23* 28* 28* 20* 20* 22* 26* 21* 18* < > 27* 28* 27* < > = values in this interval not displayed. CBC and Iron Studies Lab Units 02/26/24 0000 10/26/23 0000 07/17/23 0000 WBC AUTO K/uL -- -- 6.1 HEMATOCRIT % -- -- 27.4* HEMOGLOBIN g/dL 10.8* 10.7* 8.6* MCV -- -- 91 PLATELETS AUTO -- -- 161 FERRITIN -- 183.0 -- TIBC ug/dL -- 241* -- Urine Lab Units 10/26/23 0000 COLOR U yellow CLARITY U clear KETONES U Negative UROBILINOGEN U Normal PROT/CREAT RATIO UR mg/g creat 1.5* Imaging: TTE 06/14/2023: Final Impressions: 1. Normal left ventricular size, moderately increased wall thickness, mildly reduced global systolic function, calculated EF of 48 %. 2. Current global longitudinal strain is abnormal at -6 %. The strain pattern is characteristic of apical sparing suggestive of infiltrative disease (amyloidosis). 3. Right ventricular cavity size is moderately enlarged, global systolic RV function is mildly reduced. 4. Severely enlarged left atrium. 5. The aortic valve is calcified, mild stenosis and mild regurgitation. The aortic valve peak velocity is 2.3 m/s, the peak gradient is 21 mmHg, and the mean gradient is 12 mmHg. The aortic valve area is 1.60 cm? with a dimensionless index of 0.43. The stroke volume index is 44.0 ml/m?. 6. The mitral valve is mild posterior annular calcification, trace mitral regurgitation. 7. Tricuspid valve is tethered. 8. Moderate tricuspid regurgitation. 9. Mildly increased estimated pulmonary pressures by tricuspid regurgitation velocity and right atrial pressure (30 mmHg plus RAP). 10. Trivial pericardial effusion. 11. Large pleural effusion. Renal Ultrasound Right kidney: 12.5 cm in length. [Increased parenchymal echogenicity with preserved corticomedullary differentiation.] [No cyst or mass.] [No calculi.] [No urinary tract dilatation.] Left kidney: 12.2 cm in length. [Increased parenchymal echogenicity with preserved corticomedullary differentiation.] [No cyst or mass.] [No calculi.] [No urinary tract dilatation.] Urinary bladder: [Normal.] Bladder volume 103 mL. Patient unable to void. IMPRESSION: Increased parenchymal echogenicity consistent with medical renal disease. TTE 03/21/2024: Final Impressions: Limited Echocardiogram performed 1. Normal LV size, mildly increased wall thickness, low normal global systolic function with an estimated EF of 50 - 55%. Mid to apical septum hypokinetic. 2. Mild concentric left ventricular hypertrophy. 3. Right ventricular cavity size is normal, global systolic RV function is normal. Comparison Compared to prior exam of 12/27/2023: LVEF and wall motion improved. Assessment and Plan: CKD Stage 4 - stable (but labs due) Type 2 DM with diabetic CKD - stable, proteinuria improved with SGLT2i Hypertensive CKD - stable, BP adequately controlled LE edema - stable Previously lived in [place] with known CKD. CKD diabetic nephropathy (highly predictive with retinopathy and longstanding DM) and renovascular disease and HTN. UA was bland. Renal ultrasound unremarkable. SPEP/KIRA/FLC without monoclonal and FLC ratio nl for his CKD stage. Urine Pr:Cr 1.5 g/g. -At risk of progressive CKD given risk factors and proteinuria -Could not afford Jadiance/Farxiga, able to get Bexaglifozin at reduced cost through [facility] and tolerating this well with improvement in albuminuria. Continue this given unable to afford other SGLT2i's at this time. Will re-check urine albumin as well as renal function and associated chemistries (pre-visit labs not done and helping him arrange these DANISH this week) -Hold off on starting ACEI/ARB at this time given propensity for low BP and hyperkalemia -Need to be cautious with anti-hypertensives given propensity for symptomatic hypotension, labile BP, and diastolic BP is quite low (was as low as 40's previously, now improved). He will continue periodic home BP monitoring. -Discussed low salt diet in detail, target <2,000 mg/day. He is on low dose torsemide and will continue this. SGLT2i also will be continued. Sister does the cooking but he does snack. 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 Not on beta umer (HR low 60's) or ACEI/ARB. Continue current medications. RHC 12/26 at weight 74 kg: RA 6, PA 51/26 (13), PAW 10, Jazmine CO/CI 6.03/3.25, thermodilution CO/CI 4.2/2.26. He is now established with cardiology (Dr. Gonsalves) and recommend ongoing f/u with her. TTE with improved LVEF on last check. -Continue current medications -Continue daily weight monitoring -Continue low salt diet - discussed tightening low sodium diet today -Recommended he increase physical activity, discussed options and recommendation for 30 minutes 5 days/week -F/u with cardiology GERD, on PPI Stable. Continue PPI. BPH, controlled with Flomax Stable, continue flomax. PVR 100 mL on renal/blader u/s. Monitor symptoms and bladder emptying. Return in about 4 months (around 07/09/2025) for follow-up with MD. This is assuming labs stable that he will have done this week. Pedro Lucio MD [facility] documented in this encounter Plan of Treatment Upcoming Encounters Date Type Department Care Team (Late st Contact Info) Description 07/13/2025 4:00 PM MANAGER EPIC Office Visit [facility] [address] [place] [address] Pedro Lucio MD [address] [place] [phone] Scheduled Orders Name Type Priority Associated Diagnoses Orde r Schedule Renal function panel Lab Routine Chronic kidney disease stage 4 (HCC) Expected: 07/11/2025 (Approximate), Expires: 03/10/2026 Hemoglobin Lab Routine Chronic kidney disease stage 4 (HCC) Expected: 07/11/2025 (Approximate), Expires: 03/10/2026 Urine Albumin / Creatinine Ratio Lab Routine Chronic kidney disease stage 4 (HCC) Expected: 07/11/2025 (Approximate), Expires: 03/10/2026 PTH, intact Lab Routine Chronic kidney disease stage 4 (HCC) Expected: 07/11/2025 (Approximate), Expires: 03/10/2026 documented as of this encounter Visit Diagnoses Diagnosis Chronic kidney disease stage 4 (HCC)- Primary Anemia in chronic kidney disease Type 2 diabetes mellitus with diabetic nephropathy (HCC) Hypertensive chronic kidney disease with stage 1 through stage 4 chronic kidney disease, or unspecified chronic kidney disease Peripheral vascular disease (HCC) Peripheral vascular disease Heart failure with reduced ejection fraction (HCC) Peripheral edema documented in this encounter Care Teams Proprietary Trader Relationship Specialty Start Date End Date Votel, MD Renny [address] [place] [address] PCP - General Family Medicine 10/11/23 documented as of this encounter
--- OUTSIDE RECORDS SUMMARY | 2025-04-17 22:57 | XMS_ITS | Clinical Summary ---
Author Organization [facility] Address [address] [place] [address] Care Team Providers Care Coil Shaper Name Role Phone MainorteRenny sainz MD Primary Care Provider + Allergies Active Allergy Reactions Criticality Noted Date Comments Garlic Other - Describe In Comment Field Gastritis Penicillins *Unknown - Childhood Rxn 08/14/2023 Medications cholecalciferol, Vitamin D3, 5,000 unit tab tablet Take 1 Tablet by mouth once daily. Active ferrous sulfate 325 mg delayed release tablet Take 325 mg by mouth once daily with a meal. Active aspirin chewable 81 mg chewable tabletIndications :Acute on chronic systolic (congestive) heart failure (HC) Chew 1 Tablet (81 mg) by mouth once daily with a meal. 60 Tablet 1 12/29/19 24 2:16 PM CDT 024 Active insulin syringe-needle u-100 1 mL 31 gauge x 01/23Indications:T ype 2 diabetes mellitus without complication, with long-term current use of insulin (HC) For administering insulin at home. 100 Each 5 024 Active carvediloL (COREG) 3.125 mg tabletIndications :Heart failure with reduced ejection fraction (HC) TAKE ONE TABLET BY MOUTH TWICE A DAY WITH MEALS 180 Tablet 3 025 Active bexagliflozin (BRENZAVVY) 20 mg tablet Take 1 Tablet (20 mg) by mouth once daily. 025 Active tamsulosin 0.4 mg capsuleIndication s:BPH without urinary obstruction TAKE ONE CAPSULE BY MOUTH ONE TIME DAILY AT BEDTIME 90 Capsule 3 Active pantoprazole (PROTONIX) 40 mg delayed-release tabletIndications :Chronic superficial gastritis without bleeding Take 1 Tablet (40 mg) by mouth once daily before a meal. 30 Tablet 025 Active mirtazapine (REMERON) 30 mg tabletIndications :Depression, recurrent Take 1 Tablet (30 mg) by mouth at bedtime. 90 Tablet 3 025 Active isosorbide mononitrate (IMDUR) 30 mg extended release tablet 24 HourIndications:H eart failure with reduced ejection fraction (HC) Take 1 Tablet (30 mg) by mouth once daily. 90 Tablet 3 Active HumuLIN N NPH U-100 Insulin 100 unit/mL susp injectionIndicati ons:Type 2 diabetes mellitus without complication, with long-term current use of insulin (HC),Type 2 diabetes mellitus with complication, with long-term current use of insulin (HC) Inject 16 units subcutaneous before breakfast. 30 mL 1 Active furosemide (LASIX) 20 mg tabletIndications :Acute on chronic systolic (congestive) heart failure (HC) TAKE 0.5 TABLET BY MOUTH EVERY MORNING. TAKE ADDITIONAL 0.5 TAB DAILY FOR WEIGHT GAIN GREATER THAN 3 POUNDS IN ONE DAY OR 5 POUNDS IN ONE WEEK 45 Tablet 3 Active cilostazoL (PLETAL) 100 mg tabletIndications :Claudication of both lower extremities Take 1 Tablet (100 mg) by mouth two times daily before meals. 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 30 Tablet 3 025 Active amLODIPine (NORVASC) 5 mg tabletIndications :Hypertension Take 0.5 Tablets (2.5 mg) by mouth once daily. 90 Tablet 3 025 Active warfarin (COUMADIN) 2 mg tabletIndications :Paroxysmal atrial fibrillation (HC),CAD in quile[place] artery,Acute on chronic systolic (congestive) heart failure (HC),PAD (peripheral artery disease),Cerebrov ascular accident (CVA), unspecified mechanism (HC),Anticoagulat ion monitoring, INR range 2-3 Take by mouth 1 mg (2 mg x 0.5) every Sun, Maria De Jesus; 2 mg (2 mg x 1) all other days in the evening OR as directed Active atorvastatin (LIPITOR) 80 mg tabletIndications :Mixed hyperlipidemia,CA D in qu[place] artery,S/P three vessel coronary artery bypass Take 1 Tablet (80 mg) by mouth once daily at bedtime. 90 Tablet 3 2024 Discontinued cilostazoL (PLETAL) 100 mg tabletIndications :Claudication of both lower extremities Take 1 Tablet (100 mg) by mouth two times daily before meals. 180 Tablet 2024 Discontinued(R eorder (E-cancel not sent)) mirtazapine (REMERON) 30 mg tabletIndications :Depression, recurrent Take 1 Tablet (30 mg) by mouth once daily at bedtime. 90 Tablet 2024 Discontinued pantoprazole (PROTONIX) 40 mg delayed-release tabletIndications :Chronic superficial gastritis without bleeding Take 1 Tablet (40 mg) by mouth once daily before a meal. 90 Tablet 2024 Discontinued tamsulosin (FLOMAX) 0.4 mg capsuleIndication s:BPH without urinary obstruction Take 1 Capsule (0.4 mg) by mouth once daily at bedtime. 90 Capsule 2024 Discontinued isosorbide mononitrate (IMDUR) 30 mg extended release tablet 24 HourIndications:H eart failure with reduced ejection fraction (HC) Take 1 Tablet (30 mg) by mouth once daily. 30 Tablet 024 2024 Discontinued(R eorder (E-cancel not sent)) amLODIPine (NORVASC) 5 mg tabletIndications :Hypertension Take 0.5 Tablets (2.5 mg) by mouth once daily. 30 Tablet 024 2024 Discontinued(R eorder (E-cancel not sent)) furosemide 20 mg tabletIndications :Acute on chronic systolic (congestive) heart failure (HC) TAKE 0.5 TABLET BY MOUTH EVERY MORNING. TAKE ADDITIONAL 0.5 TAB DAILY FOR WEIGHT GAIN GREATER THAN 3 POUNDS IN ONE DAY OR 5 POUNDS IN ONE WEEK 45 Tablet 2024 Discontinued(R eorder (E-cancel not sent)) warfarin 2 mg tabletIndications :CAD in [place] artery,Acute on chronic systolic (congestive) heart failure (HC),PAD (peripheral artery disease),Cerebrov ascular accident (CVA), unspecified mechanism (HC),Anticoagulat ion monitoring, INR range 2-3 Take by mouth 1 mg (2 mg x 0.5) every Sun, Wed, Fri; 2 mg (2 mg x 1) all other days in the evening OR as directed 72 Tablet 2024 Discontinued(R eorder (E-cancel not sent)) HumuLIN N NPH U-100 Insulin 100 unit/mL susp injectionIndicati ons:Type 2 diabetes mellitus without complication, with long-term current use of insulin () Inject 16 units subcutaneous before breakfast. 30 mL 2024 Discontinued(R eorder (E-cancel not sent)) pantoprazole (PROTONIX) 40 mg delayed-release tabletIndications :Chronic superficial gastritis without bleeding TAKE ONE TABLET BY MOUTH ONE TIME DAILY before a meal. 30 Tablet 2024 Discontinued(R eorder (E-cancel not sent)) tamsulosin 0.4 mg capsuleIndication s:BPH without urinary obstruction TAKE ONE CAPSULE BY MOUTH ONE TIME DAILY AT BEDTIME 30 Capsule 2024 Discontinued(R eorder (E-cancel not sent)) atorvastatin (LIPITOR) 80 mg tabletIndications :Mixed hyperlipidemia,CA D in qu[place] artery,S/P three vessel coronary artery bypass TAKE ONE TABLET BY MOUTH ONE TIME DAILY AT BEDTIME 30 Tablet 2024 Discontinued(R eorder (E-cancel not sent)) mirtazapine (REMERON) 30 mg tabletIndications :Depression, recurrent TAKE ONE TABLET BY MOUTH ONE TIME DAILY AT BEDTIME 30 Tablet 025 2024 Discontinued(R eorder (E-cancel not sent)) warfarin (COUMADIN) 2 mg tabletIndications :CAD in qu[place] artery,Acute on chronic systolic (congestive) heart failure (HC),PAD (peripheral artery disease),Cerebrov ascular accident (CVA), unspecified mechanism (HC),Anticoagulat ion monitoring, INR range 2-3 Take by mouth 1 mg (2 mg x 0.5) every Mon, Wed, Fri; 2 mg (2 mg x 1) all other days in the evening OR as directed 72 Tablet 3 025 2024 Discontinued(O ther - add note to specify (E-cancel not sent)) Active Problems Problem Noted Date Diagnosed Date Type 2 diabetes mellitus wit h complication, with long-term current use of insulin 04/01/2025 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 [...] reduced ejection fraction 08/2024 Mixed hyperlipidemia 08/14/2023 CAD in quile[place] artery 08/14/2023 Chronic kidney disease 08/14/2023 BPH without urinary obstruction 08/14/2023 Peripheral edema 08/14/2023 Chronic superficial gastritis without bleeding 1 10/15/2022 Depression, recurrent 08/14/2023 Claudication of both lower extremities 3 S/P three vessel coronary artery bypass 08/14/20 23 Encounters Date Type Department Care Team Description 04/07/2025 Telephone [facility] [address] [place] [address] Martin Cross MD Results (labs) 04/02/2025 Anticoagulation (warfarin) [facility] [address] [place] [address] [facility] Antico[facility] Anticoagulation (Office Visit ) 04/01/2025 4:10 PM CDT Office Visit [facility] [address] [place] [address] Renny Craig MD Medicare ANNUAL (subsequent) Visit (74 year old male) 04/01/2025 Travel 03/25/2025 Anticoagulation (warfarin) [facility] [address] [place] [address] [facility]tico[facility] Anticoagulation 03/24/2025 3:30 PM CDT Office Visit [facility] [address] [place] [address] Martin Cross MD Follow Up (Follow up after Echocardiogram 12/17/2024) 03/24/2025 2:00 PM CDT Orders Only [facility] [address] [place] [address] Lab[place] <No scans attached> 03/24/2025 Travel 03/22/2025 Refill [facility] [address] [place] [address] Renny Craig MD Refill Request (Atorvastatin, Mirtazapine) 03/21/2025 Refill [facility] [address] [place] [address] Renny Craig MD Refill Request (Tamsulosin) 03/20/2025 Refill [facility] [address] [place] [address] Renny Craig MD Refill Request (Pantoprazole) 03/16/2025 3:30 PM CDT Orders Only [facility] [address] [place] [address] Lab, [place] Lab 03/16/2025 Travel 03/16/2025 Telephone [facility] [address] [place] [address] Renny Craig MD Anticoagulation (Imelda INR) 03/16/2025 Anticoagulation (warfarin) [facility] [address] [place] [address] Nurse, [facility] Anticoag Anticoagulation (Acelis) 03/08/[address] [address] [place]bert [place] Refill Request (Humulin N Nph U-100 Insulin) 03/08/[address] [address] Renny Craig MD Refill Request (Warfarin) 02/21/2025 Anticoagulation (warfarin) [address] [address] 1, [facility]tico[facility] (Acelis) 02/17/2025 9:30 PM CDT Procedure Only [address] [address] Ramu Osorio MD 02/04/2025 Refill [facility] [address] [address] Martin Cross MD Refill Request (Furosemide) 01/26/2025 Anticoagulation (warfarin) [address] [address] 1, [place]ticoagulation (Acelis ) 01/23/[address] [address] Renny Craig MD Anticoagulation (INR greater than 4 days old (01/16/25)) 01/21/[address] [address] Renny Craig MD Anticoagulation (INR OVERDUE REMINDER #2 ) 01/16/2025 Anticoagulation (warfarin) [address] [address] Renny Craig MD Error-please disregard (opened in error) from Last 3 Months Immunizations Immunization Administration [...] Answer Date Recorded PHQ-2 TOTAL SCORE 0 04/01/2025 Social Connections Answer Date Recorded Do you [...] Sign Reading Time Taken Comments Blood Pressure 114/62 04/01/2025 4:06 PM CDT Pulse 60 04/01/2025 4:06 PM CDT Temperature 36.5 C (97.7 F) 04/01/2025 4:06 PM CDT Respiratory Rate 16 12/30/2023 7:55 AM CDT Oxygen Saturation 95% 04/01/2025 4:06 PM CDT Inhaled Oxygen Concentration - - Weight 73.4 kg (161 lb 14.4 oz) 04/01/2025 4:06 PM CDT Height 166 cm (5' 5.35) 04/01/2025 4:06 PM CDT Body Mass Index 26.65 04/01/2025 4:06 PM CDT Plan of Treatment Upcoming Encounters Date Type Department Care Team (Late st Contact Info) Description 05/07/2025 4:35 PM CDT Office Visit [facility] [address] [place] [address] VoteRenny sainz MD [address] [place] [address] Health Maintenance Due Date Last Done Comments RSV vaccine for adults or (1 - Risk 60-74 years 1-dose series) 2010 AAA screening age 65-74 12/08/2015 Zoster (shingles) series for age 50+ (2 of 3) 07/25/2021 05/30/2021, 09/24/2019 COVID-19 vaccine series ( season) 2025 10/09/2024, 10/30/2022, 12/20/2020 Influenza Vaccine (#1) 2025 10/09/2024 BMI (ht and wt on same day) for age 18+ 04/01/2026 04/01/2025, 01/05/2025, 03/19/2024, Additional history exists Depression screening for age 12+ 04/02/2026 04/02/2025, 04/01/2025, 03/21/2024, Additional history exists Medicare Wellness for age 65+ 04/02/2026 04/01/2025, 03/19/2024 Tetanus booster 09/24/2029 09/24/2019 Lipids for age 45-75 03/24/2030 03/24/2025, 03/19/2024, 12/27/2023 Colonoscopy through age 75 03/29/203403/29 ([facility]) Hepatitis C screening for age 18-79 Completed 03/19/2024 Pneumococcal series for age 50+ Completed 03/19/2024, 09/29/2020, 09/24/2019 Hepatitis B series for 19+ Aged Out N o longer eligible based on patient's age to complete this topic Procedures Procedure Name Priority Date/Time Associated Diagnosis Comments URINE ALBUMIN TO CREATININE RATIO, RANDOM Routine 04/01/2025 3:42 PM CDT Type 2 diabetes mellitus without complication, with long-term current use of insulin (HC) Type 2 diabetes mellitus with complication, with long-term current use of insulin (HC) PROTIME-INR Routine 04/01/2025 3:42 PM CDT Paroxysmal atrial fibrillation (HC) CAD in qu[place] artery Acute on chronic systolic (congestive) heart failure (HC) PAD (peripheral artery disease) Cerebrovascular accident (CVA), unspecified mechanism (HC) Anticoagulation monitoring, INR range 2-3 CBC WITH AUTO DIFFERENTIAL Routine 04/01/2025 3:42 PM CDT Type 2 diabetes mellitus without complication, with long-term current use of insulin (HC) Type 2 diabetes mellitus with complication, with long-term current use of insulin (HC) ALT (SGPT) Routine 04/01/2025 3:42 PM CDT Type 2 diabetes mellitus without complication, with long-term current use of insulin (HC) Type 2 diabetes mellitus with complication, with long-term current use of insulin (HC) PROTIME-INR Routine 03/24/2025 3:47 PM CDT CAD in qu[place] artery LIPID PANEL Routine 03/24/2025 3:47 PM CDT CAD in [place] artery BASIC METABOLIC PANEL Routine 03/24/2025 3:47 PM CDT CAD in quile[place] artery HEMOGLOBIN Routine 03/24/2025 3:47 PM CDT CAD in [place] artery PROTIME-INR Routine 03/16/2025 5:00 PM CDT Paroxysmal atrial fibrillation (HC) CAD in quile[place] artery Acute on chronic systolic (congestive) heart failure (HC) PAD (peripheral artery disease) Cerebrovascular accident (CVA), unspecified mechanism (HC) Anticoagulation monitoring, INR range 2-3 HOME MONITOR AC Routine 03/16/2025 12:00 AM CDT HOME MONITOR AC Routine 02/21/2025 12:00 AM CDT HOME MONITOR AC Routine 01/26/2025 12:00 AM CDT HOME MONITOR AC Routine 01/16/2025 12:00 AM CDT ANTI HCV Routine 03/19/2024 5:20 PM CDT Need for hepatitis C screening test from Last 3 Months or Most Recently Relevant to Health Maintenance Results * (ABNORMAL) URINE ALBUMIN TO CREATININE RATIO, RANDOM (04/01/2025 3:42 PM CDT) ALB RAND URINE 234.0 mg/L 04/02/2025 12:03 AM CDT [facility] CREATININE,URIN E 0.47 g/L 04/02/2025 12:03 AM CDT [facility] ALBUMIN TO CREATININE RATIO,RAND UR 497.9(H) <30.0 mg/g creat 04/02/2025 12:03 AM CDT [facility] Urine URINE SPECIMEN / Unknown Non-Blood / Unknown 04/01/2025 3:42 PM CDT 04/01/2025 3:42 PM CDT Narrative [facility] - 04/02/2025 12:03 AM CDT If Albumin to Creatinine Ratio is elevated, consider the following: Elevations seen with incipient nephropathy associated with diabetes mellitus or hypertension. Stress, exercise,hematuria, and urinary tract infection may also produce elevated results. If clinically indicated, confirm with 24 Hour Albumin to Creatinine Ratio. Renny Craig MD URINE Final Re sult Performing Organization Address [facility] Co de Phone Number [facility] [address] [address], [place] * (ABNORMAL) PROTIME-INR [[id number]] - Standing Order (04/01/2025 3:42 PM CDT) Only the most recent of3 resultswithin the time period is included. INR 1.8(H) <1.3 04/01/2025 10:27 PM CDT [facility] PROTIME 20.7(H) 10.6 - 12.4 sec 04/01/2025 10:27 PM CDT [facility] Blood BLOOD SPECIMEN / Unknown [facility] / Unknown 04/01/2025 3:42 PM CDT 04/01/2025 3:42 PM CDT Narrative [facility] - 04/01/2025 10:27 PM CDT Therapeutic Range 2.0-3.0 for most anticoagulated patients 2.5-3.5 or 4.0 for high risk patients The INR is only used for patients on stable oral anticoagulant therapy. It makes no significant contribution to the diagnosis or treatment of patients whose Protime is prolonged for other reasons. INR results are increased when heparin levels exceed 1.0 U/mL, which corresponds to an aPTT >125 seconds if the patient is on UFH. Renny Craig MD HEMATOLOGY Final Re sult Performing Organization Address [facility]/ZIP Co de Phone Number [facility] [address] [address], [place] * (ABNORMAL) CBC AND DIFFERENTIAL (04/01/2025 3:42 PM CDT) [facility] WHITE BLOOD CELL COUNT 8.3 3.8 - 10.8 Thousand/u L [facility] RED BLOOD CELL COUNT 3.87(L) 4.20 - 5.80 Million/uL [facility] HEMOGLOBIN 11.2(L) 13.2 - 17.1 g/dL [facility] HEMATOCRIT 34.8(L) 38.5 - 50.0 % [facility] MCV 89.9 80.0 - 100.0 fL [facility] MCH 28.9 27.0 - 33.0 pg [facility] MCHC 32.2 32.0 - 36.0 g/dL [facility] Comment: For adults, a slight decrease in the calculated MCHC value (in the range of 30 to 32 g/dL) is most likely not clinically significant; however, it should be interpreted with caution in correlation with other red cell parameters and the patient's clinical condition. RDW 13.3 11.0 - 15.0 % [facility] PLATELET COUNT 174 140 - 400 Thousand/u L [facility] MPV 10.2 7.5 - 12.5 fL [facility] ABSOLUTE NEUTROPHILS 5,959 1,500 - 7,800 cells/uL [facility] ABSOLUTE LYMPHOCYTES 1,552 850 - 3,900 cells/uL [facility] ABSOLUTE MONOCYTES 614 200 - 950 cells/uL [facility] ABSOLUTE EOSINOPHILS 133 15 - 500 cells/uL [facility] ABSOLUTE BASOPHILS 42 0 - 200 cells/uL [facility] NEUTROPHILS 71.8 % [facility] LYMPHOCYTES 18.7 % [facility] MONOCYTES 7.4 % [facility] EOSINOPHILS 1.6 % [facility] BASOPHILS 0.5 % [facility] Blood BLOOD SPECIMEN / Unknown 04/01/2025 3:42 PM CDT 04/01/2025 3:43 PM CDT Renny Craig MD HEMATOLOGY Final Re sult [facility] [address] [place] [address], [place] [phone] [facility] [address] [place] [address] * ALT (SGPT) (04/01/2025 3:42 PM CDT) ALT 14 9 - 46 U/L [facility] Blood BLOOD SPECIMEN / Unknown 04/01/2025 3:42 PM CDT 04/01/2025 3:43 PM CDT us Renny Craig MD CHEMISTRY Final Re sult Performing Organization Address [facility]/ZIP Co de Phone Number [facility] [address] [place] [address], [place] [phone] [facility] [address] [place] [address] * (ABNORMAL) HEMOGLOBIN (03/24/2025 3:47 PM CDT) HEMOGLOBIN 11.2(L) 13.2 - 17.1 g/dL [facility] Blood BLOOD SPECIMEN / Unknown 03/24/2025 3:47 PM CDT 03/24/2025 3:48 PM CDT Martin Cross MD HEMATOLOGY Final Result [facility] [address] [place] [address], [place] [phone] [facility] [address] [place] [address] * LIPID PANEL (03/24/2025 3:47 PM CDT) Pathologist [facility] CHOLESTEROL, TOTAL 133 <200 mg/dL [employer] [place] HDL CHOLESTEROL 41 > OR = 40 mg/dL opinions.hW [facility] [place] TRIGLYCERIDES 95 <150 mg/dL opinions.hW obrenda [place] LDL-CHOLESTEROL 74 mg/dL (calc) opinions.hW lana [place] Comment: Reference range: <100 Desirable range <100 mg/dL for primary prevention; <70 mg/dL for patients with CHD or diabetic patients with > or = 2 CHD risk factors. LDL-C is now calculated using the Dom calculation, which is a validated novel method providing better accuracy than the Friedewald equation in the estimation of LDL-C. Rashid SS et al. NONA. 2013;310(19): 7917-6063 (http://education.PromoRepublic/faq/ILB363) CHOL/HDLC RATIO 3.2 <5.0 (calc) [facility] [place] NON HDL CHOLESTEROL 92 <130 mg/dL (calc) [employer] [place] Comment: For patients with diabetes plus 1 major ASCVD risk factor, treating to a non-HDL-C goal of <100 mg/dL (LDL-C of <70 mg/dL) is considered a therapeutic option. Blood BLOOD SPECIMEN / Unknown 03/24/2025 3:47 PM CDT 03/24/2025 3:48 PM CDT Martin Cross MD CHEMISTRY Final Result [facility] [address] [place] [address], [place] [phone] [facility] [address] [place] [address] * (ABNORMAL) BASIC METABOLIC PANEL (03/24/2025 3:47 PM CDT) Pathologist [facility] GLUCOSE 326(H) 65 - 99 mg/dL [employer] lana [place] Comment: Fasting reference interval For someone without known diabetes, a glucose value >125 mg/dL indicates that they may have diabetes and this should be confirmed with a follow-up test. UREA NITROGEN (BUN) 51(H) 7 - 25 mg/dL [facility] CREATININE 2.78(H) 0.70 - 1.28 mg/dL [facility] EGFR 23(L) > OR = 60 mL/min/1.7 3m2 [facility] BUN/CREATININE RATIO 18 6 - 22 (calc) [facility] SODIUM 138 135 - 146 mmol/L [facility] POTASSIUM 4.5 3.5 - 5.3 mmol/L [facility] CHLORIDE 107 98 - 110 mmol/L [facility] CARBON DIOXIDE 23 20 - 32 mmol/L [facility] ELECTROLYTE BALANCE 8 7 - 17 mmol/L (calc) [facility] CALCIUM 8.6 8.6 - 10.3 mg/dL [facility] Blood BLOOD SPECIMEN / Unknown 03/24/2025 3:47 PM CDT 03/24/2025 3:48 PM CDT us Martin Cross MD CHEMISTRY Final Result [facility] [address] [place] [address], [place] [phone] [facility] [address] [place] [address] * (ABNORMAL) HOME MONITOR AC (03/16/2025 12:00 AM CDT) Only the most recent of4 resultswithin the time period is included. PATIENT REPORTED HOME INR 5.0(H) 2.00 - 3.00 [facility] 03/16/2025 us Renny Craig MD OTHER Final Re sult [facility] [address] [place] [address] * ANTI HCV [[id number]] (03/19/2024 5:20 PM CDT) HEPATITIS C ANTIBODY Non-Reacti ve Non-React petey 03/20/2024 2:48 PM CDT [facility] Comment:Please note, per www .CDC.gov: If [...] Craig MD SEND OUTS Final Re sult [facility] [address] [place] [address], from Last 3 Months or Most Recently Relevant to Health Maintenance Insurance [place] ONLY MEDICARE PART A HB ONLY [place] HB ONLY MEDICARE PART B HB [...] Preferences, Provider to review later Care Teams Coil Shaper Relationship Specialty Start Date End Date Votel, Renny Mills MD [address] [place] [address] PCP - General Family Practice 02/08/24
--- OUTSIDE RECORDS SUMMARY | 2025-04-17 22:57 | XMS_ITS | Encounter Summary ---
Author Organization [facility] Address [address] [place] [address] Care Team Providers Care Six Sigma Project Manager Name Role Phone MainorteRenny sainz MD Primary Care Provider [phone] Encounter Details Date Type Department Care Team (Late st Contact Info) Description 02/11/2024 Orders Only [facility] [address] [place] [address] Pedro Lucio MD [address] [place] [address] Chronic kidney disease stage 3B (HCC) Social History Tobacco Use Types Packs/Day Years [...] on file documented as of this encounter Progress Notes * Pedro Lucio MD - 02/11/2024 11:59 PM CDT Labs reviewed. Proteinuria improved. Cr has been higher since admission to [place] in December, underwent IV diuresis for CHF exacerbation, wt down to 74 Kg with RA pressure 6 by RHC after and wedge 10 (considered new dry weight). Cr has been in 3 range since. I see him March 19, will check weight andassess whether diuretics need to be adjusted. Cloud[employer]eds message sent to patient. -Leif Lucio MD documented in this encounter Plan of Treatment Upcoming Encounters Date Type Department Care Team (Late st Contact Info) Description 07/13/2025 4:00 PM FREIGHT COORDINATOR [facility] [address] [place] [address] Pedro Lucio MD [address] [place] [phone] documented as of this encounter Procedures Procedure Name Priority Date/Time Associated Diagnosis Comments URINE ALBUMIN / CREATININE RATIO Routine 02/26/2024 Chronic kidney disease stage 3B (HCC) HEMOGLOBIN Routine 02/26/2024 Chronic kidney disease stage 3B (HCC) RENAL FUNCTION PANEL Routine 02/26/2024 Chronic kidney disease stage 3B (HCC) documented in this encounter Results * (ABNORMAL) Urine Albumin / Creatinine Ratio (02/26/2024) Albumin, Urine 271.0 mg/dL [facility] Creatinine, Urine Random 0.51 mg/dL [facility] Alb/Creat Ratio, Ur 531.4(H) mg/g Creat [facility] Urine specimen (specimen) Urine specimen obtained by clean catch procedure / Unknown 02/26/2024 Pedro Lucio MD LAB URINE ORDERABLES Final Re sult [facility] * (ABNORMAL) Hemoglobin (02/26/2024) Hemoglobin 10.8(L) g/dL [facility] Blood specimen (specimen) Venous blood / Unknown 02/26/2024 Pedro Lucio MD LAB BLOOD ORDERABLES Final Re sult [facility] * (ABNORMAL) Renal function panel (02/26/2024) Glucose 286(H) mg/dL [facility] BUN 68(H) mg/dL [facility] Creatinine 3.18(H) mg/dL [facility] Sodium 134(L) mEq/L [facility] Potassium 5.2(L) mEq/L [facility] Chloride 102 [facility] Carbon Dioxide 22 mmol/L [facility] Calcium 9.2 mg/dL [facility] Phosphorus, Serum 4.4 mg/dL [facility] eGFR 20(L) [facility] Blood specimen (specimen) Venous blood / Unknown 02/26/2024 us Pedro Lucio MD LAB BLOOD ORDERABLES Final Re sult [facility] documented in this encounter Visit Diagnoses Diagnosis Chronic kidney disease stage 3B (HCC) documented in this encounter Care Teams Six Sigma Project Manager Relationship Specialty Start Date End Date VotelRenny MD [address] [place] [address] PCP - General Family Medicine 10/11/23 documented as of this encounter
--- OUTSIDE RECORDS SUMMARY | 2025-04-17 22:57 | XMS_ITS | Encounter Summary ---
Author Organization [facility] Address [address] [place] [address] Care Team Providers Care Bunk Assembler Name Role Phone MainorteRenny sainz MD Primary Care Provider [phone] Encounter Details Date Type Department Care Team (Late st Contact Info) Description 07/14/2024 Orders Only [facility] [address] [place] [address] Pedro Lucio MD [address] [place] [address] Chronic kidney disease stage 4 (HCC) Social History Tobacco Use Types Packs/Day [...] on file documented as of this encounter Plan of Treatment Upcoming Encounters Date Type Department Care Team (Late st Contact Info) Description 07/13/2025 4:00 PM PLANT ACCOUNTANT Office Visit [facility] [place] [address] Pedro Lucio MD [address] [place] [address] documented as of this encounter Visit Diagnoses Diagnosis Chronic kidney disease stage 4 (HCC) documented in this encounter Care Teams Bunk Assembler Relationship Specialty Start Date End Date Votel, MD Renny [address] [place] [address] PCP - General Family Medicine 10/11/23 documented as of this encounter
--- OUTSIDE RECORDS SUMMARY | 2025-04-17 22:57 | XMS_ITS | Clinical Summary ---
Author Organization [facility] Address [address] [place] [address] Phone Care Team Providers Care Teletype Or Varitype Keyboard Operator Name Role Phone Renny Craig MD Primary Care Provider [phone] Allergies Active Allergy Reactions Criticality Noted Date Comments Garlic Other (see comments) 10/11/2023 Gastritis Metformin 07/16/2023 Penicillins Other (see comments) 08/14/2023 swelling Medications mirtazapine (REMERON) 30 MG tablet Take 30 mg by mouth in the morning. 3 Active insulin NPH, Isophane, (HumuLIN N) 100 UNIT/ML injection Inject 14 Units under the skin in the morning. 3 Active pantoprazole (PROTONIX) 40 MG EC tablet Take 40 mg by mouth in the morning. 3 Active torsemide (DEMADEX) 5 MG tablet Take 5 mg by mouth in the morning. 3 Active tamsulosin (FLOMAX) 0.4 MG 24 hr capsule Take 0.4 mg by mouth in the morning. 3 Active atorvastatin (LIPITOR) 80 MG tablet Take 80 mg by mouth in the morning. 3 Active cilostazol (PLETAL) 100 MG tablet Take 100 mg by mouth in the morning and 100 mg in the evening. 3 Active glipiZIDE (GLUCOTROL) 10 MG tablet Take 10 mg by mouth in the morning. 3 Active clonazePAM (KlonoPIN) 0.5 MG tablet Take 0.5 mg by mouth in the morning and 0.5 mg in the evening. 3 Active Cholecalciferol (Vitamin D3) 50 MCG (1999 UT) chewable tablet Chew Acti ve ferrous sulfate 325 (65 Fe) MG EC tablet Take 325 mg by mouth in the morning and 325 mg at noon and 325 mg in the evening. Take with meals. Do not crush, chew, or split.. Active amLODIPine (NORVASC) 2.5 MG tablet Take 2.5 mg by mouth 1 (one) time each day 4 Active prednisoLONE acetate (PRED FORTE) 1 % ophthalmic suspension Instill 1 drop into left eye four times a day as directed Start day after surgery.* 4 Active aspirin 81 MG chewable tablet Chew 81 mg 1 (one) time each day Active carvedilol (COREG) 3.125 MG tablet TAKE ONE TABLET BY MOUTH TWICE A DAY WITH MEALS* Active warfarin (COUMADIN) 2 MG tablet Take by mouth 2 mg (2 mg x 1) every Sun, Sun; 1 mg (2 mg x 0.5) all other days in the evening OR as directed 4 Active isosorbide mononitrate (IMDUR) 30 MG 24 hr tablet TAKE ONE TABLET BY MOUTH ONE TIME DAILY* Active furosemide (LASIX) 20 MG tablet TAKE 0.5 TABLET BY MOUTH EVERY MORNING. TAKE ADDITIONAL 0.5 TAB DAILY FOR WEIGHT GAIN GREATER THAN 3 POUNDS IN ONE DAY OR 5 POUNDS IN ONE WEEK 4 Active Bexagliflozin 20 MG tablet Take 20 mg by mouth 1 (one) time each day 90 tablet 2 5 Active Active Problems Problem Noted Date Diagnosed Date Anemia in chronic kidney disease 10/11/2023 Peripheral vascular disease 10/11/2023 Heart failure with reduced ejection fraction 09/2023 Type 2 diabetes mellitus with diabetic nephropat hy 10/11/2023 Hypertensive chronic kidney disease with stage 1 through stage 4 chronic kidney disease, or unspecified chronic kidney disease 10/11/2023 Chronic kidney disease stage 4 08/14/2023 Coronary arteriosclerosis 08/14/2023 History of coronary artery bypass grafting 08/14 Mixed hyperlipidemia 08/14/2023 Peripheral edema 08/14/2023 Recurrent depression 08/14/2023 Encounters Date Type Department Care Team Description 03/09/2025 4:00 PM CDT Office Visit [facility] [place] [address] Pedro Lcuio MD Chronic kidney disease stage 4 (HCC) (Primary Dx); Anemia in chronic kidney disease; Type 2 diabetes mellitus with diabetic nephropathy (HCC); Hypertensive chronic kidney disease with stage 1 through stage 4 chronic kidney disease, or unspecified chronic kidney disease; Peripheral vascular disease (HCC); Heart failure with reduced ejection fraction (HCC); Peripheral edema 02/25/2025 Telephone [facility] [address] [place] [address] Carole Melgar from Last 3 Months Immunizations Immunization Administration Dates Next Due Influenza, Trivalent, Adjuvanted 10/09/2024 Moderna Sars-cov-2 (Covid-19 ) Vaccine, Mrna, Lalo Protein 10/09/2024 Pneumococcal Conjugate Pcv 20 03/19/2024 Family History Medical History Relation Comments Diabetes Mother Relation Status Comments Brother Alive Father Mother Alive Sister Alive Social History Tobacco Use Types Packs/Day Years Used Date Smoking Tobacco: Former Cigarettes Smokeless Tobacco: Never Tobacco Cessation:Counseling Given: Not Answered Alcohol Use Standard Drinks/Week Comments Not Currently 0 (1 standard drink = 0.6 oz pur e alcohol) Sex and Gender Information Value Date Recorded Sex Assigned at Not on file Legal Sex Male 11:41 AM EST Gender Identity Not on file Sexual Orientation Not on file Last Filed Vital Signs Vital Sign Reading [...] Mass Index 24.63 03/09/2025 3:49 PM CDT Plan of Treatment Upcoming Encounters Date Type Department Care Team (Late st Contact Info) Description 07/13/2025 4:00 PM POLE PEELING MACHINE OPERATOR HELPER Office Visit [facility] [place] [address] Pedro Lucio MD [address] [place] [address] Health Maintenance Due Date Last Done Comments Colorectal Cancer Screening: Annual FOBT 12/08/1999 Colorectal Cancer Screening: Colonoscopy 12/08/1999 Colorectal Cancer Screening: Sigmoidoscopy 12/08/1999 Diabetes: Ophthalmology Exam 09/17/2023 Diabetes: Pedal Pulse Checked 09/17/2023 Diabetes: Sensory Foot Exam 09/17/2023 Diabetes: Visual Foot Exam 09/17/2023 Diabetes: Hemoglobin A1C 04/07/2025 025, 12/27/2023, 09/11/2023 Influenza Vaccine (#1) 2025 10/09/2024 Pneumococcal Vaccine: 50+ Years Completed 03/19/2024 Hepatitis B Vaccine Aged Out No longe r eligible based on patient's age to complete this topic Insurance [facility] Medicare Care Teams Teletype Or Varitype Keyboard Operator Relationship Specialty Start Date End Date Votel, [place] [address] [place] [address] PCP - General Family Medicine 10/11/23
--- OUTSIDE RECORDS SUMMARY | 2025-04-17 22:57 | XMS_ITS | Encounter Summary ---
Author Organization [facility] Address [address] [place] [address] Care Team Providers Care Mechanic Helper Name Role Phone MainorteRenny sainz MD Primary Care Provider [phone] Encounter Details Date Type Department Care Team (Late st Contact Info) Description 12/16/2023 Orders Only [facility] [address] [place] [address] Pedro Lucio MD [address] [place] [address] Chronic kidney disease stage 3B (HCC); Type 2 diabetes mellitus with diabetic nephropathy (HCC) Social History Tobacco Use Types Packs/Day [...] Progress Notes * Pedro Lucio MD - 12/16/2023 11:59 PM CDT Lab stable after starting SGLT2i. Sent this message to patient via [employer] and asked for his BP's since starting. -Leif Lucio MD documented in this encounter Plan of Treatment Upcoming Encounters Date Type Department Care Team (Late st Contact Info) Description 07/13/2025 4:00 PM TEXTILE MACHINE MAINTENANCE MECHANIC Office Visit [facility] [address] [place] [address] Pedro Lucio MD [address] [place] [phone] documented as of this encounter Procedures Procedure Name Priority Date/Time Associated Diagnosis Comments BASIC METABOLIC PANEL Routine 12/21/2023 Chronic kidney disease stage 3B (HCC) Type 2 diabetes mellitus with diabetic nephropathy (HCC) documented in this encounter Results * (ABNORMAL) Basic metabolic panel (12/21/2023) Sodium 144 mEq/L [facility] Potassium 4.4 mEq/L [facility] Chloride 112(H) [facility] Carbon Dioxide 21(L) mmol/L [facility] Calcium 8.5(L) mg/dL [facility] BUN 45(H) mg/dL [facility] Creatinine 2.42(H) mg/dL [facility] Glucose 184(H) mg/dL [facility] eGFR (Calc) 28(L) [facility] Anion Gap 11 [facility] Blood specimen (specimen) Venous blood / Unknown 12/21/2023 us Pedro Lucio MD LAB BLOOD ORDERABLES Final Re sult [facility] documented in this encounter Visit Diagnoses Diagnosis Chronic kidney disease stage 3B (HCC) Type 2 diabetes mellitus with diabetic nephropathy (HCC) documented in this encounter Care Teams Mechanic Helper Relationship Specialty Start Date End Date Votel, MD Renny [address] [place] [address] PCP - General Family Medicine 10/11/23 documented as of this encounter
--- OUTSIDE RECORDS SUMMARY | 2025-04-17 22:57 | XMS_ITS | Encounter Summary ---
Author Organization [facility] Address [address] [place] [address] Care Team Providers Care Critical Care Educator Name Role Phone MainorteRenny sainz MD Primary Care Provider [phone] Encounter Details Date Type Department Care Team (Late st Contact Info) Description 01/14/2025 Orders Only [facility] [address] [place] [address] Pedro Lucio MD [address] [place] [address] Chronic kidney disease stage 4 [...] st Contact Info) Description 07/13/2025 4:00 PM DIRECTOR HEDIS Office Visit [facility] [address] [place] [address] Pedro Lucio MD [address] [place] [address] documented as of this encounter Visit Diagnoses Diagnosis Chronic kidney disease stage 4 (HCC) documented in this encounter Care Teams Critical Care Educator Relationship Specialty Start Date End Date Votel, MD Renny [address] [place] [address] PCP - General Family Medicine 10/11/23 documented as of this encounter
--- NOTE | 2025-04-17 22:58 | ED.GENADULT ---
HPI - General Adult General Time Seen by Provider: 22:58 Date Seen: 04/17/25 Chief complaint: Chest Pain Stated complaint: chest pain Time Seen by Provider: 04/17/25 22:58 Source: patient Mode of arrival: ambulatory Limitations: no limitations History of Present Illness HPI narrative: 74-year-old male with history of coronary bypass, paroxysmal atrial fibrillation, currently anticoagulated on Coumadin, heart failure with reduced ejection fraction with most recent echocardiogram January 02 with ejection fraction 45-50%, presents today with chest pain. Pain started about 3 hours prior to coming to the emergency department, pressure on the right side of the chest which is been constant during that time, does move a little bit left side, nausea with no vomiting, no shortness of breath. Has not taken anything for symptoms, does not have nitroglycerin at home. Related Data Home Medications ?Medication ?Instructions ?Recorded ?Confirmed cholecalciferol (vitamin D3) 50 50 mcg PO DAILY 06/13/23 04/17/25 mcg (2,000 unit) capsule cilostazol 100 mg tablet 100 mg PO BID 06/13/23 04/17/25 pantoprazole 40 mg tablet,delayed 40 mg PO DAILY 06/13/23 04/17/25 release (Protonix) tamsulosin 0.4 mg capsule (Flomax) 0.4 mg PO QHS 06/13/23 04/17/25 insulin NPH isoph U-100 human 100 15 unit subcut DAILY 12/21/23 04/17/25 unit/mL subcutaneous suspension (Humulin N NPH U-100 Insulin (isophane susp)) amlodipine 2.5 mg tablet 2.5 mg PO DAILY 12/22/23 04/17/25 aspirin 81 mg tablet,delayed 81 mg PO QDAY 06/19/24 04/17/25 release (Adult Aspirin Regimen) atorvastatin 80 mg tablet 80 mg PO QHS 06/19/24 04/17/25 bexagliflozin 20 mg tablet 20 mg PO QDAY 06/19/24 04/17/25 (Brenzavvy) carvedilol 3.125 mg tablet 3.125 mg PO BID 06/19/24 04/17/25 ferrous gluconate 324 mg (37.5 mg 324 mg PO QDAY 06/19/24 04/17/25 iron) tablet furosemide 20 mg tablet 10 mg PO QDAY PRN 06/19/24 04/17/25 isosorbide mononitrate 30 mg 30 mg PO QDAY 06/19/24 04/17/25 tablet,extended release 24 hr mirtazapine 30 mg tablet 30 mg PO QHS 06/19/24 04/17/25 warfarin 2 mg tablet 4 mg PO QDAY 06/19/24 04/17/25 Previous Rx's ?Medication ?Instructions ?Recorded melatonin 3 mg tablet 3 mg PO HS PRN Insomnia #30 tabs 06/26/23 Allergies Allergy/AdvReac Type Severity Reaction Status Date / Time Penicillins Allergy Unknown Verified 04/17/25 23:05 [facility] Medical History (Updated 04/17/25 @ 23:48 by Marty Moyer MD) Pulmonary nodule ?R91.1 - Solitary pulmonary nodule (ICD-10) Dysphagia ?R13.10 - Dysphagia, unspecified (ICD-10) PVD (peripheral vascular disease) ?I73.9 - Peripheral vascular disease, unspecified (ICD-10) CKD (chronic kidney disease) ?N18.9 - Chronic kidney disease, unspecified (ICD-10) GERD (gastroesophageal reflux disease) ?K21.9 - Gastro-esophageal reflux disease without esophagitis (ICD-10) Congestive heart failure, unspecified ?I50.9 - Heart failure, unspecified (ICD-10) Hyperlipidemia ?E78.5 - Hyperlipidemia, unspecified (ICD-10) Glaucoma ?H40.9 - Unspecified glaucoma (ICD-10) Psychiatric diagnosis deferred ?R69 - Illness, unspecified (ICD-10) Diabetes mellitus with hyperglycemia ?E11.65 - Type 2 diabetes mellitus with hyperglycemia (ICD-10) Surgical History (Updated 12/21/23 @ 23:20 by Marni Mcgregor MD) History of femoropopliteal bypass ?Z98.890 - Other specified postprocedural states (ICD-10) S/P CABG x 3 ?Z95.1 - Presence of aortocoronary bypass graft (ICD-10) Amputation toe ?S98.139A - Complete traumatic amputation of one unspecified lesser toe, initial encounter (ICD-10) History of angioplasty of peripheral vessel ?Z98.62 - Peripheral vascular angioplasty status (ICD-10) S/P coronary artery stent placement ?Z95.5 - Presence of coronary angioplasty implant and graft (ICD-10) Social History (Updated 12/21/23 @ 23:25 by Marni Mcgregor MD) Narrative: Lives with mother, sister, and GRACIE. (Brother in law Paige would be MDM if needed), requests Full Code status. Former smoker, quit 1979. No current ETOH use. 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 What is your current living situation?: I presently have a place to live Problems where you live: no known problems Problems where you live details: n/a In the past 12 months, utilities in danger of being shut off: no In past 12 months, lack of transportation kept you from medical appts, meetings, work, or getting things needed for daily living: no In the past 12 mos, have been you worried that your food would run out before you had money to buy more?: never true In the past 12 mos, the food you bought just didn't last and you didn't have money to buy more?: never true Highest level of school completed/degree received: high school graduate Smoking Status: Former smoker Do you use any of these nicotine containing products: None Second hand tobacco smoke exposure: Yes How often do you have a drink containing alcohol: never How often do you have six or more drinks on one occasion: Never AUDIT-C Alcohol total score: 0 Non-prescribed substance use: denies use Caffeine: Yes How often does anyone, including family, friends and others, physically hurt you: never How often does anyone, including family, friends and others, insult or talk down to you: never How often does anyone, including family, friends and others, threaten you with harm: never How often does anyone, including family, friends and others, scream or curse at you: never service: Yes Exam Narrative: Exam Narrative: General: Well-developed and well-nourished, no acute distress Head: Atraumatic and normocephalic Eyes: Pupils are equal reactive, extraocular motions intact, conjunctiva clear ENT: External nose and ears are normal, posterior pharynx without erythema or exudate Neck: No midline cervical tenderness, full spontaneous range of motion the neck, trachea midline, no adenopathy Heart: Regular rate and rhythm with 5/6 systolic murmur Lungs: Clear to auscultation bilaterally without wheezes or crackles Abdomen: Soft, RUQ tenderness, nondistended with active bowel sounds Musculoskeletal: No tenderness, deformity, or edema Neurologic: Awake, alert, and oriented x3, no gross focal neurologic deficits, cranial nerves intact as tested Psych: Mood and affect are appropriate Skin: No rashes Const: Vital Signs, click to edit/add: Vital Signs - 24 hr 04/17/25 23:02 Temperature 98.7 F Pulse Rate [Left P ulse Oximeter] 61 Respiratory Rate 18 Blood Pressure [Ri ght Upper Arm] 191/78 H Pulse Oximetry 98 Oxygen Delivery Me thod Room Air Course Course ED Course: Reviewed most recent primary care visit from April 01 which was a Medicare wellness exam, at that time noted to have type 2 diabetes and stage 4 chronic kidney disease related to this, also was having some memory problems at that time, continued on Coumadin. Did review most recent echocardiogram from December 2024 which demonstrated hypokinesis of the inferior wall and mid distal septum, EF 45-50%. Patient seen examined, presents with 3 hours of right-sided chest pain radiating to the left a little bit, nausea but no vomiting. On exam here, hypertensive but otherwise vital is stable, EKG with nonspecific ST changes but no acute ischemic changes. He does have some right-sided abdominal tenderness on exam. Mode of the chest x-ray ordered, nitroglycerin and aspirin are given and will continue to monitor. EKG independently interpreted by me performed at 11:09 p.m. demonstrates normal sinus rhythm rate 63, T-wave inversion in 1, aVL, V5 and V6 with no acute ischemic changes, prior inferior and anterior septal infarct, QTC 442, AL 196. Compared to prior of December 2023 no change Reevaluation(s) Time of Reevaluation #1: 23:37 Reevaluation #1: Labs independently interpreted by me with hemoglobin 11.6 which is improved from prior usual for the patient, troponin 0.01. No improvement of symptoms after nitroglycerin but pain is more epigastric now. Pepcid and GI cocktail ordered. Time of Reevaluation #2: 23:46 Reevaluation #2: Chest x-ray independently interpreted by me with pulmonary vascular congestion and bilateral opacification since reflecting atelectasis or edema, also elevated BNP 3 130 consistent with possible heart failure which may be causing a component of his pain. Lasix IV is ordered, repeat troponin is ordered. Labs independently interpreted by me with creatinine 2.4 which is little better than usual for the patient, alkaline phosphatase 163 but remainder of hepatic panel is normal and lipase 169. Sign out to oncoming provider to follow up on troponin, disposition. Vital Signs Vital signs: Initial Vital Signs Temperature 98.7 F 04/17/25 23:02 Temperature Source Temporal Artery Scan 04/17/25 23:02 Pulse Rate 61 04/17/25 23:02 Respiratory Rate 18 04/17/25 23:02 Blood Pressure 191/78 H 04/17/25 23:02 Blood Pressure Mean 115 H 04/17/25 23:02 Blood Pressure Position Sitting 04/17/25 23:02 Pulse Oximetry 98 04/17/25 23:02 Oxygen Delivery Method Room Air 04/17/25 23:02 Vital Signs Temperature 98.7 F 04/17/25 23:02 Pulse Rate 61 04/17/25 23:02 Respiratory Rate 18 04/17/25 23:02 Blood Pressure 191/78 H 04/17/25 23:02 Pulse Oximetry 98 04/17/25 23:02 Oxygen Delivery Method Room Air 04/17/25 23:02 Temperature 98.7 F 04/17/25 23:02 Pulse Rate 61 04/17/25 23:02 Respiratory Rate 18 04/17/25 23:02 Blood Pressure 191/78 H 04/17/25 23:02 Pulse Oximetry 98 04/17/25 23:02 Oxygen Delivery Method Room Air 04/17/25 23:02 Medications Administered Medications: Generic Name Dose Route Start Last Admin Trade Name Freq PRN Reason Stop Dose Admin Nitroglycerin 0.4 mg 04/17/25 23:09 04/17/25 23:19 Nitroglycerin 0.4 Mg Tab.Subl SUBLINGUAL 0.4 mg Q5M PRN Administration Discontinued Medications Generic Name Dose Route Start Last Admin Trade Name Freq PRN Reason Stop Dose Admin Aspirin 324 mg 04/17/25 23:09 04/17/25 23:17 Aspirin 81 Mg Tab.Chew PO 04/17/25 23:10 324 mg ONCE ONE Administration Medical Decision Making Lab Data Labs: Lab Results 04/17/25 04/17/25 Range/Units 23:01 23:07 WBC 9.63 (4.50-11.00) K/uL RBC 4.01 L (4.30-5.90) m/uL Hgb 11.6 L (13.5-17.5) gm/dL Hct 35.3 L (37.0-53.0) % MCV 88 (80-100) fL MCH 29 (26-34) pg MCHC 33 (32-36) gm/dL RDW Coeff of Orestes 13.9 (11.5-15.5) % Plt Count 181 (140-440) K/uL Neut % (Auto) 77.4 H (42.0-72.0) % Lymph % (Auto) 14.5 L (20-44) % [place] % (Auto) 6.7 (0.0-11.0) % Eos % (Auto) 0.8 (0.0-7.0) % Baso % (Auto) 0.3 (0.0-3.0) % Neut # (Auto) 7.50 H (1.7-7.0) K/uL Lymph # (Auto) 1.40 (0.90-2.90) K/uL [place] # (Auto) 0.60 (0.00-0.90) K/UL Eos # (Auto) 0.08 (0.00-0.50) K/uL Baso # (Auto) 0.03 (0.00-0.30) K/uL Abs Immat Gran (auto) 0.03 (0.00-0.30) K/uL Imm/Tot Granulo (auto) 0.3 % INR 1.81 H (0.91-1.10) Sodium 136 (135-149) mmol/L Potassium 4.3 (3.6-5.1) mmol/L Chloride 106 (96-114) mmol/L Carbon Dioxide 19 L (20-32) mmol/L Anion Gap 11 (7-15) mEq/L BUN 51 H (7-30) mg/dL Creatinine 2.4 H (0.5-1.5) mg/dL Estimated Creat Clear 25.25 Estimated GFR 28 ml/min Glucose 195 H (60-115) mg/dL Calcium 8.8 (8.4-10.6) mg/dL Magnesium 1.9 (1.5-2.6) mg/dL Total Bilirubin 0.4 (0.1-1.5) mg/dL Direct Bilirubin 0.3 (0.0-0.5) mg/dL AST 26 (12-35) U/L ALT 19 (4-50) U/L Alkaline Phosphatase 163 H (40-150) U/L NT-Pro-B Natriuret Pep 3130 H (See Note) pg/mL Total Protein 7.5 (6.0-8.3) g/dL Albumin 4.1 (3.3-5.0) g/dL Lipase 169 (23-300) U/L POC Troponin I 0.01 (0.01-0.04) ng/ml Discharge Plan Discharge Clinical Impression: Acute on chronic HFrEF (heart failure with reduced ejection fraction), CAD (coronary artery disease), Chest pain, Subtherapeutic international normalized ratio (INR), Anticoagulated on Coumadin Prescriptions: No Action furosemide 20 mg tablet 10 mg PO QDAY PRN isosorbide mononitrate 30 mg tablet extended release 24 hr 30 mg PO QDAY bexagliflozin [Brenzavvy] 20 mg tablet 20 mg PO QDAY ferrous gluconate 324 mg (37.5 mg iron) tablet 324 mg PO QDAY aspirin [Adult Aspirin Regimen] 81 mg tablet,delayed release (DR/EC) 81 mg PO QDAY warfarin 2 mg tablet 4 mg PO QDAY mirtazapine 30 mg tablet 30 mg PO QHS carvedilol 3.125 mg tablet 3.125 mg PO BID Rx Instructions: must administer with a meal/food atorvastatin 80 mg tablet 80 mg PO QHS cholecalciferol (vitamin D3) 50 mcg (2,000 unit) capsule 50 mcg PO DAILY cilostazol 100 mg tablet 100 mg PO BID pantoprazole [Protonix] 40 mg tablet,delayed release (DR/EC) 40 mg PO DAILY tamsulosin [Flomax] 0.4 mg capsule 0.4 mg PO QHS melatonin 3 mg Tablet 3 mg PO HS PRN (Reason: Insomnia) Qty: 30 0RF Humulin N NPH U-100 Insulin 100 unit/mL Suspension 15 unit subcut DAILY Patient Comments: LAST ADMISSION WAS 8 UNITS SUBQ DAILY amlodipine 2.5 mg tablet 2.5 mg PO DAILY Follow Up/Referrals: Pedro Lucio MD [Primary Care Provider, Internal Medicine]
[2025-04-17 23:02] VITALS: BP 191/78; PULSE 61; RESP 18; TEMP 37.1; O2SAT 98; BMI 25.7
--- NOTE | 2025-04-17 23:10 | CRLHL7_ITS ---
For Patients: As a result of the Cures Act, medical imaging exams and procedure reports are released immediately into your electronic medical record. You may view this report before your referring provider. If you have questions, please contact your health care provider. Indication: Chest pain. Technique: Chest 1 view. Comparison: Chest x-ray 12/23/2023. Findings/Impression: The cardiac silhouette is magnified but likely enlarged. There is pulmonary vascular congestion. Patchy bilateral airspace opacification may reflect atelectasis or edema, however developing infectious process is not definitively excluded in the appropriate clinical context. No pleural effusion or pneumothorax. No acute osseous abnormality. Dictated by Hermes Garay MD @ 04/17/2025 11:23:15 PM (Electronically Signed)
[2025-04-17 23:16] LABS: Hematocrit 35.3 % (37.0-53.0); Hemoglobin* 11.6 gm/dL (13.5-17.5); Immature Granulocytes Abs Auto 0.03 K/uL (0.00-0.30); Immature Granulocytes Pct Auto 0.3 %; Lymphocytes Absolute Auto 1.40 K/uL (0.90-2.90); Mean Corpuscular HGB Conc 33 gm/dL (32-36); Mean Corpuscular Hemoglobin 29 pg (26-34); Mean Corpuscular Volume 88 fL (80-100); RDW Coefficient of Variation % 13.9 % (11.5-15.5); Red Blood Count 4.01 m/uL (4.30-5.90); White Blood Count* 9.63 K/uL (4.50-11.00)
[2025-04-17 23:17] VITALS: BP 177/88; RESP 18
[2025-04-17] MEDS: ASPIRIN 81 MG TAB.CHEW 324 MG PO (23:17)
[2025-04-17 23:18] LABS: Slide Review Reflex No
[2025-04-17] MEDS: NITROGLYCERIN 0.4 MG TAB.SUBL SUBLINGUAL (23:19)
[2025-04-17 23:21] LABS: Troponin, Point-of-Care* 0.01 ng/ml (0.01-0.04)
[2025-04-17 23:27] LABS: Albumin* 4.1 g/dL (3.3-5.0); Chloride* 106 mmol/L (96-114)
[2025-04-17 23:28] LABS: Potassium* 4.3 mmol/L (3.6-5.1); Sodium* 136 mmol/L (135-149)
[2025-04-17 23:30] LABS: Alanine Aminotransferase* 19 U/L (4-50); Anion Gap 11 mEq/L (7-15); Aspartate Amino Transferase* 26 U/L (12-35); Bilirubin Direct* 0.3 mg/dL (0.0-0.5); Bilirubin Total* 0.4 mg/dL (0.1-1.5); Blood Urea Nitrogen* 51 mg/dL (7-30); Carbon Dioxide* 19 mmol/L (20-32); Creatinine* 2.4 mg/dL (0.5-1.5); Est. Creatinine Clearance* 25.25; Estimated Glomerular Filt Rate 28 ml/min; Total Protein* 7.5 g/dL (6.0-8.3)
[2025-04-17 23:31] LABS: Alkaline Phosphatase* 163 U/L (40-150); Calcium* 8.8 mg/dL (8.4-10.6); Glucose* 195 mg/dL (60-115)
[2025-04-17 23:32] VITALS: BP 183/86; PULSE 60; RESP 18; O2SAT 97
[2025-04-17 23:40] LABS: NT Pro B Type NatriureticPept* 3130 pg/mL (See Note)
[2025-04-17 23:41] LABS: INR 1.81 (0.91-1.10); Prothrombin Time 22.1 Seconds
[2025-04-17] MEDS: GI COCKTAIL (VISC LIDO/ANTACID) 30 ML PO (23:42)
[2025-04-17] MEDS: FAMOTIDINE 10 MG/ML inj 20 MG IVP (23:44)
[2025-04-17 23:47] VITALS: BP 154/91; PULSE 60; RESP 15; O2SAT 97
[2025-04-18] VITALS (57 sets, daily range): BP systolic 122–206; BP diastolic 62–97; PULSE 58–80; RESP 0–28; O2SAT 91–98
[2025-04-18] MEDS: FUROSEMIDE 10 MG/ML inj 40 MG IVP
[2025-04-18 01:20] LABS: Troponin, Point-of-Care* 0.03 ng/ml (0.01-0.04)
[2025-04-18] MEDS: MORPHINE 4 MG/ML INJ IVP (01:50)
--- NOTE | 2025-04-18 02:40 | CRLHL7_ITS ---
For Patients: As a result of the Century Cures Act, medical imaging exams and procedure reports are released immediately into your electronic medical record. You may view this report before your referring provider. If you have questions, please contact your health care provider. INDICATION: Abdominal pain. TECHNIQUE: CT abdomen and pelvis without contrast. COMPARISON: CT abdomen pelvis 06/16/2023. FINDINGS: Lower chest: Cardiomegaly. Ground-glass opacities at the lung bases bilaterally. Liver: Unremarkable. Gallbladder and bile ducts: Distended gallbladder with mild gallbladder wall thickening. Cholelithiasis with gallstone likely located within the cystic duct versus common bile duct. Common bile duct is mildly dilated at 9 mm. No intrahepatic biliary dilatation. Pancreas: Unremarkable. Spleen: Unremarkable. Adrenal glands: Multiple right adrenal nodules with largest measuring 2.0 cm, unchanged compared to prior compatible with adenomas. Normal left adrenal gland. Kidneys: No hydronephrosis or hydroureter. No urinary calculi. GI tract: No bowel obstruction. Prominent colonic stool burden. No suspicious bowel wall thickening. No CT evidence of acute appendicitis. Vasculature: Prominent atherosclerotic calcifications. No abdominal aortic aneurysm. Lymph nodes: No suspicious lymphadenopathy. Peritoneum/Abdominal Wall: No ascites or pneumoperitoneum. Fat containing left inguinal hernia. Pelvis: Normal bladder. Unremarkable prostate and seminal vesicles. Bones: No acute abnormality. IMPRESSION: 1. Cholelithiasis with findings suspicious for acute cholecystitis including gallbladder distension, mild gallbladder wall thickening, and mild common bile duct dilatation with stone noted within the cystic duct versus common bile duct. 2. Prominent colonic stool burden. 3. Ground-glass opacities at the lung bases bilaterally may reflect sequelae of mild infectious/inflammatory process. Clinical correlation recommended. 4. Cardiomegaly. Please note that all CT scans at this facility use dose modulation, iterative reconstruction, and/or weight-based dosing when appropriate to reduce radiation dose to as low as reasonably achievable. Dictated by Hermes Garay MD @ 04/18/2025 3:15:30 AM (Electronically Signed)
[2025-04-18] MEDS: SIMETHICONE 80 MG TAB.CHEW PO (03:11)
[2025-04-18] MEDS: ONDANSETRON 2 MG/ML inj 4 MG IVP (03:11)
--- NOTE | 2025-04-18 03:42 | CRLHL7_ITS ---
For Patients: As a result of the Century Cures Act, medical imaging exams and procedure reports are released immediately into your electronic medical record. You may view this report before your referring provider. If you have questions, please contact your health care provider. Indication: Pain. Abnormal CT Technique: Sonography of the abdomen was performed limited to the structures discussed below. Comparison: Limited portions of a CT dated April 18, 2025 Findings: Gallbladder wall is mildly thickened at 4 millimeters. The gallbladder is distended. There is a small amount of pericholecystic fluid and focal areas of intramural edema. A sonographic Benson`s sign is noted. There are multiple gallstones identified. The common duct is dilated at 1.2 centimeters. The distal duct is not visible on this exam Impression: Findings likely indicating acute cholecystitis. Dilated common bile duct at 1.2 centimeters. The distal duct is not visible on this exam. Dictated by Ralph Mcghee MD @ 04/18/2025 4:28:00 AM (Electronically Signed)
[2025-04-18] MEDS: cefTRIAXone 1 GM in 0.9 % SODIUM CHLORIDE Mini-bag 100 ML IVPB (05:18)
== END 2025-04-18 07:53 | disposition short-term general hospital (02) ==
PROVIDERS: Emergency Provider Family Medicine; PCP Internal Medicine Nephrology
DX: I50.23 Acute on chronic systolic (congestive) heart failure (principal); I25.10 Atherosclerotic heart disease of native coronary artery without angina pectoris; Z79.01 Long term (current) use of anticoagulants
CPT/HCPCS: 36415; 71045; 74176; 76705; 80048; 80076; 83690; 83735; 83880; 84484; 85025; 85610; 93005; 96365; 96375; 99285; A9270; J0696; J1308; J1938; J2270; J2405; J7030

== ENCOUNTER 2025-04-18 07:38 | Outpatient (CLI) | payer MEDICARE, BC, SELFPAY | END 2025-04-18 07:39 | disposition home or self-care (01) | PROVIDERS: PCP Internal Medicine Nephrology; Visit Provider Emergency Medicine | DX: K81.0 Acute cholecystitis (principal) | CPT/HCPCS: A0425; A0427 ==